=== PATIENT | female | born 1970 | race Two or more races ===

== ENCOUNTER 2020-04-30 13:13 | Outpatient (REF) | payer OTHER, SELFPAY | END 2020-04-30 13:14 | disposition home or self-care (01) | LOC: HO.LAB 13:13 | PROVIDERS: Visit Provider Internal Medicine | DX: Z20.828 Contact with and (suspected) exposure to other viral communicable diseases (principal) | CPT/HCPCS: C9803; U0003 ==

== ENCOUNTER 2020-10-15 23:38 | Emergency (ER) | payer MEDICAID, SELFPAY ==
--- NOTE | ~2020-10-15 | XR_ITS ---
EXAMINATION: XR FOOT, LEFT CLINICAL INFORMATION: Ecchymotic left great toe COMPARISON: None TECHNIQUE: AP, lateral, and oblique views of the left foot. FINDINGS: Osseous alignment is anatomic. No acute fracture is seen. No significant focal soft tissue abnormality identified. XR/XR foot LT min 3V IMPRESSION: No acute findings identified.
[2020-10-16 01:01] VITALS: BP 131/75; PULSE 120; RESP 18; TEMP 36.3; O2SAT 99; BMI 64.2
--- NOTE | 2020-10-16 03:17 | PC.NURSE ---
pt reports she spent 1 month in the ICU on a ventilator DX with covid, while in [place]. Providers aware of discoloration on left great toe.
--- NOTE | 2020-10-16 03:28 | PC.NURSE ---
PT ALSO ON 2 LPM 02 AT HOME, FOLLOWING DISCHARGE FROM HOSPITAL LAST WEEK.
--- NOTE | 2020-10-16 03:43 | ED.GENADULT ---
HPI - General Adult General Chief complaint: General Medical Stated complaint: toe injury - covid + in august Time Seen by Provider: 10/16/20 03:43 Source: patient and family Mode of arrival: ambulatory History of Present Illness HPI narrative: This is a 49-year-old female with significant past medical history of diabetes as well as having undergone an extensive and prolonged recovery from COVID-19 positivity in the month of August down in [place]. During the month of her recovery and [place] she was in the ICU and had requirements for a ventilator. Her family member, who is at bedside, states that they just returned to the [place] yesterday and she was concerned regarding the appearance of her the left great toe which is bluish in color and is very painful to touch. The family member does state that this discoloration was present at the time of discharge from the hospital. In addition, she points out that there is evidence of an ulcer to the lateral aspect of the left heel. Otherwise, there are no acute complaints other than noted that her mother appeared to be ?sweating?. Patient denies any fevers, chills, nausea, vomiting, changes in shortness of breath, calf pain/swelling. Related Data Allergies Allergy/AdvReac Type Severity Reaction Status Date / Time No Known Allergies Allergy Unverified 02/13/20 16:29 Review of Systems Review of Systems: Pertinent positives and negatives as stated in HPI 10 point review of systems is otherwise negative. PMFSH Past Medical History Source: nursing notes reviewed Social History Social History Advance Directives: No Advance Directives Information Provided: No Patient : No Physical Exam Vital Signs: Vital Signs: Last Vital Signs Temp 97.3 F 10/16/20 01:01 Pulse 111 H 10/16/20 04:04 Resp 16 10/16/20 04:04 BP 129/68 10/16/20 04:04 Pulse Ox 99 10/16/20 01:01 Oxygen Flow Rate 2 10/16/20 01:01 Body Mass Index 64.2 VITAL SIGNS: Reviewed. GENERAL: Well developed, well nourished, in no acute distress. HEAD: Normocephalic/atraumatic, EYES: PERRLA, EOMI EARS: Ext canals without abnormality NOSE: Nares patent bilateral OROPHARYNX: no oral lesions noted, posterior pharynx clear NECK: Supple, no adenopathy LUNGS: Normal breath sounds. No adventitious sounds or accessory muscle use. SpO2<99> patient is on supplemental oxygen from home at 2L CARDIOVASCULAR: Regular rate and rhythm without noted murmurs, no JVD or lower extremity edema. ABDOMEN: Soft, non-tender, non-distended with bowel sounds. LEFT FOOT: The left great toe is noted to be bluish in color, severe pain on touching, as well as a well-healing area on the lateral left heel which was likely a pressure ulcer, capillary refill is less than 3 seconds, palpable DP/PT. NEUROLOGIC: Alert and oriented x 4. Course Course Course Narrative: This is a 49-year-old female with history and clinical presentation consistent with continued recovery from severe COVID-19 infection. As patient is not on anticoagulation concerns for HIT not considered, but possibility of a spectrum of ?COVID-19 toes? a consideration. The toe does not appear to be infected. Review of all investigations significant for a decrease in hemoglobin from 14.2 down to 8.6, however this is felt to be secondary to patient's recovery course from COVID-19 as there has been no evidence of bleeding. On further discussion with the family member she corroborates that the patient has been having this in [place] during her admission as well. Otherwise, patient has remained hemodynamically stable and review of x-rays negative for fracture, dislocation, evidence of subcutaneous air. Discussed all results and findings with patient and family member and stressed the importance of outpatient follow-up with the primary care provider to monitor the left great toe as well as the heel of the left foot. Medical Decision Making Lab Data Result diagrams: 10/16/20 04:16 10/16/20 04:16 Labs: Lab Results 10/16/20 10/16/20 10/16/20 Range/Units 04:09 04:16 04:16 WBC 5.0 (4.8-10.8) X10*3/uL RBC 2.94 L (4.20-5.50) X10*6/uL Hgb 8.6 L (12.0-16.0) g/dl Hct 26.9 L (37-47) % MCV 91.5 (80-98) fL MCH 29.3 (27.0-33.0) pg MCHC 32.0 (31.0-35.0) g/dl RDW 15.3 (11.0-16.0) % Plt Count 246 (160-400) X10*3/uL MPV 10.6 (9.4-12.3) fL Immature Gran % (Auto) 2.0 H (0.0-0.4) % Neut % (Auto) 56.9 (45-73) % Lymph % (Auto) 28.5 (20-40) % Bledsoe % (Auto) 9.6 (2-11) % Eos % (Auto) 3.0 (0-4) % Baso % (Auto) 0.0 (0-2) % Lymph # (Auto) 1.4 (1.2-4.9) X10*3/uL Bledsoe # (Auto) 0.5 (0.1-1.2) X10*3/uL Eos # (Auto) 0.2 (0.0-0.4) X10*3/uL Baso # (Auto) 0.0 (0.0-0.2) X10*3/uL Abs Immat Gran (auto) 0.10 H (0.00-0.03) X10*3/uL Absolute Neuts (auto) 2.8 (2.0-8.3) X10*3/uL Absolute Nucleated RBC 0.000 (0.0-0.012) X10*3/uL Nucleated RBC % (auto) 0.0 (0.0-0.2) /100WBC Sodium 140 (135-145) mmol/L Potassium 3.8 (3.3-5.1) mmol/L Chloride 100 (96-108) mmol/L Carbon Dioxide 31 H (22-29) mmol/L Anion Gap 13 (12-20) BUN 18 H (9-16) mg/dL Creatinine 0.58 (0.5-1.4) mg/dL Estim Creat Clear Calc 197.2 Estimated GFR > 60 POC Glucose 183 H (60-115) mg/dL Random Glucose 207 H (60-115) mg/dL Calcium 9.4 (8.4-10.2) mg/dL Total Bilirubin 0.2 (0.0-1.0) mg/dL AST 14 (5-31) U/L ALT 25 (0-31) U/L Alkaline Phosphatase 119 H (39-117) U/L Total Protein 5.9 L (6.5-8.0) g/dL Albumin 3.7 (3.5-5.0) g/dL Discharge Plan Discharge Clinical Impression: COVID toes Patient Disposition: Home, Self-Care Instructions: COVID-19 (Coronavirus Disease 2019) (ED) Additional Instructions: 1. Reanude todos los medicamentos caseros seg?n lo prescrito. 2. Aumente la hidrataci?n de l?quidos con agua y Gatorade sin az?car. 3. Kota un seguimiento con cash proveedor de atenci?n primaria hoy mismo. Regrese a la lamonte de emergencias si desarrolla alg?n s?ntoma que empeora. Referrals: Isabel Ramsay MD [Primary Care Provider] - 2 days (Re-evaluation after patient seen in the ER for discoloration of the left great toe. No evidence of fracture or dislocation, but as patient is diabetic this toe will need to be monitored.) Print Language: Japanese
[2020-10-16 04:04] VITALS: BP 129/68; PULSE 111; RESP 16
[2020-10-16 04:20] LABS: Glucose, Whole Blood 183 mg/dL (60-115)
[2020-10-16 04:21] LABS: Eosinophils Absolute Auto 0.2 X10*3/uL (0.0-0.4); Hematocrit 26.9 % (37-47); Hemoglobin 8.6 g/dl (12.0-16.0); Lymphocytes Absolute Auto 1.4 X10*3/uL (1.2-4.9); Lymphocytes Percent Auto 28.5 % (20-40); Mean Corpuscular Hemoglobin 29.3 pg (27.0-33.0); Mean Corpuscular Volume 91.5 fL (80-98); Mean Platelet Volume 10.6 fL (9.4-12.3); Monocytes Absolute Auto 0.5 X10*3/uL (0.1-1.2); Monocytes Percent Auto 9.6 % (2-11); Neutrophils Absolute Auto 2.8 X10*3/uL (2.0-8.3); Neutrophils Percent Auto 56.9 % (45-73); Platelet Count 246 X10*3/uL (160-400); Red Blood Count 2.94 X10*6/uL (4.20-5.50); Red Cell Distribution Width 15.3 % (11.0-16.0)
[2020-10-16 04:22] LABS: MANUAL DIFF FLAG NO
[2020-10-16] MEDS: Ibuprofen 400 MG TABLET PO (04:26)
[2020-10-16] MEDS: Acetaminophen 325 MG TABLET 975 MG PO (04:27)
[2020-10-16 04:49] LABS: Alanine Aminotransferase 25 U/L (0-31); Albumin Level 3.7 g/dL (3.5-5.0); Alkaline Phosphatase 119 U/L (39-117); Anion Gap 13 (12-20); Aspartate Amino Transferase 14 U/L (5-31); Bilirubin Total 0.2 mg/dL (0.0-1.0); Blood Urea Nitrogen 18 mg/dL (9-16); Calcium 9.4 mg/dL (8.4-10.2); Carbon Dioxide 31 mmol/L (22-29); Chloride 100 mmol/L (96-108); Creatinine Clr Calc Pharmacy 197.2; Estimated Glomerular Filt Rate > 60; Glucose Random 207 mg/dL (60-115); Potassium 3.8 mmol/L (3.3-5.1); Sodium 140 mmol/L (135-145); Total Protein 5.9 g/dL (6.5-8.0)
== END 2020-10-16 06:30 | disposition home or self-care (01) ==
PROVIDERS: Emergency Provider Student in an Organized Health Care Education/Training Program; PCP Internal Medicine
DX: B94.8 Sequelae of other specified infectious and parasitic diseases (principal); M79.674 Pain in right toe(s)
CPT/HCPCS: 36415; 73630; 80053; 82947; 85025; 99283; 99284

== ENCOUNTER 2020-10-27 11:33 | Outpatient (REF) | payer MEDICAID, SELFPAY ==
--- NOTE | ~2020-10-27 | XR_ITS ---
EXAMINATION: XR CHEST CLINICAL INFORMATION: Toxemia COMPARISON: Chest 12/30/2017 TECHNIQUE: 2 views of the chest were obtained. FINDINGS: There is persistently limited left hemidiaphragm with moderate opacity in the left upper lobe suggestive of atelectasis and/or infiltrate. There is patchy atelectasis infiltrate right upper lobe and right lower lobe. The heart size is enlarged. Pulmonary vascularity is normal. XR/XR chest 2V IMPRESSION: Multilobar patchy infiltrates involving left upper lobe, right upper lobe and right lower lobe. Underlying atelectasis is suspected as well. Moderately elevated left hemidiaphragm is unchanged since 12/30/2017.
== END 2020-10-27 11:34 | disposition home or self-care (01) ==
LOC: HO.XRAY 11:33
PROVIDERS: PCP Internal Medicine; Visit Provider Internal Medicine
DX: R06.00 Dyspnea, unspecified (principal); R09.02 Hypoxemia; B94.8 Sequelae of other specified infectious and parasitic diseases; G62.9 Polyneuropathy, unspecified; D64.9 Anemia, unspecified; E11.9 Type 2 diabetes mellitus without complications; I99.8 Other disorder of circulatory system; Z79.82 Long term (current) use of aspirin; Z79.84 Long term (current) use of oral hypoglycemic drugs; Z79.899 Other long term (current) drug therapy; Z99.81 Dependence on supplemental oxygen
CPT/HCPCS: 71046; 99202

== ENCOUNTER 2020-10-29 16:25 | Outpatient (REF) | payer MEDICAID, SELFPAY ==
--- NOTE | ~2020-10-29 | XR_ITS ---
EXAMINATION: XR FOOT, LEFT CLINICAL INFORMATION: Left toe pain. COMPARISON: Left foot radiographs dated 10/16/2020. TECHNIQUE: AP, lateral, and oblique views of the left foot. FINDINGS: No acute fracture or dislocation. No joint space narrowing or marginal osteophytes. No osseous erosion. No abnormal soft tissue calcification. XR/XR foot LT min 3V IMPRESSION: Unremarkable examination.
== END 2020-10-29 16:26 | disposition home or self-care (01) ==
LOC: HO.XRAY 16:25
PROVIDERS: PCP Internal Medicine; Visit Provider Internal Medicine
DX: M79.675 Pain in left toe(s) (principal)
CPT/HCPCS: 73630

== ENCOUNTER 2020-11-06 08:09 | Outpatient (RCR) | payer MEDICAID, SELFPAY | END 2020-11-09 16:25 | disposition home or self-care (01) | LOC: HO.WCC 08:09 | PROVIDERS: Visit Provider Physician Assistant | DX: E11.628 Type 2 diabetes mellitus with other skin complications (principal); L84 Corns and callosities; Z86.16 Personal history of COVID-19; Z99.81 Dependence on supplemental oxygen | CPT/HCPCS: 99212 ==

== ENCOUNTER 2020-11-11 12:53 | Outpatient (REF) | payer MEDICAID, SELFPAY ==
--- NOTE | 2020-11-11 14:06 | PFT_ITS ---
INDICATION: Post-COVID syndrome. SPIROMETRY: FEV1 to FVC of 91% with an FEV1 of 1.03 L, which is 34% predicted, an FVC of 1.13 L, which is 30% predicted. No significant response to bronchodilators noted. Maximum voluntary ventilation 50% predicted. LUNG VOLUMES: Total lung capacity 42% predicted with an expiratory reserve volume of 12% predicted likely secondary to an elevated BMI. DIFFUSION CAPACITY: DLCO 33% predicted. COMPARISONS: None available. INTERPRETATION: There is a severe restrictive ventilatory defect suggesting the possibility of underlying parenchymal lung disease after COVID. In addition to that, there is a severe decrease in the expiratory reserve volume likely secondary to an elevated BMI. No evidence of obstruction. No significant response to bronchodilators noted. There is a decrease in maximum voluntary ventilation secondary to likely deconditioning, although neuromuscular conditions cannot be ruled out. In addition to that, the patient does have a severe diffusion impairment. Of note, it does correct to normal when correcting for the alveolar volume, which is reassuring. Clinical correlation warranted. MD EUN Rojas/MODCelia / [id number]
== END 2020-11-11 12:54 | disposition home or self-care (01) ==
LOC: HO.RESP 12:53
PROVIDERS: PCP Internal Medicine; Visit Provider Internal Medicine
DX: R06.00 Dyspnea, unspecified (principal); R09.02 Hypoxemia; B94.8 Sequelae of other specified infectious and parasitic diseases
CPT/HCPCS: 94060; 94727; 94729; 99212

== ENCOUNTER → 2021-01-06 13:46 | Outpatient (BNVA) | payer MEDICAID, SELFPAY | PROVIDERS: PCP Internal Medicine; Visit Provider Internal Medicine | DX: J98.4 Other disorders of lung (principal); R09.02 Hypoxemia; R06.00 Dyspnea, unspecified; B94.8 Sequelae of other specified infectious and parasitic diseases | CPT/HCPCS: 99212 ==

== ENCOUNTER → 2021-05-03 10:00 | Outpatient (BNVA) | payer MEDICAID, SELFPAY | PROVIDERS: PCP Internal Medicine; Visit Provider Internal Medicine | DX: J98.4 Other disorders of lung (principal); R06.00 Dyspnea, unspecified; R09.02 Hypoxemia; R00.0 Tachycardia, unspecified | CPT/HCPCS: 99212 ==

== ENCOUNTER 2021-06-11 10:55 | Outpatient (REF) | payer MEDICAID, SELFPAY ==
--- NOTE | ~2021-06-11 | XR_ITS ---
EXAMINATION: XR SHOULDER, LEFT CLINICAL INFORMATION: Left shoulder pain COMPARISON: Previous chest x-ray October 2020 TECHNIQUE: Three views of the left shoulder. FINDINGS: The bones and soft tissues are normal. No fracture. Glenohumeral and acromioclavicular alignment is anatomic with normal joint space. No abnormal soft tissue calcifications. The left hemidiaphragm is elevated. There is atelectasis or scarring in the left lung. This may be slightly improved compared to October 2020 exam. XR/XR shoulder LT min 2V IMPRESSION: Normal left shoulder.
== END 2021-06-11 10:56 | disposition home or self-care (01) ==
LOC: HO.XRAY 10:55
PROVIDERS: Visit Provider Registered Nurse Community Health
DX: M25.512 Pain in left shoulder (principal)
CPT/HCPCS: 73030

== ENCOUNTER 2021-07-30 15:29 | Outpatient (REF) | payer MEDICAID, SELFPAY ==
--- NOTE | ~2021-07-30 | MM_ITS ---
EXAMINATION: MM SCREENING DIGITAL BREAST TOMOSYNTHESIS, BILATERAL CLINICAL INFORMATION: Screening. Asymptomatic. The lifetime risk of breast cancer based on the Tyrer-Cuzick Model is 6%. COMPARISON: Mammography: 12/10/2018, 06/11/2018, 1 11/02/2018, 07/19/2016, 06/16/2015; left breast ultrasound 12/10/2018, 06/11/2018 TECHNIQUE: Digital breast tomosynthesis is performed in both the craniocaudal and mediolateral oblique views along with computer-aided detection (CAD). Synthesized 2D images are generated from the tomosynthesis. FINDINGS: There are scattered areas of fibroglandular density (ACR BI-RADS breast composition Category b). Parenchymal pattern is similar to prior studies. The left breast has stable 5 mm nodule central breast mid depth. The right breast has small nodular asymmetry central anterior breast, decreased since 2019. There is no interval significant mass or architectural abnormality or developing density. No abnormal calcifications. The axilla and skin contours are unremarkable. MM/MM tomosynthesis screening BI IMPRESSION: No significant changes from prior exams. ASSESSMENT: BI-RADS 2: Benign RECOMMENDATION: Routine annual mammography screening. This patient's information was entered into a reminder system with a target due date for their next mammogram.
== END 2021-07-30 15:30 | disposition home or self-care (01) ==
LOC: HO.MAMMO 15:29
PROVIDERS: Visit Provider Internal Medicine
DX: Z12.31 Encounter for screening mammogram for malignant neoplasm of breast (principal)
CPT/HCPCS: 77063; 77067

== ENCOUNTER → 2021-08-18 10:40 | Outpatient (BNVA) | payer MEDICAID, SELFPAY | PROVIDERS: PCP Internal Medicine; Visit Provider Anesthesiology | DX: R22.30 Localized swelling, mass and lump, unspecified upper limb (principal) | CPT/HCPCS: 99202 ==

== ENCOUNTER 2021-08-31 07:54 | Outpatient (REF) | payer MEDICAID, SELFPAY ==
--- NOTE | ~2021-08-31 | US_ITS ---
EXAMINATION: ULTRASOUND EXTREMITY NONVASCULAR CLINICAL INFORMATION: Localized swelling, mass and lump COMPARISON: None TECHNIQUE: Grayscale and color imaging of the soft tissues of the left upper arm using a linear transducer. Comparison imaging of the right upper arm was performed. FINDINGS: No mass or fluid collection is seen. US/US extremity nonvascular IMPRESSION: No abnormality seen by ultrasound.
--- NOTE | ~2021-08-31 | US_ITS ---
EXAMINATION: US ABDOMEN COMPLETE CLINICAL INFORMATION: Fatty liver. COMPARISON: CT abdomen and pelvis 08/07/2019. Ultrasound abdomen complete 05/06/2011. TECHNIQUE: Real-time imaging of the abdominal viscera. FINDINGS: PANCREAS: The pancreas is obscured by overlying gas. ABDOMINAL AORTA: The proximal, mid, and distal segments are normal in caliber. INFERIOR VENA CAVA: Visualized portions are normal. LIVER: The liver is normal in size. The liver contour is normal. There is diffuse increased liver echogenicity. No focal hepatic lesion. There is no intrahepatic biliary duct dilatation seen. GALLBLADDER: Surgically absent. COMMON BILE DUCT: Normal in caliber measuring 0.4 cm in diameter. RIGHT KIDNEY: Normal. No hydronephrosis. No renal calculi or focal parenchymal lesions. The kidney measures 11.9 cm in maximum dimension. LEFT KIDNEY: There is anechoic cyst midpole measuring 1.9 x 1.7 x 2.1 cm. There is an echogenic stone in the midpole measuring 0.54 x 0.42 x 0.51 cm. No hydronephrosis. The kidney measures 11.0 cm in maximum dimension. SPLEEN: Normal. The spleen measures 12.5 cm in maximum dimension. FREE FLUID: None. US/US abdomen complete IMPRESSION: Diffuse hepatic steatosis without focal lesion seen. Left renal nonobstructive echogenic stone measuring 5 mm and a 2.1 cm cyst midpole. A 2 mm radiopaque calculi was seen in the midpole left kidney on previous CT abdomen and pelvis exam 08/07/2019. Rest of the abdominal ultrasound is unremarkable.
== END 2021-08-31 07:55 | disposition home or self-care (01) ==
LOC: HO.US 07:54
PROVIDERS: Visit Provider Internal Medicine
DX: R22.30 Localized swelling, mass and lump, unspecified upper limb (principal); K76.0 Fatty (change of) liver, not elsewhere classified
CPT/HCPCS: 76700; 76882

== ENCOUNTER → 2021-10-27 10:32 | Outpatient (BNVA) | payer MEDICAID, SELFPAY | PROVIDERS: PCP Internal Medicine; Visit Provider Internal Medicine | DX: J98.4 Other disorders of lung (principal); J45.909 Unspecified asthma, uncomplicated; R06.00 Dyspnea, unspecified | CPT/HCPCS: 99212 ==

== ENCOUNTER 2022-03-10 08:49 | Outpatient (REF) | payer MEDICAID, SELFPAY ==
--- NOTE | ~2022-03-10 | MM_ITS ---
EXAMINATION: BONE DENSITOMETRY CLINICAL INDICATION: Menopause. COMPARISON: None (current study represents initial baseline exam). TECHNIQUE: Using a HomeTouch DXA System (software version: 13.1) manufactured by [employer], dual-energy x-ray absorptiometry was performed of the lumbar spine and left hip. The images are of good technical quality. Summary results are attached. FINDINGS: AP SPINE L1-L4: BMD 1.078 g/cm2, Z-score -1.1, T-score -0.8, normal. LEFT FEMUR, NECK: BMD 0.676 g/cm2, Z-score -2.3, T-score -2.6, osteoporosis. LEFT FEMUR, TOTAL: BMD 0.694 g/cm2, Z-score -2.5, T-score -2.5, osteoporosis. IDENTIFIED RISK FACTORS: Early menopause, secondary osteoporosis, history of fracture (adult), hysterectomy, bilateral oophorectomy, recurrent falls. HISTORY OF FRACTURE: Wrist. MEDICATIONS: Calcium supplements or multivitamin, vitamin D. MM/XR DEXA axial skeleton IMPRESSION: 1. DIAGNOSIS: Osteoporosis based on the lowest T-score value of -2.6 in the femoral neck applying World Health Organization criteria. 2. 10-YEAR FRACTURE RISK PREDICTION, FRAX: According to the guidelines, FRAX calculation should only be performed on patients in the osteopenia bone density category. Therefore, FRAX was not performed on this patient. 3. Treatment Recommendations: NOF guidelines recommend consideration for treatment in postmenopausal women and men age 50 and older presenting with the following: -A hip or vertebral (clinical or morphometric) fracture. -T-score less than or equal to -2.5 at the femoral neck or spine after appropriate evaluation to exclude secondary causes. -Low bone mass at the hip or spine and a 10-year fracture probability by FRAX of greater than or equal to 3% for hip fracture or greater than or equal to 20% for major osteoporotic fracture based on the [place] adapted WHO algorithm. 4. Other Recommendations: All treatment decisions require clinical judgment and consideration of individual patient factors, including patient preferences, comorbidities, previous drug use, risk factors not captured in the FRAX model (e.g. frailty, falls, vitamin D deficiency, increased bone turnover, interval significant decline in bone density) and possible under or overestimation of fracture risk by FRAX. Additional medical evaluation for secondary cause of low bone mineral density may be appropriate. FUTURE SCAN RECOMMENDATION: People with diagnosed cases of osteoporosis or at high risk for fracture should have regular bone mineral density tests. For patients eligible for Medicare, routine testing is allowed once every 2 years. The testing frequency can be increased to one year for patients who have rapidly progressing disease, those who are receiving or discontinuing medical therapy to restore bone mass, or have additional risk factors.
== END 2022-03-10 08:50 | disposition home or self-care (01) ==
LOC: HO.MAMMO 08:49
PROVIDERS: PCP Internal Medicine; Visit Provider Advanced Practice Midwife
DX: Z13.820 Encounter for screening for osteoporosis (principal); N95.9 Unspecified menopausal and perimenopausal disorder; Z78.0 Asymptomatic menopausal state
CPT/HCPCS: 77080

== ENCOUNTER 2022-04-12 10:39 | Outpatient (REF) | payer MEDICAID, SELFPAY ==
[2022-04-12 13:59] LABS: MANUAL DIFF FLAG NO
[2022-04-12 14:15] LABS: Alanine Aminotransferase 21 U/L (0-31); Albumin Level 4.5 g/dL (3.5-5.0); Alkaline Phosphatase 125 U/L (39-117); Anion Gap 18 (12-20); Aspartate Amino Transferase 23 U/L (5-31); Bilirubin Total 0.3 mg/dL (0.0-1.0); Blood Urea Nitrogen 21 mg/dL (9-16); Calcium 9.9 mg/dL (8.4-10.2); Carbon Dioxide 31 mmol/L (22-29); Chloride 96 mmol/L (96-108); Estimated Glomerular Filt Rate > 60; Glucose Random 190 mg/dL (60-115); Sodium 141 mmol/L (135-145); Total Protein 7.7 g/dL (6.5-8.0)
[2022-04-12 14:16] LABS: Basophils Percent Auto 0.3 % (0-2); Eosinophils Absolute Auto 0.1 X10*3/uL (0.0-0.4); Eosinophils Percent Auto 1.1 % (0-4); Hematocrit 41.4 % (37.0-47.0); Hemoglobin 13.3 g/dl (12.0-16.0); Imm Gran Abs Auto 0.07 X10*3/uL (0.00-0.03); Imm Gran Pct Auto 0.6 % (0.0-0.4); Lymphocytes Absolute Auto 2.6 X10*3/uL (1.2-4.9); Lymphocytes Percent Auto 20.5 % (20-40); Mean Corpuscular HGB Conc 32.1 g/dl (31.0-35.0); Mean Corpuscular Hemoglobin 28.8 pg (27.0-33.0); Mean Corpuscular Volume 89.6 fL (80.0-98.0); Mean Platelet Volume 11.3 fL (9.4-12.3); Monocytes Absolute Auto 0.4 X10*3/uL (0.1-1.2); Monocytes Percent Auto 3.5 % (2-11); Neutrophils Absolute Auto 9.3 x10*3/uL (2.0-8.3); Platelet Count 308 X10*3/uL (160-400); Red Blood Count 4.62 X10*6/uL (4.20-5.50); Red Cell Distribution Width 12.7 % (11.0-16.0); White Blood Count 12.5 X10*3/uL (4.8-10.8)
[2022-04-12 14:24] LABS: Estimated Average Glucose 232 mg/dL; Hemoglobin A1c % 9.7 %
== END 2022-04-12 10:40 | disposition home or self-care (01) ==
LOC: HO.WFDLDS 10:39
PROVIDERS: Visit Provider Physician Assistant
DX: K58.9 Irritable bowel syndrome, unspecified (principal); K76.0 Fatty (change of) liver, not elsewhere classified; K21.9 Gastro-esophageal reflux disease without esophagitis; R10.32 Left lower quadrant pain; J98.4 Other disorders of lung; R09.02 Hypoxemia; R68.81 Early satiety; E11.9 Type 2 diabetes mellitus without complications; Z83.71 Family history of colonic polyps; Z79.899 Other long term (current) drug therapy
CPT/HCPCS: 36415; 80053; 83036; 85025; 99202

== ENCOUNTER → 2022-04-28 13:23 | Outpatient (BNVA) | payer MEDICAID, SELFPAY | PROVIDERS: PCP Internal Medicine; Visit Provider Internal Medicine Endocrinology, Diabetes & Metabolism | DX: M81.0 Age-related osteoporosis without current pathological fracture (principal) | CPT/HCPCS: 99202 ==

== ENCOUNTER → 2022-05-04 11:11 | Outpatient (BNVA) | payer MEDICAID, SELFPAY | PROVIDERS: PCP Internal Medicine; Visit Provider Internal Medicine | DX: J45.20 Mild intermittent asthma, uncomplicated (principal); J98.4 Other disorders of lung; R09.02 Hypoxemia | CPT/HCPCS: 99212 ==

== ENCOUNTER → 2022-07-07 07:18 | Outpatient (REF) | payer MEDICAID, SELFPAY ==
--- NOTE | ~2022-07-07 | NM_ITS ---
EXAMINATION: IN RADIONUCLIDE SOLID FOOD GASTRIC EMPTYING 4-HOUR STUDY CLINICAL INFORMATION: Early satiety. Diabetes. Bloating. COMPARISON: Previous gastric emptying study done on 03/19/2012. TECHNIQUE: A standard meal consisting of 4 oz of Egg Beaters brand tagged with 1000 microcuries Tc-99m Sulfur Colloid, 8 oz water and 2 slices of toast with jelly was administered orally to the patient. Images were obtained using a dual head gamma camera in the anterior and posterior projections over of the stomach immediately post ingestion and at hourly intervals up to 4 hours post ingestion. The anterior and posterior counts at each time interval were averaged using the geometric mean and expressed as percentage of the immediate post ingestion counts. FINDINGS: There is good visualization of activity in the stomach immediately post ingestion. As the study progresses, there is good clearance of activity from the stomach and visualization of progressively increasing small bowel activity. By the end of the study, there is almost no retention noted in the stomach. Retention in the stomach at each time interval was: 1 hour 52% (normal 37%-90%) 2 hours 12% (normal 30%-60%) 3 hours 8% 4 hours 4% (normal 0%-10%) IN/IN gastric emptying study IMPRESSION: Normal 4-hour solid food gastric emptying study. By report no significant change since prior study dated 03/19/2012.
[2022-07-07 09:34] LABS: Phosphorus 4.6 mg/dL (2.7-4.5)
== END ==
LOC: HO.NUCMED 07:18
PROVIDERS: Absent Provider Internal Medicine Endocrinology, Diabetes & Metabolism; PCP Internal Medicine; Visit Provider Physician Assistant
DX: M81.0 Age-related osteoporosis without current pathological fracture (principal)
CPT/HCPCS: 36415; 78264; 82306; 84100; A9541

== ENCOUNTER → 2022-09-14 13:54 | Outpatient (BNVA) | payer MEDICAID, SELFPAY | PROVIDERS: PCP Internal Medicine; Visit Provider Internal Medicine Endocrinology, Diabetes & Metabolism | DX: M81.0 Age-related osteoporosis without current pathological fracture (principal) | CPT/HCPCS: 99212 ==

== ENCOUNTER → 2022-11-02 10:57 | Outpatient (BNVA) | payer MEDICAID, SELFPAY | PROVIDERS: PCP Internal Medicine; Visit Provider Internal Medicine | DX: J45.20 Mild intermittent asthma, uncomplicated (principal) | CPT/HCPCS: 99212 ==

== ENCOUNTER 2022-11-23 | Outpatient (REF) | payer MEDICAID, SELFPAY | END 2022-11-23 00:01 | disposition home or self-care (01) | LOC: HO.LNP | PROVIDERS: Visit Provider Internal Medicine Endocrinology, Diabetes & Metabolism | DX: Z13.89 Encounter for screening for other disorder (principal) ==

== ENCOUNTER 2022-12-26 14:22 | Outpatient (REF) | payer MEDICAID, SELFPAY ==
--- NOTE | ~2022-12-26 | MM_ITS ---
EXAMINATION: MM SCREENING DIGITAL BREAST TOMOSYNTHESIS, BILATERAL CLINICAL INFORMATION: Screening. Asymptomatic. The lifetime risk of breast cancer based on the Tyrer-Cuzick Model is 6.0%. COMPARISON: Mammography: This study is compared with prior exams dating back to 2019. TECHNIQUE: Digital breast tomosynthesis is performed in both the craniocaudal and mediolateral oblique views along with computer-aided detection (CAD). Synthesized 2D images are generated from the tomosynthesis. FINDINGS: There are scattered areas of fibroglandular density (ACR BI-RADS breast composition Category b). There are no significant masses, abnormal calcifications, or other abnormalities. MM/MM tomosynthesis screening BI IMPRESSION: No mammographic evidence of malignancy. ASSESSMENT: BI-RADS BI-RADS 1 - Negative RECOMMENDATION: Routine annual mammography screening. 1 year F/U This examination should not preclude the clinical evaluation of a suspicious palpable abnormality. This patient's information was entered into a reminder system with a target due date for their next mammogram.
== END 2022-12-26 14:23 | disposition home or self-care (01) ==
LOC: HO.MAMMO 14:22
PROVIDERS: PCP Internal Medicine; Visit Provider Internal Medicine
DX: Z12.31 Encounter for screening mammogram for malignant neoplasm of breast (principal)
CPT/HCPCS: 77063; 77067

== ENCOUNTER → 2022-12-26 14:45 | Outpatient (BNV) | payer MEDICAID, SELFPAY | PROVIDERS: PCP Internal Medicine; Visit Provider Radiology Diagnostic Radiology | DX: Z12.31 Encounter for screening mammogram for malignant neoplasm of breast (principal) | CPT/HCPCS: 77063; 77067 ==

== ENCOUNTER 2023-01-12 13:12 | Outpatient (AMB) | payer MEDICAID, SELFPAY ==
[2023-01-12 13:28] VITALS: BP 142/88; PULSE 110; BMI 29.4
--- NOTE | 2023-01-12 13:28 | MHC.OFFVIS ---
Intake Vital Signs 01/12/23 13:28 Height 5 ft 6 in Weight 182 lb 1.629 oz BMI 29.4 BP 142/88 H Blood Pressure Location Lt brachial Position Sitting Pulse 110 H Pulse Source Pulse Oximeter Intake Visit Reasons: f/u osteoporosis Intake Note: Patient present for Osteoporosis follow up visit. Consulting Services Manager Required: Yes Consulting Services Manager Language: Yi Accompanied by: Daughter Allergies No Known Allergies Allergy (Verified 01/12/23 13:33) Medication List - Last Reconciled 01/12/23 by [place] Alejandro MD albuterol sulfate 90 mcg/actuation (ProAir HFA) 2 puffs inhalation Q6H PRN amlodipine 2.5 mg PO QAM ascorbic acid (vitamin C) 1,000 mg PO DAILY aspirin 81 mg PO DAILY baclofen 20 mg PO TID biotin 10,000 mcg PO DAILY cholecalciferol (vitamin D3) 50 mcg PO DAILY diclofenac sodium 75 mg PO BID dulaglutide (Trulicity) 0.75 mg subcut QWEEK duloxetine 30 mg PO DAILY empagliflozin (Jardiance) 25 mg PO QAM fluticasone propion-salmeterol 115-21 mcg/actuation (Advair HFA) 2 puffs inhalation BID gabapentin 100 mg PO TID glipizide 5 mg PO DAILY losartan-hydrochlorothiazide 100-12.5 mg 1 tab PO DAILY magnesium 400 mg PO DAILY mecobalamin (vitamin B12) 5,000 mcg PO metformin 1,000 mg PO BID metoprolol succinate ER 25 mg PO DAILY ondansetron HCl 8 mg PO BID pantoprazole 20 mg PO BID sertraline 25 mg PO QAM zinc acetate 50 mg PO DAILY HPI HPI Comments History of Present Illness Details 51 YO F with is seen in consultation at the request of PCP for Osteoporosis. First diagnosed in not before . Not Received treatment in the past . No history of pathologic fracture or ONJ.Had wrist fx in 2 yrs ago . fell down stairs Has several servings of dietary calcium per day Not Takes Calcium supplement Takes 2000 IU of Vitamin D daily. Denies ever using PPI, anticoagulant, antiepileptic or glucocorticoid medication only for asthma exacerbation. 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 UTD on dental cleanings and sees dentist every 6 months. No planned upcoming dental work or extractions. Gets hot flashes . Not hx of DVT. Family hx of maternal aunt has breast cancer DXA dated 03/10/22:FINDINGS: AP SPINE L1-L4: BMD 1.078 g/cm2, Z-score -1.1, T-score -0.8, normal. LEFT FEMUR, NECK: BMD 0.676 g/cm2, Z-score -2.3, T-score -2.6, osteoporosis. LEFT FEMUR, TOTAL: BMD 0.694 g/cm2, Z-score -2.5, T-score -2.5, osteoporosis. IDENTIFIED RISK FACTORS: Early menopause, secondary osteoporosis, history of fracture (adult), hysterectomy, bilateral oophorectomy, recurrent falls. HISTORY OF FRACTURE: Wrist. MEDICATIONS: Calcium supplements or multivitamin, vitamin D. MM/XR DEXA axial skeleton IMPRESSION: 1. DIAGNOSIS: Osteoporosis based on the lowest T-score value of -2.6 in the femoral neck applying World Health Organization criteria.? ? Labs: Secondary workup was negative [facility] Medical History (Updated 11/02/22 @ 11:48 by Liseth Thomas MD) Allergic rhinitis Arm mass Asthma Dyspnea Hypoxemia Osteoporosis Post-COVID syndrome Restrictive lung disease Tachycardia determined by examination of pulse Surgical History Hx of heart artery stent Family History Maternal Uncle Colon cancer Paternal Grandfather Colon cancer Mother Colon polyps Social History Household Members: Family Alcohol intake: never Patient Tobacco Use Status: Never used Tobacco Current occupational status: disabled Physical Exam Vital Signs: Last Vital Signs Pulse 110 H 01/12/23 13:28 BP 142/88 H 01/12/23 13:28 BMI result Body Mass Index 29.4 Assessment & Plan Assessment & Plan (1) Osteoporosis: Code(s): M81.0 - Age-related osteoporosis without current pathological fracture Plan: This is a 52-year-old female with a history of osteoporosis. Secondary workup was negative. There is a history of fragility wrist fracture. Evista is contraindicated because of previous DVT. Estrogen therapy is contraindicated because of family history of breast cancer After careful discussion with the patient, it was decided to start alendronate 70 mg q.week. Patient was instructed how to take the alendronate including with glass of water not to lie down for 30-60 minutes or eat after taking alendronate.. Side effects of alendronate were discussed including but not limited to atypical femur fracture and osteonecrosis of the jaw Medications: New alendronate 70 mg PO QWEEK 5 tabs 3RF Coding Level of Care Code Est Pt Level 3 (27653) Diagnoses Osteoporosis M81.0
== END 2023-01-12 14:23 | disposition home or self-care (01) ==
PROVIDERS: PCP Internal Medicine; Visit Provider Internal Medicine Endocrinology, Diabetes & Metabolism
DX: M81.0 Age-related osteoporosis without current pathological fracture (principal)
CPT/HCPCS: 99213

== ENCOUNTER → 2023-01-12 13:12 | Outpatient (BNVA) | payer MEDICAID, SELFPAY | PROVIDERS: Visit Provider Internal Medicine Endocrinology, Diabetes & Metabolism | DX: M81.0 Age-related osteoporosis without current pathological fracture (principal) | CPT/HCPCS: 99212 ==

== ENCOUNTER 2023-03-16 08:20 | Outpatient (REF) | payer MEDICAID, SELFPAY ==
[2023-03-16 11:17] LABS: MANUAL DIFF FLAG NO
[2023-03-16 11:32] LABS: Basophils Absolute Auto 0.1 X10*3/uL (0.0-0.2); Basophils Percent Auto 0.4 % (0-2); Eosinophils Absolute Auto 0.1 X10*3/uL (0.0-0.4); Eosinophils Percent Auto 1.2 % (0-4); Hematocrit 43.6 % (37.0-47.0); Hemoglobin 13.7 g/dl (12.0-16.0); Imm Gran Abs Auto 0.04 X10*3/uL (0.00-0.03); Imm Gran Pct Auto 0.4 % (0.0-0.4); Lymphocytes Absolute Auto 2.6 X10*3/uL (1.2-4.9); Mean Corpuscular HGB Conc 31.4 g/dl (31.0-35.0); Mean Corpuscular Hemoglobin 28.8 pg (27.0-33.0); Mean Corpuscular Volume 91.8 fL (80.0-98.0); Mean Platelet Volume 11.7 fL (9.4-12.3); Monocytes Absolute Auto 0.5 X10*3/uL (0.1-1.2); Monocytes Percent Auto 4.7 % (2-11); Neutrophils Percent Auto 70.3 % (45-73); Platelet Count 333 X10*3/uL (160-400); Red Blood Count 4.75 X10*6/uL (4.20-5.50); Red Cell Distribution Width 12.8 % (11.0-16.0); White Blood Count 11.3 X10*3/uL (4.8-10.8)
[2023-03-16 12:09] LABS: Alanine Aminotransferase 28 U/L (0-31); Albumin Level 4.5 g/dL (3.5-5.0); Alkaline Phosphatase 132 U/L (39-117); Anion Gap 18 (12-20); Aspartate Amino Transferase 28 U/L (5-31); Bilirubin Direct 0.2 mg/dL (0.0-0.5); Bilirubin Total 0.5 mg/dL (0.0-1.0); Blood Urea Nitrogen 23 mg/dL (9-16); Calcium 10.2 mg/dL (8.4-10.2); Carbon Dioxide 30 mmol/L (22-29); Chloride 95 mmol/L (96-108); Cholesterol 158 mg/dL (<200); Estimated Glomerular Filt Rate > 60; Glucose Random 142 mg/dL (60-115); HDL Cholesterol 41 mg/dL (>40); LDL Cholesterol Calculated 72 mg/dL (<100); Potassium 3.6 mmol/L (3.3-5.1); Sodium 139 mmol/L (135-145); TSH reflex Free T4 2.19 uIU/mL (0.32-4.0); Total Protein 8.1 g/dL (6.5-8.0); Triglycerides 229 mg/dL (<150)
[2023-03-16 13:34] LABS: Creatinine Urine 123.94 mg/dL; Microalbum/Creatinine Ratio Ur 9.6 ug/mg cr (<30)
== END 2023-03-16 08:21 | disposition home or self-care (01) ==
LOC: HO.HHCL 08:20
PROVIDERS: Visit Provider Internal Medicine
DX: Z00.00 Encounter for general adult medical examination without abnormal findings (principal)
CPT/HCPCS: 36415; 80048; 80061; 80076; 82043; 82570; 84443; 85025

== ENCOUNTER → 2023-03-21 10:01 | Outpatient (BNVA) | payer MEDICAID, SELFPAY | PROVIDERS: PCP Internal Medicine; Visit Provider Internal Medicine | DX: R09.02 Hypoxemia (principal); R06.00 Dyspnea, unspecified; J98.4 Other disorders of lung; J30.9 Allergic rhinitis, unspecified; U09.9 Post COVID-19 condition, unspecified; B94.8 Sequelae of other specified infectious and parasitic diseases | CPT/HCPCS: 94618; 99212 ==

== ENCOUNTER 2023-03-21 10:53 | Outpatient (AMB) | payer MEDICAID, SELFPAY ==
[2023-03-21 10:58] VITALS: BP 130/90; PULSE 111; O2SAT 95; BMI 28.8
--- NOTE | 2023-03-21 10:58 | MHC.OFFVIS ---
Intake Vital Signs 03/21/23 10:58 Height 5 ft 6 in Weight 178 lb 9.191 oz BMI 28.8 BP 130/90 H Blood Pressure Location Lt brachial Position Sitting Pulse 111 H Pulse Oximetry (%) 95 Oxygen Delivery Method Room Air Intake Visit Reasons: Shortness of breath Intake Note: pt is here to qualify for oxygen, she does not have oxygen from here, she brought it from [place]. She performed 6 minute walk with E MARKETING SPECIALIST and qualified on 1 liter flow rate. See below Fishing Manager Required: No Allergies No Known Allergies Allergy (Verified 03/21/23 11:18) Medication List - Last Reconciled 03/21/23 by Liseth Thomas MD albuterol sulfate 90 mcg/actuation (ProAir HFA) 2 puffs inhalation Q6H PRN 30 days alendronate 70 mg PO QWEEK amlodipine 2.5 mg PO QAM ascorbic acid (vitamin C) 1,000 mg PO DAILY aspirin 81 mg PO DAILY baclofen 20 mg PO TID biotin 10,000 mcg PO DAILY cholecalciferol (vitamin D3) 50 mcg PO DAILY diclofenac sodium 75 mg PO BID dulaglutide (Trulicity) 0.75 mg subcut QWEEK duloxetine 30 mg PO DAILY empagliflozin (Jardiance) 25 mg PO QAM fluticasone propion-salmeterol 115-21 mcg/actuation (Advair HFA) 2 puffs inhalation BID gabapentin 100 mg PO TID glipizide 5 mg PO DAILY losartan-hydrochlorothiazide 100-12.5 mg 1 tab PO DAILY magnesium 400 mg PO DAILY mecobalamin (vitamin B12) 5,000 mcg PO metformin 1,000 mg PO BID metoprolol succinate ER 25 mg PO DAILY ondansetron HCl 8 mg PO BID pantoprazole 20 mg PO BID sertraline 25 mg PO QAM zinc acetate 50 mg PO DAILY Do you need a note to return to daycare/school/sports/work: No HPI Shortness of breath HPI Details This 52 years old female comes in today mainly to have 6 minutes walk to qualify for portable oxygen. She was checked for office visit at the same time She had COVID infection while in [place] about 2 and half years ago. And since then has been using O2 1-2 L/minute, with a POC device which she had but in [place]. She uses as needed especially when she goes outdoors, and off and on in the house when she feels more short of breath. Does not use O2 at night. Even before, she had COVID infection in [place] she had history of chronic cough and shortness of breath on exertion/bronchial asthma. And has been treated with Advair HFA 115-212 puffs b.i.d.. She has chronically elevated left hemidiaphragm, an on account of this she does have rather severe restrictive pulmonary disorder. At present she is doing well except for mild, intermittent cough and getting short of breath on exertion like going outdoors or climbing stairs. [facility] Medical History Allergic rhinitis Osteoporosis Asthma Arm mass Tachycardia determined by examination of pulse Restrictive lung disease Hypoxemia Dyspnea Post-COVID syndrome Surgical History Hx of heart artery stent Family History Maternal Uncle Colon cancer Paternal Grandfather Colon cancer Mother Colon polyps Social History Household Members: Family Alcohol intake: never Patient Tobacco Use Status: Never used Tobacco Current occupational status: disabled Review of Systems Const All systems reviewed & are unremarkable except as noted in HPI and below Eyes Reports no additional complaints ENT Reports no additional complaints Card Details: Left to all arm pain. Probably not cardiac. And she also tends to have fast heart rate, for which she is being checked by Cardiology. Resp Reports as per HPI GI Reports no additional complaints Reports no additional complaints Musc Reports other (Left all arm pain, after the COVID vaccine) Skin/Breast Reports system reviewed and no additional complaints, except as documented Neuro Reports no additional complaints Psych Reports no additional complaints Physical Exam Vital Signs: Last Vital Signs Pulse 111 H 03/21/23 10:58 BP 130/90 H 03/21/23 10:58 Pulse Ox 95 03/21/23 10:58 Oxygen Delivery Method Room Air 03/21/23 10:58 BMI result Body Mass Index 28.8 Const Other: Somewhat pale looking General: comfortable, no acute distress, alert and awake Orientation/consciousness: patient oriented x3 HEENT Head: Yes normal to inspection General nose exam: No nasal polyps present and No nasal discharge present Face and sinus: Yes sinuses nontender Mouth: oropharynx normal Throat: Yes posterior oropharynx normal Eyes General: appearance normal, both eyes and all related structures Neck Neck: Yes normal visual inspection, Yes no lymphadenopathy, Yes trachea midline and Yes no JVD Thyroid: Thyroid normal Chest Chest palpation & inspection: normal inspection of the chest, normal palpation of entire chest wall and no tenderness Resp Other: Percussion note resonant except for mild dullness over the left base. Breath sounds are decreased over the left lower lobe area. No wheezes or rhonchi are heard. Cardio Palpation: normal PMI Rate: regular rate and tachycardic Rhythm: regular rhythm Heart sounds: no gallops and no murmurs Peripheral pulses: Peripheral pulses 2+ throughout GI Palpation (GI): Soft to palpation, Tenderness to palpation present (GI), No hepatosplenomegaly present and Palpable mass present Auscultation: normal bowel sounds Back/Spine/Pelvis Thoracic/Lumbar Spine: thoracic and lumbar spine normal to inspection Skin General skin exam: no rashes or lesions noted Neuro General: patient oriented x3 and no focal motor deficits Cranial nerves: Yes CN's II-XII intact bilaterally Extrem General: Yes normal to inspection, Yes no clubbing, cyanosis or edema and Yes no calf tenderness Psych Appearance: grossly normal and well kempt Speech and movement: Normal speech and movement present Office Procedures 6 Minute Walk Time:: 10:30 SPO2 % at rest: 95 Pulse at rest: 111 SPO2 % during excercise: 88 Pulse during excercise: 130 SPO2 % after excercise: 98 Pulse after excercise: 118 Distance in yards walked: 120 Sonu Score: 6 Performance Observations:: Denice walked on level ground without assistance, she walked for 2 minutes before her SPO2 decreased to 88% on room air. O2 started at 1 lpm and with a brief rest her SPO2 recovered to 95%. She maintained her SPO2 95-98% on 1 lpm O2. [id number] - 6 Minute Walk Results Reviewed Results Reviewed: 6 MINUTES WALK TEST SHOWS THAT SHE DESATURATES ON WALKING, WHICH IS CORRECTED BY USING O2 1 L/MINUTE. SO SHE DOES QUALIFY FOR A PORTABLE UNIT. Assessment & Plan Assessment & Plan (1) Asthma: Comment: HAS MILD, INTERMITTENT BOUTS OF WHEEZING, TX : ADVAIR HFA 115-21 2 PUFFS BID HER ASTHMA IS MILD AND INTERMITTENT, SHE COULD DO OKAY WITHOUT USING ADVAIR. BUT SHE CONTINUE TO USE IT TWICE A DAY SHE FEELS MORE SECURE. PROAIR HFA 2 PUFFS Q 6 HOURS P.R.N. FOR COUGH OR WHEEZING. ALSO SHE TENDS TO GET COUGH AND WHEEZING IF SHE IS EXPOSED TO ANYBODY WITH PERFUME , ARE HOUSEHOLD SPRAYS ETC. Code(s): J45.909 - Unspecified asthma, uncomplicated (2) Allergic rhinitis: Comment: S MOSTLY HYPERSENSITIVITY TO CHEMICAL SPRAYS AND PERFUMES ETC.. SHE TRIES TO AVOID EXPOSURE AND STAYS AWAY FROM SUCH AGENTS. DOES NOT NEED TO USE ANTIHISTAMINIC CERNER NASAL SPRAY. Code(s): J30.9 - Allergic rhinitis, unspecified (3) Hypoxemia: Comment: SHE HAS SIGNIFICANT RESIDUAL V Q ABNORMALITIES, CAUSING EXERCISE INDUCED HYPOXEMIA. SHE IS ADVISED TO USE OXYGEN ONLY P.R.N. IF SHE FEELS VERY SHORT OF BREATH OR IF O2 SAT STAYS BELOW 90 % Code(s): R09.02 - Hypoxemia (4) Dyspnea: Comment: GETS SHORT OF BREATH ON MODERATE EXERTION, WHICH IS EXPECTED. ADVISED TO DO DEEP BREATHING EXERCISES WITH INCENTIVE SPIROMETRY 3 TIMES A DAY. TO USE O2 ,, ONLY PRN . Code(s): R06.00 - Dyspnea, unspecified (5) Post-COVID syndrome: Comment: TREATED FOR ACUTE COVID PNEUMONIA, WITH RESPIRATORY FAILURE, IN AUGUST 2020, NOW SEEMS TO HAVE RECOVERED . HAS SOME RESIDUAL FIBROTIC CHANGES IN THE LOWER LOBE AREAS PFT SHOWS A PATTERN OF SEVERE RESTRICTIVE PULMONARY DISORDER. FINDINGS ARE EXPLAINED TO THE PATIENT. AGAIN , DEEP BREATHING EXERCISES SHOULD HELP Code(s): B94.8 - Sequelae of other specified infectious and parasitic diseases (6) Restrictive lung disease: Comment: HAS SEVERE RESTRICTIVE PULMONARY DISORDER, PARTLY DUE TO HER CHRONIC ELEVATED LEFT HEMIDIAPHRAGM, AND AGGRAVATED BY COVID PNEUMONIA IN AUGUST 2020, WHICH HAS LEFT SOME RESIDUAL FIBROTIC CHANGES. SHE IS ADVISED TO DO DEEP BREATHING EXERCISES WITH INCENTIVE SPIROMETRY DEVICE DAILY. DO DEEP BREATHING 10 TIMES,, T.I.D., Code(s): J98.4 - Other disorders of lung Plan: PATIENT NEEDS A REPEAT CHEST X-RAY AND PULMONARY FUNCTION TEST ON HER NEXT VISIT Orders: Orders AMB 6 minute walk Today R09.02 - Hypoxemia Medications: Changed From albuterol sulfate 90 mcg/actuation (ProAir HFA) 2 puffs inhalation Q6H PRN shortness of breath or wheezing To albuterol sulfate 90 mcg/actuation (ProAir HFA) 2 puffs inhalation Q6H 30 days PRN 8.5 grams 3RF shortness of breath or wheezing Coding Level of Care Code Est Pt Level 3 (47824) Diagnoses Asthma J45.909 Allergic rhinitis J30.9 Hypoxemia R09.02 Dyspnea R06.00 Post-COVID syndrome B94.8 Restrictive lung disease J98.4 CPT Codes Coding ([id number])
[2023-03-21 11:04] VITALS: PULSE 111; O2SAT 95
== END 2023-03-21 11:15 | disposition home or self-care (01) ==
PROVIDERS: PCP Internal Medicine; Visit Provider Internal Medicine
DX: J45.909 Unspecified asthma, uncomplicated (principal); J30.9 Allergic rhinitis, unspecified; R09.02 Hypoxemia; R06.00 Dyspnea, unspecified; B94.8 Sequelae of other specified infectious and parasitic diseases; J98.4 Other disorders of lung
CPT/HCPCS: 94618; 99213

== ENCOUNTER 2023-05-23 11:04 | Outpatient (REF) | payer MEDICAID, SELFPAY ==
--- NOTE | 2023-05-23 11:38 | PFT_ITS ---
Indication: Asthma Spirometry [FEV1 to FVC 83%; FEV1 1.14 L which is 104% predicted; FVC 1.37 L which is 96% predicted. No significant response to bronchodilators noted. Maximum volume ventilation 39% predicted] Lung Volumes [Total lung capacity 39% predicted; residual volume 45% predicted; expiratory reserve volume 17% predicted] Diffusion Capacity [DLCO 53% predicted] Comparisons [None] Interpretation [A no obstructive ventilatory defects. No significant response to bronchodilators noted. This is severe decrease in the maximum voluntary ventilation secondary to likely deconditioning and also neuromuscular disease. 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 In addition to that there is a restrictive ventilatory defect consistent with severe restrictive lung disease. Likely secondary to the underlying neuromuscular disease although cannot rule out any underlying interstitial lung disease. The patient does have a moderate diffusion impairment that does correct to normal when corrected for the alveolar volume suggesting that is related to the hypo expansion due to the neuromuscular disease. Clinical correlation warranted.] MTDD
== END 2023-05-23 11:05 | disposition home or self-care (01) ==
LOC: HO.RESP 11:04
PROVIDERS: PCP Internal Medicine; Visit Provider Internal Medicine
DX: J45.909 Unspecified asthma, uncomplicated (principal); J98.4 Other disorders of lung; R06.00 Dyspnea, unspecified
CPT/HCPCS: 94010; 94727; 94729

== ENCOUNTER → 2023-05-23 11:38 | Outpatient (BNV) | payer MEDICAID, SELFPAY | PROVIDERS: PCP Internal Medicine; Visit Provider Hospitalist | DX: J45.909 Unspecified asthma, uncomplicated (principal) | CPT/HCPCS: 94060; 94727; 94729 ==

== ENCOUNTER 2023-05-24 20:30 | Emergency (ER) | payer MEDICAID, SELFPAY ==
--- NOTE | ~2023-05-24 | XR_ITS ---
EXAMINATION: XR CHEST CLINICAL INFORMATION: SOB. COMPARISON: Chest x-ray 10/27/2020 TECHNIQUE: 2 views of the chest were obtained. FINDINGS: There is significant elevation of left hemidiaphragm with left lower lobe atelectasis. Also visualized is bandlike atelectasis in left upper lobe similar to previous study. The right lung is expanded and clear. There is mild [id number]-va-[id number] midline shift. The heart size is normal. Pulmonary vascularity is normal. No gross bony abnormality seen. XR/XR chest 2V IMPRESSION: 1. Significant elevation of left hemidiaphragm with left lower lobe atelectasis. 2. Bandlike atelectasis left upper lobe is stable. 3. The right lung is expanded and clear. 4. Similar findings were seen on the previous exam 10/27/2020
[2023-05-24 20:37] VITALS: BP 126/81; PULSE 106; RESP 18; TEMP 37.2; O2SAT 100; BMI 31.3
--- NOTE | 2023-05-24 20:37 | ED_ITS ---
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 Related Data Home Medications Medication Instructions Recorded Confirmed aspirin 81 mg tablet,delayed 81 mg PO DAILY 10/27/20 04/28/22 release fluticasone propionate 115 2 puff inhalation BID 10/27/20 04/28/22 mcg-salmeterol 21 mcg/actuation HFA inhaler (Advair HFA) glipizide 5 mg tablet 5 mg PO DAILY 10/27/20 04/28/22 metformin 1,000 mg tablet 1,000 mg PO BID 10/27/20 04/28/22 cholecalciferol (vitamin D3) 50 50 mcg PO DAILY 08/18/21 04/28/22 mcg (2,000 unit) tablet diclofenac sodium 75 mg 75 mg PO BID 08/18/21 04/28/22 tablet,delayed release duloxetine 30 mg capsule,delayed 30 mg PO DAILY 08/18/21 04/28/22 release metoprolol succinate 25 mg 25 mg PO DAILY 08/18/21 04/28/22 tablet,extended release 24 hr ondansetron HCl 4 mg tablet 8 mg PO BID 08/18/21 04/28/22 ascorbic acid (vitamin C) 500 mg 1,000 mg PO DAILY 10/27/21 04/28/22 capsule baclofen 20 mg tablet 20 mg PO TID 10/27/21 04/28/22 biotin 10,000 mcg capsule 10,000 mcg PO DAILY 10/27/21 04/28/22 gabapentin 100 mg capsule 100 mg PO TID 10/27/21 04/28/22 losartan 100 1 tab PO DAILY 10/27/21 04/28/22 mg-hydrochlorothiazide 12.5 mg tablet magnesium 200 mg tablet 400 mg PO DAILY 10/27/21 04/28/22 mecobalamin (vitamin B12) 5,000 5,000 mcg PO 10/27/21 04/28/22 mcg disintegrating tablet zinc acetate 50 mg (zinc) capsule 50 mg PO DAILY 10/27/21 04/28/22 pantoprazole 20 mg tablet,delayed 20 mg PO BID 04/12/22 04/28/22 release amlodipine 2.5 mg tablet 2.5 mg PO QAM 04/28/22 04/28/22 dulaglutide 0.75 mg/0.5 mL 0.75 mg subcut QWEEK 04/28/22 04/28/22 subcutaneous pen injector (Trulicity) empagliflozin 25 mg tablet 25 mg PO QAM 09/14/22 (Jardiance) sertraline 25 mg tablet 25 mg PO QAM 01/12/23 Previous Rx's Medication Instructions Recorded alendronate 70 mg tablet 70 mg PO QWEEK #20 tabs 03/20/23 albuterol sulfate 90 mcg/actuation 2 puff inhalation Q6H PRN 03/21/23 aerosol inhaler (ProAir HFA) shortness of breath or wheezing 30 days #8.5 grams prednisone 50 mg tablet 50 mg PO DAILY 4 days #4 tabs 05/25/23 Allergies Allergy/AdvReac Type Severity Reaction Status Date / Time No Known Allergies Allergy Verified 05/24/23 23:54 Review of Systems 2 Review of Systems: Pertinent positives and negatives as stated in HPI [facility] Past Medical History Source: nursing notes reviewed Medical History Allergic rhinitis Osteoporosis Asthma Arm mass Tachycardia determined by examination of pulse Restrictive lung disease Hypoxemia Dyspnea Post-COVID syndrome Surgical History Hx of heart artery stent Family History Family History Maternal Uncle Colon cancer Paternal Grandfather Colon cancer Mother Colon polyps Social History Social History Household Members: Family Alcohol intake: never Patient Tobacco Use Status: Never used Tobacco Smoked in Last 30 Days: No Use of substances other than those prescribed or required for medical reasons: No Advance Directives: No Advance Directives Information Provided: No Patient : No Current occupational status: disabled Physical Exam 2 Vital Signs: Vital Signs: Last Vital Signs Temp 98.5 F 05/25/23 00:00 Pulse 110 H 05/25/23 00:44 Resp 18 05/25/23 00:44 BP 130/74 05/25/23 00:00 Pulse Ox 98 05/25/23 00:00 O2 Del Method Nasal Cannula 05/25/23 00:00 O2 Flow Rate 2 05/25/23 00:00 Oxygen Flow Rate 2 05/24/23 20:37 BMI result Body Mass Index 31.3 VITAL SIGNS: Reviewed. GENERAL: Well developed, well nourished, in no acute distress. HEAD: Normocephalic/atraumatic EYES: PERRLA, EOMI EARS: Ext canals without abnormality, TMs non-bulging and non-erythematous NOSE: Nares patent bilateral OROPHARYNX: no oral lesions noted, posterior pharynx clear and non-erythematous without noted tonsillar enlargement/erythema/exudates NECK: Supple, no adenopathy LUNGS: Good inspiratory effort with decreased breath sounds on the left, trace expiratory wheeze noted in left upper lung huang, mild tachypnea. SpO2<98> CARDIOVASCULAR: Regular rate and rhythm without noted murmurs ABDOMEN: Soft, non-tender, non-distended with bowel sounds. MUSCULOSKELETAL: No tenderness, deformities, or effusions noted on gross inspection. EXTREMITIES: No cyanosis, clubbing or edema. SKIN: Inspection of the skin reveals no rashes NEUROLOGIC: Alert and oriented x 4. Strength and sensation to light touch were grossly intact x 4. Course Course Course Narrative: RME: 52 yo F w/PMHx asthma, Restrictive lung Dz, on home O2 (baseline 2L NC) presenting to the ED c/o SOB, cough, & lung pain worse w/deep breathing x yesterday. 100% on baseline NC EKG, Labs, CXR, Viral testing ordered Full HPI, ROS and PE to be performed by primary ED provider. Medications Administered Discontinued Medications Generic Name Dose Route Start Last Admin Trade Name Freq PRN Reason Stop Dose Admin Acetaminophen 975 mg 05/25/23 00:32 05/25/23 00:37 Acetaminophen 325 Mg Tablet PO 05/25/23 00:33 975 mg ONCE ONE Administration Levalbuterol HCl 2.5 mg/ 0 mg 05/25/23 00:15 05/25/23 00:43 Ipratropium [place] 0.5 mg INHALE 12/28/23 00:16 5 dose ONCE ONE Administration Prednisone 50 mg 05/25/23 00:27 05/25/23 00:33 Prednisone 10 Mg Tablet PO 05/25/23 00:28 50 mg ONCE ONE Administration Medical Decision Making Medical Decision Making [facility] Narrative: 52-year-old female with history and clinical presentation, DDX: Viral illness, bronchitis, exacerbation of ILD no clinical suspicion for pneumonia or ACS. INTERVENTION: XOPENEX/IPRATROPIUM I reviewed all investigations and hematologic indices demonstrate a chronically stable leukocytosis/left shift without anemia or thrombocytopenia. Coagulation studies are within normal limits. Chemistry indices are grossly stable without NANI and electrolyte or liver enzyme derangements. There are no acute findings on EKG. Chest x-ray negative for infiltrate or venous congestion otherwise my interpretation is in agreement with radiology's impression. Troponin and BNP are undetectable. My interpretation is that patient has had viral bronchitis secondary to RSV and will be discharged on a short course of oral steroids. Differential Diagnosis Differential Diagnoses: The differential diagnosis associated with the presentation includes Please see the discussion above Admission/Observation Consideration of admission/observation: Escalation of care including admission/observation considered Please see the discussion above Lab Data [facility] Lab Attestation statement: I reviewed the patient's lab results. Please see the discussion above 05/24/23 23:35 05/24/23 23:35 Labs: Lab Results 05/24/23 Range/Units 23:35 WBC 11.7 H (4.8-10.8) X10*3/uL RBC 4.29 (4.20-5.50) X10*6/uL Hgb 12.4 (12.0-16.0) g/dl Hct 38.5 (37.0-47.0) % MCV 89.7 (80.0-98.0) fL MCH 28.9 (27.0-33.0) pg MCHC 32.2 (31.0-35.0) g/dl RDW 13.0 (11.0-16.0) % Plt Count 283 (160-400) X10*3/uL MPV 10.5 (9.4-12.3) fL Immature Gran % (Auto) 0.5 H (0.0-0.4) % Neut % (Auto) 79.1 H (45-73) % Lymph % (Auto) 13.6 L (20-40) % [place] % (Auto) 5.1 (2-11) % Eos % (Auto) 1.4 (0-4) % Baso % (Auto) 0.3 (0-2) % Lymph # (Auto) 1.6 (1.2-4.9) X10*3/uL [place] # (Auto) 0.6 (0.1-1.2) X10*3/uL Eos # (Auto) 0.2 (0.0-0.4) X10*3/uL Baso # (Auto) 0.0 (0.0-0.2) X10*3/uL Abs Immat Gran (auto) 0.06 H (0.00-0.03) X10*3/uL Absolute Neuts (auto) 9.2 H (2.0-8.3) x10*3/uL Absolute Nucleated RBC 0.000 (0.0-0.012) X10*3/uL Nucleated RBC % (auto) 0.0 (0.0-0.2) /100WBC PT 13.4 H (11.1-13.3) SEC INR 1.1 (0.9-1.1) Sodium 142 (135-145) mmol/L Potassium 3.9 (3.3-5.1) mmol/L Chloride 97 (96-108) mmol/L Carbon Dioxide 32 H (22-29) mmol/L Anion Gap 17 (12-20) BUN 21 H (9-16) mg/dL Creatinine 0.87 (0.5-1.4) mg/dL Estim Creat Clear Calc 83.5 Estimated GFR > 60 Random Glucose 189 H (60-115) mg/dL Calcium 9.3 D (8.4-10.2) mg/dL Magnesium 1.7 (1.6-2.6) mg/dL Total Bilirubin 0.2 (0.0-1.0) mg/dL Direct Bilirubin < 0.2 (0.0-0.5) mg/dL AST 22 (5-31) U/L ALT 22 (0-31) U/L Alkaline Phosphatase 115 (39-117) U/L Troponin I High Sens < 2.7 (<3.5-17.0) ng/L B-Natriuretic Peptide < 10 (<100) pg/mL Total Protein 7.7 (6.5-8.0) g/dL Albumin 4.3 (3.5-5.0) g/dL Influenza Type A (PCR) NEGATIVE (Negative) Influenza Type B (PCR) NEGATIVE (Negative) RSV RNA Qual (PCR) POSITIVE A (Negative) SARS-CoV-2 RNA (RT-PCR) NEGATIVE (Negative) Independent Interpretation I performed an independent interpretation of an: EKG Interpretation: Sinus tachycardia, HR-104, no STEMI, MI/QRS/QTC is within normal limits. Radiology Impression Discussion of test interpretation with radiology: I have reviewed the radiologist's reading. Radiologist Impression: Please see the discussion above External Record Review External record reviewed: Outpatient record, Prior outpatient labs and Prior outpatient radiology Chronic Conditions Patient?s care impacted by: Diabetes ILD Critical Care Time Critical Care Time Critical Care Time: Yes Total Critical Care Time: 30 Attestation: I personally attest to this time spent taking care of the patient. Discharge Plan Discharge Clinical Impression: Viral syndrome, RSV bronchitis Patient Disposition: Home, Self-Care Instructions: Respiratory Syncytial Virus (ED), Acute Bronchitis (ED), Viral Syndrome (ED) Additional Instructions: 1. Reanudar todos los medicamentos caseros seg?n lo recetado. 2. Complete el ciclo corto de esteroides que le recetaron. 3. Kota un seguimiento con cash m?dico de atenci?n primaria si usa medicamentos para la tos de venta alethea. Regrese a la lamonte de emergencias si los s?ntomas empeoran. 1. Resume all home medications as prescribed. 2. Complete the short course of steroids that you have been prescribed. 3. Follow-up with your primary care doctor in use [id number] cough medication. Return to the ER for any worsening symptoms. Prescriptions: New prednisone 50 mg tablet 50 mg PO DAILY 4 Days Qty: 4 0RF No Action alendronate 70 mg tablet 70 mg PO QWEEK Qty: 20 3RF glipizide 5 mg tablet 5 mg PO DAILY metformin 1,000 mg tablet 1,000 mg PO BID aspirin 81 mg tablet,delayed release (DR/EC) 81 mg PO DAILY Advair HFA 115-21 mcg/actuation HFA aerosol inhaler 2 puff inhalation BID losartan-hydrochlorothiazide 100-12.5 mg tablet 1 tab PO DAILY baclofen 20 mg tablet 20 mg PO TID magnesium 200 mg tablet 400 mg PO DAILY ascorbic acid (vitamin C) 500 mg capsule 1,000 mg PO DAILY mecobalamin (vitamin B12) 5,000 mcg tablet,disintegrating 5,000 mcg PO biotin 10,000 mcg capsule 10,000 mcg PO DAILY zinc acetate 50 mg (zinc) capsule 50 mg PO DAILY gabapentin 100 mg capsule 100 mg PO TID Trulicity 0.75 mg/0.5 mL pen injector 0.75 mg subcut QWEEK amlodipine 2.5 mg tablet 2.5 mg PO QAM cholecalciferol (vitamin D3) 50 mcg (2,000 unit) tablet 50 mcg PO DAILY duloxetine 30 mg capsule,delayed release(DR/EC) 30 mg PO DAILY metoprolol succinate 25 mg tablet extended release 24 hr 25 mg PO DAILY diclofenac sodium 75 mg tablet,delayed release (DR/EC) 75 mg PO BID ondansetron HCl 4 mg tablet 8 mg PO BID pantoprazole 20 mg tablet,delayed release (DR/EC) 20 mg PO BID Jardiance 25 mg tablet 25 mg PO QAM sertraline 25 mg tablet 25 mg PO QAM albuterol sulfate [ProAir HFA] 90 mcg/actuation HFA aerosol inhaler 2 puff inhalation Q6H PRN (Reason: shortness of breath or wheezing) 30 Days Qty: 8.5 3RF Referrals: Isabel Ramsay MD [Primary Care Provider] - Print Language: Uzbek
--- NOTE | 2023-05-24 20:40 | ECG_ITS ---
Test Reason : DYSPNEA Blood Pressure : / mmHG Vent. Rate : 104 BPM Atrial Rate : 104 BPM P-R Int : 114 ms QRS Dur : 086 ms QT Int : 374 ms P-R-T Axes : 025 030 070 degrees QTc Int : 491 ms Sinus tachycardia Otherwise normal ECG When compared with ECG of 30-DEC-2017 19:28, Nonspecific T wave abnormality no longer evident in Anterior leads Referred By: Cinthia Cline Electronically Signed By:BETH WIGGINS
[2023-05-24 23:39] LABS: Basophils Percent Auto 0.3 % (0-2); Eosinophils Absolute Auto 0.2 X10*3/uL (0.0-0.4); Eosinophils Percent Auto 1.4 % (0-4); Hematocrit 38.5 % (37.0-47.0); Hemoglobin 12.4 g/dl (12.0-16.0); Imm Gran Abs Auto 0.06 X10*3/uL (0.00-0.03); Imm Gran Pct Auto 0.5 % (0.0-0.4); Lymphocytes Absolute Auto 1.6 X10*3/uL (1.2-4.9); Lymphocytes Percent Auto 13.6 % (20-40); MANUAL DIFF FLAG NO; Mean Corpuscular HGB Conc 32.2 g/dl (31.0-35.0); Mean Corpuscular Hemoglobin 28.9 pg (27.0-33.0); Mean Corpuscular Volume 89.7 fL (80.0-98.0); Mean Platelet Volume 10.5 fL (9.4-12.3); Monocytes Absolute Auto 0.6 X10*3/uL (0.1-1.2); Monocytes Percent Auto 5.1 % (2-11); Neutrophils Absolute Auto 9.2 x10*3/uL (2.0-8.3); Neutrophils Percent Auto 79.1 % (45-73); Platelet Count 283 X10*3/uL (160-400); Red Blood Count 4.29 X10*6/uL (4.20-5.50); White Blood Count 11.7 X10*3/uL (4.8-10.8)
[2023-05-24 23:48] LABS: INTERNATIONAL NORM RATIO 1.1 (0.9-1.1); Prothrombin Time 13.4 SEC (11.1-13.3)
[2023-05-24 23:52] VITALS: BP 127/75; PULSE 111; RESP 22; O2SAT 99
[2023-05-24 23:54] LABS: Alanine Aminotransferase 22 U/L (0-31); Albumin Level 4.3 g/dL (3.5-5.0); Alkaline Phosphatase 115 U/L (39-117); Anion Gap 17 (12-20); Aspartate Amino Transferase 22 U/L (5-31); Bilirubin Direct < 0.2 mg/dL (0.0-0.5); Bilirubin Total 0.2 mg/dL (0.0-1.0); Blood Urea Nitrogen 21 mg/dL (9-16); Calcium 9.3 mg/dL (8.4-10.2); Carbon Dioxide 32 mmol/L (22-29); Chloride 97 mmol/L (96-108); Creatinine Clr Calc Pharmacy 83.5; Estimated Glomerular Filt Rate > 60; Glucose Random 189 mg/dL (60-115); Magnesium 1.7 mg/dL (1.6-2.6); Potassium 3.9 mmol/L (3.3-5.1); Sodium 142 mmol/L (135-145); Total Protein 7.7 g/dL (6.5-8.0)
[2023-05-25] VITALS: BP 130/74; PULSE 106; RESP 22; TEMP 36.9; O2SAT 98
[2023-05-25 00:20] LABS: Influenza A PCR NEGATIVE (Negative); Influenza B PCR NEGATIVE (Negative); Resp Syncy Virus RNA Qual PCR POSITIVE (Negative); SARS COV2 PCR INHOUSE NEGATIVE (Negative)
[2023-05-25] MEDS: predniSONE 10 MG TABLET 50 MG PO (00:33)
[2023-05-25] MEDS: Acetaminophen 325 MG TABLET 975 MG PO (00:37)
[2023-05-25] MEDS: levalbuterol HCL 2.5 MG, Ipratropium Bromide 0.5 MG INHALE (00:43)
[2023-05-25 00:44] VITALS: PULSE 110; RESP 18; O2SAT 98
[2023-05-25 00:52] LABS: Troponin-I High Sensitivity < 2.7 ng/L (<3.5-17.0)
--- NOTE | 2023-05-25 01:00 | PC.NURSE ---
pt medicated per mar with prednisone and tylenol. pt sitting up comfortably on stretcher. respiratory at bedside gave breathing treatment. pt is RSV positive also Hx asthma. using home inhalers with no relief. pt on cardiac nurse in no apparent respiratory distress, daughter at bedside, plan of care ongoing
[2023-05-25 01:16] LABS: B Type Natriuretic Peptide < 10 pg/mL (<100)
[2023-05-25 01:25] VITALS: BP 118/69; PULSE 106; RESP 20; O2SAT 97
--- NOTE | 2023-05-25 01:34 | PC.NURSE ---
pt reports relief of work of breathing/symptoms at time of discharge . pt verbalizes understanding of discharge instructions . ambulatory out of tx room with daughter at time of d/c.
== END 2023-05-25 01:38 | disposition home or self-care (01) ==
PROVIDERS: Physician Assistant; Emergency Provider Student in an Organized Health Care Education/Training Program; PCP Internal Medicine
DX: J20.5 Acute bronchitis due to respiratory syncytial virus (principal); J45.909 Unspecified asthma, uncomplicated; Z20.822 Contact with and (suspected) exposure to COVID-19; Z20.828 Contact with and (suspected) exposure to other viral communicable diseases
CPT/HCPCS: 0241U; 71046; 80048; 80076; 83735; 83880; 84484; 85025; 85610; 93005; 94640; 99284; 99285

== ENCOUNTER → 2023-05-24 20:40 | Outpatient (BNV) | payer MEDICAID, SELFPAY | PROVIDERS: Emergency Provider Student in an Organized Health Care Education/Training Program; PCP Internal Medicine; Visit Provider Internal Medicine | DX: R00.0 Tachycardia, unspecified (principal) | CPT/HCPCS: 93010 ==

== ENCOUNTER 2023-08-15 09:53 | Outpatient (AMB) | payer MEDICAID, SELFPAY ==
--- NOTE | 2023-08-15 09:58 | MHC.OFFVIS ---
Intake Vital Signs 08/15/23 10:18 Height 5 ft 5 in Weight 183 lb 6 oz BMI 30.5 BP 113/62 Blood Pressure Location Lt brachial Position Sitting Pulse 106 H Intake Visit Reasons: Umbilical hernia Intake Note: Patient is seen in office for evaluation and treatment of an umbilical hernia. Pt c/o: believes to have 2 hernias, one in the umbilical area for years, no increase, yes to burning pain, has another above the umbilical for aprox 8 months, has increase in size and causes no pain or discomfort, pt usually on oxygen 1L. 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 Agricultural Produce Sorter Language: Palestinian Accompanied by: Daughter Allergies No Known Allergies Allergy (Verified 08/15/23 10:06) Medication List - Last Reconciled 08/15/23 by Woo Hamm MD albuterol sulfate 90 mcg/actuation (ProAir HFA) 2 puffs inhalation Q6H PRN 30 days alendronate 70 mg PO QWEEK amlodipine 2.5 mg PO QAM ascorbic acid (vitamin C) 1,000 mg PO DAILY aspirin 81 mg PO DAILY baclofen 20 mg PO TID biotin 10,000 mcg PO DAILY cholecalciferol (vitamin D3) 50 mcg PO DAILY diclofenac sodium 75 mg PO BID dulaglutide (Trulicity) 0.75 mg subcut QWEEK duloxetine 30 mg PO DAILY empagliflozin (Jardiance) 25 mg PO QAM fluticasone propion-salmeterol 115-21 mcg/actuation (Advair HFA) 2 puffs inhalation BID gabapentin 100 mg PO TID glipizide 5 mg PO DAILY insulin glargine (Lantus Solostar U-100 Insulin) 12 units subcut QAM losartan-hydrochlorothiazide 100-12.5 mg 1 tab PO DAILY magnesium 400 mg PO DAILY mecobalamin (vitamin B12) 5,000 mcg PO metformin 1,000 mg PO BID metoprolol succinate ER 25 mg PO DAILY ondansetron HCl 8 mg PO BID pantoprazole 20 mg PO BID prednisone 50 mg PO DAILY 4 days sertraline 25 mg PO QAM zinc acetate 50 mg PO DAILY HPI HPI Comments History of Present Illness Details 52-year-old female patient presenting for evaluation of an umbilical hernia. She has a past medical history of COPD, hypertension, diabetes type 2, anxiety, depression, osteoporosis, fibromyalgia, vitamin-D deficiency, and sinus tachycardia. She reports having 2 hernias 1 located near the umbilicus in the 2nd located up above in the midline. She notes the hernia most when getting out of bed or performing a sit-up. She denies any surgery in this location and denies a previous history repairs. She denies significant pain or discomfort. The lump is not easily identified when she is in the standing position. She denies nausea, vomiting, diarrhea, constipation or other GI complaints. [facility] Medical History Allergic rhinitis Osteoporosis Asthma Arm mass Tachycardia determined by examination of pulse Restrictive lung disease Hypoxemia Dyspnea Post-COVID syndrome Surgical History Hx of heart artery stent Family History Maternal Uncle Colon cancer Paternal Grandfather Colon cancer Mother Colon polyps Lung cancer Maternal Uncle Colon cancer Social History Household Members: Family Alcohol intake: never Patient Tobacco Use Status: Never used Tobacco Current occupational status: disabled Review of Systems Const All systems reviewed & are unremarkable except as noted in HPI and below Denies chills, Denies fever(s), Denies headache(s), Denies poor appetite and Denies weakness ENT Denies headache(s) Card Denies chest pain, Denies irregular heart rhythm and Reports dyspnea Resp Details: Uses 1 L oxygen Denies cough, Denies excessive phlegm production and Reports dyspnea GI Reports as per HPI, Denies abdominal pain, Denies bloating, Denies change in bowel habits, Denies constipation, Denies heartburn, Denies diarrhea, Denies nausea and Denies vomiting Denies urinary frequency Musc Denies back pain, Denies muscle weakness and Denies numbness Skin/Breast Denies changing lesions and Denies unusual bruising Neuro Denies headache(s), Denies numbness, Denies paresthesias and Denies weakness Psych Denies anxiety and Denies depression Balatzar/Lymph Denies lymphadenopathy Physical Exam Const General: cooperative and no acute distress Nutritional Appearance: well nourished Orientation/consciousness: patient oriented x3 Limitations: no limitations HEENT Head: Yes normocephalic and Yes atraumatic Ears: hearing grossly normal bilaterally Resp Effort & Inspection: normal respiratory effort, no audible wheezes, no cough and no respiratory distress Cardio Jugular venous distension: no JVD GI Other: Patient is noted to have a diastasis recti when sitting up. In the standing position a small umbilical hernias identified but no midline ventral hernia. Patient was examined with Valsalva maneuvers and no ventral hernias are identified. Inspection: Yes normal to inspection Abdomen image: 1. Midline diastasis recti 2. Small umbilical hernia Skin Other: Warm, dry, no rash Neuro General: patient oriented x3 Extrem General: Yes no clubbing, cyanosis or edema Assessment & Plan Assessment & Plan (1) Umbilical hernia: Code(s): K42.9 - Umbilical hernia without obstruction or gangrene Qualifiers: Obstruction and gangrene presence: without obstruction or gangrene Qualified Code(s): K42.9 - Umbilical hernia without obstruction or gangrene Plan Patient presents with a small umbilical hernia which is currently asymptomatic. She also has a large bulge when sitting out of bed which is consistent with a diastasis recti. She was assured this does not require any surgical repair and can be safely monitored. The umbilical hernia is also quite small and does not require repair at this time. She is welcome to return should the umbilical hernia become more symptomatic. Coding Level of Care Code New Pt Level 4 (10464) Diagnoses Umbilical hernia without obstruction and without gangrene K42.9 Obstruction and gangrene presence: without obstruction or gangrene
[2023-08-15 10:18] VITALS: BP 113/62; PULSE 106; BMI 30.5
== END 2023-08-15 10:20 | disposition home or self-care (01) ==
PROVIDERS: PCP Internal Medicine; Referring Provider Internal Medicine; Visit Provider Surgery
DX: K42.9 Umbilical hernia without obstruction or gangrene (principal); M62.08 Separation of muscle (nontraumatic), other site
CPT/HCPCS: 99203

== ENCOUNTER → 2023-08-15 09:53 | Outpatient (BNVA) | payer MEDICAID, SELFPAY | PROVIDERS: PCP Internal Medicine; Referring Provider Internal Medicine; Visit Provider Surgery | DX: K42.9 Umbilical hernia without obstruction or gangrene (principal) | CPT/HCPCS: 99202 ==

== ENCOUNTER 2023-09-13 10:33 | Outpatient (AMB) | payer MEDICAID, SELFPAY ==
[2023-09-13 10:38] VITALS: BP 118/68; PULSE 122; O2SAT 95
--- NOTE | 2023-09-13 10:38 | MHC.OFFVIS ---
Intake Vital Signs 09/13/23 10:38 Weight 185 lb 3.013 oz BP 118/68 Blood Pressure Location Rt brachial Position Sitting Pulse 122 H Pulse Source Pulse Oximeter Pulse Oximetry (%) 95 Oxygen Delivery Method Room Air Intake Visit Reasons: Shortness of breath Allergies No Known Allergies Allergy (Verified 09/13/23 11:59) Medication List - Last Reconciled 09/13/23 by Liseth Thomas MD albuterol sulfate 90 mcg/actuation (Ventolin HFA) 2 puffs PO Q6H PRN alendronate 70 mg PO QWEEK amlodipine 2.5 mg PO QAM ascorbic acid (vitamin C) 1,000 mg PO DAILY aspirin 81 mg PO DAILY baclofen 20 mg PO TID biotin 10,000 mcg PO DAILY cholecalciferol (vitamin D3) 50 mcg PO DAILY diclofenac sodium 75 mg PO BID dulaglutide (Trulicity) 0.75 mg subcut QWEEK duloxetine 30 mg PO DAILY empagliflozin (Jardiance) 25 mg PO QAM fluticasone propion-salmeterol 115-21 mcg/actuation (Advair HFA) 2 puffs inhalation BID gabapentin 100 mg PO TID glipizide 5 mg PO DAILY insulin glargine (Lantus Solostar U-100 Insulin) 12 units subcut QAM losartan-hydrochlorothiazide 100-12.5 mg 1 tab PO DAILY magnesium 400 mg PO DAILY mecobalamin (vitamin B12) 5,000 mcg PO metformin 1,000 mg PO BID metoprolol succinate ER 25 mg PO DAILY ondansetron HCl 8 mg PO BID pantoprazole 20 mg PO BID prednisone 50 mg PO DAILY 4 days sertraline 25 mg PO QAM zinc acetate 50 mg PO DAILY Do you need a note to return to daycare/school/sports/work: No HPI Shortness of breath HPI Details THIS 52 YEARS OLD FEMALE IS HERE FOR FOLLOW-UP. SHE WAS RECENTLY TREATED AT [facility] FOR AN ACUTE VIRAL ILLNESS AND HAS RECOVERED FROM THAT. SHE HAS VERY LITTLE COUGH OR WHEEZING AT THIS TIME. SHE STILL HAS SHORTNESS OF BREATH IF SHE WALKS AROUND OR CLIMBS UP STAIRS, BUT IT IS NOT ANY WORSE THAN BEFORE. SHE HAD PULMONARY FUNCTION TEST BACK IN APRIL 2023, WHICH AGAIN SHOWED MARKED RESTRICTIVE LUNG DISEASE WELL SOME OBSTRUCTIVE COMPONENT, BUT ACTUALLY SOMEWHAT BETTER THAN THE RESULTS IN 2020 . [facility] Medical History Allergic rhinitis Osteoporosis Asthma Arm mass Tachycardia determined by examination of pulse Restrictive lung disease Hypoxemia Dyspnea Post-COVID syndrome Surgical History Hx of heart artery stent Family History Maternal Uncle Colon cancer Paternal Grandfather Colon cancer Mother Colon polyps Lung cancer Maternal Uncle Colon cancer Social History Household Members: Family Alcohol intake: never Patient Tobacco Use Status: Never used Tobacco Current occupational status: disabled Review of Systems Const All systems reviewed & are unremarkable except as noted in HPI and below Eyes Reports no additional complaints ENT Reports no additional complaints Card Details: Left to all arm pain. Probably not cardiac. And she also tends to have fast heart rate, for which she is being checked by Cardiology. Resp Reports as per HPI GI Reports no additional complaints Reports no additional complaints Musc Reports other (Left all arm pain, after the COVID vaccine) Skin/Breast Reports system reviewed and no additional complaints, except as documented Neuro Reports no additional complaints Psych Reports no additional complaints Physical Exam Vital Signs: Last Vital Signs Pulse 122 H 09/13/23 10:38 BP 118/68 09/13/23 10:38 Pulse Ox 95 09/13/23 10:38 Oxygen Delivery Method Room Air 09/13/23 10:38 Const Other: Somewhat pale looking General: comfortable, no acute distress, alert and awake Orientation/consciousness: patient oriented x3 HEENT Head: Yes normal to inspection General nose exam: No nasal polyps present and No nasal discharge present Face and sinus: Yes sinuses nontender Mouth: oropharynx normal Throat: Yes posterior oropharynx normal Eyes General: appearance normal, both eyes and all related structures Neck Neck: Yes normal visual inspection, Yes no lymphadenopathy, Yes trachea midline and Yes no JVD Thyroid: Thyroid normal Chest Chest palpation & inspection: normal inspection of the chest, normal palpation of entire chest wall and no tenderness Resp Other: Percussion note resonant except for mild dullness over the left base. Breath sounds are decreased over the left lower lobe area. No wheezes or rhonchi are heard. Cardio Palpation: normal PMI Rate: regular rate and tachycardic Rhythm: regular rhythm Heart sounds: no gallops and no murmurs Peripheral pulses: Peripheral pulses 2+ throughout GI Palpation (GI): Soft to palpation, Tenderness to palpation present (GI), No hepatosplenomegaly present and Palpable mass present Auscultation: normal bowel sounds Back/Spine/Pelvis Thoracic/Lumbar Spine: thoracic and lumbar spine normal to inspection Skin General skin exam: no rashes or lesions noted Neuro General: patient oriented x3 and no focal motor deficits Cranial nerves: Yes CN's II-XII intact bilaterally Extrem General: Yes normal to inspection, Yes no clubbing, cyanosis or edema and Yes no calf tenderness Psych Appearance: grossly normal and well kempt Speech and movement: Normal speech and movement present Results Reviewed Results Reviewed: PULMONARY FUNCTION TEST ON 05/23/2023. FVC 40% FEV1 39% FEV1/FVC 77 FEF 25-75 =32% TLC 39%. DLCO 53% DL/VA 159% Assessment & Plan Assessment & Plan (1) Allergic rhinitis: Comment: S MOSTLY HYPERSENSITIVITY TO CHEMICAL SPRAYS AND PERFUMES ETC.. SHE TRIES TO AVOID EXPOSURE AND STAYS AWAY FROM SUCH AGENTS. DOES NOT NEED TO USE ANTIHISTAMINICS OR NASAL SPRAY. Code(s): J30.9 - Allergic rhinitis, unspecified Plan: TRY TO STAY AWAY FROM ANY ALLERGY TRIGGERS. (2) Asthma: Comment: HAS MILD, INTERMITTENT BOUTS OF WHEEZING, TX : ALSO SHE TENDS TO GET COUGH AND WHEEZING IF SHE IS EXPOSED TO ANYBODY WITH PERFUME , ARE HOUSEHOLD SPRAYS ETC. Code(s): J45.909 - Unspecified asthma, uncomplicated Plan: TX : ADVAIR HFA 115-21 2 PUFFS BID HER ASTHMA IS MILD AND INTERMITTENT, SHE COULD DO OKAY WITHOUT USING ADVAIR. BUT SHE CONTINUE TO USE IT TWICE A DAY SHE FEELS MORE SECURE. PROAIR HFA 2 PUFFS Q 6 HOURS P.R.N. FOR COUGH OR WHEEZING. (3) Restrictive lung disease: Comment: HAS SEVERE RESTRICTIVE PULMONARY DISORDER, MAINLY DUE TO HER CHRONIC ELEVATED LEFT HEMIDIAPHRAGM. Code(s): J98.4 - Other disorders of lung Plan: SHE IS ADVISED TO DO DEEP BREATHING EXERCISES WITH INCENTIVE SPIROMETRY DEVICE DAILY. DO DEEP BREATHING 10 TIMES,, T.I.D., (4) Hypoxemia: Comment: HYPOXEMIA HAD WORSENED AFTER SHE HAD COVID INFECTION LAST YEAR, NOW IT HAS GRADUALLY IMPROVED. SHE DOES HAVE O2 CONCENTRATOR AND PORTABLE UNIT AT HOME BUT HARDLY NEEDS TO USE IT. Code(s): R09.02 - Hypoxemia Plan: KEEP THE O2 SUPPLY AT HOME. USE PORTABLE O2 P.R.N. IF DOING ANY PHYSICAL WORK OR IF THERE IS INCREASED SHORTNESS OF BREATH. Orders: Orders XR chest 2V Today J45.909 - Unspecified asthma, uncomplicated, J98.4 - Other disorders of lung Coding Level of Care Code Est Pt Level 3 (51994) Diagnoses Allergic rhinitis J30.9 Asthma J45.909 Restrictive lung disease J98.4 Hypoxemia R09.02
== END 2023-09-13 11:11 | disposition home or self-care (01) ==
PROVIDERS: PCP Internal Medicine; Referring Provider Internal Medicine; Visit Provider Internal Medicine
DX: J30.9 Allergic rhinitis, unspecified (principal); J45.909 Unspecified asthma, uncomplicated; J98.4 Other disorders of lung; R09.02 Hypoxemia
CPT/HCPCS: 99213

== ENCOUNTER 2023-09-13 10:33 | Outpatient (REF) | payer MEDICAID, SELFPAY ==
--- NOTE | ~2023-09-13 | XR_ITS ---
EXAMINATION: XR CHEST 2 VIEWS CLINICAL INFORMATION: History of left lung collapse. COMPARISON: Prior chest radiographs, most recently 05/24/2023. TECHNIQUE: Frontal and lateral views of the chest were obtained. FINDINGS: The heart, great vessels, pulmonary vasculature and mediastinum are normal. Again, there is marked elevation of the left hemidiaphragm, with moderately severe plate-like atelectasis in the lower left lung field. The right lung is well-inflated and clear. No infiltrate, effusion or pneumothorax is seen. There is no acute osseous abnormality. XR/XR chest 2V IMPRESSION: There is stable marked elevation of the left hemidiaphragm, and there is chronic left mid and lower lung field plate-like atelectasis. No new superimposed infiltrate or congestive heart failure is seen.
== END 2023-09-13 10:34 | disposition home or self-care (01) ==
LOC: HO.XRAY 10:33
PROVIDERS: PCP Internal Medicine; Visit Provider Internal Medicine
DX: R09.02 Hypoxemia (principal); J45.909 Unspecified asthma, uncomplicated; J98.4 Other disorders of lung
CPT/HCPCS: 71046; 99212

== ENCOUNTER 2023-10-09 07:41 | Outpatient (AMB) | payer MEDICAID, SELFPAY ==
--- NOTE | 2023-10-09 07:57 | MHC.OFFVIS ---
Vital Signs 10/09/23 07:59 Height 5 ft 5 in Weight 188 lb 7.924 oz BMI 31.4 BP 132/94 H Blood Pressure Location Lt brachial Position Sitting Pulse 86 Pulse Source Pulse Oximeter Intake Visit Reasons: f/u osteoporosis-confirmed Intake Note: Patient present today for Osteoporosis follow up visit. 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: Yes Nuclear Process Engineer Language: Yemeni Information Interpreted: non-clinical & clinical Accompanied by: Daughter Allergies No Known Allergies Allergy (Verified 10/09/23 08:01) Medication List - Last Reconciled 10/09/23 by [place] Alejandro MD albuterol sulfate 90 mcg/actuation (Ventolin HFA) 2 puffs PO Q6H PRN amlodipine 2.5 mg PO QAM ascorbic acid (vitamin C) 1,000 mg PO DAILY aspirin 81 mg PO DAILY baclofen 20 mg PO TID biotin 10,000 mcg PO DAILY cholecalciferol (vitamin D3) 50 mcg PO DAILY diclofenac sodium 75 mg PO BID dulaglutide (Trulicity) 0.75 mg subcut QWEEK duloxetine 30 mg PO DAILY empagliflozin (Jardiance) 25 mg PO QAM fluticasone propion-salmeterol 115-21 mcg/actuation (Advair HFA) 2 puffs inhalation BID gabapentin 100 mg PO TID glipizide 5 mg PO DAILY insulin glargine (Lantus Solostar U-100 Insulin) 12 units subcut QAM losartan-hydrochlorothiazide 100-12.5 mg 1 tab PO DAILY magnesium 400 mg PO DAILY mecobalamin (vitamin B12) 5,000 mcg PO metformin 1,000 mg PO BID metoprolol succinate ER 25 mg PO DAILY ondansetron HCl 8 mg PO BID pantoprazole 20 mg PO BID prednisone 50 mg PO DAILY 4 days sertraline 25 mg PO QAM zinc acetate 50 mg PO DAILY HPI Comments Details: 51 YO F with is seen in consultation at the request of PCP for Osteoporosis. First diagnosed in not before . Not Received treatment in the past . No history of pathologic fracture or ONJ.Had wrist fx in 2 yrs ago . fell down stairs Has several servings of dietary calcium per day Not Takes Calcium supplement Takes 2000 IU of Vitamin D daily. Denies ever using PPI, anticoagulant, antiepileptic or glucocorticoid medication only for asthma exacerbation. 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 UTD on dental cleanings and sees dentist every 6 months. No planned upcoming dental work or extractions. Gets hot flashes . Not hx of DVT. Family hx of maternal aunt has breast cancer DXA dated 03/10/22:FINDINGS: AP SPINE L1-L4: BMD 1.078 g/cm2, Z-score -1.1, T-score -0.8, normal. LEFT FEMUR, NECK: BMD 0.676 g/cm2, Z-score -2.3, T-score -2.6, osteoporosis. LEFT FEMUR, TOTAL: BMD 0.694 g/cm2, Z-score -2.5, T-score -2.5, osteoporosis. IDENTIFIED RISK FACTORS: Early menopause, secondary osteoporosis, history of fracture (adult), hysterectomy, bilateral oophorectomy, recurrent falls. HISTORY OF FRACTURE: Wrist. MEDICATIONS: Calcium supplements or multivitamin, vitamin D. MM/XR DEXA axial skeleton IMPRESSION: 1. DIAGNOSIS: Osteoporosis based on the lowest T-score value of -2.6 in the femoral neck applying World Health Organization criteria.? ? Labs: Secondary workup was negative Was placed on alendronate 70 mg Q weekly. Stop because of GI issues. This was done by patient after 1st dose. Going for tooth extraction [facility] Medical History Allergic rhinitis Osteoporosis Asthma Arm mass Tachycardia determined by examination of pulse Restrictive lung disease Hypoxemia Dyspnea Post-COVID syndrome Surgical History Hx of heart artery stent Family History Maternal Uncle Colon cancer Paternal Grandfather Colon cancer Mother Colon polyps Lung cancer Maternal Uncle Colon cancer Social History Household Members: Family Alcohol intake: never Patient Tobacco Use Status: Never used Tobacco Current occupational status: disabled Assessment & Plan Assessment & Plan (1) Osteoporosis: Code(s): M81.0 - Age-related osteoporosis without current pathological fracture Category: Medical Plan: This is a 52-year-old female with a history of osteoporosis. Secondary workup was negative. There is a history of fragility wrist fracture. Evista is contraindicated because of previous DVT. Estrogen therapy is contraindicated because of family history of breast cancer Plan is to hold the alendronate for now. Patient is cleared for dental extraction and is off the alendronate from endocrine perspective. Should continue calcium and vitamin-D supplementation as well as weight-bearing exercise. Can repeat DEXA bone density 02/2024 and have patient follow up afterwards for discussion of possible treatment options if necessary including IV bisphosphonate versus Prolia Orders: Orders XR DEXA axial skeleton 5 Months M81.0 - Age-related osteoporosis without current pathological fracture Medications: Discontinued alendronate Discontinued Reason: Doctor's Order 70 mg PO QWEEK 20 tabs 3RF Coding Level of Care Code Est Pt Level 3 (80844) Diagnoses Osteoporosis M81.0
[2023-10-09 07:59] VITALS: BP 132/94; PULSE 86; BMI 31.4
== END 2023-10-09 08:13 | disposition home or self-care (01) ==
PROVIDERS: PCP Internal Medicine; Visit Provider Internal Medicine Endocrinology, Diabetes & Metabolism
DX: M81.0 Age-related osteoporosis without current pathological fracture (principal)
CPT/HCPCS: 99213

== ENCOUNTER → 2023-10-09 07:41 | Outpatient (BNVA) | payer MEDICAID, SELFPAY | PROVIDERS: PCP Internal Medicine; Visit Provider Internal Medicine Endocrinology, Diabetes & Metabolism | DX: M81.0 Age-related osteoporosis without current pathological fracture (principal) | CPT/HCPCS: 99212 ==

== ENCOUNTER 2024-01-01 14:27 | Outpatient (REF) | payer MEDICAID, SELFPAY ==
--- NOTE | ~2024-01-01 | MM_ITS ---
EXAMINATION: MM SCREENING DIGITAL BREAST TOMOSYNTHESIS, BILATERAL CLINICAL INFORMATION: Screening. Asymptomatic. COMPARISON: Mammography: This study is compared with prior exams dating back to 2019. TECHNIQUE: Digital breast tomosynthesis is performed in both the craniocaudal and mediolateral oblique views along with computer-aided detection (CAD). Synthesized 2D images are generated from the tomosynthesis. FINDINGS: There are scattered areas of fibroglandular density (ACR BI-RADS breast composition Category b). There are no significant masses, abnormal calcifications, or other abnormalities. MM/MM tomosynthesis screening BI IMPRESSION: No mammographic evidence of malignancy. ASSESSMENT: BI-RADS BI-RADS 1 - Negative RECOMMENDATION: Routine annual mammography screening. 1 year F/U This examination should not preclude the clinical evaluation of a suspicious palpable abnormality. This patient's information was entered into a reminder system with a target due date for their next mammogram. Electronically signed by: Chloe Benitez MD 01/30/2024 07:48 AM EDT
== END 2024-01-01 14:28 | disposition home or self-care (01) ==
LOC: HO.MAMMO 14:27
PROVIDERS: PCP Internal Medicine; Visit Provider Internal Medicine
DX: Z12.31 Encounter for screening mammogram for malignant neoplasm of breast (principal)
CPT/HCPCS: 77063; 77067

== ENCOUNTER → 2024-01-01 14:30 | Outpatient (BNV) | payer MEDICAID, SELFPAY | PROVIDERS: PCP Internal Medicine; Visit Provider Radiology Diagnostic Radiology | DX: Z12.31 Encounter for screening mammogram for malignant neoplasm of breast (principal) | CPT/HCPCS: 77063; 77067 ==

== ENCOUNTER 2024-01-02 13:32 | Outpatient (AMB) | payer MEDICAID, SELFPAY ==
[2024-01-02 13:48] VITALS: BP 102/62; PULSE 96; O2SAT 96; BMI 31.0
--- NOTE | 2024-01-02 13:48 | MHC.OFFVIS ---
Vital Signs 01/02/24 13:48 Height 5 ft 5 in Weight 186 lb 4.65 oz BMI 31.0 BP 102/62 Blood Pressure Location Lt brachial Position Sitting Pulse 96 Pulse Source Pulse Oximeter Pulse Oximetry (%) 96 Oxygen Delivery Method Room Air Intake Visit Reasons: Shortness of breath Intake Note: pt is here for follow up and states she is feeling for 2 weeks a lot of asthma and a lot of shortness of breath, wheezing with cough. Allergies No Known Allergies Allergy (Verified 01/02/24 13:57) Medication List - Last Reconciled 01/02/24 by Liseth Thomas MD albuterol sulfate 90 mcg/actuation (Ventolin HFA) 2 puffs PO Q6H PRN amlodipine 2.5 mg PO QAM ascorbic acid (vitamin C) 1,000 mg PO DAILY aspirin 81 mg PO DAILY baclofen 20 mg PO TID biotin 10,000 mcg PO DAILY cholecalciferol (vitamin D3) 50 mcg PO DAILY diclofenac sodium 75 mg PO BID dulaglutide (Trulicity) 0.75 mg subcut QWEEK duloxetine 30 mg PO DAILY empagliflozin (Jardiance) 25 mg PO QAM fluticasone propion-salmeterol 115-21 mcg/actuation (Advair HFA) 2 puffs inhalation BID gabapentin 100 mg PO TID glipizide 5 mg PO DAILY insulin glargine (Lantus Solostar U-100 Insulin) 12 units subcut QAM losartan-hydrochlorothiazide 100-12.5 mg 1 tab PO DAILY magnesium 400 mg PO DAILY mecobalamin (vitamin B12) 5,000 mcg PO metformin 1,000 mg PO BID metoprolol succinate ER 25 mg PO DAILY ondansetron HCl 8 mg PO BID pantoprazole 20 mg PO BID sertraline 25 mg PO QAM zinc acetate 50 mg PO DAILY Do you need a note to return to daycare/school/sports/work: No HPI HPI Shortness of breath: Details: THIS 53 YEARS OLD FEMALE IS HERE FOR HER ROUTINE FOLLOW-UP. SHE HAS BEEN DOING VERY WELL EXCEPT FOR GETTING SHORT OF BREATH ON MINIMAL EXERTION. SHE ALSO HAS FREQUENT BOUTS OF COUGH. IN THE PAST FEW WEEKS HER SYMPTOMS HAVE BEEN SOMEWHAT WORSE AND THIS IS PROBABLY RELATED TO HOT AND HUMID WEATHER. TODAY HER DAUGHTER EXPLAINED TO ME THAT MELISSA HAS DIFFICULTY IN SLEEPING AT NIGHT, SHE WAKES UP FREQUENTLY. SHE FEELS SLEEPY AND TIRED DURING THE DAY , AND DOES SNORE AT NIGHT. THE PATIENT STATES THAT MANY YEARS AGO SHE HAD A POLYSOMNOGRAM STUDY IN THE SLEEP LAB. I WAS ABLE TO TRACK THAT POLYSOMNOGRAM STUDY DONE IN 2014. SHE INDEED DID HAVE EVIDENCE OF OBSTRUCTIVE SLEEP APNEA , BUT WAS NOT STARTED ON CPAP. SUBSEQUENTLY SHE HAS GRADUALLY GAINED SOME WEIGHT. [facility] Medical History (Updated 01/02/24 @ 16:07 by Liseth Thomas MD) HARSH (obstructive sleep apnea) Allergic rhinitis Osteoporosis Asthma Arm mass Tachycardia determined by examination of pulse Restrictive lung disease Hypoxemia Dyspnea Post-COVID syndrome Surgical History Hx of heart artery stent Family History Maternal Uncle Colon cancer Paternal Grandfather Colon cancer Mother Colon polyps Lung cancer Maternal Uncle Colon cancer Social History Household Members: Family Alcohol intake: never Patient Tobacco Use Status: Never used Tobacco Current occupational status: disabled Review of Systems Const All systems reviewed & are unremarkable except as noted in HPI and below Eyes Reports no additional complaints ENT Reports no additional complaints Card Details: Left to all arm pain. Probably not cardiac. And she also tends to have fast heart rate, for which she is being checked by Cardiology. Resp Reports as per HPI GI Reports no additional complaints Reports no additional complaints Musc Reports other (Left all arm pain, after the COVID vaccine) Skin/Breast Reports system reviewed and no additional complaints, except as documented Neuro Reports no additional complaints Psych Reports no additional complaints Physical Exam Vital Signs: Last Vital Signs Pulse 96 01/02/24 13:48 BP 102/62 01/02/24 13:48 Pulse Ox 96 01/02/24 13:48 Oxygen Delivery Method Room Air 01/02/24 13:48 BMI result Body Mass Index 31.0 Const Other: Somewhat pale looking General: comfortable, no acute distress, alert and awake Orientation/consciousness: patient oriented x3 HEENT Head: Yes normal to inspection General nose exam: No nasal polyps present and No nasal discharge present Face and sinus: Yes sinuses nontender Mouth: oropharynx normal Throat: Yes posterior oropharynx normal Eyes General: appearance normal, both eyes and all related structures Neck Neck: Yes normal visual inspection, Yes no lymphadenopathy, Yes trachea midline and Yes no JVD Thyroid: Thyroid normal Chest Chest palpation & inspection: normal inspection of the chest, normal palpation of entire chest wall and no tenderness Resp Other: Percussion note resonant except for mild dullness over the left base. Breath sounds are decreased over the left lower lobe area. No wheezes or rhonchi are heard. Cardio Palpation: normal PMI Rate: regular rate and tachycardic Rhythm: regular rhythm Heart sounds: no gallops and no murmurs Peripheral pulses: Peripheral pulses 2+ throughout GI Palpation (GI): Soft to palpation, Tenderness to palpation present (GI), No hepatosplenomegaly present and Palpable mass present Auscultation: normal bowel sounds Back/Spine/Pelvis Thoracic/Lumbar Spine: thoracic and lumbar spine normal to inspection Skin General skin exam: no rashes or lesions noted Neuro General: patient oriented x3 and no focal motor deficits Cranial nerves: Yes CN's II-XII intact bilaterally Extrem General: Yes normal to inspection, Yes no clubbing, cyanosis or edema and Yes no calf tenderness Psych Appearance: grossly normal and well kempt Speech and movement: Normal speech and movement present Assessment & Plan Assessment & Plan (1) Allergic rhinitis: Comment: MOSTLY HYPERSENSITIVITY TO CHEMICAL SPRAYS AND PERFUMES ETC.. SHE TRIES TO AVOID EXPOSURE AND STAYS AWAY FROM SUCH AGENTS. Code(s): J30.9 - Allergic rhinitis, unspecified Category: Medical Plan: AVOID EXPOSURE TO CHEMICAL SPRAYS AND FUMES. PATIENT DOES NOT WANT TO USE ANY NASAL INHALERS OR ANTIHISTAMINIC AGENT. (2) Asthma: Comment: HAS MILD, INTERMITTENT BOUTS OF WHEEZING, ALSO SHE TENDS TO GET COUGH AND WHEEZING IF SHE IS EXPOSED TO ANYBODY WITH PERFUME , OR HOUSEHOLD SPRAYS ETC. Code(s): J45.909 - Unspecified asthma, uncomplicated Category: Medical Plan: ADVISED TO AVOID EXPOSURE TO CHEMICAL SPRAYS, HOUSEHOLD SPRAYS, AND BODY PERFUME. ADVAIR HFA 115-212 PUFFS B.I.D.. ALBUTEROL HFA 1 OR 2 PUFFS Q 6 HOURS ONLY P.R.N.. (3) Restrictive lung disease: Comment: HAS SEVERE RESTRICTIVE PULMONARY DISORDER, MAINLY DUE TO HER CHRONICALLY ELEVATED LEFT HEMIDIAPHRAGM. Code(s): J98.4 - Other disorders of lung Category: Medical Plan: ADVISED TO CONTINUE DOING DEEP BREATHING EXERCISES 2 OR 3 TIMES A DAY (4) HARSH (obstructive sleep apnea): Comment: PATIENT DOES HAVE HISTORY OF OBSTRUCTIVE SLEEP APNEA DIAGNOSED IN 2015 BUT THERE HAS BEEN NO TREATMENT OR FOLLOW-UP. CURRENT NONSPECIFIC SYMPTOMS OF SNORING AND FREQUENT AWAKENINGS, MAY BE DUE TO SLEEP APNEA Code(s): G47.33 - Obstructive sleep apnea (adult) (pediatric) Category: Medical Plan: DISCUSSED WITH THE PATIENT AND HER DAUGHTER AND SUGGESTED THAT WE SHOULD DO A SLEEP STUDY . SHE IS AGREEABLE. I WOULD ORDER A HOME-BASED SLEEP STUDY . Orders: Orders RT home sleep study Today G47.33 - Obstructive sleep apnea (adult) (pediatric), J45.909 - Unspecified asthma, uncomplicated, J98.4 - Other disorders of lung Coding Level of Care Code Est Pt Level 3 (75407) Diagnoses Allergic rhinitis J30.9 Asthma J45.909 Restrictive lung disease J98.4 HARSH (obstructive sleep apnea) G47.33
== END 2024-01-02 14:08 | disposition home or self-care (01) ==
PROVIDERS: PCP Internal Medicine; Referring Provider Internal Medicine; Visit Provider Internal Medicine
DX: J30.9 Allergic rhinitis, unspecified (principal); J45.909 Unspecified asthma, uncomplicated; J98.4 Other disorders of lung; G47.33 Obstructive sleep apnea (adult) (pediatric)
CPT/HCPCS: 99213

== ENCOUNTER → 2024-01-02 13:32 | Outpatient (BNVA) | payer MEDICAID, SELFPAY | PROVIDERS: PCP Internal Medicine; Visit Provider Internal Medicine | DX: J45.909 Unspecified asthma, uncomplicated (principal); J98.4 Other disorders of lung; G47.33 Obstructive sleep apnea (adult) (pediatric) | CPT/HCPCS: 99212 ==

== ENCOUNTER 2024-01-04 10:30 | Inpatient (IN) | payer MEDICAID, SELFPAY ==
--- NOTE | ~2024-01-04 | CT_ITS ---
EXAMINATION: CT ABDOMEN AND PELVIS WITH CONTRAST CLINICAL INFORMATION: Abdominal pain. Diarrhea. COMPARISON: CT scan abdomen pelvis August 07, 2019 TECHNIQUE: Multidetector volumetric images were obtained from the superior aspect of the liver through the pubic symphysis following administration 85 mL of Omnipaque 350 intravenous contrast. Sagittal and coronal reformatted images were obtained on the technologist's workstation. Oral contrast: No This CT examination was performed using dose optimization techniques as appropriate, variously including the following: *Automated exposure control *Adjustment of mA and/or kV according to patient size (this includes techniques or standardized protocols for targeted exams where dose is matched to indication/reason for exam; i.e. extremities or head) *Use of iterative reconstruction technique DLP: 686 mGy-cm FINDINGS: LUNG BASES: Asymmetric elevation of left diaphragm above the right. Normal aeration of lung bases. No pleural effusion. LIVER, GALLBLADDER, AND BILIARY TREE: Liver mildly enlarged measuring 20 cm superior inferior. No focal liver lesion or intrahepatic bile duct dilatation. Status post cholecystectomy PANCREAS: Unremarkable. SPLEEN: Unremarkable. ADRENAL GLANDS: Unremarkable. KIDNEYS AND URETERS: The kidneys are normal in size, shape, and attenuation. No hydronephrosis, hydroureter, or calculi seen. No perinephric stranding. Multiple left renal cortical cysts. No follow-up imaging is recommended for simple renal cyst. BLADDER: Unremarkable. GASTROINTESTINAL TRACT: There is diffuse wall thickening and surrounding pericolonic edema involving the sigmoid colon. This is a nonspecific colitis. No diverticula evident. No perforation or abscess. No bowel obstruction. Small moderate volume of stool in the colon. The appendix is normal. Small bowel loops and stomach are unremarkable. ABDOMINAL WALL: Small fat-containing umbilical hernia. LYMPH NODES: Normal. VASCULAR: No aneurysm of aorta. Incidental note of left sided retroaortic renal vein. PELVIC VISCERA: Status post hysterectomy OSSEOUS STRUCTURES: Unremarkable. CT/CT abdomen pelvis w IV con IMPRESSION: 1. Diffuse wall thickening and surrounding pericolonic edema involving the sigmoid colon consistent with a nonspecific colitis. 2. Mild hepatomegaly. 3. Status post cholecystectomy. Fleischner guidelines were followed.
[2024-01-04 10:35] VITALS: BP 167/85; PULSE 120; RESP 20; TEMP 37.1; O2SAT 96; BMI 30.4
[2024-01-04 10:50] LABS: MANUAL DIFF FLAG NO
[2024-01-04 10:53] LABS: Basophils Percent Auto 0.4 % (0-2); Eosinophils Absolute Auto 0.1 X10*3/uL (0.0-0.4); Eosinophils Percent Auto 0.8 % (0-4); Hematocrit 38.9 % (37.0-47.0); Hemoglobin 12.5 g/dl (12.0-16.0); Imm Gran Abs Auto 0.05 X10*3/uL (0.00-0.03); Imm Gran Pct Auto 0.7 % (0.0-0.4); Lymphocytes Absolute Auto 1.2 X10*3/uL (1.2-4.9); Mean Corpuscular HGB Conc 32.1 g/dl (31.0-35.0); Mean Corpuscular Hemoglobin 28.7 pg (27.0-33.0); Mean Corpuscular Volume 89.4 fL (80.0-98.0); Mean Platelet Volume 10.8 fL (9.4-12.3); Monocytes Absolute Auto 0.4 X10*3/uL (0.1-1.2); Monocytes Percent Auto 5.7 % (2-11); Neutrophils Absolute Auto 5.9 x10*3/uL (2.0-8.3); Neutrophils Percent Auto 76.4 % (45-73); Platelet Count 234 X10*3/uL (160-400); Red Blood Count 4.35 X10*6/uL (4.20-5.50); Red Cell Distribution Width 12.5 % (11.0-16.0); White Blood Count 7.7 X10*3/uL (4.8-10.8)
[2024-01-04 11:10] LABS: Alanine Aminotransferase 33 U/L (0-31); Alkaline Phosphatase 119 U/L (39-117); Anion Gap 13 (12-20); Aspartate Amino Transferase 27 U/L (5-31); Bilirubin Total 0.3 mg/dL (0.0-1.0); Blood Urea Nitrogen 13 mg/dL (9-16); Calcium 9.6 mg/dL (8.4-10.2); Carbon Dioxide 29 mmol/L (22-29); Chloride 99 mmol/L (96-108); Creatinine Clr Calc Pharmacy 83.2; Estimated Glomerular Filt Rate > 60; Lipase 19 U/L (8-78); Potassium 4.1 mmol/L (3.3-5.1); Sodium 137 mmol/L (135-145); Total Protein 7.2 g/dL (6.5-8.0)
[2024-01-04 11:11] LABS: Glucose Random 438 mg/dL (60-115)
[2024-01-04 11:37] LABS: Influenza A PCR NEGATIVE (Negative); Influenza B PCR NEGATIVE (Negative); Resp Syncy Virus RNA Qual PCR NEGATIVE (Negative); SARS COV2 PCR INHOUSE NEGATIVE (Negative)
[2024-01-04 12:00] LABS: Beta-Hydroxybutyrate 0.18 mmol/L (0.02-0.27)
--- NOTE | 2024-01-04 12:07 | ED_ITS ---
HPI - General Adult General Chief complaint: Nausea/Vomiting/Diarrhea Stated complaint: fever diarrhea Time Seen by Provider: 01/04/24 12:06 History of Present Illness ED Provider: Dr. Collins HPI narrative: 53 y/o F patient; PMH HARSH, T2DM, NAFLD, GERD; presents from home reporting four days of dark diarrhea associated with generalized abdominal pain. The patient denies associated nausea or vomiting. She states her stool was initially dark for the first two days but that for the last two days her stool has been brighter red. She has + sick contact in her mother who was recently admitted to [facility] for Salmonella. The patient is concerned she has the same thing due to her similar symptoms. She otherwise denies any recent change to her diet or appetite. She notes sensation of fevers but has not taken her temperature at home. She states recently she has had more episodes of hyperglycemia due to an insurance issue with receiving her Trulicity. Related Data Home Medications ?Medication ?Instructions ?Recorded ?Confirmed aspirin 81 mg tablet,delayed 81 mg PO DAILY 10/27/20 01/02/24 release fluticasone propionate 115 2 puff inhalation BID 10/27/20 01/02/24 mcg-salmeterol 21 mcg/actuation HFA inhaler (Advair HFA) glipizide 5 mg tablet 5 mg PO DAILY 10/27/20 01/02/24 metformin 1,000 mg tablet 1,000 mg PO BID 10/27/20 01/02/24 cholecalciferol (vitamin D3) 50 50 mcg PO DAILY 08/18/21 01/02/24 mcg (2,000 unit) tablet diclofenac sodium 75 mg 75 mg PO BID 08/18/21 01/02/24 tablet,delayed release duloxetine 30 mg capsule,delayed 30 mg PO DAILY 08/18/21 01/02/24 release metoprolol succinate 25 mg 25 mg PO DAILY 08/18/21 01/02/24 tablet,extended release 24 hr ondansetron HCl 4 mg tablet 8 mg PO BID 08/18/21 01/02/24 ascorbic acid (vitamin C) 500 mg 1,000 mg PO DAILY 10/27/21 01/02/24 capsule baclofen 20 mg tablet 20 mg PO TID 10/27/21 01/02/24 biotin 10,000 mcg capsule 10,000 mcg PO DAILY 10/27/21 01/02/24 gabapentin 100 mg capsule 100 mg PO TID 10/27/21 01/02/24 losartan 100 1 tab PO DAILY 10/27/21 01/02/24 mg-hydrochlorothiazide 12.5 mg tablet magnesium 200 mg tablet 400 mg PO DAILY 10/27/21 01/02/24 mecobalamin (vitamin B12) 5,000 5,000 mcg PO 10/27/21 01/02/24 mcg disintegrating tablet zinc acetate 50 mg (zinc) capsule 50 mg PO DAILY 10/27/21 01/02/24 pantoprazole 20 mg tablet,delayed 20 mg PO BID 04/12/22 01/02/24 release amlodipine 2.5 mg tablet 2.5 mg PO QAM 04/28/22 01/02/24 dulaglutide 0.75 mg/0.5 mL 0.75 mg subcut QWEEK 04/28/22 01/02/24 subcutaneous pen injector (Trulicity) empagliflozin 25 mg tablet 25 mg PO QAM 09/14/22 01/02/24 (Jardiance) sertraline 25 mg tablet 25 mg PO QAM 01/12/23 01/02/24 insulin glargine 100 unit/mL (3 12 unit subcut QAM 08/15/23 01/02/24 mL) subcutaneous pen (Lantus Solostar U-100 Insulin) Previous Rx's ?Medication ?Instructions ?Recorded albuterol sulfate 90 mcg/actuation 2 puff PO Q6H PRN for wheezing #18 09/04/23 aerosol inhaler (Ventolin HFA) grams Allergies Allergy/AdvReac Type Severity Reaction Status Date / Time No Known Allergies Allergy Verified 01/04/24 10:40 Review of Systems 2 Review of Systems: Yes all other systems are reviewed and are negative Neurologic: Denies Sensory deficit (Neuro) [facility] Past Medical History Attestation statement: The following information was validated with the patient. Source: old records reviewed Medical History HARSH (obstructive sleep apnea) Allergic rhinitis Osteoporosis Asthma Arm mass Tachycardia determined by examination of pulse Restrictive lung disease Hypoxemia Dyspnea Post-COVID syndrome Surgical History Hx of heart artery stent Family History Family History Maternal Uncle Colon cancer Paternal Grandfather Colon cancer Mother Colon polyps Lung cancer Maternal Uncle Colon cancer Social History Social History Household Members: Family Alcohol intake: never Patient Tobacco Use Status: Never used Tobacco Advance Directives: No Current occupational status: disabled Physical Exam ED Vital Signs: Vital Signs - 24 hr 01/04/24 10:35 Temperature 98.7 F Pulse Rate 120 H Respiratory Rate 20 Blood Pressure 167/85 H Pulse Oximetry 96 Oxygen Delivery Method Room Air BMI result Body Mass Index 30.4 The patient is afebrile, tachycardic, and mildly hypertensive Const General: cooperative and healthy appearing Orientation/consciousness: patient oriented x3 HENMT Head: Yes normal to inspection and Yes atraumatic Eyes General: appearance normal, both eyes and all related structures Pupils: Equal, round and reactive pupils present EOM: EOMs intact bilaterally Neck Neck: Yes normal visual inspection, Yes full ROM, Yes supple and No tender Chest Chest palpation & inspection: normal inspection of the chest and normal palpation of entire chest wall Resp Effort & Inspection: normal respiratory effort, able to speak in complete sentences, no cough and no respiratory distress Auscultation: clear to auscultation bilaterally Cardio Rate: tachycardic Rhythm: regular rhythm Peripheral pulses: Peripheral pulses 2+ throughout GI Inspection: Yes normal to inspection and No distended Palpation (GI): Soft to palpation, not firm, nontender, no guarding and not rigid Auscultation: normal bowel sounds Back/Spine/Pelvis Back: back tenderness Neuro General: patient oriented x3 Cranial nerves: Yes Equal, round and reactive pupils present Motor exam (neuro): 5/5 motor strength present throughout Sensory Exam: No Sensory deficit (Neuro) Course Course Course Narrative: Patient is afebrile, tachycardic, and mildly hypertensive. Reviewed laboratory studies. Hyperglycemia without evidence of DKA or HHS. No significant leukocytosis. COVID/Flu/RSV negative. Providing 1L IVF and placed on insulin sliding scale. Ordered blood cultures and LA given report of fever @ home and tachycardia - with suspicion for possible salmonella infection. Discussed with infectious disease who agree with plan for Ceftriaxone and admission. Plan: Admit to hospitalist Condition: Stable Medical Decision Making Lab Data 01/04/24 10:45 01/04/24 10:45 Labs: Lab Results 01/04/24 01/04/24 01/04/24 Range/Units 10:45 12:11 12:13 WBC 7.7 (4.8-10.8) X10*3/uL RBC 4.35 (4.20-5.50) X10*6/uL Hgb 12.5 (12.0-16.0) g/dl Hct 38.9 (37.0-47.0) % MCV 89.4 (80.0-98.0) fL MCH 28.7 (27.0-33.0) pg MCHC 32.1 (31.0-35.0) g/dl RDW 12.5 (11.0-16.0) % Plt Count 234 (160-400) X10*3/uL MPV 10.8 (9.4-12.3) fL Immature Gran % (Auto) 0.7 H (0.0-0.4) % Neut % (Auto) 76.4 H (45-73) % Lymph % (Auto) 16.0 L (20-40) % [place] % (Auto) 5.7 (2-11) % Eos % (Auto) 0.8 (0-4) % Baso % (Auto) 0.4 (0-2) % Lymph # (Auto) 1.2 (1.2-4.9) X10*3/uL [place] # (Auto) 0.4 (0.1-1.2) X10*3/uL Eos # (Auto) 0.1 (0.0-0.4) X10*3/uL Baso # (Auto) 0.0 (0.0-0.2) X10*3/uL Abs Immat Gran (auto) 0.05 H (0.00-0.03) X10*3/uL Absolute Neuts (auto) 5.9 (2.0-8.3) x10*3/uL Absolute Nucleated RBC 0.000 (0.0-0.012) X10*3/uL Nucleated RBC % (auto) 0.0 (0.0-0.2) /100WBC VBG pH 7.38 (7.32-7.43) VBG pCO2 52 mmHg VBG pO2 54 mmHg VBG HCO3 31 H (22-26) mmol/L VBG O2 Saturation 84.0 % VBG Base Excess 5.3 mmol/L Sodium 137 (135-145) mmol/L Potassium 4.1 (3.3-5.1) mmol/L Chloride 99 (96-108) mmol/L Carbon Dioxide 29 (22-29) mmol/L Anion Gap 13 (12-20) BUN 13 (9-16) mg/dL Creatinine 0.85 (0.5-1.4) mg/dL Estim Creat Clear Calc 83.2 Estimated GFR > 60 Random Glucose 438 H* (60-115) mg/dL Osmolality 302 (281-305) mosm/kg Calcium 9.6 (8.4-10.2) mg/dL Total Bilirubin 0.3 (0.0-1.0) mg/dL AST 27 (5-31) U/L ALT 33 H (0-31) U/L Alkaline Phosphatase 119 H (39-117) U/L Total Protein 7.2 (6.5-8.0) g/dL Albumin 4.0 (3.5-5.0) g/dL Lipase 19 (8-78) U/L Beta-Hydroxybutyrate 0.18 (0.02-0.27) mmol/L Influenza Type A (PCR) NEGATIVE (Negative) Influenza Type B (PCR) NEGATIVE (Negative) RSV RNA Qual (PCR) NEGATIVE (Negative) SARS-CoV-2 RNA (RT-PCR) NEGATIVE (Negative) Discharge Plan Discharge Clinical Impression: Hemorrhagic diarrhea, Hyperglycemia Patient Disposition: Admitted As Inpatient Prescriptions: No Action albuterol sulfate [Ventolin HFA] 90 mcg/actuation HFA aerosol inhaler 2 puff PO Q6H PRN (Reason: for wheezing) Qty: 18 3RF glipizide 5 mg tablet 5 mg PO DAILY metformin 1,000 mg tablet 1,000 mg PO BID aspirin 81 mg tablet,delayed release (DR/EC) 81 mg PO DAILY Advair HFA 115-21 mcg/actuation HFA aerosol inhaler 2 puff inhalation BID losartan-hydrochlorothiazide 100-12.5 mg tablet 1 tab PO DAILY baclofen 20 mg tablet 20 mg PO TID magnesium 200 mg tablet 400 mg PO DAILY ascorbic acid (vitamin C) 500 mg capsule 1,000 mg PO DAILY mecobalamin (vitamin B12) 5,000 mcg tablet,disintegrating 5,000 mcg PO biotin 10,000 mcg capsule 10,000 mcg PO DAILY zinc acetate 50 mg (zinc) capsule 50 mg PO DAILY gabapentin 100 mg capsule 100 mg PO TID Trulicity 0.75 mg/0.5 mL pen injector 0.75 mg subcut QWEEK amlodipine 2.5 mg tablet 2.5 mg PO QAM cholecalciferol (vitamin D3) 50 mcg (2,000 unit) tablet 50 mcg PO DAILY duloxetine 30 mg capsule,delayed release(DR/EC) 30 mg PO DAILY metoprolol succinate 25 mg tablet extended release 24 hr 25 mg PO DAILY diclofenac sodium 75 mg tablet,delayed release (DR/EC) 75 mg PO BID ondansetron HCl 4 mg tablet 8 mg PO BID pantoprazole 20 mg tablet,delayed release (DR/EC) 20 mg PO BID Jardiance 25 mg tablet 25 mg PO QAM sertraline 25 mg tablet 25 mg PO QAM insulin glargine [Lantus Solostar U-100 Insulin] 100 unit/mL (3 mL) insulin pen 12 unit subcut QAM Print Language: Mongolian
[2024-01-04 12:20] LABS: VBG Base Excess 5.3 mmol/L; VBG HCO3 31 mmol/L (22-26); VBG pCO2 52 mmHg; VBG pH 7.38 (7.32-7.43); VBG pO2 54 mmHg
[2024-01-04 12:21] LABS: Venous Blood Gas Refer to POC result
[2024-01-04 12:40] LABS: Osmolality, Serum 302 mosm/kg (281-305)
[2024-01-04] MEDS: 0.9 % Sodium Chloride 1,000 ML 999 ML IV (12:40)
[2024-01-04] MEDS: Insulin Lispro 100 UNIT/ML 3 ML VIAL 10 UNIT SUBCUT (12:53)
[2024-01-04 13:12] LABS: Lactic Acid 1.3 mmol/L (0.5-2.0)
[2024-01-04] MEDS: cefTRIAXone sodium 2 GM in 0.9 % Sodium Chloride 50 ML IV (13:18)
--- NOTE | 2024-01-04 13:37 | PM.IMHP ---
History of Present Illness Date of Service: 01/04/24 Chief Complaint: Diarrhea This is a 53-year-old female with pertinent history of hypertension, insulin-dependent diabetes mellitus, NAFLD, mixed hyperlipidemia, mood disorder who presents to the emergency department for evaluation of loose stools. Patient states she went to a [facility] 6 days prior to presentation where everybody brought cooked food from home, potluck style. Patient states her mom is sick with diarrhea and admitted at [facility] and diagnosed with salmonella infection. Patient's sister has also been having multiple loose stools and is in the waiting room of the ER. Patient states her symptoms started 4 days prior to presentation. She has been having generalized abdominal discomfort with multiple episodes (9-10) of loose stools throughout the day. Patient states the last 2 days she has noticed blood in stools. Endorses nausea but no vomiting. Has subjective fevers and chills. No chest discomfort, palpitations, shortness of breath, changes in urinary habits. Patient is Yoruba speaking and history obtained with the help of official court interpreter In the emergency department, Infectious Disease was consulted who requested admission and initiating IV ceftriaxone. Review of Systems Constitutional: Constitutional: Reports fatigue, Reports malaise, Reports poor appetite and Reports weakness ENT: Reports system reviewed and no additional complaints, except as documented Cardiovascular: Cardiovascular: Reports no additional cardiovascular complaints Respiratory: Respiratory: Reports no additional respiratory complaints Gastrointestinal: Gastrointestinal: Reports abdominal pain, Reports loose stools and Reports nausea Genitourinary: Genitourinary: Reports no additional female genitourinary complaints Neurologic: Reports weakness Endocrine: Endocrine: Reports fatigue [facility] Medical History HARSH (obstructive sleep apnea) Allergic rhinitis Osteoporosis Asthma Arm mass Tachycardia determined by examination of pulse Restrictive lung disease Hypoxemia Dyspnea Post-COVID syndrome Family History Maternal Uncle Colon cancer Paternal Grandfather Colon cancer Mother Colon polyps Lung cancer Maternal Uncle Colon cancer Surgical History Hx of heart artery stent Social History Household Members: Family Alcohol intake: never Patient Tobacco Use Status: Never used Tobacco Advance Directives: No Current occupational status: disabled Meds Allergies Allergy/AdvReac Type Severity Reaction Status Date / Time No Known Allergies Allergy Verified 01/04/24 10:40 Home Medications ?Medication ?Instructions ?Recorded ?Confirmed ?Last Taken ?Type aspirin 81 mg tablet,delayed 81 mg PO DAILY 10/27/20 01/02/24 Unknown History release fluticasone propionate 115 2 puff inhalation BID 10/27/20 01/02/24 Unknown History mcg-salmeterol 21 mcg/actuation HFA inhaler (Advair HFA) glipizide 5 mg tablet 5 mg PO DAILY 10/27/20 01/02/24 Unknown History metformin 1,000 mg tablet 1,000 mg PO BID 10/27/20 01/02/24 Unknown History cholecalciferol (vitamin D3) 50 50 mcg PO DAILY 08/18/21 01/02/24 Unknown History mcg (2,000 unit) tablet diclofenac sodium 75 mg 75 mg PO BID 08/18/21 01/02/24 Unknown History tablet,delayed release duloxetine 30 mg capsule,delayed 30 mg PO DAILY 08/18/21 01/02/24 Unknown History release metoprolol succinate 25 mg 25 mg PO DAILY 08/18/21 01/02/24 Unknown History tablet,extended release 24 hr ondansetron HCl 4 mg tablet 8 mg PO BID 08/18/21 01/02/24 Unknown History ascorbic acid (vitamin C) 500 mg 1,000 mg PO DAILY 10/27/21 01/02/24 Unknown History capsule baclofen 20 mg tablet 20 mg PO TID 10/27/21 01/02/24 Unknown History biotin 10,000 mcg capsule 10,000 mcg PO DAILY 10/27/21 01/02/24 Unknown History gabapentin 100 mg capsule 100 mg PO TID 10/27/21 01/02/24 Unknown History losartan 100 1 tab PO DAILY 10/27/21 01/02/24 Unknown History mg-hydrochlorothiazide 12.5 mg tablet magnesium 200 mg tablet 400 mg PO DAILY 10/27/21 01/02/24 Unknown History mecobalamin (vitamin B12) 5,000 5,000 mcg PO 10/27/21 01/02/24 Unknown History mcg disintegrating tablet zinc acetate 50 mg (zinc) capsule 50 mg PO DAILY 10/27/21 01/02/24 Unknown History pantoprazole 20 mg tablet,delayed 20 mg PO BID 04/12/22 01/02/24 Unknown History release amlodipine 2.5 mg tablet 2.5 mg PO QAM 04/28/22 01/02/24 Unknown History dulaglutide 0.75 mg/0.5 mL 0.75 mg subcut QWEEK 04/28/22 01/02/24 Unknown History subcutaneous pen injector (Trulicity) empagliflozin 25 mg tablet 25 mg PO QAM 09/14/22 01/02/24 Unknown History (Jardiance) sertraline 25 mg tablet 25 mg PO QAM 01/12/23 01/02/24 Unknown History insulin glargine 100 unit/mL (3 12 unit subcut QAM 08/15/23 01/02/24 Unknown History mL) subcutaneous pen (Lantus Solostar U-100 Insulin) Physical Exam Vital Signs and Narrative: Vital Signs: Last Vital Signs Temp 98.7 F 01/04/24 10:35 Pulse 120 H 01/04/24 10:35 Resp 20 01/04/24 10:35 BP 167/85 H 01/04/24 10:35 Pulse Ox 96 01/04/24 10:35 O2 Del Method Room Air 01/04/24 10:35 BMI result Body Mass Index 30.4 Middle-aged female lying in bed in no distress Neck supple, no JVD Regular rate and rhythm, S1-S2 heard Regular breath sounds bilaterally, no wheezing or crackles appreciated Abdomen soft nontender, no guarding, no rigidity Patient is awake, alert and oriented to self, place, time and person ; no focal motor deficit Psych: Normal mood No pedal edema Results Labs 01/04/24 10:45 01/04/24 10:45 Labs: Laboratory Results - last 24 hr 01/04/24 01/04/24 01/04/24 10:45 12:11 12:13 MCV 89.4 MCH 28.7 MCHC 32.1 RDW 12.5 Plt Count 234 MPV 10.8 Immature Gran % (Auto) 0.7 H Neut % (Auto) 76.4 H Lymph % (Auto) 16.0 L [place] % (Auto) 5.7 Eos % (Auto) 0.8 Baso % (Auto) 0.4 Lymph # (Auto) 1.2 [place] # (Auto) 0.4 Eos # (Auto) 0.1 Baso # (Auto) 0.0 Abs Immat Gran (auto) 0.05 H Absolute Neuts (auto) 5.9 Absolute Nucleated RBC 0.000 Nucleated RBC % (auto) 0.0 VBG pH 7.38 VBG pCO2 52 VBG pO2 54 VBG HCO3 31 H VBG O2 Saturation 84.0 VBG Base Excess 5.3 Anion Gap 13 Estim Creat Clear Calc 83.2 Estimated GFR > 60 Random Glucose 438 H* Osmolality 302 Lactic Acid Calcium 9.6 Total Bilirubin 0.3 AST 27 ALT 33 H Alkaline Phosphatase 119 H Total Protein 7.2 Albumin 4.0 Lipase 19 Beta-Hydroxybutyrate 0.18 Influenza Type A (PCR) NEGATIVE Influenza Type B (PCR) NEGATIVE RSV RNA Qual (PCR) NEGATIVE SARS-CoV-2 RNA (RT-PCR) NEGATIVE 01/04/24 12:42 MCV MCH MCHC RDW Plt Count MPV Immature Gran % (Auto) Neut % (Auto) Lymph % (Auto) [place] % (Auto) Eos % (Auto) Baso % (Auto) Lymph # (Auto) [place] # (Auto) Eos # (Auto) Baso # (Auto) Abs Immat Gran (auto) Absolute Neuts (auto) Absolute Nucleated RBC Nucleated RBC % (auto) VBG pH VBG pCO2 VBG pO2 VBG HCO3 VBG O2 Saturation VBG Base Excess Anion Gap Estim Creat Clear Calc Estimated GFR Random Glucose Osmolality Lactic Acid 1.3 Calcium Total Bilirubin AST ALT Alkaline Phosphatase Total Protein Albumin Lipase Beta-Hydroxybutyrate Influenza Type A (PCR) Influenza Type B (PCR) RSV RNA Qual (PCR) SARS-CoV-2 RNA (RT-PCR) Assessment and Plan (1) Hemorrhagic diarrhea: Status: Acute Plan This is a 53-year-old female with pertinent history of hypertension, insulin-dependent diabetes mellitus, NAFLD, mixed hyperlipidemia, mood disorder who presents to the emergency department for evaluation of loose stools. #. Acute bloody diarrhea: +sick contact for Salmonella. Will admit patient with IV antibiotic due to high risk of invasive disease. Discussed with Infectious Disease, initiating IV ceftriaxone. GI panel pending. CT abdomen pending. #. Insulin-dependent diabetes mellitus with hyperglycemia: Initiating basal plus insulin regimen #. Mixed hyperlipidemia: On statin #. Mood disorder: Continue home mood stabilizers #. Hypertension: Continue home antihypertensives #. Gastroesophageal reflux disease: On PPI Med rec pending DVT prophylaxis: Mechanical Full code Admit as inpatient and will require two night minimum hospital stay for IV antibiotics (as above), which is not possible in a lesser acute setting. Quality Stroke Does the patient have a stroke diagnosis?: No VTE Prior VTE?: No VTE Risk Level:: Medical - moderate - high VTE Device Contraindication: N/A - Device Ordered VTE Drug Contraindication: Treatment Not Indicated
[2024-01-04 14:16] LABS: Glucose, Whole Blood 225 mg/dL (60-115)
[2024-01-04 14:24] VITALS: BP 149/81; PULSE 111; RESP 12; TEMP 37.5; O2SAT 95
[2024-01-04] MEDS: Lactated Ringers 1,000 ML 999 ML IV (14:24)
--- NOTE | 2024-01-04 15:19 | PHA.MEDREC ---
Addendum entered by Yamini Carlisle RPh 01/04/24 18:00: reviewed by [facility]. Original Note: Pharmacy Consult ? Medication Reconciliation Pharmacy has completed the medication reconciliation. Confirmed medications with list provided by patient and family at bedside was able to interpret. Family at bed was able to help confirm the Insulin glargine and she does 12 units daily. And the patient confirmed they are suppose to be taking Trulicity once a week as well but its been backordered in her pharmacy and she has not taken that medication in over 3 months.
[2024-01-04 16:20] LABS: Glucose, Whole Blood 253 mg/dL (60-115)
[2024-01-04] MEDS: iohexoL 350 MG/ML 100 ML INFUS..BTL IV (16:34)
[2024-01-04 17:00] VITALS: BP 144/83; PULSE 112; RESP 18; TEMP 36.2; O2SAT 94
[2024-01-04 17:12] LABS: Glucose, Whole Blood 211 mg/dL (60-115)
[2024-01-04] MEDS: Insulin Lispro 100 UNIT/ML 3 ML VIAL SUBCUT ×2 (17:32→20:19)
[2024-01-04 18:58] VITALS: BP 140/67; PULSE 112; RESP 18; TEMP 37; O2SAT 94
[2024-01-04 20:13] LABS: Glucose, Whole Blood 297 mg/dL (60-115)
[2024-01-04] MEDS: Insulin Glargine,Hum.rec.anlog 100 UNIT/ML 10 ML VIAL 9 UNIT SUBCUT (20:19)
[2024-01-04] MEDS: 0.9 % Sodium Chloride Flush 3 ML SYRINGE IVFLUSH (23:47)
[2024-01-05 04:00] VITALS: BP 132/67; PULSE 99; RESP 18; TEMP 36.3; O2SAT 94
[2024-01-05 05:47] LABS: MANUAL DIFF FLAG NO
[2024-01-05 05:48] LABS: Basophils Percent Auto 0.4 % (0-2); Eosinophils Absolute Auto 0.1 X10*3/uL (0.0-0.4); Eosinophils Percent Auto 1.6 % (0-4); Hematocrit 33.4 % (37.0-47.0); Imm Gran Abs Auto 0.06 X10*3/uL (0.00-0.03); Imm Gran Pct Auto 0.9 % (0.0-0.4); Lymphocytes Absolute Auto 1.9 X10*3/uL (1.2-4.9); Lymphocytes Percent Auto 28.2 % (20-40); Mean Corpuscular HGB Conc 32.9 g/dl (31.0-35.0); Mean Corpuscular Hemoglobin 29.1 pg (27.0-33.0); Mean Corpuscular Volume 88.4 fL (80.0-98.0); Mean Platelet Volume 10.7 fL (9.4-12.3); Monocytes Absolute Auto 0.6 X10*3/uL (0.1-1.2); Monocytes Percent Auto 8.2 % (2-11); Neutrophils Absolute Auto 4.1 x10*3/uL (2.0-8.3); Neutrophils Percent Auto 60.7 % (45-73); Platelet Count 229 X10*3/uL (160-400); Red Blood Count 3.78 X10*6/uL (4.20-5.50); Red Cell Distribution Width 12.7 % (11.0-16.0); White Blood Count 6.8 X10*3/uL (4.8-10.8)
[2024-01-05 06:08] LABS: Anion Gap 11 (12-20); Blood Urea Nitrogen 10 mg/dL (9-16); Calcium 8.7 mg/dL (8.4-10.2); Carbon Dioxide 28 mmol/L (22-29); Chloride 103 mmol/L (96-108); Creatinine Clr Calc Pharmacy 105.6; Estimated Glomerular Filt Rate > 60; Glucose Random 229 mg/dL (60-115); Potassium 3.4 mmol/L (3.3-5.1); Sodium 139 mmol/L (135-145)
[2024-01-05] MEDS: Omeprazole 20 MG CAPSULE.DR PO (06:57)
[2024-01-05 07:43] VITALS: BP 142/71; PULSE 99; RESP 17; TEMP 36.2; O2SAT 92
[2024-01-05 07:54] LABS: Glucose, Whole Blood 234 mg/dL (60-115)
[2024-01-05] MEDS: Losartan Potassium 50 MG TABLET 100 MG PO (09:07)
[2024-01-05] MEDS: Aspirin Enteric Coated 81 MG TABLET.DR PO (09:07)
[2024-01-05] MEDS: hydroCHLOROthiazide 25 MG TABLET PO (09:07)
[2024-01-05] MEDS: Magnesium Oxide 400 MG TABLET PO (09:07)
[2024-01-05] MEDS: Ascorbic Acid 500 MG TABLET 1000 MG PO (09:07)
[2024-01-05] MEDS: Metoprolol Succinate ER 25 MG TAB.ER.24H PO (09:07)
[2024-01-05] MEDS: amLODIPine Besylate 2.5 MG TABLET PO (09:08)
[2024-01-05] MEDS: Sertraline HCL 25 MG TABLET PO (09:08)
[2024-01-05] MEDS: Atorvastatin Calcium 40 MG TABLET PO (09:08)
[2024-01-05] MEDS: Cholecalciferol (Vitamin D3) 25 MCG TABLET 50 MCG PO (09:08)
[2024-01-05] MEDS: 0.9 % Sodium Chloride Flush 3 ML SYRINGE IVFLUSH ×3 (09:10→23:23)
[2024-01-05] MEDS: Insulin Lispro 100 UNIT/ML 3 ML VIAL SUBCUT ×4 (09:10→20:07)
--- NOTE | 2024-01-05 09:35 | MHC.CM.PN ---
Addendum entered by Kimberly Pickering RN 01/05/24 09:38: Patient is comoran speaking. CM assessment completed w/ supervisor hairspring fabrication assistance. Original Note: Patient lives in an apt w/ dtr. Independent w/ ADL's. Uses cane PRN. Bought O2 online and reports she is using 2L PRN when SpO2 is <92%. PCP Isabel Hubbard MD Completed HCP naming agents: 1) sister Margi and 2) son Perico. DP: Home self care. Family to transport. CM will continue to follow.
[2024-01-05 10:22] LABS: Adenovirus F 40/41 Not Detected (Not Detect.); Astrovirus Not Detected (Not Detect.); Campylobacter Not Detected (Not Detect.); Cryptosporidium Not Detected (Not Detect.); Cyclospora cayetanensis Not Detected (Not Detect.); E. coli EAEC Not Detected (Not Detect.); E. coli EPEC Detected (Not Detect.); E. coli ETEC Detected (Not Detect.); E. coli STEC Not Detected (Not Detect.); Entamoeba histolytica Not Detected (Not Detect.); Giardia lamblia Not Detected (Not Detect.); Norovirus GI/GII Not Detected (Not Detect.); Plesiomonas shigelloides Not Detected (Not Detect.); Rotavirus A Not Detected (Not Detect.); Sapovirus Not Detected (Not Detect.); Shigella sp./EIEC Not Detected (Not Detect.); Vibrio Not Detected (Not Detect.); Vibrio Cholerae Not Detected (Not Detect.); Yersinia enterocolitica Not Detected (Not Detect.)
[2024-01-05 11:06] LABS: Salmonella Detected (Not Detect.)
[2024-01-05 11:32] VITALS: PULSE 96; RESP 15; O2SAT 96
[2024-01-05] MEDS: Fluticasone/Vilanterol 100/25 BLST.W.DEV 1 PUFF INHALE (11:32)
[2024-01-05 11:52] LABS: Glucose, Whole Blood 284 mg/dL (60-115)
[2024-01-05] MEDS: cefTRIAXone sodium 2 GM in 0.9 % Sodium Chloride 50 ML IV (13:14)
[2024-01-05] MEDS: Lidocaine 4 % Patch ADH..PATCH 1 PATCH TRANSDERMA (14:10)
--- NOTE | 2024-01-05 14:25 | HO.PM.IMPN ---
Subjective Subjective Date of Service: 01/05/24 Interval History: colitis /salmonella Review of Systems abd pain ,alsohas significant diarrhae no fevers Physical Exam Vital Signs: Vital Signs: Last Vital Signs Temp 97.1 F 01/05/24 07:43 Pulse 96 01/05/24 11:32 Resp 15 01/05/24 11:32 BP 142/71 H 01/05/24 07:43 Pulse Ox 92 01/05/24 07:43 O2 Del Method Room Air 01/05/24 07:43 BMI result Body Mass Index 30.4 Appearance: Alert.? Oriented X3.? cvs: rrr, [id number]. res: clear to auscultation ,no rhonchii or wheezing abd: no rebound or guarding ,nt, bs present. ext pulses present , no cyanosis . neuro: axo3 , nonfocal. Objective Data Active Medications Acetaminophen (Acetaminophen 325 Mg Tablet) 650 mg PO Q6H PRN PRN Reason: Pain, Mild (Pain Scale 1-3), fever or headache Amlodipine Besylate (Amlodipine Besylate 2.5 Mg Tablet) 2.5 mg PO DAILY [facility]; Protocol Last Admin: 01/05/24 09:08 Dose: 2.5 mg Documented By: FELECIA Ascorbic Acid (Ascorbic Acid 500 Mg Tablet) 1,000 mg PO DAILY [facility] Last Admin: 01/05/24 09:07 Dose: 1,000 mg Documented By: FELECIA Aspirin (Aspirin Enteric Coated 81 Mg Tablet.) 81 mg PO DAILY [facility] Last Admin: 01/05/24 09:07 Dose: 81 mg Documented By: FELECIA Atorvastatin Calcium (Atorvastatin Calcium 40 Mg Tablet) 40 mg PO DAILY [facility] Last Admin: 01/05/24 09:08 Dose: 40 mg Documented By: FELECIA Calcium Carbonate (Calcium Carbonate 750 Mg Tab.Chew) 750 mg PO Q4H PRN PRN Reason: Heartburn Fluticasone/Vilanterol (Fluticasone/Vilanterol 100/25 Blst.W.Dev) 1 puff INHALE RDAILY [facility] Last Admin: 01/05/24 11:32 Dose: 1 puff Documented By: JOSEPH Glucose (Glucose Gel 15 Gm Gel..Gram.) 15 gm PO Q15M PRN; Protocol PRN Reason: per Hypoglycemia Standing Ord. Hydrochlorothiazide (Hydrochlorothiazide 25 Mg Tablet) 25 mg PO DAILY [facility] Last Admin: 01/05/24 09:07 Dose: 25 mg Documented By: FELECIA Dextrose (D10) 250 mls @ 750 mls/hr IV Q15M PRN; Protocol PRN Reason: per Hypoglycemia Standing Ord. Ceftriaxone Sodium 2 gm/ (Sodium Chloride) 50 mls @ 100 mls/hr IV Q24H [facility] Last Infusion: 01/05/24 14:12 Dose: Infused Documented By: FELECIA Insulin Glargine (Insulin Glargine,Hum.Rec.Anlog 100 Unit/Ml 10 Ml Vial) 9 unit SUBCUT BEDTIME [facility] Last Admin: 01/04/24 20:19 Dose: 9 unit Documented By: LEYLA Insulin Human Lispro (Insulin Lispro 100 Unit/Ml 3 Ml Vial) 0 unit SUBCUT QIDACHS [facility]; Protocol Last Admin: 01/05/24 13:13 Dose: 6 unit Documented By: FELECIA Lidocaine (Lidocaine 4 % Patch Adh..Patch) 1 patch TRANSDERMA DAILY [facility]; Protocol Last Admin: 01/05/24 14:10 Dose: 1 patch Documented By: FELECIA Losartan Potassium (Losartan Potassium 50 Mg Tablet) 100 mg PO DAILY [facility] Last Admin: 01/05/24 09:07 Dose: 100 mg Documented By: FELECIA Magnesium Hydroxide (Milk Of Magnesia 30 Ml Oral.Susp) 30 ml PO DAILY PRN PRN Reason: Constipation Magnesium Oxide (Magnesium Oxide 400 Mg Tablet) 400 mg PO DAILY [facility] Last Admin: 01/05/24 09:07 Dose: 400 mg Documented By: FELECIA Melatonin (Melatonin 3 Mg Tablet) 6 mg PO BEDTIME PRN PRN Reason: Insomnia Metoprolol Succinate (Metoprolol Succinate Er 25 Mg Tab.Er.24h) 25 mg PO DAILY [facility]; Protocol Last Admin: 01/05/24 09:07 Dose: 25 mg Documented By: FELECIA Omeprazole (Omeprazole 20 Mg Capsule.Dr) 20 mg PO DAILY@0630 [facility] Last Admin: 01/05/24 06:57 Dose: 20 mg Documented By: GERARD Ondansetron HCl (Ondansetron Hcl 4 Mg/2 Ml Vial) 4 mg IVPUSH Q8H PRN PRN Reason: Nausea and Vomiting Sertraline HCl (Sertraline Hcl 25 Mg Tablet) 25 mg PO DAILY [facility] Last Admin: 01/05/24 09:08 Dose: 25 mg Documented By: FELECIA Sodium Chloride (0.9 % Sodium Chloride Flush 3 Ml Syringe) 3 ml IVFLUSH QSHIFT [facility] Last Admin: 01/05/24 09:10 Dose: 3 ml Documented By: FELECIA Vitamin D (Cholecalciferol (Vitamin D3) 25 Mcg Tablet) 50 mcg PO DAILY [facility] Last Admin: 01/05/24 09:08 Dose: 50 mcg Documented By: FELECIA Labs 01/05/24 05:20 01/05/24 05:20 Labs: Laboratory Results - last 24 hr 01/04/24 01/04/24 01/04/24 16:16 17:07 19:32 MCV MCH MCHC RDW Plt Count MPV Immature Gran % (Auto) Neut % (Auto) Lymph % (Auto) [place] % (Auto) Eos % (Auto) Baso % (Auto) Lymph # (Auto) [place] # (Auto) Eos # (Auto) Baso # (Auto) Abs Immat Gran (auto) Absolute Neuts (auto) Absolute Nucleated RBC Nucleated RBC % (auto) Anion Gap Estim Creat Clear Calc Estimated GFR POC Glucose 253 H 211 H Random Glucose Calcium Stl C. cayetanensis PCR Not Detected Stool Rotavirus A PCR Not Detected Stl Adenov F 40/41 PCR Not Detected Stool Astrovirus (PCR) Not Detected Stool Campylobacter PCR Not Detected Stool Cryptosporidium PCR Not Detected Stl Sh Tox Pr E STEC PCR Not Detected Stool E coli O157 PCR Not applicable Stl Enterotoxigenic E PCR Detected A Stool EPEC (PCR) Detected A Stool EAEC (PCR) Not Detected Stl E. histolytica PCR Not Detected Stool Giardia Lamblia PCR Not Detected Stl P. shigelloides PCR Not Detected Stool Salmonella PCR Detected A Stool Sapovirus (PCR) Not Detected Stl Shigella/EIEC PCR Not Detected St Y.enterocolitica PCR Not Detected Stool Vibrio (PCR) Not Detected Stl Vibrio cholerae PCR Not Detected Stl Norovirus GI/GII PCR Not Detected 01/04/24 01/05/24 01/05/24 20:09 05:20 07:48 MCV 88.4 MCH 29.1 MCHC 32.9 RDW 12.7 Plt Count 229 MPV 10.7 Immature Gran % (Auto) 0.9 H Neut % (Auto) 60.7 Lymph % (Auto) 28.2 [place] % (Auto) 8.2 Eos % (Auto) 1.6 Baso % (Auto) 0.4 Lymph # (Auto) 1.9 [place] # (Auto) 0.6 Eos # (Auto) 0.1 Baso # (Auto) 0.0 Abs Immat Gran (auto) 0.06 H Absolute Neuts (auto) 4.1 Absolute Nucleated RBC 0.000 Nucleated RBC % (auto) 0.0 Anion Gap 11 L Estim Creat Clear Calc 105.6 Estimated GFR > 60 POC Glucose 297 H 234 H Random Glucose 229 H Calcium 8.7 D Stl C. cayetanensis PCR Stool Rotavirus A PCR Stl Adenov F PCR Stool Astrovirus (PCR) Stool Campylobacter PCR Stool Cryptosporidium PCR Stl Sh Tox Pr E STEC PCR Stool E coli O157 PCR Stl Enterotoxigenic E PCR Stool EPEC (PCR) Stool EAEC (PCR) Stl E. histolytica PCR Stool Giardia Lamblia PCR Stl P. shigelloides PCR Stool Salmonella PCR Stool Sapovirus (PCR) Stl Shigella/EIEC PCR St Y.enterocolitica PCR Stool Vibrio (PCR) Stl Vibrio cholerae PCR Stl Norovirus GI/GII PCR 01/05/24 11:47 MCV MCH MCHC RDW Plt Count MPV Immature Gran % (Auto) Neut % (Auto) Lymph % (Auto) [place] % (Auto) Eos % (Auto) Baso % (Auto) Lymph # (Auto) [place] # (Auto) Eos # (Auto) Baso # (Auto) Abs Immat Gran (auto) Absolute Neuts (auto) Absolute Nucleated RBC Nucleated RBC % (auto) Anion Gap Estim Creat Clear Calc Estimated GFR POC Glucose 284 H Random Glucose Calcium Stl C. cayetanensis PCR Stool Rotavirus A PCR Stl Adenov F PCR Stool Astrovirus (PCR) Stool Campylobacter PCR Stool Cryptosporidium PCR Stl Sh Tox Pr E STEC PCR Stool E coli O157 PCR Stl Enterotoxigenic E PCR Stool EPEC (PCR) Stool EAEC (PCR) Stl E. histolytica PCR Stool Giardia Lamblia PCR Stl P. shigelloides PCR Stool Salmonella PCR Stool Sapovirus (PCR) Stl Shigella/EIEC PCR St Y.enterocolitica PCR Stool Vibrio (PCR) Stl Vibrio cholerae PCR Stl Norovirus GI/GII PCR Assessment and Plan (1) Colitis: Status: Acute Assessment and Plan: 53-year-old female with pertinent history of hypertension, insulin-dependent diabetes mellitus, NAFLD, mixed hyperlipidemia, mood disorder who presents to the emergency department for evaluation of loose stools. Acute bloody diarrhea: +sick contact for Salmonella(suspected). ct abd:Diffuse wall thickening and surrounding pericolonic edema involving the sigmoid colon consistent with a nonspecific colitis. GI panel -positive for enter toxic E coli, entero pathogen E coli, Salmonella PCR. blood culture pending continue IV antibiotic due to high risk of invasive disease. Discussed with Infectious Disease, initiating IV ceftriaxone. Insulin-dependent diabetes mellitus with hyperglycemia: Initiating basal plus insulin regimen Mixed hyperlipidemia: On statin Mood disorder: Continue home mood stabilizers Hypertension: Continue home antihypertensives Gastroesophageal reflux disease: On PPI DVT prophylaxis: Mechanical . Full code ongoing inpatient need stay colitis /salmonella infection-for IV antibiotics (as above), which is not possible in a lesser acute setting. Quality Stroke Does the patient have a stroke diagnosis?: No VTE Prior VTE?: No VTE Risk Level:: Medical - moderate - high VTE Device Contraindication: N/A - Device Ordered VTE Drug Contraindication: Treatment Not Indicated
[2024-01-05 15:30] VITALS: BP 135/69; PULSE 103; RESP 18; TEMP 36.4; O2SAT 94
[2024-01-05 16:04] LABS: Glucose, Whole Blood 305 mg/dL (60-115)
[2024-01-05 19:11] VITALS: BP 130/68; PULSE 99; RESP 18; TEMP 36.2; O2SAT 95
[2024-01-05 19:54] LABS: Glucose, Whole Blood 371 mg/dL (60-115)
[2024-01-05] MEDS: Insulin Glargine,Hum.rec.anlog 100 UNIT/ML 10 ML VIAL 9 UNIT SUBCUT (20:05)
[2024-01-06] VITALS (7 sets, daily range): BP systolic 129–131; BP diastolic 66–79; PULSE 89–99; RESP 16–18; TEMP 36.1–36.6; O2SAT 92–95
[2024-01-06] MEDS: Omeprazole 20 MG CAPSULE.DR PO (05:32)
[2024-01-06 08:05] LABS: Glucose, Whole Blood 260 mg/dL (60-115)
[2024-01-06] MEDS: Insulin Lispro 100 UNIT/ML 3 ML VIAL SUBCUT ×4 (08:08→22:07)
[2024-01-06] MEDS: Magnesium Oxide 400 MG TABLET PO (08:10)
[2024-01-06] MEDS: Lidocaine 4 % Patch ADH..PATCH 1 PATCH TRANSDERMA (08:10)
[2024-01-06] MEDS: 0.9 % Sodium Chloride Flush 3 ML SYRINGE IVFLUSH ×3 (08:10→22:09)
[2024-01-06] MEDS: Atorvastatin Calcium 40 MG TABLET PO (08:11)
[2024-01-06] MEDS: Metoprolol Succinate ER 25 MG TAB.ER.24H PO (08:11)
[2024-01-06] MEDS: Sertraline HCL 25 MG TABLET PO (08:11)
[2024-01-06] MEDS: Losartan Potassium 50 MG TABLET 100 MG PO (08:11)
[2024-01-06] MEDS: hydroCHLOROthiazide 25 MG TABLET PO (08:11)
[2024-01-06] MEDS: Cholecalciferol (Vitamin D3) 25 MCG TABLET 50 MCG PO (08:12)
[2024-01-06] MEDS: Ascorbic Acid 500 MG TABLET 1000 MG PO (08:12)
[2024-01-06] MEDS: amLODIPine Besylate 2.5 MG TABLET PO (08:12)
[2024-01-06] MEDS: Aspirin Enteric Coated 81 MG TABLET.DR PO (08:12)
[2024-01-06] MEDS: Fluticasone/Vilanterol 100/25 BLST.W.DEV 1 PUFF INHALE (08:26)
[2024-01-06 11:44] LABS: Glucose, Whole Blood 277 mg/dL (60-115)
[2024-01-06] MEDS: cefTRIAXone sodium 2 GM in 0.9 % Sodium Chloride 50 ML IV (13:04)
--- NOTE | 2024-01-06 13:30 | HO.PM.IMPN ---
Subjective Subjective Date of Service: 01/06/24 Interval History: salmonella colitis Review of Systems abd pain/diarrhae somewhat improving Physical Exam Vital Signs: Vital Signs: Last Vital Signs Temp 97.4 F 01/06/24 08:00 Pulse 89 01/06/24 08:27 Resp 16 01/06/24 08:27 BP 129/79 01/06/24 08:12 Pulse Ox 95 01/06/24 08:00 O2 Del Method Room Air 01/06/24 08:00 BMI result Body Mass Index 30.4 Appearance: Alert.? Oriented X3.? cvs: rrr, [id number] . res: clear to auscultation ,no rhonchii or wheezing abd: no rebound or guarding ,nt, bs present. ext pulses present , no cyanosis . neuro: axo3 , nonfocal. Objective Data Active Medications Acetaminophen (Acetaminophen 325 Mg Tablet) 650 mg PO Q6H PRN PRN Reason: Pain, Mild (Pain Scale 1-3), fever or headache Albuterol Sulfate (Albuterol Sulfate 90 Mcg 8 Gm Inhaler) 2 puff INHALE Q6H PRN PRN Reason: for wheezing Amlodipine Besylate (Amlodipine Besylate 2.5 Mg Tablet) 2.5 mg PO DAILY [facility]; Protocol Last Admin: 01/06/24 08:12 Dose: 2.5 mg Documented By: TIFFANIE Ascorbic Acid (Ascorbic Acid 500 Mg Tablet) 1,000 mg PO DAILY [facility] Last Admin: 01/06/24 08:12 Dose: 1,000 mg Documented By: TIFFANIE Aspirin (Aspirin Enteric Coated 81 Mg Tablet.) 81 mg PO DAILY [facility] Last Admin: 01/06/24 08:12 Dose: 81 mg Documented By: TIFFANIE Atorvastatin Calcium (Atorvastatin Calcium 40 Mg Tablet) 40 mg PO DAILY [facility] Last Admin: 01/06/24 08:11 Dose: 40 mg Documented By: TIFFANIE Calcium Carbonate (Calcium Carbonate 750 Mg Tab.Chew) 750 mg PO Q4H PRN PRN Reason: Heartburn Fluticasone/Vilanterol (Fluticasone/Vilanterol 100/25 Blst.W.Dev) 1 puff INHALE RDAILY [facility] Last Admin: 01/06/24 08:26 Dose: 1 puff Documented By: JOSEPH Glucose (Glucose Gel 15 Gm Gel..Gram.) 15 gm PO Q15M PRN; Protocol PRN Reason: per Hypoglycemia Standing Ord. Hydrochlorothiazide (Hydrochlorothiazide 25 Mg Tablet) 25 mg PO DAILY [facility] Last Admin: 01/06/24 08:11 Dose: 25 mg Documented By: TIFFANIE Dextrose (D10) 250 mls @ 750 mls/hr IV Q15M PRN; Protocol PRN Reason: per Hypoglycemia Standing Ord. Ceftriaxone Sodium 2 gm/ (Sodium Chloride) 50 mls @ 100 mls/hr IV Q24H [facility] Last Admin: 01/06/24 13:04 Dose: 100 mls/hr Documented By: TIFFANIE Insulin Glargine (Insulin Glargine,Hum.Rec.Anlog 100 Unit/Ml 10 Ml Vial) 9 unit SUBCUT BEDTIME [facility] Last Admin: 01/05/24 20:05 Dose: 9 unit Documented By: PANDA Insulin Human Lispro (Insulin Lispro 100 Unit/Ml 3 Ml Vial) 0 unit SUBCUT QIDACHS [facility]; Protocol Last Admin: 01/06/24 11:56 Dose: 6 unit Documented By: TIFFANIE Lidocaine (Lidocaine 4 % Patch Adh..Patch) 1 patch TRANSDERMA DAILY [facility]; Protocol Last Admin: 01/06/24 08:10 Dose: 1 patch Documented By: TIFFANIE Losartan Potassium (Losartan Potassium 50 Mg Tablet) 100 mg PO DAILY [facility] Last Admin: 01/06/24 08:11 Dose: 100 mg Documented By: TIFFANIE Magnesium Hydroxide (Milk Of Magnesia 30 Ml Oral.Susp) 30 ml PO DAILY PRN PRN Reason: Constipation Magnesium Oxide (Magnesium Oxide 400 Mg Tablet) 400 mg PO DAILY [facility] Last Admin: 01/06/24 08:10 Dose: 400 mg Documented By: TIFFANIE Melatonin (Melatonin 3 Mg Tablet) 6 mg PO BEDTIME PRN PRN Reason: Insomnia Metoprolol Succinate (Metoprolol Succinate Er 25 Mg Tab.Er.24h) 25 mg PO DAILY [facility]; Protocol Last Admin: 01/06/24 08:11 Dose: 25 mg Documented By: TIFFANIE Omeprazole (Omeprazole 20 Mg Capsule.) 20 mg PO DAILY@0630 [facility] Last Admin: 01/06/24 05:32 Dose: 20 mg Documented By: PANDA Ondansetron HCl (Ondansetron Hcl 4 Mg/2 Ml Vial) 4 mg IVPUSH Q8H PRN PRN Reason: Nausea and Vomiting Sertraline HCl (Sertraline Hcl 25 Mg Tablet) 25 mg PO DAILY [facility] Last Admin: 01/06/24 08:11 Dose: 25 mg Documented By: TIFFANIE Sodium Chloride (0.9 % Sodium Chloride Flush 3 Ml Syringe) 3 ml IVFLUSH QSHIFT [facility] Last Admin: 01/06/24 08:10 Dose: 3 ml Documented By: TIFFANIE Vitamin D (Cholecalciferol (Vitamin D3) 25 Mcg Tablet) 50 mcg PO DAILY [facility] Last Admin: 01/06/24 08:12 Dose: 50 mcg Documented By: TIFFANIE Labs 01/05/24 05:20 01/05/24 05:20 Labs: Laboratory Results - last 24 hr 01/05/24 01/05/24 01/06/24 15:59 19:45 07:58 POC Glucose 305 H 371 H* 260 H 01/06/24 11:40 POC Glucose 277 H Microbiology Microbiology Results: Microbiology 01/04/24 12:55 Blood Culture - Preliminary Blood - Venous No growth after 24 hours. 01/04/24 12:42 Blood Culture - Preliminary Blood - Venous No growth after 24 hours. Assessment and Plan (1) Colitis: Status: Acute Assessment and Plan: 53-year-old female with pertinent history of hypertension, insulin-dependent diabetes mellitus, NAFLD, mixed hyperlipidemia, mood disorder who presents to the emergency department for evaluation of loose stools. Acute bloody diarrhea: +sick contact for Salmonella(suspected). ct abd:Diffuse wall thickening and surrounding pericolonic edema involving the sigmoid colon consistent with a nonspecific colitis. GI panel -positive for enter toxic E coli, entero pathogen E coli, Salmonella PCR. blood culture pending continue IV antibiotic due to high risk of invasive disease. Discussed with Infectious Disease, initiating IV ceftriaxone. Insulin-dependent diabetes mellitus with hyperglycemia: Initiating basal plus insulin regimen Mixed hyperlipidemia: On statin Mood disorder: Continue home mood stabilizers Hypertension: Continue home antihypertensives Gastroesophageal reflux disease: On PPI DVT prophylaxis: Mechanical . Full code ongoing inpatient need stay colitis /salmonella infection-for IV antibiotics (as above), which is not possible in a lesser acute setting. Quality Stroke Does the patient have a stroke diagnosis?: No VTE Prior VTE?: No VTE Risk Level:: Medical - moderate - high VTE Device Contraindication: N/A - Device Ordered VTE Drug Contraindication: Treatment Not Indicated
[2024-01-06 16:05] LABS: Glucose, Whole Blood 313 mg/dL (60-115)
[2024-01-06 21:59] LABS: Glucose, Whole Blood 356 mg/dL (60-115)
[2024-01-06] MEDS: Insulin Glargine,Hum.rec.anlog 100 UNIT/ML 10 ML VIAL 9 UNIT SUBCUT (22:06)
--- NOTE | 2024-01-06 22:18 | PC.NURSE ---
POC value of 356 sent to hospitalist on duty, barbara with ISS of 10 units Lispro and scheduled Lantus 9 units to be given this HS.
[2024-01-07 03:30] VITALS: BP 147/81; PULSE 109; RESP 18; TEMP 36.1; O2SAT 93
[2024-01-07] MEDS: Omeprazole 20 MG CAPSULE.DR PO (05:52)
[2024-01-07 07:29] VITALS: BP 138/78; PULSE 102; RESP 16; TEMP 36.2; O2SAT 92
[2024-01-07 07:57] LABS: Glucose, Whole Blood 282 mg/dL (60-115)
[2024-01-07] MEDS: Insulin Lispro 100 UNIT/ML 3 ML VIAL SUBCUT ×2 (08:10→11:48)
[2024-01-07] MEDS: Metoprolol Succinate ER 25 MG TAB.ER.24H PO (08:11)
[2024-01-07] MEDS: amLODIPine Besylate 2.5 MG TABLET PO (08:11)
[2024-01-07] MEDS: 0.9 % Sodium Chloride Flush 3 ML SYRINGE IVFLUSH (08:11)
[2024-01-07] MEDS: hydroCHLOROthiazide 25 MG TABLET PO (08:12)
[2024-01-07] MEDS: Ascorbic Acid 500 MG TABLET 1000 MG PO (08:12)
[2024-01-07] MEDS: Sertraline HCL 25 MG TABLET PO (08:12)
[2024-01-07] MEDS: Losartan Potassium 50 MG TABLET 100 MG PO (08:12)
[2024-01-07] MEDS: Cholecalciferol (Vitamin D3) 25 MCG TABLET 50 MCG PO (08:12)
[2024-01-07] MEDS: Aspirin Enteric Coated 81 MG TABLET.DR PO (08:12)
[2024-01-07] MEDS: Atorvastatin Calcium 40 MG TABLET PO (08:12)
[2024-01-07] MEDS: Lidocaine 4 % Patch ADH..PATCH 1 PATCH TRANSDERMA (08:13)
[2024-01-07] MEDS: Fluticasone/Vilanterol 100/25 BLST.W.DEV 1 PUFF INHALE (08:13)
[2024-01-07] MEDS: Magnesium Oxide 400 MG TABLET PO (08:13)
[2024-01-07 08:14] VITALS: PULSE 102; RESP 16; O2SAT 92
[2024-01-07 11:41] LABS: Glucose, Whole Blood 297 mg/dL (60-115)
--- NOTE | 2024-01-07 14:11 | P.DS_ITS ---
DS: Providers Provider Date of Service: 01/07/24 Date of admission: 01/04/24 13:36 Date of discharge: 01/07/24 Primary care physician: Isabel Hubbard MD Attending physician on discharge: Mio Bonilla Discharging clinician: Mio Bonilla DS: Diagnosis Discharge Diagnosis (1) Colitis: Status: Acute DS: Summary Hospital Course Hospital Course: 53-year-old female with pertinent history of hypertension, insulin-dependent diabetes mellitus, NAFLD, mixed hyperlipidemia, mood disorder who presents to the emergency department for evaluation of loose stools. Patient states she went to a libertarian 6 days prior to presentation where everybody brought cooked food from home, potluck style. Patient states her mom is sick with diarrhea and admitted at [facility] and diagnosed with salmonella infection. Patient's sister has also been having multiple loose stools and is in the waiting room of the ER. Patient states her symptoms started 4 days prior to presentation. She has been having generalized abdominal discomfort with multiple episodes (9-10) of loose stools throughout the day. Patient states the last 2 days she has noticed blood in stools. Endorses nausea but no vomiting. Has subjective fevers and chills. No chest discomfort, palpitations, shortness of breath, changes in urinary habits. Patient is [place] Island[place] speaking and history obtained with the help of cnc mill programmer In the emergency department, Infectious Disease was consulted who requested admission and initiating IV ceftriaxone. Hospital course: Patient came to the hospital because of abdominal pain, diarrhea-further workup including stool study for C diff, GI P panel done-came positive salmonella, the test was sent for type and sensitivity to [facility](salmonella type and sensitivity): Patient is already on ceftriaxone for 3-4 days. Discussed with the ID: Patient will need total 14 days of antibiotics, will add Ceftin 500 mg p.o. b.i.d. for 13more days since patient already got ceftriaxone for few days the hospital. Patient is to follow-up salmonella sensitivity results out patiently with PCP. EPEC /ETEC needs no treatment. DPH may interview patient and family. plan: as above. Ceftin 500 mg p.o. b.i.d. for 13more days since patient already got ceftriaxone for 2-3days the hospital. follow-up salmonella sensitivity results out patiently with PCP. EPEC /ETEC needs no treatment. DPH may interview patient and family. Also patient and her family are in agreement to follow-up salmonella sensitivity/type outpatient with PCP, above was discussed with ID in detail. Above management discussed with the patient and her family detail length-they understand and in agreement with the above plan, time spent 40 minute. Time Attestation Total time managing care of this patient today: 40 mintues. Discharge Coordination Time (in mins): 40 min Quality: Safe Use of Opioids Does Pt have an Active Cancer Diagnosis on the Problem List?: No Quality: Stroke Does the patient have a stroke diagnosis?: No Physical Exam Vital Signs: Vital Signs: Last Vital Signs Temp 97.2 F 01/07/24 07:29 Pulse 102 H 01/07/24 08:14 Resp 16 01/07/24 08:14 BP 138/78 01/07/24 07:29 Pulse Ox 92 01/07/24 07:29 O2 Del Method Room Air 01/07/24 07:29 BMI result Body Mass Index 30.4 Appearance: Alert.? Oriented X3.? not in distress.? Eyes: Pupils equal, round and reactive to light.? Sclera nonicteric.? ENT: Pharynx normal.? Moist mucous membranes. cvs: rrr, [id number] , no murmur res: clear to auscultation ,no rhonchii or wheezing abd: no rebound or guarding ,nt, bs present. ext pulses present , no cyanosis . neuro: axo3 , nonfocal. DS: Data Data Completed and Pending Labs on day of discharge: Laboratory Results - last 24 hr 01/06/24 01/06/24 01/07/24 15:58 19:59 07:39 POC Glucose 313 H 356 H* 282 H 01/07/24 11:35 POC Glucose 297 H Preliminary micro results at discharge 01/04/24 12:55 Blood Culture - Preliminary Blood - Venous No growth after 48 hours. 01/04/24 12:42 Blood Culture - Preliminary Blood - Venous No growth after 48 hours. Imaging Chest x-ray: Radiologist's impression: ITS Impressions Abdomen/Pelvis CT 01/04/24 17:28 IMPRESSION: 1. Diffuse wall thickening and surrounding pericolonic edema involving the sigmoid colon consistent with a nonspecific colitis. 2. Mild hepatomegaly. 3. Status post cholecystectomy. Fleischner guidelines were followed. Discharge Plan Discharge Anticipated Discharge Date/Time: 01/07/24 14:09 Patient Disposition: Home, Self-Care Discharge Diagnosis: Salmonella colitis Referrals: Isabel Ramsay MD [Primary Care Provider] - 1 Week Discharge Medications: New cefuroxime axetil 500 mg tablet 500 mg PO BID Qty: 26 0RF Continued albuterol sulfate [Ventolin HFA] 90 mcg/actuation HFA aerosol inhaler 2 puff PO Q6H PRN (Reason: for wheezing) Qty: 18 3RF glipizide 10 mg tablet 10 mg PO BIDAC losartan-hydrochlorothiazide 100-25 mg tablet 1 tab PO DAILY atorvastatin 40 mg Tablet 40 mg PO DAILY metformin 1,000 mg tablet 1,000 mg PO BID aspirin 81 mg tablet,delayed release (DR/EC) 81 mg PO DAILY Advair HFA 115-21 mcg/actuation HFA aerosol inhaler 2 puff inhalation BID magnesium 200 mg tablet 400 mg PO DAILY ascorbic acid (vitamin C) 500 mg capsule 1,000 mg PO DAILY mecobalamin (vitamin B12) 5,000 mcg tablet,disintegrating 5,000 mcg PO DAILY zinc acetate 50 mg (zinc) capsule 50 mg PO DAILY amlodipine 2.5 mg tablet 2.5 mg PO DAILY cholecalciferol (vitamin D3) 50 mcg (2,000 unit) tablet 50 mcg PO DAILY metoprolol succinate 25 mg tablet extended release 24 hr 25 mg PO DAILY pantoprazole 20 mg tablet,delayed release (DR/EC) 20 mg PO BID Jardiance 25 mg tablet 25 mg PO DAILY sertraline 25 mg tablet 25 mg PO DAILY insulin glargine [Lantus Solostar U-100 Insulin] 100 unit/mL (3 mL) insulin pen 12 unit subcut BEDTIME Discharge Orders: Discharge Order (Routine); Ordered 01/07/24 Ordered By: Mio Bonilla Diet: Advance to usual diet Activity on Discharge: As tolerated Stand Alone Forms: Patient Portal Discharge page Print Language: [place] Care Plan Goals: Patient came to the hospital because of abdominal pain, diarrhea-further workup including stool study for C diff, GI P panel done-came positive salmonella, the test was sent for type and sensitivity to [facility](salmonella type and sensitivity): Patient is already on ceftriaxone for 3-4 days. Discussed with the ID: Patient will need total 14 days of antibiotics, will add Ceftin 500 mg p.o. b.i.d. for 13more days since patient already got ceftriaxone for few days the hospital. Patient is to follow-up salmonella sensitivity results out patiently with PCP. EPEC needs no treatment. DPH may interview patient and family. Health Concerns: As above. Plan of Treatment: As above. Assessment: As above.
[2024-01-07] MEDS: cefuroxime axetiL 500 MG TABLET PO (15:01)
--- NOTE | 2024-01-07 15:51 | MHC.CM.PN ---
PT WILL DC HOME TODAY WITH NO SERVICES VIA PRIVATE TRANSPORT
== END 2024-01-07 15:28 | disposition home or self-care (01) | DRG 248 ==
LOC: HO.ED 13:14 → HO.EDOVER 13:39 → HO.S3 14:09
PROVIDERS: Physician Assistant Medical; Admitting Provider Student in an Organized Health Care Education/Training Program; Emergency Provider Emergency Medicine; PCP Internal Medicine; Visit Provider Internal Medicine
DX: A02.0 Salmonella enteritis (principal); K76.0 Fatty (change of) liver, not elsewhere classified; E11.65 Type 2 diabetes mellitus with hyperglycemia; I10 Essential (primary) hypertension; K21.9 Gastro-esophageal reflux disease without esophagitis; K92.1 Melena; F39 Unspecified mood [affective] disorder; G47.33 Obstructive sleep apnea (adult) (pediatric); E78.2 Mixed hyperlipidemia; Z20.822 Contact with and (suspected) exposure to COVID-19; Z79.4 Long term (current) use of insulin; Z79.51 Long term (current) use of inhaled steroids; Z79.82 Long term (current) use of aspirin; Z79.84 Long term (current) use of oral hypoglycemic drugs; Z79.899 Other long term (current) drug therapy
CPT/HCPCS: 0241U; 36415; 74177; 80048; 80053; 82010; 82803; 82947; 83605; 83690; 83930; 85025; 87040; 87507; 99285; J0696; J7120; Q9967

== ENCOUNTER → 2024-01-04 13:36 | Outpatient (BNV) | payer MEDICAID, SELFPAY | PROVIDERS: Admitting Provider Student in an Organized Health Care Education/Training Program; Emergency Provider Emergency Medicine; PCP Internal Medicine; Visit Provider Student in an Organized Health Care Education/Training Program | DX: K52.9 Noninfective gastroenteritis and colitis, unspecified (principal) | CPT/HCPCS: 99222; 99231; 99232; 99239 ==

== ENCOUNTER → 2024-02-27 08:00 | Outpatient (REF) | payer MEDICAID, SELFPAY | LOC: HO.SL 08:00 | PROVIDERS: PCP Internal Medicine; Visit Provider Internal Medicine | DX: G47.33 Obstructive sleep apnea (adult) (pediatric) (principal); J45.909 Unspecified asthma, uncomplicated; J98.4 Other disorders of lung | CPT/HCPCS: 95806 ==

== ENCOUNTER → 2024-02-27 08:13 | Outpatient (BNV) | payer MEDICAID, SELFPAY | PROVIDERS: PCP Internal Medicine; Visit Provider Internal Medicine | DX: G47.33 Obstructive sleep apnea (adult) (pediatric) (principal) | CPT/HCPCS: 95806 ==

== ENCOUNTER → 2024-02-28 15:56 | Outpatient (AMB) | payer MEDICAID, SELFPAY ==
[2024-02-28 16:05] VITALS: BP 148/80; PULSE 110; O2SAT 93; BMI 30.1
--- NOTE | 2024-02-28 16:05 | A.OFFVIS_ITS ---
Vital Signs 02/28/24 16:05 Height 5 ft 5 in Weight 180 lb 12.465 oz BMI 30.1 BP 148/80 H Blood Pressure Location Rt brachial Position Sitting Pulse 110 H Pulse Source Pulse Oximeter Pulse Oximetry (%) 93 Oxygen Delivery Method Room Air Intake Visit Reasons: colonoscopy screening Intake Note: Denice presents in office today for a scheduled colo consult. CC; Pt was previously seen by Jyoti Boyd. Pt was only seen for one visit and never returned after that. Pt reports no previous hx of colo. Pt reports that they have received cardiac clearance and surgery that they needed after their last visit. Pt does report hx and sx of recent salmonella infection and complications related to that condition. Pt daughter reports that the pt had experienced frequent diarrhea with hematochezia / melena. Pt reports that their sx have since subsided and have not been a problem since then. Automatic Washer Mechanic Required: Yes Automatic Washer Mechanic Services: Automatic Washer Mechanic Present Automatic Washer Mechanic Name: [id number] Information Interpreted: non-clinical & clinical Accompanied by: Daughter Allergies No Known Allergies Allergy (Verified 02/28/24 16:07) HPI HPI colonoscopy screening: Details: 53 year old? female here today for pre colonoscopy screening.? Patient was sent to us by her PCP.? This is her first colonoscopy screening.? Patient denies any gastrointestinal symptoms at present.? Patient reports that in December she was admitted to the hospital with colitis. Patient was found to have colitis in sigmoid colon. Had salmonella poisoning. Patient had rectal bleed at that time. Maternal uncle was diagnosed with CRC. Denies history of difficulty with sedation or anesthesia in the past.? Negative for history of sleep apnea, however patient just had apnea study done yesterday and awaiting results..? Denies any history of renal, pulmonary, or hepatic disease.? Patient reports tachycardia had cardiac catheterization diagnostic done in 04/17/2022 that was normal per patient.? No history of infectious? diseases like hepatitis A, B, C, HIV or tuberculosis.? Patient is on low-dose aspirin [facility] Medical History HARSH (obstructive sleep apnea) Allergic rhinitis Osteoporosis Asthma Arm mass Tachycardia determined by examination of pulse Restrictive lung disease Hypoxemia Dyspnea Post-COVID syndrome Surgical History H/O: hysterectomy (~2006) History of cholecystectomy (~2003) Hx of heart artery stent Family History Maternal Uncle Colon cancer Paternal Grandfather Colon cancer Mother Colon polyps Lung cancer Maternal Uncle Colon cancer Social History Household Members: Children Housing: Other Housing Other:: three family house Do you presently have visiting nurse or other home services: No Alcohol intake: never Patient Tobacco Use Status: Never used Tobacco service: No Current occupational status: disabled Review of Systems Const Denies weight gain and Denies weight loss ENT Reports no additional complaints, Denies dysphagia and Denies odynophagia Card Reports no additional complaints Resp Reports no additional complaints GI Denies abdominal pain, Denies belching, Denies melena, Denies bloating, Denies change in bowel habits, Denies dysphagia, Denies excessive flatus, Denies dyspepsia, Denies heartburn, Denies diarrhea, Denies loose stools, Denies nausea, Denies odynophagia and Denies vomiting Musc Reports no additional complaints Neuro Reports no additional complaints Psych Reports no additional complaints Endo Reports no additional complaints Physical Exam Vital Signs: Last Vital Signs Pulse 110 H 02/28/24 16:05 BP 148/80 H 02/28/24 16:05 Pulse Ox 93 02/28/24 16:05 Oxygen Delivery Method Room Air 02/28/24 16:05 BMI result Body Mass Index 30.1 Const General: healthy appearing and no acute distress Nutritional Appearance: obese Orientation/consciousness: patient oriented x3 Resp Effort & Inspection: normal respiratory effort, able to speak in complete sentences, no tracheal deviation and symmetric chest movement Auscultation: clear to auscultation bilaterally Cardio Rate: regular rate GI Inspection: Yes normal to inspection, No distended and Yes obesity Palpation (GI): Soft to palpation, not firm, nontender and No hepatosplenomegaly present Auscultation: normal bowel sounds General: Yes no CVA tenderness Back/Spine/Pelvis Back: no CVA tenderness Skin General skin exam: elasticity normal, turgor normal and dry skin Neuro General: patient oriented x3 Psych Appearance: grossly normal Mental Status: mental status grossly normal Results Reviewed Results Reviewed: [place] [facility] of abdomen and pelvis visits from ER and admission FINDINGS: LUNG BASES: Asymmetric elevation of left diaphragm above the right. Normal aeration of lung bases. No pleural effusion. LIVER, GALLBLADDER, AND BILIARY TREE: Liver mildly enlarged measuring 20 cm superior inferior. No focal liver lesion or intrahepatic bile duct dilatation. Status post cholecystectomy PANCREAS: Unremarkable. SPLEEN: Unremarkable. ADRENAL GLANDS: Unremarkable. KIDNEYS AND URETERS: The kidneys are normal in size, shape, and attenuation. No hydronephrosis, hydroureter, or calculi seen. No perinephric stranding. Multiple left renal cortical cysts. No follow-up imaging is recommended for simple renal cyst. BLADDER: Unremarkable. GASTROINTESTINAL TRACT: There is diffuse wall thickening and surrounding pericolonic edema involving the sigmoid colon. This is a nonspecific colitis. No diverticula evident. No perforation or abscess. No bowel obstruction. Small moderate volume of stool in the colon. The appendix is normal. Small bowel loops and stomach are unremarkable. ABDOMINAL WALL: Small fat-containing umbilical hernia. LYMPH NODES: Normal. VASCULAR: No aneurysm of aorta. Incidental note of left sided retroaortic renal vein. PELVIC VISCERA: Status post hysterectomy OSSEOUS STRUCTURES: Unremarkable. CT/CT abdomen pelvis w IV con IMPRESSION: 1. Diffuse wall thickening and surrounding pericolonic edema involving the sigmoid colon consistent with a nonspecific colitis. 2. Mild hepatomegaly. 3. Status post cholecystectomy. Assessment & Plan Assessment & Plan (1) Acid reflux: Code(s): K21.9 - Gastro-esophageal reflux disease without esophagitis Category: Medical Qualifiers: Esophagitis presence: esophagitis presence not specified Qualified Code(s): K21.9 - Gastro-esophageal reflux disease without esophagitis (2) NAFLD (nonalcoholic fatty liver disease): Code(s): K76.0 - Fatty (change of) liver, not elsewhere classified Category: Medical (3) Screen for colon cancer: Code(s): Z12.11 - Encounter for screening for malignant neoplasm of colon (4) History of colitis: Code(s): Z87.19 - Personal history of other diseases of the digestive system Plan Patient denies any GI, cardiac or respiratory symptoms.? Denies any issues with anesthesia in the past.? Denies any history of sleep apnea.? No history infectious diseases in the past or present.? Patient is on low-dose aspirin. Reports family history of CRC. History of colitis due to somnolence infection back in December of 2021.? Discussed at length the pre-procedure,? prep, diet & medications as well as what to expect prior, during and after the procedure.?? Stressed the importance of good bowel prep.? Recommended the use of Vaseline or Calmoseptine OTC & baby wipes with bowel movements to promote comfort.? ?Patient verbalizes understanding and agrees to plan of care.? She was given the opportunity to ask questions and all questions answered.? We will see her after the procedure.? Medications: New polyethylene glycol 3350 (Miralax) As directed by gastroenterology department at [facility] 238 grams PO ONCE 238 grams 0RF Z12.11 - Encounter for screening for malignant neoplasm of colon bisacodyl (Dulcolax (bisacodyl)) take 4 tabs at noon the day before your colonoscopy 20 mg (4 x 5 mg) PO ONCE 4 tabs 0RF 1 day Z12.11 - Encounter for screening for malignant neoplasm of colon Coding Level of Care Code New Pt Level 4 (49182) Diagnoses Gastroesophageal reflux disease, unspecified whether esophagitis present K21.9 Esophagitis presence: esophagitis presence not specified NAFLD (nonalcoholic fatty liver disease) K76.0 Screen for colon cancer Z12.11 History of colitis Z87.19 Time Spent (min) 45 Comment 30 minutes spent with patient and additional 15 minutes spent reviewing her records
== END ==
PROVIDERS: PCP Internal Medicine; Visit Provider Nurse Practitioner Family
DX: K21.9 Gastro-esophageal reflux disease without esophagitis (principal); K76.0 Fatty (change of) liver, not elsewhere classified; Z12.11 Encounter for screening for malignant neoplasm of colon; Z87.19 Personal history of other diseases of the digestive system
CPT/HCPCS: 99204

== ENCOUNTER → 2024-02-28 15:56 | Outpatient (BNVA) | payer MEDICAID, SELFPAY | PROVIDERS: PCP Internal Medicine; Visit Provider Nurse Practitioner Family | DX: Z01.818 Encounter for other preprocedural examination (principal); K21.9 Gastro-esophageal reflux disease without esophagitis; K76.0 Fatty (change of) liver, not elsewhere classified; Z87.19 Personal history of other diseases of the digestive system | CPT/HCPCS: 99212 ==

== ENCOUNTER 2024-03-13 09:08 | Outpatient (REF) | payer MEDICAID, SELFPAY ==
--- NOTE | ~2024-03-13 | MM_ITS ---
EXAMINATION: BONE DENSITOMETRY CLINICAL INDICATION: Age-related osteoporosis without current pathological fracture. COMPARISON: Baseline BD dated 03/10/2022. TECHNIQUE: Using a Symphony DXA System (software version: 13.1) manufactured by [employer], dual-energy x-ray absorptiometry was performed of the lumbar spine and left hip. The images are of good technical quality. Summary results are attached. FINDINGS: LEFT FEMUR, NECK: Current: BMD 0.752 g/cm2, Z-score -1.6, T-score -2.1, osteopenia. Baseline: BMD 0.676 g/cm2. LEFT FEMUR, TOTAL: Current: BMD 0.745 g/cm2, Z-score -2.0, T-score -2.1, osteopenia, 7.3% increase from baseline (<5% change is not significant). Baseline: BMD 0.694 g/cm2. AP SPINE L1-L4: Current: BMD 0.998 g/cm2, Z-score -1.6, T-score -1.5, osteopenia, 7.4% decrease from baseline (<5% change is not significant). Baseline: BMD 1.078 g/cm2. IDENTIFIED RISK FACTORS: Early menopause, history of fracture (adult), hysterectomy, bilateral oophorectomy. HISTORY OF FRACTURE: Wrist. MEDICATIONS: Calcium or multivitamin. Vitamin D. MM/XR DEXA axial skeleton IMPRESSION: 1. DIAGNOSIS: Osteopenia based on the lowest T-score value of -2.1 in the femur neck and total femur applying World Health Organization criteria. 2. 10-YEAR FRACTURE RISK PREDICTION, FRAX: Major osteoporotic fracture (clinical spine, forearm, hip or shoulder) 6.0%. Hip fracture 0.9%. 3. Treatment Recommendations: NOF guidelines recommend consideration for treatment in postmenopausal women and men age 50 and older presenting with the following: -A hip or vertebral (clinical or morphometric) fracture. -T-score less than or equal to -2.5 at the femoral neck or spine after appropriate evaluation to exclude secondary causes. -Low bone mass at the hip or spine and a 10-year fracture probability by FRAX of greater than or equal to 3% for hip fracture or greater than or equal to 20% for major osteoporotic fracture based on the [place] adapted WHO algorithm. 4. Other Recommendations: All treatment decisions require clinical judgment and consideration of individual patient factors, including patient preferences, comorbidities, previous drug use, risk factors not captured in the FRAX model (e.g. frailty, falls, vitamin D deficiency, increased bone turnover, interval significant decline in bone density) and possible under or overestimation of fracture risk by FRAX. Additional medical evaluation for secondary cause of low bone mineral density may be appropriate. FUTURE SCAN RECOMMENDATION: People with diagnosed cases of osteoporosis or at high risk for fracture should have regular bone mineral density tests. For patients eligible for Medicare, routine testing is allowed once every 2 years. The testing frequency can be increased to one year for patients who have rapidly progressing disease, those who are receiving or discontinuing medical therapy to restore bone mass, or have additional risk factors. Electronically signed by: Keri Olmedo MD 03/13/2024 11:23 AM EDT RP
== END 2024-03-13 09:09 | disposition home or self-care (01) ==
LOC: HO.MAMMO 09:08
PROVIDERS: PCP Internal Medicine; Visit Provider Internal Medicine Endocrinology, Diabetes & Metabolism
DX: M81.0 Age-related osteoporosis without current pathological fracture (principal)
CPT/HCPCS: 77080

== ENCOUNTER 2024-04-10 07:57 | Outpatient (AMB) | payer MEDICAID, SELFPAY ==
--- NOTE | 2024-04-10 08:01 | MHC.OFFVIS ---
Vital Signs 04/10/24 08:03 Height 5 ft 5.02 in Weight 186 lb 8.177 oz BMI 31.0 BP 136/68 Blood Pressure Location Rt brachial Position Sitting Pulse 101 H Pulse Source Pulse Oximeter Intake Visit Reasons: f/u osteoporosis-confirmed Intake Note: Patient present today for Osteoporosis follow up visit. [employer] Senior Specialist Required: Yes [employer] Senior Specialist Language: Physician Office Specialist Services: [employer] Senior Specialist Offered & Declined [employer] Senior Specialist Name: Sister will interpret Accompanied by: Sister Allergies No Known Allergies Allergy (Verified 04/10/24 08:04) HPI Comments Details: 51 YO F with is seen in consultation at the request of PCP for Osteoporosis. First diagnosed in not before . Not Received treatment in the past . No history of pathologic fracture or ONJ.Had wrist fx in 2 yrs ago . fell down stairs Has several servings of dietary calcium per day Not Takes Calcium supplement Takes 2000 IU of Vitamin D daily. Denies ever using PPI, anticoagulant, antiepileptic or glucocorticoid medication only for asthma exacerbation. 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 UTD on dental cleanings and sees dentist every 6 months. No planned upcoming dental work or extractions. Gets hot flashes . Not hx of DVT. Family hx of maternal aunt has breast cancer DXA dated 03/10/22:FINDINGS: AP SPINE L1-L4: BMD 1.078 g/cm2, Z-score -1.1, T-score -0.8, normal. LEFT FEMUR, NECK: BMD 0.676 g/cm2, Z-score -2.3, T-score -2.6, osteoporosis. LEFT FEMUR, TOTAL: BMD 0.694 g/cm2, Z-score -2.5, T-score -2.5, osteoporosis. IDENTIFIED RISK FACTORS: Early menopause, secondary osteoporosis, history of fracture (adult), hysterectomy, bilateral oophorectomy, recurrent falls. HISTORY OF FRACTURE: Wrist. MEDICATIONS: Calcium supplements or multivitamin, vitamin D. MM/XR DEXA axial skeleton IMPRESSION: 1. DIAGNOSIS: Osteoporosis based on the lowest T-score value of -2.6 in the femoral neck applying World Health Organization criteria.? ? Labs: Secondary workup was negative Was placed on alendronate 70 mg Q weekly. Stop because of GI issues. This was done by patient after 1st dose. Went for tooth extraction Currently off pharmacologic treatment . Repeat DEXA showed improvement into osteopenic range PFSH Medical History HARSH (obstructive sleep apnea) Allergic rhinitis Osteoporosis Asthma Arm mass Tachycardia determined by examination of pulse Restrictive lung disease Hypoxemia Dyspnea Post-COVID syndrome Surgical History H/O: hysterectomy (~2006) History of cholecystectomy (~2003) Hx of heart artery stent Family History Maternal Uncle Colon cancer Paternal Grandfather Colon cancer Mother Colon polyps Lung cancer Maternal Uncle Colon cancer Social History Household Members: Children Housing: Other Housing Other:: three family house Do you presently have visiting nurse or other home services: No Alcohol intake: never Patient Tobacco Use Status: Never used Tobacco service: No Current occupational status: disabled Physical Exam Vital Signs: BMI result Body Mass Index 30.1 Assessment & Plan Assessment & Plan (1) Osteoporosis: Code(s): M81.0 - Age-related osteoporosis without current pathological fracture Category: Medical Plan: This is a 52-year-old female with a history of osteoporosis. Secondary workup was negative. There is a history of fragility wrist fracture. Evista is contraindicated because of previous DVT. Estrogen therapy is contraindicated because of family history of breast cancer. Pt was not able to tolerate bisphosphonate. Recent DEXA showed osteopenia Plan is to hold the alendronate for now. Should continue calcium and vitamin-D supplementation as well as weight-bearing exercise. Would hold off on phrmacologic therapy. Pt can return to care of PCP who can repeat DEXA who can repeat DEXA in 2 yrs . If progression into osteoporotic range, pt can reurn to endocrinology for discussion of pharmacologic options Coding Level of Care Code Est Pt Level 3 (57882) Diagnoses Osteoporosis M81.0
[2024-04-10 08:03] VITALS: BP 136/68; PULSE 101; BMI 31.0
== END 2024-04-10 08:19 | disposition home or self-care (01) ==
PROVIDERS: PCP Internal Medicine; Visit Provider Internal Medicine Endocrinology, Diabetes & Metabolism
DX: M81.0 Age-related osteoporosis without current pathological fracture (principal)
CPT/HCPCS: 99213

== ENCOUNTER → 2024-04-10 07:57 | Outpatient (BNVA) | payer MEDICAID, SELFPAY | PROVIDERS: PCP Internal Medicine; Visit Provider Internal Medicine Endocrinology, Diabetes & Metabolism | DX: M81.0 Age-related osteoporosis without current pathological fracture (principal) | CPT/HCPCS: 99212 ==

== ENCOUNTER 2024-05-06 09:38 | Outpatient (AMB) | payer MEDICAID, SELFPAY ==
[2024-05-06 09:42] VITALS: BP 140/80; PULSE 104; O2SAT 94; BMI 30.6
--- NOTE | 2024-05-06 09:42 | MHC.OFFVIS ---
Vital Signs 05/06/24 09:42 Height 5 ft 5 in Weight 184 lb 1.376 oz BMI 30.6 BP 140/80 H Blood Pressure Location Lt brachial Position Sitting Pulse 104 H Pulse Source Pulse Oximeter Pulse Oximetry (%) 94 Oxygen Delivery Method Room Air Intake Visit Reasons: Shortness of breath Intake Note: pt is here for follow up of shortness of breath, and for follow up of sleep study in February, and she is short of breath, coughing, and wheezing. she did have incident of shortness of breath and when bending down to feed her dog. Application Support Developer Required: No Allergies No Known Allergies Allergy (Verified 05/06/24 10:05) Medication List - Last Reconciled 05/06/24 by Liseth Thomas MD albuterol sulfate 90 mcg/actuation (Ventolin HFA) 2 puffs PO Q6H PRN alcohol swabs (Alcohol Prep Pads) pad topical DIRECTED amlodipine 2.5 mg PO DAILY ascorbic acid (vitamin C) 1,000 mg PO DAILY aspirin 1 tab PO QAM atorvastatin 40 mg PO DAILY bisacodyl (Dulcolax (bisacodyl)) 20 mg (4 x 5 mg) PO ONCE 1 day blood sugar diagnostic (FreeStyle Lite Strips) As directed cefuroxime axetil 500 mg PO BID cholecalciferol (vitamin D3) 50 mcg PO DAILY dulaglutide (Trulicity) mg subcut QWEEK empagliflozin (Jardiance) 25 mg PO DAILY fluticasone propion-salmeterol 115-21 mcg/actuation (Advair HFA) 2 puffs inhalation BID glipizide 10 mg PO BIDAC insulin glargine (Lantus Solostar U-100 Insulin) 12 units subcut BEDTIME lidocaine 5% patches topical losartan-hydrochlorothiazide 100-25 mg 1 tab PO DAILY magnesium 400 mg PO DAILY mecobalamin (vitamin B12) 5,000 mcg PO DAILY metformin 1,000 mg PO BID metoprolol succinate ER 25 mg PO DAILY pantoprazole 20 mg PO BID pen needle, diabetic (Sure Comfort Pen Needle) As directed polyethylene glycol 3350 (Miralax) 238 grams PO ONCE sertraline 25 mg PO DAILY zinc acetate 50 mg PO DAILY Do you need a note to return to daycare/school/sports/work: No HPI HPI Shortness of breath: Details: This [age] years old Macanese-speaking female comes for follow-up after having the home-based sleep study. She has history of chronic bronchial asthma, chronic dyspnea on exertion due to significant restrictive lung disorder. The restrictive disorder is mainly due to chronic elevation of the left hemidiaphragm. She also has history of hypoxemia and does have O2 concentrator at home but uses oxygen only once in a while during the daytime. Denice lives on the 2nd floor by herself. Her sister who lives on the 1st floor can hear her snoring throughout the night. She was diagnosed to have obstructive sleep apnea back in 2014 but there was no follow-up after that. [facility] Medical History HARSH (obstructive sleep apnea) Allergic rhinitis Osteoporosis Asthma Arm mass Tachycardia determined by examination of pulse Restrictive lung disease Hypoxemia Dyspnea Post-COVID syndrome Surgical History H/O: hysterectomy (~2006) History of cholecystectomy (~2003) Hx of heart artery stent Family History Maternal Uncle Colon cancer Paternal Grandfather Colon cancer Mother Colon polyps Lung cancer Maternal Uncle Colon cancer Social History Household Members: Children Housing: Other Housing Other:: three family house Do you presently have visiting nurse or other home services: No Alcohol intake: never Patient Tobacco Use Status: Never used Tobacco service: No Current occupational status: disabled Review of Systems Const All systems reviewed & are unremarkable except as noted in HPI and below Eyes Reports no additional complaints ENT Reports no additional complaints Card Details: Left to all arm pain. Probably not cardiac. And she also tends to have fast heart rate, for which she is being checked by Cardiology. Resp Reports as per HPI GI Reports no additional complaints Reports no additional complaints Musc Reports other (Left all arm pain, after the COVID vaccine) Skin/Breast Reports system reviewed and no additional complaints, except as documented Neuro Reports no additional complaints Psych Reports no additional complaints Physical Exam Vital Signs: Last Vital Signs Pulse 104 H 05/06/24 09:42 BP 140/80 H 05/06/24 09:42 Pulse Ox 94 05/06/24 09:42 Oxygen Delivery Method Room Air 05/06/24 09:42 BMI result Body Mass Index 30.6 Const Other: Somewhat pale looking General: comfortable, no acute distress, alert and awake Orientation/consciousness: patient oriented x3 HEENT Head: Yes normal to inspection General nose exam: No nasal polyps present and No nasal discharge present Face and sinus: Yes sinuses nontender Mouth: oropharynx normal Throat: Yes posterior oropharynx normal Eyes General: appearance normal, both eyes and all related structures Neck Neck: Yes normal visual inspection, Yes no lymphadenopathy, Yes trachea midline and Yes no JVD Thyroid: Thyroid normal Chest Chest palpation & inspection: normal inspection of the chest, normal palpation of entire chest wall and no tenderness Resp Other: Percussion note resonant except for mild dullness over the left base. Breath sounds are decreased over the left lower lobe area. No wheezes or rhonchi are heard. Cardio Palpation: normal PMI Rate: regular rate and tachycardic Rhythm: regular rhythm Heart sounds: no gallops and no murmurs Peripheral pulses: Peripheral pulses 2+ throughout GI Palpation (GI): Soft to palpation, Tenderness to palpation present (GI), No hepatosplenomegaly present and Palpable mass present Auscultation: normal bowel sounds Back/Spine/Pelvis Thoracic/Lumbar Spine: thoracic and lumbar spine normal to inspection Skin General skin exam: no rashes or lesions noted Neuro General: patient oriented x3 and no focal motor deficits Cranial nerves: Yes CN's II-XII intact bilaterally Extrem General: Yes normal to inspection, Yes no clubbing, cyanosis or edema and Yes no calf tenderness Psych Appearance: grossly normal and well kempt Speech and movement: Normal speech and movement present Results Reviewed Results Reviewed: Results of home-based sleep study on 02/27/2024 reviewed. Total sleep time AHI 14.3, in supine position 15.8. Snoring for 70% of the sleep time. Average O2 sat 87% and O2 sat below 88% for 182 minutes Assessment & Plan Assessment & Plan (1) Asthma: Comment: HAS MILD, INTERMITTENT BOUTS OF WHEEZING, ALSO SHE TENDS TO GET COUGH AND WHEEZING IF SHE IS EXPOSED TO ANYBODY WITH PERFUME , OR HOUSEHOLD SPRAYS ETC. Code(s): J45.909 - Unspecified asthma, uncomplicated Category: Medical Plan: Symptoms are fairly well controlled with use of Advair 115-21 2 puffs b.i.d., and she is advised to continue using this inhaler. Ventolin 2 puffs Q 6 hours only p.r.n.. (2) Restrictive lung disease: Comment: HAS SEVERE RESTRICTIVE PULMONARY DISORDER, MAINLY DUE TO HER CHRONICALLY ELEVATED LEFT HEMIDIAPHRAGM. Code(s): J98.4 - Other disorders of lung Category: Medical Plan: Patient is well aware of this diagnosis. Advised to keep on doing deep breathing exercises 2 or 3 times a day (3) Hypoxemia: Comment: H/O HYPOXEMIA WHICH HAD WORSENED AFTER SHE HAD COVID INFECTION LAST YEAR. IT DID IMPROVE GRADUALLY . SHE DOES HAVE O2 CONCENTRATOR AND PORTABLE UNIT AT HOME BUT HARDLY NEEDS TO USE IT. Code(s): R09.02 - Hypoxemia Category: Medical Plan: ADVISED TO USE O2 2 L/MINUTE AT NIGHT,, AND P.R.N. DURING THE DAYTIME. I THINK ONCE SHE STARTS USING THE CPAP AT NIGHT HER NOCTURNAL HYPOXEMIA MAY GET CORRECTED. (4) Allergic rhinitis: Comment: MOSTLY HYPERSENSITIVITY TO CHEMICAL SPRAYS AND PERFUMES ETC.. SHE TRIES TO AVOID EXPOSURE AND STAYS AWAY FROM SUCH AGENTS. Code(s): J30.9 - Allergic rhinitis, unspecified Category: Medical Plan: ALLERGIC RHINITIS IS MAINLY DUE CHEMICAL SPRAYS IN PERFUMES. TREATMENT IS MAINLY AVOIDANCE, BUT ONCE IN A WHILE SHE MAY TAKE OTC ANTIHISTAMINIC AGENTS NEEDED. (5) HARSH (obstructive sleep apnea): Comment: PATIENT DOES HAVE HISTORY OF OBSTRUCTIVE SLEEP APNEA DIAGNOSED IN 2015 BUT THERE HAS BEEN NO TREATMENT OR FOLLOW-UP. HOME-BASED SLEEP STUDY IS PERFORMED TO RECONFIRM THE DIAGNOSIS. AND IT INDICATES, MODERATELY SEVERE OBSTRUCTIVE SLEEP APNEA WITH TOTAL SLEEP TIME AHI 14.3, SNORING FOR 70% OF THE SLEEP TIME AND PERSISTENT NOCTURNAL HYPOXEMIA. O2 SAT BELOW 88% FOR 182 MINUTES. Code(s): G47.33 - Obstructive sleep apnea (adult) (pediatric) Category: Medical Plan: BECAUSE OF PERSISTENT HYPOXEMIA THROUGHOUT THE NIGHT, SHE WOULD NEED CPAP TITRATION IN THE SLEEP LAB, TO DETERMINE THE OPTIMAL PRESSURE AND ALSO TO MAKE SURE THAT HYPOXEMIA IS CORRECTED. ORDER FOR CPAP TITRATION POLYSOMNOGRAM IN THE SLEEP LAB IS ENTERED. AND PATIENT WOULD BE SEEN AFTER THE STUDY, FOR FURTHER TREATMENT. IN THE MEANTIME SHE IS INSTRUCTED TO USE O2 2 L/MINUTE AT NIGHT. Orders: Orders RT PSG in-lab sleep titration Today G47.33 - Obstructive sleep apnea (adult) (pediatric), R09.02 - Hypoxemia Coding Level of Care Code Est Pt Level 4 (37778) Diagnoses Asthma J45.909 Restrictive lung disease J98.4 Hypoxemia R09.02 Allergic rhinitis J30.9 HARSH (obstructive sleep apnea) G47.33
== END 2024-05-06 10:04 | disposition home or self-care (01) ==
PROVIDERS: PCP Internal Medicine; Visit Provider Internal Medicine
DX: J45.909 Unspecified asthma, uncomplicated (principal); J98.4 Other disorders of lung; R09.02 Hypoxemia; J30.9 Allergic rhinitis, unspecified; G47.33 Obstructive sleep apnea (adult) (pediatric)
CPT/HCPCS: 99214

== ENCOUNTER → 2024-05-06 09:38 | Outpatient (BNVA) | payer MEDICAID, SELFPAY | PROVIDERS: PCP Internal Medicine; Visit Provider Internal Medicine | DX: J45.909 Unspecified asthma, uncomplicated (principal); J98.4 Other disorders of lung; G47.33 Obstructive sleep apnea (adult) (pediatric); R09.02 Hypoxemia | CPT/HCPCS: 99212 ==

== ENCOUNTER → 2024-06-23 19:30 | Outpatient (REF) | payer MEDICAID, SELFPAY | LOC: HO.SL 19:30 | PROVIDERS: PCP Internal Medicine; Visit Provider Internal Medicine | DX: G47.33 Obstructive sleep apnea (adult) (pediatric) (principal); R09.02 Hypoxemia | CPT/HCPCS: 95811 ==

== ENCOUNTER → 2024-06-23 21:13 | Outpatient (BNV) | payer MEDICAID, SELFPAY | PROVIDERS: PCP Internal Medicine; Visit Provider Internal Medicine | DX: G47.33 Obstructive sleep apnea (adult) (pediatric) (principal) | CPT/HCPCS: 95811 ==

== ENCOUNTER 2024-06-27 08:34 | Day surgery (SDC) | payer MEDICAID, SELFPAY ==
--- NOTE | 2024-06-26 09:22 | P.CONAN_ITS ---
Documented by User: Jessica Guerra NP 06/26/24 09:28 HPI - Anesthesia Eval Consult details Narrative: 53yo F for Upper Endoscopy and Colonoscopy Follows [facility] Pulmo: HARSH, hypoxemia. O2 @ 2L QHS and prn daytime use Follows [facility] Cardiology for htn, tachy. Stable at 12/2023 with 1 year f/u. (No signif CAD by cath 2021) Anesthesia Pre-Procedure Meds Is the patient on any of the following meds?: GLP1/DPP4 and SGLT2 Inhib PMFSH Active Problems Active Problems: All Active Problems Colitis (Acute) Hyperglycemia (Acute) Hemorrhagic diarrhea (Acute) HARSH (obstructive sleep apnea) (Acute) Umbilical hernia (Acute) Allergic rhinitis (Acute) Osteoporosis (Acute) Diabetes (Acute) NAFLD (nonalcoholic fatty liver disease) (Acute) Family history of colonic polyps (Acute) Early satiety (Acute) Acid reflux (Acute) Abdominal pain (Acute) Asthma (Acute) Arm mass (Acute) Tachycardia determined by examination of pulse (Acute) Restrictive lung disease (Acute) Hypoxemia (Acute) Dyspnea (Acute) Post-COVID syndrome (Acute) Past Medical History Medical History HARSH (obstructive sleep apnea) Allergic rhinitis Osteoporosis Asthma Arm mass Tachycardia determined by examination of pulse Restrictive lung disease Hypoxemia Dyspnea Post-COVID syndrome Family History Family History Maternal Uncle Colon cancer Paternal Grandfather Colon cancer Mother Colon polyps Lung cancer Maternal Uncle Colon cancer Surgical History Surgical History H/O: hysterectomy (~2006) History of cholecystectomy (~2003) Hx of heart artery stent Social History Social History Household Members: Children Housing: Other Housing Other:: three family house Are you a primary hemodialysis patient care specialist to a significant other at home: No Do you presently have visiting nurse or other home services: No Alcohol intake: never Patient Tobacco Use Status: Never used Tobacco service: No Current occupational status: disabled Meds Allergies Allergy/AdvReac Type Severity Reaction Status Date / Time No Known Allergies Allergy Verified 06/27/24 09:13 Home Medications ?Medication ?Instructions ?Recorded ?Confirmed ?Last Taken ?Type fluticasone propionate 115 2 puff inhalation BID 10/27/20 05/06/24 Unknown History mcg-salmeterol 21 mcg/actuation HFA inhaler (Advair HFA) metformin 1,000 mg tablet 1,000 mg PO BID 10/27/20 05/06/24 01/03/24 History cholecalciferol (vitamin D3) 50 50 mcg PO DAILY 08/18/21 05/06/24 01/03/24 History mcg (2,000 unit) tablet metoprolol succinate 25 mg 25 mg PO DAILY 08/18/21 05/06/24 01/03/24 History tablet,extended release 24 hr ascorbic acid (vitamin C) 500 mg 1,000 mg PO DAILY 10/27/21 05/06/24 01/03/24 History capsule magnesium 200 mg tablet 400 mg PO DAILY 10/27/21 05/06/24 01/03/24 History mecobalamin (vitamin B12) 5,000 5,000 mcg PO DAILY 10/27/21 05/06/24 01/03/24 History mcg disintegrating tablet zinc acetate 50 mg (zinc) capsule 50 mg PO DAILY 10/27/21 05/06/24 01/03/24 History pantoprazole 20 mg tablet,delayed 20 mg PO BID 04/12/22 05/06/24 01/03/24 History release amlodipine 2.5 mg tablet 2.5 mg PO DAILY 04/28/22 05/06/24 01/03/24 History empagliflozin 25 mg tablet 25 mg PO DAILY 09/14/22 06/27/24 06/17/24 History (Jardiance) sertraline 25 mg tablet 25 mg PO DAILY 01/12/23 05/06/24 01/03/24 History insulin glargine 100 unit/mL (3 12 unit subcut BEDTIME 08/15/23 05/06/24 01/03/24 History mL) subcutaneous pen (Lantus Solostar U-100 Insulin) atorvastatin 40 mg tablet 40 mg PO DAILY 01/04/24 05/06/24 Unknown History glipizide 10 mg tablet 10 mg PO BIDAC 01/04/24 05/06/24 01/03/24 History losartan 100 1 tab PO DAILY 01/04/24 05/06/24 01/03/24 History mg-hydrochlorothiazide 25 mg tablet alcohol swabs (Alcohol Prep Pads) pad topical DIRECTED 02/28/24 05/06/24 Unknown History aspirin 81 mg chewable tablet 1 tab PO QAM 02/28/24 05/06/24 Unknown History blood sugar diagnostic (FreeStyle #10 ea 02/28/24 05/06/24 Unknown History Lite Strips) dulaglutide 3 mg/0.5 mL mg subcut QWEEK 02/28/24 05/06/24 Unknown History subcutaneous pen injector (Trulicity) lidocaine 5 % topical patch patch topical 02/28/24 05/06/24 Unknown History pen needle, diabetic 31 gauge x #1,200 ea 02/28/24 05/06/24 Unknown History 16 (Sure Comfort Pen Needle) Exam Height,Weight and Vital Signs: Height 5 ft 5 in Weight 81.647 kg Assessment and Plan Assessment Anesthesia Assessment: Chart Reviewed Documented by User: Danica Grigsby MD 06/27/24 10:10 [facility] Past Medical History Medical History HARSH (obstructive sleep apnea) Allergic rhinitis Osteoporosis Asthma Arm mass Tachycardia determined by examination of pulse Restrictive lung disease Hypoxemia Dyspnea Post-COVID syndrome Family History Family History Maternal Uncle Colon cancer Paternal Grandfather Colon cancer Mother Colon polyps Lung cancer Maternal Uncle Colon cancer Surgical History Surgical History H/O: hysterectomy (~2006) History of cholecystectomy (~2003) Hx of heart artery stent History of Problems with Anesthesia: No Social History Social History Household Members: Children Housing: Other Housing Other:: three family house Are you a primary hemodialysis patient care specialist to a significant other at home: No Do you presently have visiting nurse or other home services: No Alcohol intake: never Patient Tobacco Use Status: Never used Tobacco service: No Current occupational status: disabled Meds Allergies Allergy/AdvReac Type Severity Reaction Status Date / Time No Known Allergies Allergy Verified 06/27/24 09:13 Home Medications ?Medication ?Instructions ?Recorded ?Confirmed ?Last Taken ?Type fluticasone propionate 115 2 puff inhalation BID 10/27/20 05/06/24 Unknown History mcg-salmeterol 21 mcg/actuation HFA inhaler (Advair HFA) metformin 1,000 mg tablet 1,000 mg PO BID 10/27/20 05/06/24 01/03/24 History cholecalciferol (vitamin D3) 50 50 mcg PO DAILY 08/18/21 05/06/24 01/03/24 History mcg (2,000 unit) tablet metoprolol succinate 25 mg 25 mg PO DAILY 08/18/21 05/06/24 01/03/24 History tablet,extended release 24 hr ascorbic acid (vitamin C) 500 mg 1,000 mg PO DAILY 10/27/21 05/06/24 01/03/24 History capsule magnesium 200 mg tablet 400 mg PO DAILY 10/27/21 05/06/24 01/03/24 History mecobalamin (vitamin B12) 5,000 5,000 mcg PO DAILY 10/27/21 05/06/24 01/03/24 History mcg disintegrating tablet zinc acetate 50 mg (zinc) capsule 50 mg PO DAILY 10/27/21 05/06/24 01/03/24 History pantoprazole 20 mg tablet,delayed 20 mg PO BID 04/12/22 05/06/24 01/03/24 History release amlodipine 2.5 mg tablet 2.5 mg PO DAILY 04/28/22 05/06/24 01/03/24 History empagliflozin 25 mg tablet 25 mg PO DAILY 09/14/22 06/27/24 06/17/24 History (Jardiance) sertraline 25 mg tablet 25 mg PO DAILY 01/12/23 05/06/24 01/03/24 History insulin glargine 100 unit/mL (3 12 unit subcut BEDTIME 08/15/23 05/06/24 01/03/24 History mL) subcutaneous pen (Lantus Solostar U-100 Insulin) atorvastatin 40 mg tablet 40 mg PO DAILY 01/04/24 05/06/24 Unknown History glipizide 10 mg tablet 10 mg PO BIDAC 01/04/24 05/06/24 01/03/24 History losartan 100 1 tab PO DAILY 01/04/24 05/06/24 01/03/24 History mg-hydrochlorothiazide 25 mg tablet alcohol swabs (Alcohol Prep Pads) pad topical DIRECTED 02/28/24 05/06/24 Unknown History aspirin 81 mg chewable tablet 1 tab PO QAM 02/28/24 05/06/24 Unknown History blood sugar diagnostic (FreeStyle #10 ea 02/28/24 05/06/24 Unknown History Lite Strips) dulaglutide 3 mg/0.5 mL mg subcut QWEEK 02/28/24 05/06/24 Unknown History subcutaneous pen injector ([facility]) lidocaine 5 % topical patch patch topical 02/28/24 05/06/24 Unknown History pen needle, diabetic 31 gauge x #1,200 ea 02/28/24 05/06/24 Unknown History 3/16 (Sure Comfort Pen Needle) Exam Airway Mallampati Class: III TM Dist: >3cm Neck ROM: Full Loose/Missing/Broken Teeth: No Heart: RRR Lungs: CTA Assessment and Plan Assessment Anesthesia Assessment: Anesthesia Plan Discussed Final Anesthetic Review History of Problems with Anesthesia: No NPO: Yes ASA Class: III Final Preanesthetic Review: Meds/Allgs Chart Reviewed, Consent Obtained/Reviewed and Anes Risks/Benef Reviewed Patient Risk: Intermediate Procedure Risk: Low Anesthetic Plan Anesthetic Plan: MAC: Disposition: Standard PACU
[2024-06-27 09:15] VITALS: BMI 29.3
--- NOTE | 2024-06-27 09:30 | MHC.SHP ---
Pre-Procedural Eval Section A - 24 Hr Update-Section A only Date of Service: 06/27/24 Section B - Complete if H&P > 30 days Chief Complaint: gerd, screening Details of Present Illness: (obstructive sleep apnea) Allergic rhinitis Osteoporosis Asthma Arm mass Tachycardia determined by examination of pulse Restrictive lung disease Hypoxemia Dyspnea Post-COVID syndrome Surgical History H/O: hysterectomy (~2006) History of cholecystectomy (~2003) Hx of heart artery stent Present Medications: see Short Stay Collaborative assessment Allergies: Allergies Allergy/AdvReac Type Severity Reaction Status Date / Time No Known Allergies Allergy Verified 06/27/24 09:13 Review of Systems Review of Systems Comment: Ten point ROS negative Exam Exam Comment: Gen appear: No acute distress HEENT: no icterus Chest: No overt resp distress Abd: soft, nontender, nondistended Psych: Stable affect, answering questions appropriately Neuro: A/Ox3 noted to move all extremities spontaneously Ext: no peripheral edema Plan Diagnosis/Plan: Unchanged I have reviewed the history and physical and performed a pertinent physical examination on my patient. No changes have occurred unless specified. Time Spent With Patient Time: Total time managing care of this patient today ____ minutes.
[2024-06-27] MEDS: Lactated Ringers 1,000 ML 100 ML IVCONT (09:45)
[2024-06-27] MEDS: Albuterol Sulfate (0.083%) 2.5 MG/3 ML VIAL.NEB INHALE (09:47)
[2024-06-27 09:55] VITALS: BP 156/90; PULSE 108; RESP 18; TEMP 36.7; O2SAT 97
[2024-06-27 09:55] LABS: Glucose, Whole Blood 305 mg/dL (60-115)
--- NOTE | 2024-06-27 09:55 | PC.NURSE ---
dr. ang aware of pulse. aware of poc and stated no interventions. aware of patient restictive airway disease and patient becoming sob even with talking decision made to not do EGD today. patient educated with waste picker.
--- NOTE | 2024-06-27 10:18 | HO.OPN-COLON ---
Colonoscopy Operative Note Operative Note Date of Service: 06/27/24 Narrative: Procedure: Colonoscopy Indication: Screening Endoscopist: Quyen Hardwick MD Anesthesia Provider: Dr Arlet Grigsby Anesthesia type: MAC Instrument: Olympus [id number]-H190L Consent: Indication, risks vs benefits, and alternatives were discussed with the patient who gave written informed consent to proceed. An insurance application investigator was utilized to assist with the consent. EKG, pulse, pulse oximetry and blood pressure were monitored throughout the procedure. Please see anesthesia flowsheet. Procedure: The patient was brought to the procedure room, an abdominal binder was affixed and the patient was then placed in the left lateral decubitus position. IV medications were administered by the anesthesia provider in attendance. A digital rectal exam was performed which was abnormal due to finding of hemorrhoids. A distal attachment cap was affixed to the tip of the colonoscope which was then inserted through the anus and advanced through the colon to the cecum at 75 cm,and terminal ileum. Appendiceal orifice and ileocecal valve were identified. Mucosa was carefully examined under high definition white light as the instrument was slowly withdrawn in a retrograde panoramic fashion. Retroflexion was performed in rectum. The procedure was not difficult. There were no immediate obvious complications. The quality of the prep was BBPS: 2+2+3 = adequate Withdrawal time 18 minutes. Limitations: No limitations. Findings: Mucosa: Normal to cecum and terminal ileum. Protruding lesions: 2 sessile polyp of size 4 mm in transverse colon. Cold snare polypectomy was performed. The polyps were completely removed and retrieved. 1 pedunculated polyp of size 12 mm in descending colon. Hot snare polypectomy was performed. The polyp was completely removed and retrieved. Medium internal hemorrhoids without stigmata of recent bleeding. Impression: 1. Normal colon mucosa 2. Total of 3 polyps removed 3. External and internal hemorrhoids Recommendations: - Follow path results. - Repeat colonoscopy in 3 years if polyps are adenomas or sessile serrated.
[2024-06-27 10:53] VITALS: BP 124/76; PULSE 107; RESP 18; TEMP 36.6; O2SAT 98
[2024-06-27 11:08] VITALS: BP 132/72; PULSE 104; RESP 18; TEMP 36.6; O2SAT 98
--- OUTSIDE RECORDS SUMMARY | 2024-06-27 11:22 | XMS_ITS | Encounter Summary ---
Author Organization [employer] Address [address] [place] [address] Care Team Providers Care Mixing Place Supervisor Name Role Phone Isabel Ramsay MD Primary Care Provide r Reason for Visit * Reason Comments Dental Exam Encounter Details Date Type Department Care Team (Late st Contact Info) Description 06/14/2024 2:30 PM EST Office Visit [facility] ADULT DENTAL [address] [place] [address] Charleen Amador, DDS [address] [place] [address] Dental bridge present (Primary Dx) Social History Tobacco Use Types Packs/Day Years Used Date Smoking Tobacco: Never Passive Smoke Exposure: Never Smokeless Tobacco: Never Alcohol Use Standard Drinks/Week Comments Not Currently 0 (1 standard drink = 0.6 oz pur e alcohol) Depression Answer Date Recorded Patient Health Questionnaire-9 Score 15 01/25/2024 Patient Health Questionnaire-9 Score 15 01/25/2024 Last PHQ-9: Questionnaire Data Not on file 0 01/25/2024 Housing Stability Answer Date Recorded What is your housing situation today? I have honoriojavier marcial 03/15/[address] you li ve. Do you have problems with any of the following? None of the above 03/15/2023 Food Insecurity Answer Date Recorded Within the past 12 months, y ou worried that your food would run out before you got money to buy more: Never True 01/18/2024 Within the past 12 months,th e food you bought just didn't last and you didn't have enough money to get more: Never True Transportation Answer Date Recorded In the past 12 months, has l ack of transportation kept you from medical appts, meetings, work or from getting things needed for daily living? No 03/15/2023 Utilities Answer Date Recorded In the past 12 months, has t he electric, gas, oil or water company threatened to shut off services in your home? No 03/15/2023 Depression Answer Date Recorded Patient Health Questionnaire-2 Score 5 01/25/2024 Internet Access Answer Date Recorded Internet Access Q1 No 01/29/2024 Internet Access Q2 I do not want or need it 06/2023 Comments Unknown Sex and Gender Information Value Date Recorded Sex Assigned at Female 03/28/2022 10:21 AM EDT Legal Sex Female 10:21 AM EDT Gender Identity Female 03/28/2022 10:21 AM EDT Sexual Orientation Straight 03/28/2022 10 :21 AM EDT documented as of this encounter Progress Notes * Charleen Amador DDS - 06/14/2024 2:30 PM EST Dental procedures in this visit D2920 - RE-CEMENT OR RE-HICKS CROWN 6 (Completed) Service provider: Charleen Amador DDS Billing provider: Charleen Amador DDS D2920 - RE-CEMENT OR RE-HICKS CROWN 8 (Completed) Service provider: Charleen Amador DDS Billing provider: Charleen Amador DDS D0220 - INTRAORAL - PERIAPICAL FIRST RADIOGRAPHIC IMAGE (Completed) Service provider: Charleen Amador DDS Billing provider: Charleen Amador DDS [id number] - ADJUNCTIVE GENERAL SERVICES - PROFESSIONAL VISITS - CASE PRESENTATION, SUBSEQUENT TO DETAILED AND EXTENSIVE TREATMENT PLANNING (Completed) Service provider: Charleen Amador DDS Billing provider: Charleen Amador DDS Patient ID: Denice Lobato is a 53 y.o. female. Time Out: Timeout Date: 06/14/24, Timeout Time: 1432 (bridge came off) Location: [facility] Tooth: #6, #7, and #8 Procedure: re-cementation [place] Verified the above with patient, ob gyn physician assistant, and provider. Confirmed via patient's chart, intraorally and by radiographs. Emergency Preparedness Coordinator: not applicable Chief Complaint Patient presents with Dental Exam Medical Hx: Vitals: There were no vitals taken for this visit. Past Medical History: Diagnosis Date Anemia Asthma Depression with anxiety Diabetes mellitus (CMS/HCC) Fibromyalgia GERD (gastroesophageal reflux disease) Heart problem Heart trouble HLD (hyperlipidemia) Hypertension Low oxygen saturation Osteoporosis Medications: Outpatient Encounter Medications as of 06/14/2024 Medication Sig Dispense Refill Acetaminophen Extra Strength 500 MG tablet TAKE 1 TABLET BY MOUTH EVERY 4 TO 6 HOURS NEEDED Advair HFA 115-21 MCG/ACT inhaler INHALE 2 PUFFS TWICE DAILY IN THE MORNING AND IN THE EVENING. RINSE MOUTH AFTER USING. 12 g 2 albuterol (2.5 MG/3ML) 0.083% nebulizer solution INHALE 1 AMPULE USING A NEBULIZER FOUR TIMES DAILYAS DIRECTED 90 mL 1 Alcohol Swabs (Alcohol Prep) 70 % pads USE DIRECTED 100 each 11 amLODIPine (Norvasc) 2.5 MG tablet TAKE 1 TABLET BY MOUTH EVERY MORNING 90 tablet 0 Ascorbic Acid (vitamin C) 1000 MG tablet Take 1,000 mg by mouth Once per day. Aspirin Low Dose 81 MG chewable tablet TAKE 1 TABLET BY MOUTH EVERY MORNING (CHEW) 90 tablet 1 atorvastatin (Lipitor) 40 MG tablet TAKE 1 TABLET BY MOUTH EVERY MORNING 90 tablet 1 cholecalciferol VITAMIN D (Vitamin D-3) 50 MCG (2000 UT) tablet TAKE 1 TABLET BY MOUTH EVERY MORNING 90 tablet 1 cyanocobalamin (Vitamin B-12) 100 MCG tablet Take 100 mcg by mouth Once per day. diclofenac (Voltaren) 75 MG EC tablet TAKE 1 TABLET BY MOUTH TWICE DAILY 60 tablet 0 empagliflozin (Jardiance) 25 MG TAKE 1 TABLET BY MOUTH EVERY MORNING 90 tablet 1 FREESTYLE LITE test strip TEST BLOOD SUGAR ONCE DAILY 50 strip 11 gabapentin (Neurontin) 100 MG capsule TAKE 3 CAPSULES BY MOUTH EVERY 8 HOURS 270 capsule 11 glipiZIDE (Glucotrol) 10 MG tablet TAKE 1 TABLET BY MOUTH TWICE DAILY IN THE MORNING AND IN THE EVENING BEFORE MEALS 180 tablet 1 insulin pen needle (Sure Comfort Pen [place]) 31G x 5 mm [facility] DIRECTED ONCE DAILY WITH lantus 100 each 11 Lantus SoloStar 100 UNIT/ML pen INJECT 12 UNITS SUBCUTANEOUSLY DAILY AT BEDTIME 15 mL 11 lidocaine (Lidoderm) 5 % patch APPLY 1 PATCH TOPICALLY TO SKIN, LEAVE ON FOR 12 HOURS AND OFF FOR 12 HOURS DIRECTED 30 patch 3 losartan-hydroCHLOROthiazide (Hyzaar) 100-25 MG tablet TAKE 1 TABLET BY MOUTH EVERY MORNING 90 tablet 1 magnesium hydroxide (Milk of Magnesia) 400 MG/5ML suspension Take by mouth at bedtime. metFORMIN (Glucophage) 1000 MG tablet TAKE 1 TABLET BY MOUTH TWICE DAILY IN THE MORNING AND IN THE EVENING WITH FOOD 180 tablet 1 metoprolol succinate XL (Toprol-XL) 25 MG 24 hr tablet Take 25 mg by mouth in the morning. pantoprazole (ProtoNix) 20 MG EC tablet TAKE 1 TABLET BY MOUTH TWICE DAILY IN THE MORNING AND IN THE EVENING 180 tablet 1 sertraline (Zoloft) 25 MG tablet TAKE 1 TABLET BY MOUTH EVERY MORNING 30 tablet 11 Trulicity 3 MG/0.5ML solution pen-injector INJECT ONE PEN (= 3MG) SUBCUTANEOUSLY ONCE A WEEK DIRECTED 2 mL 11 Ventolin HFA 108 (90 Base) MCG/ACT inhaler INHALE 2 PUFFS BY MOUTH EVERY 4 TO 6 HOURS NEEDED FORDIFFICULTY BREATHING. DO NOT EXCEED FOUR TIMES DAILY 18 g 1 chlorhexidine (Peridex) 0.12 % solution SWISH 15 ML IN THE MOUTH OR THROAT FOR 30 SECONDS THEN SPITOUT TWICE DAILY IN THE MORNING AND IN THE EVENING AFTER BRUSHING TEETH DO NOT SWALLOW (Patient not taking: Reported on 06/14/2024) oxyCODONE-acetaminophen (Percocet) 5-325 MG tablet Take 1 tablet by mouth every 6 (six) hours if needed. (Patient not taking: Reported on 06/14/2024) No facility-administered encounter medications on file as of 06/14/2024. Subjective: Pt in office for re bonding bridge #6-#8 Isolation: high speed suction and cotton rolls Tried on after residue of cement removed. Verified interproximal contacts and margins Tooth Treatment: 37% Phosphoric Acid Etch and Armature And Rotor Winder applied Cemented with: Relyx Unicem Cleaned excess cement, flossed Patient satisfied with comfort and esthetics. POI given. Patient discharged alert, oriented, and in stable condition Pt tolerated procedure well, all questions answered. Dismissed in good condition. Supervisor Type Photography: Basilia Vásquez Dentist: Charleen Amador DDS documented in this encounter Plan of Treatment Upcoming Encounters Date Type Department Care Team (Late st Contact Info) Description 07/10/2024 10:00 AM EST Office Visit [facility] OPTOMETRY [address] [place], [place] [phone] Mary Alice Key, OD [address] [place] [address] 08/19/2024 8:00 AM EDT Office Visit [facility] ADULT DENTAL [address] [place] [address] Dariela Keen 08/29/2024 10:45 AM EDT Office Visit [facility] MEDICINE [address] [place] [address] Isabel Ramsay MD [address] [place] [address] documented as of this encounter Procedures Procedure Name Priority Date/Time Associated Diagnosis Comments 8 RE-CEMENT OR RE-HICKS CROWN Routine 06/14/2024 2:30 PM EST Dental bridge present 6 RE-CEMENT OR RE-HICKS CROWN Routine 06/14/2024 2:30 PM EST Dental bridge present INTRAORAL - PERIAPICAL FIRST RADIOGRAPHIC IMAGE Routine 06/14/2024 2:30 PM EST Dental bridge present ADJUNCTIVE GENERAL SERVICES - PROFESSIONAL VISITS - CASE PRESENTATION, SUBSEQUENT TO DETAILED AND EXTENSIVE TREATMENT PLANNING Routine 06/14/2024 2:30 PM EST Dental bridge present documented in this encounter Visit Diagnoses Diagnosis Dental bridge present- Primary documented in this encounter Additional Health Concerns Assessment Noted Time PHQ-9 Depression Total Score: 15 024 1:22 PM EDT documented as of this encounter Care Teams Mixing Place Supervisor Relationship Specialty Start Date End Date Isabel Ramsay MD [address] [place] [address] PCP - General Family Medicine 01/09/19 documented as of this encounter
--- OUTSIDE RECORDS SUMMARY | 2024-06-27 11:22 | XMS_ITS | Encounter Summary ---
Author Organization [facility] Address [address] [facility] [address] [place] [address] Care Team Providers Care Men'S Leather Dress Belt Maker Name Role Phone Isabel Ramsay MD Primary Care Provide r Reason for Visit * Reason Comments Med Refill Encounter Details Date Type Department Care Team (Late st Contact Info) Description 11/25/2022 Refill [facility] MED[facility] [address] [place], [place] [phone] Kiara Hernandez MD [address] [place], [place] [phone] Mild chronic obstructive pulmonary disease (CMS/HCC) Social History Tobacco Use Types Packs/Day Years Used Date Smoking Tobacco: Never Passive Smoke Exposure: Never Smokeless Tobacco: Never Depression Answer Date Recorded Patient Health Questionnaire-9 Score 17 11/04/2022 Depression Answer Date Recorded Patient Health Questionnaire-2 Score 4 11/04/2022 Comments Unknown Sex and Gender Information Value Date Recorded Sex Assigned at Female 03/28/2022 10:21 AM EDT Legal Sex Female 10:21 AM EDT Gender Identity Female 03/28/2022 10:21 AM EDT Sexual Orientation Straight 03/28/2022 10 :21 AM EDT COVID-19 Exposure Response Date Recorded In the last 10 days, have yo u been in contact with someone who was confirmed or suspected to have Coronavirus/COVID-19? No / Unsure 11/02/2022 9:50 AM EDT documented as of this encounter Plan of Treatment Upcoming Encounters Date Type Department Care Team (Late Contact Info) Description 07/10/2024 10:00 AM EST Office Visit [facility] OPTOMETRY [address] [place] [address] Mary Alice Key, OD [address] [place] [address] 08/19/2024 8:00 AM EDT Office Visit [facility] ADULT DENTAL [address] [place], [place] [phone] Dariela Keen 08/29/2024 10:45 AM EDT Office Visit [facility] MEDICINE [address] [place] [address] Isabel Ramsay MD [address] [place], [place] [phone] documented as of this encounter Visit Diagnoses Diagnosis Mild chronic obstructive pulmonary disease (CMS/HCC) Chronic airway obstruction, not elsewhere classified documented in this encounter Additional Health Concerns Assessment Noted Time PHQ-9 Depression Total Score: 17 023 8:32 AM EDT documented as of this encounter Care Teams Men'S Leather Dress Belt Maker Relationship Specialty Start Date End Date Isabel Ramsay MD [address] [place], [place] [phone] PCP - General Family Medicine 01/09/19 documented as of this encounter
--- OUTSIDE RECORDS SUMMARY | 2024-06-27 11:22 | XMS_ITS | Encounter Summary ---
Author Organization [employer] Address [address] [facility] 7t [place] [address] Care Team Providers Care Health Analytics Consultant Name Role Phone Isabel Ramsay MD Primary Care Provide r Encounter Details Date Type Department Care Team (Late st Contact Info) Description 09/13/2022 Orders Only [facility] CHC MED & PEDS [address] [place] [address] Connie Pisano LPN Social History Tobacco Use Types Packs/Day Years Used Date Smoking Tobacco: Never Assessed Comments Unknown Sex and Gender Information Value Date Recorded Sex Assigned at Female 03/28/2022 10:21 AM EDT Legal Sex Female 10:21 AM EDT Gender Identity Female 03/28/2022 10:21 AM EDT Sexual Orientation Straight 03/28/2022 10 :21 AM EDT documented as of this encounter Plan of Treatment Upcoming Encounters Date Type Department Care Team (Late Contact Info) Description 07/10/2024 10:00 AM EST Office Visit [facility] OPTOMETRY [address] [place] [address] Shahid, Mary Alice, OD [address] [place] [address] 08/19/2024 8:00 AM EDT Office Visit [facility] ADULT DENTAL [address] [place] [address] Dariela Keen 08/29/2024 10:45 AM EDT Office Visit [facility] MEDICINE [address] [place] [address] Isabel Ramsay MD [address] [place] [address] documented as of this encounter Visit Diagnoses Not on filedocumented in this encounter Care Teams Health Analytics Consultant Relationship Specialty Start Date End Date Isabel Ramsay MD [address] [place] [address] PCP - General Family Medicine 01/09/19 documented as of this encounter
--- OUTSIDE RECORDS SUMMARY | 2024-06-27 11:22 | XMS_ITS | Encounter Summary ---
Author Organization [employer] [facility] Address [address] [place] [address] 7t [place] [address] Care Team Providers Care Assistant Strength Coach Name Role Phone Isabel Ramsay MD Primary Care Provide r Reason for Visit * Reason Comments Med Refill Encounter Details Date Type Department Care Team (Late st Contact Info) Description 12/30/2022 Refill [facility] CHC MED & PEDS [address] [place], [place] [phone] Isabel Ramsay MD [address] [place] [address] Chronic obstructive pulmonary disease, unspecified COPD type (CMS/HCC) Social History Tobacco Use Types Packs/Day [...] Description 07/10/2024 10:00 AM EST Office Visit [facility] OPTOMETRY [address] [place] [address] Mary Alice Key OD [address] [place] [address] 08/19/2024 8:00 AM EDT Office Visit [facility] ADULT DENTAL [address] [place] [address] Dariela Keen 08/29/2024 10:45 AM EDT Office Visit [facility] MEDICINE [address] [place] [address] Isabel Ramsay MD [address] [place] [address] documented as of this encounter Visit Diagnoses Diagnosis Chronic obstructive pulmonary disease, unspecified COPD type (CMS/HCC) documented in this encounter Additional Health Concerns Assessment Noted Time PHQ-9 Depression Total Score: 17 11/04/ 023 8:32 AM EDT documented as of this encounter Care Teams Assistant Strength Coach Relationship Specialty Start Date End Date Isabel Ramsay MD [address] [place] [id number] PCP - General Family Medicine 01/09/19 documented as of this encounter
--- OUTSIDE RECORDS SUMMARY | 2024-06-27 11:22 | XMS_ITS | Encounter Summary ---
Author Organization [employer] Address [address] [facility] 7t [place] [address] Care Team Providers Care Paint Roller Assembler Name Role Phone Isabel Ramsay MD Primary Care Provide r Encounter Details Date Type Department Care Team (Late st Contact Info) Description 02/15/2023 Orders Only [facility] CHC MED & PEDS [address] [place] [address] Lizzie Sandoval LPN Social History Tobacco Use Types Packs/Day [...] Description 07/10/2024 10:00 AM EST Office Visit [facility] OPTOMETRY [address] [place], [place] [phone] Mary Alice Key, OD [address] [place] [address] 08/19/2024 8:00 AM EDT Office Visit [facility] ADULT DENTAL [address] [place] [address] Dariela Keen 08/29/2024 10:45 AM EDT Office Visit [facility] MEDICINE [address] [place], [place] [phone] Isabel Ramsay MD [address] [place], [place] [phone] documented as of this encounter Visit Diagnoses Not on filedocumented in this encounter Additional Health Concerns Assessment Noted Time PHQ-9 Depression Total Score: 17 023 8:32 AM EDT documented as of this encounter Care Teams Paint Roller Assembler Relationship Specialty Start Date End Date Isabel Ramsay MD [address] [place], [place] [phone] PCP - General Family Medicine 01/09/19 documented as of this encounter
--- OUTSIDE RECORDS SUMMARY | 2024-06-27 11:22 | XMS_ITS | Encounter Summary ---
Author Organization [employer] Address [address] [facility] [address]t [place] [address] Care Team Providers Care Brake Operator Helper Name Role Phone Isabel Ramsay MD Primary Care Provide r Encounter Details Date Type Department Care Team (Latest Contact Info) Description 02/11/2022 Abstract [facility] CONVERSIONS Dental, Provider, DDS Social History Tobacco Use Types Packs/Day Years [...] Description 07/10/2024 10:00 AM EST Office Visit [facility] OPTOMETRY [address] [place] [address] Mary Alice Key, OD [address] [place] [address] 08/19/2024 8:00 AM EDT Office Visit [facility] ADULT DENTAL [address] [place], [place] [phone] Dariela Keen 08/29/2024 10:45 AM EDT Office Visit [facility] MEDICINE [address] [place] [address] Isabel Ramsay MD [address] [place] [address] documented as of this encounter Visit Diagnoses Not on filedocumented in this encounter Care Teams Brake Operator Helper Relationship Specialty Start Date End Date Isabel Ramsay MD [address] [place] [address] PCP - General Family Medicine 01/09/19 documented as of this encounter
--- OUTSIDE RECORDS SUMMARY | 2024-06-27 11:22 | XMS_ITS | Encounter Summary ---
Author Organization [employer] Address [address] [facility] [address] [place] [address] Care Team Providers Care Furnace Converter Name Role Phone Isabel Ramsay MD Primary Care Provide r Reason for Visit * Reason Onset Date Comments call back requested 01/19/2023 Encounter Details Date Type Department Care Team ([facility] st Contact Info) Description 01/19/2023 Telephone [facility] MEDICINE [address] [place], [place] [phone] Isabel Ramsay MD [address] [place] [address] call back requested Social History Tobacco Use Types Packs/Day Years [...] AM EDT documented as of this encounter Miscellaneous Notes * Telephone Encounter - Hoda Milan RN - 01/19/2023 2:12 PM EDT TC placed to medbox dept., they report a PA would have been required in order for pt. To receive both sertraline and duloxetine, however when they spoke to pt., pt. Reported she does not want to be on duloxetine as it makes her too drowsy. Originally prescribed for fibromyalgia. Pharmacist wanted to give PCP DESIREI that it will no longer be in her medbox. * Telephone Encounter - Ame Bulolck - 01/19/2023 12:57 PM EDT TC from [facility] requesting a call back in regards of medications : Setraline 25mg and Duloxetine 30mg. Please contact Med box at ext [phone]. PCP DR. Raygoza documented in this encounter Plan of Treatment Upcoming Encounters Date Type Department Care Team (Late st Contact Info) Description 07/10/2024 10:00 AM EST Office Visit [facility] OPTOMETRY [address] [place], [place] [phone] Shahid, Mary Alice, OD [address] [place] [address] 08/19/2024 8:00 AM EDT Office Visit [facility] ADULT DENTAL [address] [place] [address] Dariela Keen 08/29/2024 10:45 AM EDT Office Visit [facility] MEDICINE [address] [place] [address] Isabel Ramsay MD [address] [place] [address] documented as of this encounter Visit Diagnoses Not on filedocumented in this encounter Additional Health Concerns Assessment Noted Time PHQ-9 Depression Total Score: 17 11/04/ 023 8:32 AM EDT documented as of this encounter Care Teams Furnace Converter Relationship Specialty Start Date End Date Isabel Ramsay MD [address] [place] [address] PCP - General Family Medicine 01/09/19 documented as of this encounter
--- OUTSIDE RECORDS SUMMARY | 2024-06-27 11:22 | XMS_ITS | Encounter Summary ---
Author Organization [employer] Address [address] [facility] [address] [place] [address] Care Team Providers Care Pinsetter Mechanic Helper Name Role Phone Isabel Rmasay MD Primary Care Provide r Reason for Visit * Reason Comments Med Refill Encounter Details Date Type Department Care Team ([facility] Contact Info) Description 11/14/2022 Refill [facility] CHC MED & PEDS [address] [place] [address] Sawyer Richards MD [address] [place] [address] Type 2 diabetes mellitus without complication, unspecified whether penitentiary insulin use ([facility]) Social History Tobacco Use Types Packs/Day Years [...] Description 07/10/2024 10:00 AM EST Office Visit [facility] OPTOMETRY [address] [place], [place] [phone] Mary Alice Key, OD [address] [place] [address] 08/19/2024 8:00 AM EDT Office Visit [facility] ADULT DENTAL [address] [place] [address] Dariela Keen 08/29/2024 10:45 AM EDT Office Visit [facility] MEDICINE [address] [place] [address] Isabel Ramsay MD [address] [place] [address] documented as of this encounter Visit Diagnoses Diagnosis Type 2 diabetes mellitus without complication, unspecified whether penitentiary insulin use ([facility]) documented in this encounter Additional Health Concerns Assessment Noted Time PHQ-9 Depression Total Score: 17 023 8:32 AM EDT documented as of this encounter Care Teams Pinsetter Mechanic Helper Relationship Specialty Start Date End Date Isabel Ramsay MD [address] [place] [id number] PCP - General Family Medicine 01/09/19 documented as of this encounter
--- OUTSIDE RECORDS SUMMARY | 2024-06-27 11:22 | XMS_ITS | Encounter Summary ---
Author Organization [employer] Address [address] [facility] [address] [place] [address] Care Team Providers Care University Lecturer Name Role Phone Isabel Ramsay MD Primary Care Provide r Reason for Visit * Reason Comments Med Refill Encounter Details Date Type Department Care Team ([facility] Contact Info) Description 12/01/2022 Refill [facility] CHC MED & PEDS [address] [place] [address] Sawyer Richards MD [address] [place] [address] Type 2 diabetes mellitus without complication, unspecified whether fdc insulin use ([facility]) Social History Tobacco Use Types [...] Description 07/10/2024 10:00 AM EST Office Visit [facility] OPTOMETRY [address] [place], [place] [phone] Mary Alice Key, OD [address] [place] [address] 08/19/2024 8:00 AM EDT Office Visit [facility] ADULT DENTAL [address] [place] [address] Dariela Keen 08/29/2024 10:45 AM EDT Office Visit [facility] MEDICINE [address] [place] [address] Isabel Ramsay MD [address] [place] [address] documented as of this encounter Visit Diagnoses Diagnosis Type 2 diabetes mellitus without complication, unspecified whether fdc insulin use ([facility]) documented in this encounter Additional Health Concerns Assessment Noted Time PHQ-9 Depression Total Score: 17 023 8:32 AM EDT documented as of this encounter Care Teams University Lecturer Relationship Specialty Start Date End Date Isabel Ramsay MD [address] [place] [id number] PCP - General Family Medicine 01/09/19 documented as of this encounter
--- OUTSIDE RECORDS SUMMARY | 2024-06-27 11:22 | XMS_ITS | Clinical Summary ---
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 Ventolin HFA 108 (90 Base) MCG/ACT inhalerIndication s:Mild chronic obstructive pulmonary disease (CMS/HCC) INHALE 2 PUFFS BY MOUTH EVERY 4 TO 6 HOURS NEEDED FOR DIFFICULTY BREATHING. DO NOT EXCEED FOUR TIMES DAILY 18 g 1 023 Active metoprolol succinate XL (Toprol-XL) 25 MG 24 hr tablet Take 25 mg by mouth in the morning. 023 Active FREESTYLE LITE test stripIndications: Diabetic peripheral neuropathy (CMS/HCC) TEST BLOOD SUGAR ONCE DAILY 50 strip 11 024 Active cyanocobalamin (Vitamin B-12) 100 MCG tablet Take 100 mcg by mouth Once per day. Active magnesium hydroxide (Milk of Magnesia) 400 MG/5ML suspension Take by mouth at bedtime. Active Ascorbic Acid (vitamin C) 1000 MG tablet Take 1,000 mg by mouth Once per day. Active gabapentin (Neurontin) 100 MG capsuleIndication s:Fibromyalgia,Di abetic peripheral neuropathy (CMS/HCC) TAKE 3 CAPSULES BY MOUTH EVERY 8 HOURS 270 capsule 11 024 Active diclofenac (Voltaren) 75 MG EC tablet TAKE 1 TABLET BY MOUTH TWICE DAILY 60 tablet 024 Active Acetaminophen Extra Strength 500 MG tablet TAKE 1 TABLET BY MOUTH EVERY 4 TO 6 HOURS NEEDED Active chlorhexidine (Peridex) 0.12 % solution SWISH 15 ML IN THE MOUTH OR THROAT FOR 30 SECONDS THEN SPIT OUT TWICE DAILY IN THE MORNING AND IN THE EVENING AFTER BRUSHING TEETH DO NOT SWALLOW Active oxyCODONE-acetami nophen (Percocet) 5-325 MG tablet Take 1 tablet by mouth every 6 (six) hours if needed. Active atorvastatin (Lipitor) 40 MG tabletIndications :Other hyperlipidemia TAKE 1 TABLET BY MOUTH EVERY MORNING 90 tablet Active metFORMIN (Glucophage) 1000 MG tabletIndications :Type 2 diabetes mellitus with other specified complication, unspecified whether shelter insulin use (CMS/[facility]) TAKE 1 TABLET BY MOUTH TWICE DAILY IN THE MORNING AND IN THE EVENING WITH FOOD 180 tablet Active Aspirin Low Dose 81 MG chewable tabletIndications :Type 2 diabetes mellitus with other specified complication, unspecified whether filler leaf cutter long insulin use (CMS/[facility]) TAKE 1 TABLET BY MOUTH EVERY MORNING (CHEW) 90 tablet Active pantoprazole (ProtoNix) 20 MG EC tabletIndications :Chronic GERD TAKE 1 TABLET BY MOUTH TWICE DAILY IN THE MORNING AND IN THE EVENING 180 tablet Active Alcohol Swabs (Alcohol Prep) 70 % pads USE DIRECTED 100 each Active Trulicity 3 MG/0.5ML solution pen-injectorIndic ations:Type 2 diabetes mellitus with hyperglycemia, without long-term current use of insulin ([facility]) INJECT ONE PEN (= 3MG) SUBCUTANEOUSLY ONCE A WEEK DIRECTED 2 mL Active insulin pen needle (Sure Comfort Pen Thurmond) 31G x 5 mm miscIndications:T ype 2 diabetes mellitus with hyperglycemia, without long-term current use of insulin ([facility]) USE DIRECTED ONCE DAILY WITH lantus 100 each Active Lantus SoloStar 100 UNIT/ML penIndications:Ty pe 2 diabetes mellitus with hyperglycemia, without long-term current use of insulin ([facility]) INJECT 12 UNITS SUBCUTANEOUSLY DAILY AT BEDTIME 15 mL Active sertraline (Zoloft) 25 MG tabletIndications :Anxiety with depression TAKE 1 TABLET BY MOUTH EVERY MORNING 30 tablet 11 024 Active lidocaine (Lidoderm) 5 % patchIndications: Localized osteoporosis without current pathological fracture APPLY 1 PATCH TOPICALLY TO SKIN, LEAVE ON FOR 12 HOURS AND OFF FOR 12 HOURS DIRECTED 30 patch 3 Active Advair HFA 115-21 MCG/ACT inhalerIndication s:Chronic obstructive pulmonary disease, unspecified COPD type ([facility]) INHALE 2 PUFFS TWICE DAILY IN THE MORNING AND IN THE EVENING. RINSE MOUTH AFTER USING. 12 g 2 Active amLODIPine (Norvasc) 2.5 MG tablet TAKE 1 TABLET BY MOUTH EVERY MORNING 90 tablet Active albuterol (2.5 MG/3ML) 0.083% nebulizer solution INHALE 1 AMPULE USING A NEBULIZER FOUR TIMES DAILY DIRECTED 90 mL 1 024 Active empagliflozin (Jardiance) 25 MGIndications:Typ e 2 diabetes mellitus without complication, unspecified whether filler leaf cutter long insulin use ([facility]) TAKE 1 TABLET BY MOUTH EVERY MORNING 90 tablet 1 024 Active cholecalciferol VITAMIN D (Vitamin D-3) 50 MCG (1999 UT) tabletIndications :Vitamin D deficiency TAKE 1 TABLET BY MOUTH EVERY MORNING 90 tablet 1 025 Active glipiZIDE (Glucotrol) 10 MG tabletIndications :Type 2 diabetes mellitus without complication, unspecified whether shelter insulin use ([facility]) TAKE 1 TABLET BY MOUTH TWICE DAILY IN THE MORNING AND IN THE EVENING BEFORE MEALS 180 tablet 1 025 Active losartan-hydroCHL OROthiazide (Hyzaar) 100-25 MG tabletIndications :Essential hypertension TAKE 1 TABLET BY MOUTH EVERY MORNING 90 tablet 1 025 Active cholecalciferol (Vitamin D-3) 50 MCG (1999 UT) tabletIndications :Vitamin D deficiency TAKE 1 TABLET BY MOUTH EVERY MORNING 90 tablet 3 024 2024 Discontinued glipiZIDE (Glucotrol) 10 MG tabletIndications :Type 2 diabetes mellitus without complication, unspecified whether shelter insulin use ([facility]) TAKE 1 TABLET BY MOUTH TWICE DAILY IN THE MORNING AND IN THE EVENING BEFORE MEALS 180 tablet 1 024 2024 Discontinued losartan-hydroCHL OROthiazide (Hyzaar) 100-25 MG tabletIndications :Essential hypertension TAKE 1 TABLET BY MOUTH EVERY MORNING 90 tablet 1 024 2024 Discontinued Active Problems Problem Noted Date Diagnosed Date Encounter for preventive care 01/25/2024 Assessment & Plan (01/25/2024 1:46 PM EDT): See HPI Muscle spasm 01/25/2024 Salmonella food poisoning 01/18/2024 Assessment & Plan (01/18/2024 12:29 PM EDT): Improved I printed patient educational information I advise to wash hands frequently and avoid cooking for now Colon cancer screening 01/18/2024 Umbilical hernia 07/06/2023 Ventral hernia without obstruction or gangrene 0 07/06/2023 O2 dependent 07/06/2023 Assessment & Plan (07/06/2023 4:37 PM EST): As above Osteomyelitis of left foot 01/23/2023 Sinus tachycardia 01/23/2023 Assessment & Plan (04/06/2023 10:45 AM EST): Continue to follow with cardiology C/w metoprolol Assessment & Plan (01/24/2023 3:57 PM EDT): Patient followed by cardiology on metoprolol Mixed anxiety and depressive disorder 01/23/2023 Chronic left shoulder pain 01/23/2023 Pain of left upper arm 01/23/2023 Encounter for preventative adult health care exa mination 01/23/2023 Assessment & Plan (01/24/2023 3:58 PM EDT): See HPI Type 2 diabetes mellitus wit h hyperglycemia, without long-term current use of insulin 09/28/2022 Assessment & Plan (01/25/2024 1:46 PM EDT): Diabetes is: not controlled - Lab Results Component Value Date HGBA1C 9.9 (A) 01/18/2024 HGBA1C 8.4 (A) 07/06/2023 HGBA1C 9.4 (A) 04/06/2023 - Lab Results Component Value Date MICROALBUR 12.0 03/16/2023 CREATININE 0.85 01/04/2024 -Changes: recently started again trulicity - Diabetic eye exam:up to date - Diabetic foot exam:up to date - Continue lifestyle modifications - Continue current medications - Follow up: 3 months Assessment & Plan (01/18/2024 12:28 PM EDT): Diabetes is: not controlled - Lab Results Component Value Date HGBA1C 9.9 (A) 01/18/2024 HGBA1C 8.4 (A) 07/06/2023 HGBA1C 9.4 (A) 04/06/2023 - Lab Results Component Value Date MICROALBUR 12.0 03/16/2023 CREATININE 0.85 01/04/2024 -Changes: patient just started trulicity again I will continue to monitor - Diabetic eye exam:up to date - Diabetic foot exam:up to date - Continue lifestyle modifications - Continue current medications - Follow up: 3 months Assessment & Plan (07/06/2023 10:42 AM EST): - Lab Results Component Value Date HGBA1C 8.4 (A) 07/06/2023 HGBA1C 9.4 (A) 04/06/2023 HGBA1C 9.0 (A) 01/23/2023 - Lab Results Component Value Date MICROALBUR 12.0 03/16/2023 CREATININE 0.87 05/24/2023 - Diabetic eye exam:up to date - Diabetic foot exam:up to date - Continue lifestyle modifications - Continue current medications Assessment & Plan (04/06/2023 10:47 AM EST): A1c continues to be elevated - Lab Results Component Value Date HGBA1C 9.0 (A) 01/23/2023 HGBA1C 8.3 (A) 09/28/2022 HGBA1C 12.1 (H) 07/12/2021 - Lab Results Component Value Date MICROALBUR 12.0 03/16/2023 CREATININE 0.80 03/16/2023 - Diabetic eye exam: up to date - Diabetic foot exam: pending - Continue lifestyle modifications - Continue current medications, I added today lantus insulin 12 U at bed time Assessment & Plan (01/24/2023 3:58 PM EDT): - Lab Results Component Value Date HGBA1C 9.0 (A) 01/23/2023 HGBA1C 8.3 (A) 09/28/2022 HGBA1C 12.1 (H) 07/12/2021 - Lab Results Component Value Date MICROALBUR 0.8 07/12/2021 CREATININE 0.82 04/12/2022 - Diabetic eye exam: up to date - Diabetic foot exam: up to date - Continue lifestyle modifications -I went up on trulicity to 3mg weekly, continue metformin, glipizide and jardiance Assessment & Plan (11/10/2022 11:47 AM EDT): Improved continue with same interventions Assessment & Plan (09/28/2022 4:43 PM EDT): - Lab Results Component Value Date HGBA1C 8.3 (A) 09/28/2022 HGBA1C 12.1 (H) 07/12/2021 - Lab Results Component Value Date MICROALBUR 0.8 07/12/2021 CREATININE 0.82 04/12/2022 - Diabetic eye exam: up t date - Diabetic foot exam:up to date - Continue lifestyle modifications - I increase trulicity to 1.5mg weekly - Acute flank pain 09/28/2022 Assessment & Plan (09/28/2022 3:43 PM EDT): UA and culture ordered today Anxiety with depression 09/28/2022 Assessment & Plan (11/10/2022 11:48 AM EDT): Improved continue with sertraline 25mg daily Assessment & Plan (11/04/2022 2:36 PM EDT): Assessment: Patient with anhedonia, depressed mood, sleep disturbance, low energy, poor appetite, moving slower than normal and crying spells. She also presents with panic attacks, anxiousness, trouble relaxing, irritability, constant worrying and worrying about many things, feeling something awful may happen, and restlessness in the context of multiple medical conditions, unemployment, and financial difficulties. Clinician provided patient with deep breathing and grounding technique. Patient reported she is unable to practice deep breathing techniques because it results in her becoming anxious and leading to a panic attack. Patient reports she would try to practice grounding technique. Patient will benefit from OP therapy service. At this time, she would like to continue receiving medication thru her PCP. At this time Denice Lobato meets criteria for Visit Diagnoses: Problem List Items Addressed This Visit Other Anxiety with depression Patient ready to address current needs Yes Strengths include her sander PLAN: 1. Follow up with [facility]: Not recommended for follow-up 2. Patient goal is engage in OP therapy. 3. Behavioral Recommendations a. Patient will comply with medication prescribed b. Patient will engage in OP therapy, once established c.. Patient will request to speak with a [facility] during next PCP visit, if needed D. Patient will practice grounding technique Kidney stones 09/28/2022 Pain of toe of left foot 09/28/2022 Osteoporosis 05/04/2022 Fibromyalgia 05/04/2022 Assessment & Plan (07/06/2023 4:37 PM EST): Patient was educated about multidisciplinary approach for her condition, it was advise cardiovascular exercise, maintain hydration, treat anxiety/depression and take medications as directed Assessment & Plan (04/06/2023 10:46 AM EST): Patient was educated about multidisciplinary approach for her condition, it was advise cardiovascular exercise, maintain hydration, treat anxiety/depression and take medications as directed C/ duloxetin 30mg daily Assessment & Plan (11/10/2022 11:47 AM EDT): Improved continue with same interventions Diabetic peripheral neuropathy 05/04/2022 Mild chronic obstructive pulmonary disease 04/02 Assessment & Plan (07/06/2023 4:36 PM EST): Continue to follow with crutcher helper RSV vaccine and COVID vaccine today, she will think about getting flu vaccine Type 2 diabetes mellitus without complication Closed fracture of forearm 01/30/2018 Restrictive lung disease 06/03/2016 Assessment & Plan (07/06/2023 4:37 PM EST): As above Disorder of lung 06/04/2014 Anxiety 12/06/2013 Major depressive disorder 12/06/2013 Vitamin D deficiency 02/17/2012 Type 2 diabetes mellitus 02/17/2012 Essential hypertension 12/08/2011 Assessment & Plan (01/25/2024 1:44 PM EDT): Maintenance: BMP: up to date Lipid Panel: up to date ASCVD Risk: high risk atorvastatin 40mg daily - Aerobic exercise to reduce BP. Initial goal of 30 min walk 3-5x/week. Increase as tolerated. - low-sodium diet (goal: <2g/day) and heart healthy diet such as DASH to reduce BP and prevent ASCVD. - Home BP monitoring 1-2 x day with goal of <140/90. - Seek immediate medical attention for chest pain, palpitations, SOB, syncope, or sudden changes in mental status. - Do not change or discontinue current prescriptions without first consulting health care provider Assessment & Plan (01/18/2024 12:27 PM EDT): I advise: - Aerobic exercise to reduce BP. Initial goal of 30 min walk 3-5x/week. Increase as tolerated. - low-sodium diet (goal: <2g/day) and heart healthy diet such as DASH to reduce BP and prevent ASCVD. - Home BP monitoring 1-2 x day with goal of <140/90. - Seek immediate medical attention for chest pain, palpitations, SOB, syncope, or sudden changes in mental status. - Do not change or discontinue current prescriptions without first consulting health care provider Assessment & Plan (07/06/2023 10:43 AM EST): Maintenance: BMP: up to date Lipid Panel: up to date ASCVD Risk: high risk on atorvastatin 40mg daily - Aerobic exercise to reduce BP. Initial goal of 30 min walk 3-5x/week. Increase as tolerated. - low-sodium diet (goal: <2g/day) and heart healthy diet such as DASH to reduce BP and prevent ASCVD. - Home BP monitoring 1-2 x day with goal of <140/90. - Seek immediate medical attention for chest pain, palpitations, SOB, syncope, or sudden changes in mental status. - Do not change or discontinue current prescriptions without first consulting health care provider Assessment & Plan (04/06/2023 10:45 AM EST): - Aerobic exercise to reduce BP. Initial goal of 30 min walk 3-5x/week. Increase as tolerated. - low-sodium diet (goal: <2g/day) and heart healthy diet such as DASH to reduce BP and prevent ASCVD. - Home BP monitoring 1-2 x day with goal of <140/90. - Seek immediate medical attention for chest pain, palpitations, SOB, syncope, or sudden changes in mental status. - Do not change or discontinue current prescriptions without first consulting health care provider Assessment & Plan (01/24/2023 3:54 PM EDT): - Aerobic exercise to reduce BP. Initial goal of 30 min walk 3-5x/week. Increase as tolerated. - low-sodium diet (goal: <2g/day) and heart healthy diet such as DASH to reduce BP and prevent ASCVD. - Home BP monitoring 1-2 x day with goal of <140/90. - Seek immediate medical attention for chest pain, palpitations, SOB, syncope, or sudden changes in mental status. - Do not change or discontinue current prescriptions without first consulting health care provider Assessment & Plan (09/28/2022 4:42 PM EDT): - Aerobic exercise to reduce BP. Initial goal of 30 min walk 3-5x/week. Increase as tolerated. - low-sodium diet (goal: <2g/day) and heart healthy diet such as DASH to reduce BP and prevent ASCVD. - Home BP monitoring 1-2 x day with goal of <140/90. - Seek immediate medical attention for chest pain, palpitations, SOB, syncope, or sudden changes in mental status. - Do not change or discontinue current prescriptions without first consulting health care provider -Today BP high patient reports she is very upset due to a personal situation I instructed to monitor BP at home if still high call back Encounters Date Type Department Care Team Description 06/27/2024 Orders Only GENERIC EXTERNAL DATA DEPARTMENT Provider, Generic External Data 06/14/2024 2:30 PM EST Office Visit [facility] [address] [place] [address] Charleen Amador DDS Dental bridge present (Primary Dx) 05/30/2024 Refill [facility] [address] [place] [address] Isabel Ramsay MD Vitamin D deficiency; Type 2 diabetes mellitus without complication, unspecified whether filler leaf cutter long insulin use ([facility]); Essential hypertension 05/26/2024 Refill [facility] [address] [place] [address] Isabel Ramsay MD Type 2 diabetes mellitus without complication, unspecified whether shelter insulin use (CMS/HCC) 05/10/2024 Refill [facility] [address] [place] [address] Isabel Ramsay MD 05/03/2024 Refill [facility] [address] [place] [address] Polly Castillo MD 04/20/2024 Refill [facility] [address] [place] [address] Isabel Ramsay MD Localized osteoporosis without current pathological fracture; Chronic obstructive pulmonary disease, unspecified COPD type ([facility]/HCC) 04/15/2024 Patient Outreach [facility] [address] [place] [address] Isabel Ramsay MD Pre-visit Planning (SDME screening completed on 07/03/2023) 04/08/2024 Refill [facility] [address] [place] [address] Isabel Ramsay MD Type 2 diabetes mellitus with hyperglycemia, without long-term current use of insulin ([facility]); Anxiety with depression from Last 3 Months Immunizations Name Administration Dates Next Due Hep B, adult 06/02/2011,01/28/2011,11/30/2010 Influenza injectable quadriv alent IIV4 with preservative 05/30/2017 Influenza, IIV3, injectable 01/28/2011 Influenza, Split (incl. mike fied surface antigen) 03/12/2013,02/17/2012 Pfizer Covid-19 Vaccine 12+ 07/06/2023,,12/29/2020 Pneumococcal Conjugate PCV 20 03/10/2022 Pneumococcal Polysaccharide PPSV23 11/30/2010 Tdap 03/10/2022,11/30/2010 Zoster, Recombinant 01/25/2024 Family History Medical History Relation Name Comments HIV Father Coronary artery disease Mother Diabetes Mother Relation Name Status Comments Father Mother Social History Tobacco Use Types Packs/Day Years Used Date Smoking Tobacco: Never Passive Smoke Exposure: Never Smokeless Tobacco: Never Tobacco Cessation:Counseling Given: Not Answered Alcohol Use Standard Drinks/Week Comments Not Currently 0 (1 standard drink = 0.6 oz pur e alcohol) Depression Answer Date Recorded Patient Health Questionnaire-9 Score 15 01/25/2024 Patient Health Questionnaire-9 Score 15 01/25/2024 Last PHQ-9: Questionnaire Data Not on file 0 01/25/2024 Housing Stability Answer Date Recorded What is your housing situation today? I have honorio marcial 03/15/[address] you [...] Orientation Straight 03/28/2022 10 :21 AM EDT Last Filed Vital Signs Vital Sign Reading Time Taken Comments Blood Pressure 143/80 01/25/2024 1:16 PM EDT Pulse 105 01/25/2024 1:16 PM EDT Temperature 36.6 ??C (97.8 ??F) 01/25/2024 1:16 PM ED T Respiratory Rate 22 01/25/2024 1:16 PM EDT Oxygen Saturation 96% 01/25/2024 1:16 PM EDT Inhaled Oxygen Concentration - - Weight 83.9 kg (185 lb) 01/25/2024 1:16 PM EDT Height 165.1 cm (5' 5 ) 01/25/2024 1:16 PM EDT Body Mass Index 30.79 01/25/2024 1:16 PM EDT Plan of Treatment Upcoming Encounters Date Type Department Care Team (Late st Contact Info) Description 07/10/2024 10:00 AM EST Office Visit [facility] [address] [place] [address] Shahid, Mary Alice, OD [address] [place] [address] 08/19/2024 8:00 AM EDT Office Visit [facility] [address] [place] [address] Dariela Keen 08/29/2024 10:45 AM EDT Office Visit [facility] [address] [place] [address] Isabel Ramsay MD [address] [place] [address] Health Maintenance Due Date Last Done Comments CT Colonography 1972 Colonoscopy 1972 Colorectal Cancer Screening 1972 FIT DNA/Cologuard 1972 FIT 1972 FOBT 1972 HIV Screening 1972 Sigmoidoscopy 1972 Diabetes: Foot Exam 1982 Family Planning (PISQ) 12/29/1987 Hepatitis C Screening 1990 Hepatitis A Vaccines (1 of 2 - Risk 2-dose series) 12/29/1991 Pap Smear 1993 HPV/Cotest 2002 COVID-19 Vaccine ( season) 2024 07/06/2023, 01/19/2021, 12/29/2020 Influenza Vaccine (#1) 2024 8, 03/12/2013, 02/17/2012, Additional history exists Diabetes: Urine Protein Screening 03/16/2024 03/16/2023, 07/12/2021 Lipid Panel 03/16/2024 03/16/2023, 03/30, 07/12/2021 Diabetes: Hemoglobin A1C 04/19/2024 024, 07/06/2023, 04/06/2023, Additional history exists Dental Oral Exam 05/16/2024 11/14/2023, , 11/18/2016 Dental Prophylaxis 05/16/2024 11/14/2023, 0 02/21/2022, 02/07/2018, Additional history exists SDOH Screening 07/03/2024 07/03/2023 Depression Monitoring (PHQ-9) 07/26/2024 01/25/2024, 01/25/2024 Dental X-Ray: Bitewings 11/14/2024 11/14/19 24, 02/11/2022, 02/07/2018, Additional history exists Mammogram 12/31/2024 01/01/2024, 11/28, 07/30/2021, Additional history exists Alcohol/Substance Use Screening 01/17/2025 01/18/2024 Depression Screening 01/24/2025 01/25/2024, 01/25/20 24 Dental X-Ray: Full Mouth 02/12/2025 02/11/2022, 10/28 Eye Exam 03/20/2025 03/20/2023, 02/27, 03/20/2023, Additional history exists Tobacco Screening 06/14/2025 06/14/2024 DTaP/Tdap/Td Vaccines (3 - Td or Tdap) 03/10/2032 03/10/2022, 11/30/2010 RSV Patients and Patients Aged 60 years or older (1 - 1-dose 75+ series) 12/29/2047 Hepatitis B Vaccines Completed 06/02/2011, 01/28/2011, 11/30/2010 Pneumococcal Vaccine: Pediatrics (0 to 5 Years) and At-Risk Patients (6 to 49) Years) Completed 03/10/2022, 11/30/2010 Zoster Vaccines Completed 03/28/2024, 01/25/2024 Cervical Cancer Screening Discontinued HIB Vaccines Aged Out No longer eligi ble based on patient's age to complete this topic HPV Vaccines Aged Out No longer eligi ble based on patient's age to complete this topic IPV Vaccines Aged Out No longer eligi ble based on patient's age to complete this topic Meningococcal Vaccine Aged Out No emery zeinab eligible based on patient's age to complete this topic RSV under 20 months Aged Out No longe r eligible based on patient's age to complete this topic Rotavirus Vaccines Aged Out No longer eligible based on patient's age to complete this topic Procedures Procedure Name Priority Date/Time Associated Diagnosis Comments GLUCOSE, WHOLE BLOOD Routine 06/27/2024 9:43 AM EST ADJUNCTIVE GENERAL SERVICES - PROFESSIONAL VISITS - CASE PRESENTATION, SUBSEQUENT TO DETAILED AND EXTENSIVE TREATMENT PLANNING Routine 06/14/2024 2:30 PM EST Dental bridge present INTRAORAL - PERIAPICAL FIRST RADIOGRAPHIC IMAGE Routine 06/14/2024 2:30 PM EST Dental bridge present 8 RE-CEMENT OR RE-HICKS CROWN Routine 06/14/2024 2:30 PM EST Dental bridge present 6 RE-CEMENT OR RE-HICKS CROWN Routine 06/14/2024 2:30 PM EST Dental bridge present POCT GLYCATED HEMOGLOBIN, TOTAL Routine 01/18/2024 10:08 AM EDT Type 2 diabetes mellitus with hyperglycemia, without long-term current use of insulin ([facility]) BI MAMMOGRAM SCREENING TOMOSYNTHESIS BILATERAL Routine 01/01/2024 2:30 PM EDT Full PROPHYLAXIS - ADULT Routine 11/14/2023 8:00 AM EDT Dental plaque Dental calculus BITEWINGS - 4 RADIOGRAPHIC IMAGES Routine 11/14/2023 8:00 AM EDT PERIODIC ORAL EVALUATION - ESTABLISHED PATIENT Routine 11/14/2023 8:00 AM EDT Dental plaque Dental calculus Encounter for dental examination Bruxism ALBUMIN, RANDOM URINE W/CREATININE Routine 03/16/2023 8:25 AM EDT LIPID PANEL, STANDARD Routine 03/16/2023 8:25 AM EDT Encounter for preventative adult health care examination DIAGNOSTIC - DIAGNOSTIC IMAGING - INTRAORAL - COMPREHENSIVE SERIES OF RADIOGRAPHIC IMAGES Routine 02/11/2022 12:00 AM EDT from Last 3 Months or Most Recently Relevant to Health Maintenance Results * (ABNORMAL) Glucose, Whole Blood (06/27/2024 9:43 AM EST) Glucose, Whole Blood 305(H) 60 - 115 mg/dL [facility] Comment:METER #: [id number] 06/27/2024 9:43 AM EST 06/27/2024 9:55 AM EST us Generic External Data Provider LAB BLOOD ORDERAB LES Final Result [facility] [address] [place] [phone] * (ABNORMAL) POCT HGB A1C (01/18/2024 10:08 AM EDT) Hemoglobin A1C 9.9(A) 4.0 - 6.0 % QC Media Lot # [id number] Lot# Expiration Date [id number] Blood 01/18/2024 10:0 8 AM EDT us Isabel Hubbard MD POINT OF CARE TEST EN TER/EDIT ORDERABLES Final Result * BI Mammogram Screening Tomosynthesis Bilateral (01/01/2024 2:30 PM EDT) Anatomical Region Laterality Modality Breast Bilateral Mammography 01/01/2024 2:30 PM EDT Narrative 01/30/2024 7:51 AM EDT ? [facility] ? [address] ?[place] [address] ? Mammography Report ? Signed ? Patient: Denice Sanchez ?MR#: [id number] ?? [id number] ? : 1970 ?Acct:[id number] ? Age/Sex: 53 / F ?ADM Date: 01/01/24 ? Loc: HO.MAMMO ? Attending Dr: Isabel Hubbard MD ? Ordering Physician: Isabel Ramsay MD ?Results: ?? 1Negative ? Date of Service: 01/01/24 ?Follow Up: 1 Year From Orig ?? inal Mammogram ? Procedure(s): MM tomosynthesis screening BI ?? Accession Number(s): [id number] ? cc: Isbael Ramsay MD ? EXAMINATION: ?? MM SCREENING DIGITAL BREAST TOMOSYNTHESIS, BILATERAL ? CLINICAL INFORMATION: ? Screening. Asymptomatic. ? COMPARISON: ?? Mammography: This study is compared with prior exams dating back to ? 2018. ? TECHNIQUE: ?? Digital breast tomosynthesis is performed in both the craniocaudal and ?? mediolateral oblique views along with computer-aided detection (CAD). ? Synthesized 2D images are generated from the tomosynthesis. ? FINDINGS: ?? There are scattered areas of fibroglandular density (ACR BI-RADS breast ?? composition Category b). ? There are no significant masses, abnormal calcifications, or other ?? abnormalities. ? MM/MM tomosynthesis screening BI ?? IMPRESSION: ?? No mammographic evidence of malignancy. ? ASSESSMENT: ? BI-RADS BI-RADS 1 - Negative ? RECOMMENDATION: ?? Routine annual mammography screening. ? 1 year F/U ? This examination should not preclude the clinical evaluation of a ?? suspicious palpable abnormality. ? This patient's information was entered into a reminder system with a ?? target due date for their next mammogram. ? Electronically signed by: ??Chloe Benitez MD ??01/30/2024 07:48 AM EDT RP ? Dictated By: ?Chloe Benitez MD ? Signed By: ?<Electronically signed by Chloe Benitez MD in OV> ? 01/30/24 0748 ? DD/ 1430 ? TD/TT: 01/01/24 1500 ? Machine Operator Hop Worker: ? Procedure Note Donquirino, Image - 01/30/2024 [facility] [address] [place] [address] Mammography Report Signed Patient: Denice Sanchez#: [id number] : 1970Acct:[id number] Age/Sex: 53 / FADM Date: 01/01/24 Loc: HO.MAMMO Attending Dr: Isabel Hubbard MD Ordering Physician: Isabel Ramsay MDResults: 1Negative Date of Service: 01/01/24Follow Up: 1 Year From Orig inal Mammogram Procedure(s): MM tomosynthesis screening BI Accession Number(s): [id number] cc: Isabel Ramsay MD EXAMINATION: MM SCREENING DIGITAL BREAST TOMOSYNTHESIS, BILATERAL CLINICAL INFORMATION: Screening. Asymptomatic. COMPARISON: Mammography: This study is compared with prior exams dating back to 2019. TECHNIQUE: Digital breast tomosynthesis is performed in both the craniocaudal and mediolateral oblique views along with computer-aided detection (CAD). Synthesized 2D images are generated from the tomosynthesis. FINDINGS: There are scattered areas of fibroglandular density (ACR BI-RADS breast composition Category b). There are no significant masses, abnormal calcifications, or other abnormalities. MM/MM tomosynthesis screening BI IMPRESSION: No mammographic evidence of malignancy. ASSESSMENT: BI-RADS BI-RADS 1 - Negative RECOMMENDATION: Routine annual mammography screening. 1 year F/U This examination should not preclude the clinical evaluation of a suspicious palpable abnormality. This patient's information was entered into a reminder system with a target due date for their next mammogram. Electronically signed by: Chloe Benitez MD 01/30/2024 07:48 AM EDT RP Dictated By: Chloe Benitez MD Signed By: <Electronically signed by Chloe Benitez MD in OV> 01/30/24 0748 DD/ 1430 TD/TT: 01/01/24 1500 Machine Operator Hop Worker: us Isabel Hubbard MD IMG BI PROCEDURES Fin al Result * Albumin, Random Urine W/Creatinine (03/16/2023 8:25 AM EDT) Creatinine, Urine 123.94 mg/dL [facility] Microalbumin Urine 12.0 mg/L [facility] Microalbum Creatinine Ratio Ur 9.6 <30 ug/mg cr [facility] Comment:Albumin/Creatinine R atio Reference Ranges: Normal: < 30 ug/mg creatinine Microalbuminuria: 30 - 300 ug/mg creatinineClinical Albuminuria: > 300 ug/mg creatinine 03/16/2023 8:25 AM EDT 03/16/2023 11:03 AM EDT us Isabel Hubbard MD LAB URINE ORDERABLES Final Result [facility] [address] [place] [phone] * (ABNORMAL) Lipid Panel, Standard (03/16/2023 8:25 AM EDT) Triglycerides 229(H) <150 mg/dL [facility] Comment:Desirable Triglyceri de: less than 150 mg/dLBorderline High Triglyceride 150-199 mg/dLHigh Triglyceride: 200-499 mg/dLVery High Triglyceride: greater than or equal to 5OO mg/dL Cholesterol 158 <200 mg/dL [facility] Comment:Desirable Cholestero l: less than 200 mg/dLBorderline High Cholesterol: 200-239 mg/dLHigh Cholesterol: greater than 239 mg/dL LDL Cholesterol Calculated 72 <100 mg/dL [facility] Comment:Desirable LDL: less than 100 mg/dLNear Optimal/Above Optimal LDL: 110- 129 mg/dLBorderline High LDL: 130-159 mg/dLHigh LDL: 160-189 mg/dLVery High LDL: greater than or equal to 190 mg/dL HDL Cholesterol 41 >40 mg/dL [facility] Comment:Desirable HDL: great er than 40 mg/dL Note: This HDL assay may give artificially low results in patients with liver disease. Blood Venous blood specimen / Unknown 03/16/2023 8:25 AM EDT 03/16/2023 11:14 AM EDT Isabel Hubbard MD LAB BLOOD ORDERABLES Final Result [facility] [address] [place] [phone] from Last 3 Months or Most Recently Relevant to Health Maintenance [facility] [employer] [facility] STAND ADULT Care Teams Sewing Machine Assembler Relationship Specialty Start Date End Date Isabel Ramsay MD [address] [place] [address] PCP - General Family Medicine 01/09/19
--- OUTSIDE RECORDS SUMMARY | 2024-06-27 11:22 | XMS_ITS | Encounter Summary ---
Author Organization [employer] Address [address] [facility] [address] [place] [address] Care Team Providers Care Hedge Fund Accountant Name Role Phone Isabel Ramsay MD Primary Care Provide r Reason for Visit * Reason Comments Med Refill Encounter Details Date Type Department Care Team (Late st Contact Info) Description 05/30/2024 Refill [facility] MEDICINE [address] [place], [place] [phone] Isabel Ramsay MD [address] [place], [place] [phone] Vitamin D deficiency; Type 2 diabetes mellitus without complication, unspecified whether mcfp insulin use ([facility]); Essential hypertension Social History Tobacco Use Types Packs/Day Years [...] Description 07/10/2024 10:00 AM EST Office Visit [facility] OPTOMETRY [address] [place], [place] [phone] Mary Alice Key, EDILBERTO [address] [place] [address] 08/19/2024 8:00 AM EDT Office Visit [facility] ADULT DENTAL [address] [place] [address] Dariela Keen 08/29/2024 10:45 AM EDT Office Visit [facility] MEDICINE [address] [place] [address] Isabel Ramsay MD [address] [place] [phone] documented as of this encounter Visit Diagnoses Diagnosis Vitamin D deficiency Type 2 diabetes mellitus without complication, unspecified whether mcfp insulin use ([facility]) Essential hypertension Unspecified essential hypertension documented in this encounter Additional Health Concerns Assessment Noted Time PHQ-9 Depression Total Score: 15 024 1:22 PM EDT documented as of this encounter Care Teams Hedge Fund Accountant Relationship Specialty Start Date End Date Isabel Ramsay MD [address] [place] [phone] PCP - General Family Medicine 01/09/19 documented as of this encounter
--- OUTSIDE RECORDS SUMMARY | 2024-06-27 11:22 | XMS_ITS | Encounter Summary ---
Author Organization [employer] Address [address] [facility] [address] [place] [address] Care Team Providers Care Office Technician Name Role Phone Isabel Ramsay MD Primary Care Provide r Encounter Details Date Type Department Care Team (Late st Contact Info) Description 06/03/2022 Orders Only [facility] MED & PEDS [address] [place] [address] Connie Pisano LPN Social History Tobacco Use [...] suspected to have Coronavirus/COVID-19? No / Unsure 05/06/2022 9:10 AM EST documented as of this encounter Plan of Treatment Upcoming Encounters Date Type Department Care Team (Late st Contact Info) Description 07/10/2024 10:00 AM EST Office Visit [facility] OPTOMETRY [address] [place], [place] [phone] Shahid, Mary Alice, OD [address] [place] [address] 08/19/2024 8:00 AM EDT Office Visit [facility] ADULT DENTAL [address] [place] [address] KeenAlexys santacruzsa 08/29/2024 10:45 AM EDT Office Visit [facility] MEDICINE [address] [place] [address] Isabel Ramsay MD [address] [place] [address] documented as of this encounter Procedures Procedure Name Priority Date/Time Associated Diagnosis Comments VITAMIN D,25-OH,TOTAL,IA Routine 07/07/2022 7:33 AM EST PHOSPHATE ( PHOSPHORUS) Routine 07/07/2022 7:33 AM EST documented in this encounter Results * Vitamin D, 25-Hydroxy, Total, Immunoassay (07/07/2022 7:33 AM EST) Vitamin D 25-OH Total 62.0 >30 ng/mL [facility] Comment:Health Based Referen ce Values*< 20 ng/mL Ayilhexae64-02 ng/mL Insufficient> 30 ng/mL Sufficient*Rolanda BALL. N Engl J Med. 2007;357:266-280Care must be taken in interpreting Vitamin D results fromdifferent laboratories and methodologies. Published datademonstrated that results from patients undergoinghemodialysis may show a negative bias when tested withvarious automated 25-OH vitamin D assays when compared toLC-MS/MS.When testing samples from patients whose predominant form ofVitamin D is Vitamin D2, such as patients receiving VitaminD2 supplementation, results that are subtherapeutic shouldbe confirmed with another method such as LC-MS/MS. 07/07/2022 7:33 AM EST 07/07/2022 7:33 AM EST us [facility] External Provider LAB BLO OD ORDERABLES Final Result [facility] [address] [place] [phone] * (ABNORMAL) Phosphate (As Phosphorus) (07/07/2022 7:33 AM EST) Phosphorus 4.6(H) 2.7 - 4.5 mg/dL [facility] 07/07/2022 7:33 AM EST 07/07/2022 7:33 AM EST us [facility] External Provider LAB BLO OD ORDERABLES Final Result Performing Organization Address City/State/[facility] Co de Phone Number [facility] [address] [place] [phone] documented in this encounter Visit Diagnoses Not on filedocumented in this encounter Care Teams Office Technician Relationship Specialty Start Date End Date Isabel Ramsay MD [address] [place] [phone] PCP - General Family Medicine 01/09/19 documented as of this encounter
--- OUTSIDE RECORDS SUMMARY | 2024-06-27 11:22 | XMS_ITS | Encounter Summary ---
Author Organization [facility] Address [address] [facility] [address] [place] [address] Care Team Providers Care Explosives Truck Driver Name Role Phone Isabel Ramsay MD Primary Care Provide r Encounter Details Date Type Department Care Team (Late st Contact Info) Description 08/12/2022 Orders Only [facility] MED & PEDS [address] [place] [address] Connie Pisano LPN Social History Tobacco Use [...] Description 07/10/2024 10:00 AM EST Office Visit [facility] OPTOMETRY [address] [place] [address] Shahid, Mary Alice, OD [address] [place] [address] 08/19/2024 8:00 AM EDT Office Visit [facility] ADULT DENTAL [address] [place] [address] Dariela Keen 08/29/2024 10:45 AM EDT Office Visit [facility] MEDICINE [address] [place] [address] Isabel Ramsay MD [address] [place] [address] documented as of this encounter Visit Diagnoses Not on filedocumented in this encounter Care Teams Explosives Truck Driver Relationship Specialty Start Date End Date Isabel Ramsay MD [address] [place] [address] PCP - General Family Medicine 01/09/19 documented as of this encounter
--- OUTSIDE RECORDS SUMMARY | 2024-06-27 11:22 | XMS_ITS | Encounter Summary ---
Author Organization [employer] Address [address] [facility] [address] [place] [address] Care Team Providers Care Butter Melter Name Role Phone Isabel Ramsay MD Primary Care Provide r Reason for Visit * Reason Comments Med Refill Encounter Details Date Type Department Care Team (Late st Contact Info) Description 06/04/2023 Refill [facility] MEDICINE [address] [place], [place] [phone] Isabel Ramsay MD [address] [place], [place] [phone] Type 2 diabetes mellitus without complication, unspecified whether halfway insulin use ([facility]) Social History Tobacco Use Types Packs/Day Years Used Date Smoking Tobacco: Never Passive Smoke Exposure: Never Smokeless Tobacco: Never Depression Answer Date Recorded Patient Health Questionnaire-9 Score 17 11/04/2022 Housing Stability Answer Date Recorded What is [...] got money to buy more: Never True 03/15/2023 Within the past 12 months,th e food [...] Description 07/10/2024 10:00 AM EST Office Visit [facility] OPTOMETRY [address] [place] [address] Shahid, Mary Alice, OD [address] [place] [address] 08/19/2024 8:00 AM EDT Office Visit [facility] ADULT DENTAL [address] [place] [address] Dariela Keen 08/29/2024 10:45 AM EDT Office Visit [facility] MEDICINE [address] [place] [address] Isabel Ramsay MD [address] [place] [address] documented as of this encounter Visit Diagnoses Diagnosis Type 2 diabetes mellitus without complication, unspecified whether halfway insulin use ([facility]) documented in this encounter Additional Health Concerns Assessment Noted Time PHQ-9 Depression Total Score: 17 023 8:32 AM EDT documented as of this encounter Care Teams Butter Melter Relationship Specialty Start Date End Date Isabel Ramsay MD [address] [place] [phone] PCP - General Family Medicine 01/09/19 documented as of this encounter
== END 2024-06-27 11:34 | disposition home or self-care (01) ==
PROVIDERS: PCP Internal Medicine; Visit Provider Internal Medicine
PROC: (CPT 45385; principal; 2024-06-27 11:00)
DX: Z12.11 Encounter for screening for malignant neoplasm of colon (principal); Z83.719 Family history of colon polyps, unspecified; D12.3 Benign neoplasm of transverse colon; D12.4 Benign neoplasm of descending colon; K64.8 Other hemorrhoids; K21.9 Gastro-esophageal reflux disease without esophagitis; K64.4 Residual hemorrhoidal skin tags; K76.0 Fatty (change of) liver, not elsewhere classified; E11.9 Type 2 diabetes mellitus without complications; J45.909 Unspecified asthma, uncomplicated; J98.4 Other disorders of lung; R09.02 Hypoxemia; R06.00 Dyspnea, unspecified; R00.0 Tachycardia, unspecified; Z95.5 Presence of coronary angioplasty implant and graft; G47.33 Obstructive sleep apnea (adult) (pediatric); M81.0 Age-related osteoporosis without current pathological fracture; Z87.19 Personal history of other diseases of the digestive system; Z79.82 Long term (current) use of aspirin; Z79.51 Long term (current) use of inhaled steroids; Z79.4 Long term (current) use of insulin; Z79.84 Long term (current) use of oral hypoglycemic drugs; Z79.85 Long-term (current) use of injectable non-insulin antidiabetic drugs; Z79.899 Other long term (current) drug therapy; Z90.49 Acquired absence of other specified parts of digestive tract
CPT/HCPCS: 45385; 82947; 88305; J2003; J2704

== ENCOUNTER 2024-07-08 12:45 | Outpatient (AMB) | payer MEDICAID, SELFPAY ==
--- NOTE | 2024-07-08 13:05 | MHC.OFFVIS ---
Vital Signs 07/08/24 13:18 Height 5 ft 5 in Weight 177 lb 4.026 oz BMI 29.5 BP 140/66 H Blood Pressure Location Rt brachial Position Sitting Pulse 112 H Pulse Source Pulse Oximeter Pulse Oximetry (%) 95 Oxygen Delivery Method Room Air Intake Visit Reasons: s/p egd/colon Intake Note: ESTABLISHED PATIENT for s/p FUV w/ BZ Chief Complaint; Abd distention + bloating. SoB, worsening sx over the last 1-2 mos. No other concerns per pt. Yarn Man Required: Yes Yarn Man Services: Yarn Man Offered & Declined Accompanied by: Family/Other Allergies No Known Allergies Allergy (Verified 07/08/24 13:05) HPI HPI s/p egd/colon: Details: LAST VISIT Acid reflux NAFLD (nonalcoholic fatty liver disease) Screen for colon cancer History of colitis Plan Patient denies any GI, cardiac or respiratory symptoms.? Denies any issues with anesthesia in the past.? Denies any history of sleep apnea.? No history infectious diseases in the past or present.? Patient is on low-dose aspirin. Reports family history of CRC. History of colitis due to salmonella infection back in December of 2021.? Discussed at length the pre-procedure,? prep, diet & medications as well as what to expect prior, during and after the procedure.?? Stressed the importance of good bowel prep.? Recommended the use of Vaseline or Calmoseptine OTC & baby wipes with bowel movements to promote comfort.? ?Patient verbalizes understanding and agrees to plan of care.? She was given the opportunity to ask questions and all questions answered.? We will see her after the procedure.? Medications New polyethylene glycol 3350 (Miralax) As directed by gastroenterology department at [facility] 238 grams PO ONCE 238 grams 0RF Z12.11 bisacodyl (Dulcolax (bisacodyl)) take 4 tabs at noon the day before your colonoscopy 20 mg (4 x 5 mg) PO ONCE 4 tabs 0RF 1 day Z12.11 COLONOSCOPY Findings: Mucosa: Normal to cecum and terminal ileum. Protruding lesions: 2 sessile polyp of size 4 mm in transverse colon. Cold snare polypectomy was performed. The polyps were completely removed and retrieved. 1 pedunculated polyp of size 12 mm in descending colon. Hot snare polypectomy was performed. The polyp was completely removed and retrieved. Medium internal hemorrhoids without stigmata of recent bleeding. Impression: 1. Normal colon mucosa 2. Total of 3 polyps removed 3. External and internal hemorrhoids Recommendations: - Follow path results. - Repeat colonoscopy in 3 years if polyps are adenomas or sessile serrated. PATHOLOGY RESULTS Diagnosis A. Colon, transverse, polypectomy x2: Tubular adenoma (1); sessile serrated polyp/lesion without dysplasia (1); negative for high-grade dysplasia. B. Colon, descending, polypectomy: Tubulovillous adenoma; negative for high-grade dysplasia TODAY'S VISIT: Patient is here today for follow-up and to discuss colonoscopy results. Patient denies any ill effects from the prep, anesthesia or procedure itself. Tubular adenoma 2 pieces found in transverse colon and descending colon tubulovillous adenoma negative for high-grade dysplasia or carcinoma. Patient reports severe abdominal bloating. Sometimes patient reports that even water will make her feel bloated. Patient reports that she is moving her bowels well. Feels like she empties completely. Patient also reports that her bloating is so severe that sometimes it causes her to be short of breath. Patient reports that her abdomen will get very large and hard. Patient reports epigastric pain postprandially and acid reflux. Occasional dyspepsia without dysphagia or odynophagia. Currently patient is not taking any PPI or H2 juan. Patient reports that she eats fruits and vegetables. [facility] Medical History (Updated 07/08/24 @ 13:37 by Nicole Hummel BIOMETRICS EXPERIMENTALIST-) Postprandial abdominal bloating Tubulovillous adenoma of colon Tubular adenoma of colon HARSH (obstructive sleep apnea) Allergic rhinitis Osteoporosis Asthma Arm mass Tachycardia determined by examination of pulse Restrictive lung disease Hypoxemia Dyspnea Post-COVID syndrome Surgical History H/O: hysterectomy (~2006) History of cholecystectomy (~2003) Hx of heart artery stent Family History Maternal Uncle Colon cancer Paternal Grandfather Colon cancer Mother Colon polyps Lung cancer Maternal Uncle Colon cancer Social History Household Members: Children Housing: Other Housing Other:: three family house Are you a primary child care supervisor to a significant other at home: No Do you presently have visiting nurse or other home services: No Alcohol intake: never Patient Tobacco Use Status: Never used Tobacco service: No Current occupational status: disabled Review of Systems Const Denies weight gain and Denies weight loss ENT Reports no additional complaints, Denies dysphagia and Denies odynophagia Card Reports no additional complaints Resp Reports no additional complaints GI Reports abdominal pain, Denies belching, Denies melena, Reports bloating, Denies change in bowel habits, Denies dysphagia, Denies excessive flatus, Reports dyspepsia, Reports heartburn, Denies diarrhea, Denies loose stools, Denies nausea, Denies odynophagia and Denies vomiting Musc Reports no additional complaints Neuro Reports no additional complaints Psych Reports no additional complaints Endo Reports no additional complaints Physical Exam Vital Signs: Last Vital Signs Pulse 112 H 07/08/24 13:18 BP 140/66 H 07/08/24 13:18 Pulse Ox 95 07/08/24 13:18 Oxygen Delivery Method Room Air 07/08/24 13:18 BMI result Body Mass Index 29.5 Const General: healthy appearing and no acute distress Nutritional Appearance: obese Orientation/consciousness: patient oriented x3 Resp Effort & Inspection: normal respiratory effort, able to speak in complete sentences, no tracheal deviation and symmetric chest movement Auscultation: clear to auscultation bilaterally Cardio Rate: regular rate GI Inspection: Yes normal to inspection, No distended and Yes obesity Palpation (GI): Soft to palpation, not firm, nontender and No hepatosplenomegaly present Auscultation: normal bowel sounds General: Yes no CVA tenderness Back/Spine/Pelvis Back: no CVA tenderness Skin General skin exam: elasticity normal, turgor normal and dry skin Neuro General: patient oriented x3 Psych Appearance: grossly normal Mental Status: mental status grossly normal Assessment & Plan Assessment & Plan (1) Acid reflux: Code(s): K21.9 - Gastro-esophageal reflux disease without esophagitis Category: Medical Qualifiers: Esophagitis presence: esophagitis presence not specified Qualified Code(s): K21.9 - Gastro-esophageal reflux disease without esophagitis (2) NAFLD (nonalcoholic fatty liver disease): Code(s): K76.0 - Fatty (change of) liver, not elsewhere classified Category: Medical (3) History of colitis: Code(s): Z87.19 - Personal history of other diseases of the digestive system (4) Tubular adenoma of colon: Code(s): D12.6 - Benign neoplasm of colon, unspecified Category: Medical (5) Tubulovillous adenoma of colon: Code(s): D12.6 - Benign neoplasm of colon, unspecified Category: Medical (6) Postprandial abdominal bloating: Code(s): R14.0 - Abdominal distension (gaseous) Category: Medical Plan Will check CMP. History of nonalcoholic fatty liver. Patient does have a epigastric pain we will order lipase to rule out chronic pancreatitis. Check A1c level, rule out celiac. Will check vitamin B 12, folate, D levels as well as thyroid study. Patient will be started on pantoprazole. Avoid dietary triggers and late night snacking. Staying upright for minimum 3 hours after meals discussed with patient. Patient reports abdominal bloating and reports that she is moving her bowels well. Low FODMAP diet discussed with patient. List of food recommended as well as list of food to avoid given to patient. Patient will return in 3 months. She will call us if her symptoms will get worse or develop any other GI concerning symptoms. Patient will have colonoscopy in 18 months or so due to tubulovillous adenoma. Patient is agreeable to this plan and verbalizes understanding of instructions. She was given the opportunity to ask questions and all questions answered. Thank you for allowing me to participate in her care Orders: Orders Lipase Today R10.9 - Unspecified abdominal pain Hemoglobin A1c Today Z83.3 - Family history of diabetes mellitus Comprehensive Met. Panel Today K21.9 - Gastro-esophageal reflux disease without esophagitis TSH reflex Free T4 Today K59.00 - Constipation, unspecified Transglutaminase IgA Today R10.9 - Unspecified abdominal pain Vitamin D 25-OH (D2 and D3) Today E55.9 - Vitamin D deficiency, unspecified Vitamin B12 and Folate Today R19.7 - Diarrhea, unspecified Medications: New pantoprazole take one tablet half an hour before breakfast 40 mg PO DAILY 30 tabs 2RF K21.9 - Gastro-esophageal reflux disease without esophagitis Coding Level of Care Code Est Pt Level 4 (10855) Complex EM visit Add On G2211 Diagnoses Gastroesophageal reflux disease, unspecified whether esophagitis present K21.9 Esophagitis presence: esophagitis presence not specified NAFLD (nonalcoholic fatty liver disease) K76.0 History of colitis Z87.19 Tubular adenoma of colon D12.6 Tubulovillous adenoma of colon D12.6 Postprandial abdominal bloating R14.0 Time Spent (min) 35 Comment 25 minutes spent with patient and additional 10 minutes spent reviewing her records
[2024-07-08 13:18] VITALS: BP 140/66; PULSE 112; O2SAT 95; BMI 29.5
== END 2024-07-08 13:36 | disposition home or self-care (01) ==
PROVIDERS: PCP Internal Medicine; Visit Provider Nurse Practitioner Family
DX: K21.9 Gastro-esophageal reflux disease without esophagitis (principal); K76.0 Fatty (change of) liver, not elsewhere classified; Z87.19 Personal history of other diseases of the digestive system; D12.6 Benign neoplasm of colon, unspecified; R14.0 Abdominal distension (gaseous)
CPT/HCPCS: 99214

== ENCOUNTER → 2024-07-08 12:45 | Outpatient (BNVA) | payer MEDICAID, SELFPAY | PROVIDERS: PCP Internal Medicine; Visit Provider Nurse Practitioner Family | DX: K21.9 Gastro-esophageal reflux disease without esophagitis (principal); K76.0 Fatty (change of) liver, not elsewhere classified; D12.6 Benign neoplasm of colon, unspecified; R14.0 Abdominal distension (gaseous); Z87.19 Personal history of other diseases of the digestive system | CPT/HCPCS: 99212 ==

== ENCOUNTER 2024-07-23 10:27 | Outpatient (AMB) | payer MEDICAID, SELFPAY ==
--- NOTE | 2024-07-23 10:42 | MHC.OFFVIS ---
Vital Signs 07/23/24 10:43 Height 5 ft 5 in Weight 179 lb 10.828 oz BMI 29.9 BP 104/60 Blood Pressure Location Lt brachial Position Sitting Pulse 107 H Pulse Source Pulse Oximeter Pulse Oximetry (%) 95 Oxygen Delivery Method Room Air Intake Visit Reasons: Shortness of breath/Sleep Study Follow Up Intake Note: pt is here for sleep study follow up Authorization Specialist Required: No Allergies No Known Allergies Allergy (Verified 07/23/24 11:43) Medication List - Last Reconciled 07/23/24 by Liseth Thomas MD albuterol sulfate 90 mcg/actuation (Ventolin HFA) 2 puffs PO Q6H PRN alcohol swabs (Alcohol Prep Pads) pad topical DIRECTED amlodipine 2.5 mg PO DAILY ascorbic acid (vitamin C) 1,000 mg PO DAILY aspirin 1 tab PO QAM atorvastatin 40 mg PO DAILY blood sugar diagnostic (FreeStyle Lite Strips) As directed cholecalciferol (vitamin D3) 50 mcg PO DAILY dulaglutide (Trulicity) mg subcut QWEEK empagliflozin (Jardiance) 25 mg PO DAILY fluticasone propion-salmeterol 115-21 mcg/actuation (Advair HFA) 2 puffs inhalation BID gabapentin 300 mg PO Q8H glipizide 10 mg PO BIDAC insulin glargine (Lantus Solostar U-100 Insulin) 12 units subcut BEDTIME lidocaine 5% patches topical losartan-hydrochlorothiazide 100-25 mg 1 tab PO DAILY magnesium 400 mg PO DAILY mecobalamin (vitamin B12) 5,000 mcg PO DAILY metformin 1,000 mg PO BID metoprolol succinate ER 25 mg PO DAILY pantoprazole 20 mg PO BID pantoprazole 40 mg PO DAILY pen needle, diabetic (Sure Comfort Pen Needle) As directed sertraline 25 mg PO DAILY zinc acetate 50 mg PO DAILY Do you need a note to return to daycare/school/sports/work: No HPI HPI Shortness of breath/Sleep Study Follow Up: Details: This 53 years old female is here for follow-up after her CPAP titration study in the sleep lab . She underwent CPAP titration to treat the obstructive sleep apnea and nocturnal hypoxemia. Nasal mask N 20 of medium size was used she required a pressure of 15 cm to achieve optimal results. She continued to have low O2 sat 2 and requires O2 supplementation at 1 L/minute. She is anxious to start the CPAP therapy. Respiratory status is fairly stable and she uses albuterol inhaler only p.r.n. in addition to Advair HFA 115-21 , 2 puffs b.i.d. [facility] Medical History Postprandial abdominal bloating Tubulovillous adenoma of colon Tubular adenoma of colon HARSH (obstructive sleep apnea) Allergic rhinitis Osteoporosis Asthma Arm mass Tachycardia determined by examination of pulse Restrictive lung disease Hypoxemia Dyspnea Post-COVID syndrome Surgical History H/O: hysterectomy (~2006) History of cholecystectomy (~2003) Hx of heart artery stent Family History Maternal Uncle Colon cancer Paternal Grandfather Colon cancer Mother Colon polyps Lung cancer Maternal Uncle Colon cancer Social History Household Members: Children Housing: Other Housing Other:: three family house Are you a primary manager care management to a significant other at home: No Do you presently have visiting nurse or other home services: No Alcohol intake: never Patient Tobacco Use Status: Never used Tobacco service: No Current occupational status: disabled Review of Systems Const All systems reviewed & are unremarkable except as noted in HPI and below Eyes Reports no additional complaints ENT Reports no additional complaints Card Details: Left to all arm pain. Probably not cardiac. And she also tends to have fast heart rate, for which she is being checked by Cardiology. Resp Reports as per HPI GI Reports no additional complaints Reports no additional complaints Musc Reports other (Left all arm pain, after the COVID vaccine) Skin/Breast Reports system reviewed and no additional complaints, except as documented Neuro Reports no additional complaints Psych Reports no additional complaints Physical Exam Vital Signs: Last Vital Signs Pulse 107 H 07/23/24 10:43 BP 104/60 07/23/24 10:43 Pulse Ox 95 07/23/24 10:43 Oxygen Delivery Method Room Air 07/23/24 10:43 BMI result Body Mass Index 29.9 Const Other: Somewhat pale looking General: comfortable, no acute distress, alert and awake Orientation/consciousness: patient oriented x3 HEENT Head: Yes normal to inspection General nose exam: No nasal polyps present and No nasal discharge present Face and sinus: Yes sinuses nontender Mouth: oropharynx normal Throat: Yes posterior oropharynx normal Eyes General: appearance normal, both eyes and all related structures Neck Neck: Yes normal visual inspection, Yes no lymphadenopathy, Yes trachea midline and Yes no JVD Thyroid: Thyroid normal Chest Chest palpation & inspection: normal inspection of the chest, normal palpation of entire chest wall and no tenderness Resp Other: Percussion note resonant except for mild dullness over the left base. Breath sounds are decreased over the left lower lobe area. No wheezes or rhonchi are heard. Cardio Palpation: normal PMI Rate: regular rate and tachycardic Rhythm: regular rhythm Heart sounds: no gallops and no murmurs Peripheral pulses: Peripheral pulses 2+ throughout GI Palpation (GI): Soft to palpation, Tenderness to palpation present (GI), No hepatosplenomegaly present and Palpable mass present Auscultation: normal bowel sounds Back/Spine/Pelvis Thoracic/Lumbar Spine: thoracic and lumbar spine normal to inspection Skin General skin exam: no rashes or lesions noted Neuro General: patient oriented x3 and no focal motor deficits Cranial nerves: Yes CN's II-XII intact bilaterally Extrem General: Yes normal to inspection, Yes no clubbing, cyanosis or edema and Yes no calf tenderness Psych Appearance: grossly normal and well kempt Speech and movement: Normal speech and movement present Results Reviewed Results Reviewed: CPAP titration results discussed with the patient. She did well with the nasal mask and pressure of 15 cm, but still had persistent nocturnal hypoxemia and required O2 supplementation at 1 L/minute. Assessment & Plan Assessment & Plan (1) Asthma: Comment: HAS MILD, INTERMITTENT BOUTS OF WHEEZING, ALSO SHE TENDS TO GET COUGH AND WHEEZING IF SHE IS EXPOSED TO ANYBODY WITH PERFUME , OR HOUSEHOLD SPRAYS ETC. Code(s): J45.909 - Unspecified asthma, uncomplicated Category: Medical Plan: Continue to use Advair HFA 115-21 2 puffs b.i.d. and albuterol 2 puffs Q 4-6 hours p.r.n.. (2) Restrictive lung disease: Comment: HAS SEVERE RESTRICTIVE PULMONARY DISORDER, MAINLY DUE TO HER CHRONICALLY ELEVATED LEFT HEMIDIAPHRAGM. Code(s): J98.4 - Other disorders of lung Category: Medical Plan: Again educated about this the elevated left hemidiaphragm. Advised to keep on doing deep breathing exercises 2 to 3 times a day. (3) Hypoxemia: Comment: H/O HYPOXEMIA WHICH HAD WORSENED AFTER SHE HAD COVID INFECTION LAST YEAR. IT DID IMPROVE GRADUALLY . SHE DOES HAVE O2 CONCENTRATOR AND PORTABLE UNIT AT HOME BUT HARDLY NEEDS TO USE IT. During CPAP titration study she was found to be hypoxemic even with the use of CPAP. She did need to have O2 supplementation at 1 L/minute. Code(s): R09.02 - Hypoxemia Category: Medical Plan: Use O2 1 L/minute along with the CPAP at nighttime. (4) HARSH (obstructive sleep apnea): Comment: PATIENT DOES HAVE HISTORY OF OBSTRUCTIVE SLEEP APNEA DIAGNOSED IN 2015 BUT THERE HAS BEEN NO TREATMENT OR FOLLOW-UP. HOME-BASED SLEEP STUDY IS PERFORMED TO RECONFIRM THE DIAGNOSIS. AND IT INDICATES, MODERATELY SEVERE OBSTRUCTIVE SLEEP APNEA WITH TOTAL SLEEP TIME AHI 14.3, SNORING FOR 70% OF THE SLEEP TIME AND PERSISTENT NOCTURNAL HYPOXEMIA. O2 SAT BELOW 88% FOR 182 MINUTES. THIS PATIENT HAD CPAP TITRATION STUDY ON 06/23/2024. THE OBSTRUCTIVE SLEEP APNEA AND SNORING WERE ELIMINATED WITH PRESSURE OF 15 CM, USING NASAL MASK. Code(s): G47.33 - Obstructive sleep apnea (adult) (pediatric) Category: Medical Plan: CPAP APPARATUS IS ORDERED WITH NASAL MASK AND PRESSURE SETTING OF 15 CM ALONG WITH HEATED HUMIDIFICATION. PATIENT EDUCATED ABOUT THE USE OF CPAP. AND OXYGEN AT NIGHT WILL BE FOLLOWED UP CLOSELY FOR COMPLIANCE AND BENEFITS. Coding Level of Care Code Est Pt Level 3 (16699) Diagnoses Asthma J45.909 Restrictive lung disease J98.4 Hypoxemia R09.02 HARSH (obstructive sleep apnea) G47.33
[2024-07-23 10:43] VITALS: BP 104/60; PULSE 107; O2SAT 95; BMI 29.9
--- OUTSIDE RECORDS SUMMARY | 2024-07-23 12:23 | XMS_ITS | Encounter Summary ---
Author Organization [employer] Address [address] [place] [address] Care Team Providers Care Horse Show Manager Name Role Phone Isabel Ramsay MD Primary Care Provide r Encounter Details Date Type Department Care Team (Late st Contact Info) Description 08/12/2022 Orders Only [facility] [address] [place] [address] Connie Pisano LPN Social History Tobacco Use [...] Care Team (Late st Contact Info) Description 08/19/2024 8:00 AM EDT Office Visit [facility] ADULT DENTAL [address] [place] [address] Dariela Keen 08/29/2024 10:45 AM EDT Office Visit [facility] MEDICINE [address] [place], [place] [phone] Isabel Ramsay MD [address] [place] [address] documented as of this encounter Visit Diagnoses Not on filedocumented in this encounter Care Teams Horse Show Manager Relationship Specialty Start Date End Date Isabel Ramsay MD [address] [place] [address] PCP - General Family Medicine 01/09/19 documented as of this encounter
--- OUTSIDE RECORDS SUMMARY | 2024-07-23 12:23 | XMS_ITS | Encounter Summary ---
Author Organization [employer] Address [address] [place] [address] Care Team Providers Care Farm Assistant Name Role Phone Isabel Ramsay MD Primary Care Provide r Encounter Details Date Type Department Care Team (Late st Contact Info) Description 06/27/2024 Orders Only GENERIC EXTERNAL DATA DEPARTMENT Provider, Generic External Data Social History Tobacco Use Types Packs/Day Years [...] Description 08/19/2024 8:00 AM EDT Office Visit [facility] ADULT DENTAL [address] [place] [address] Dariela Keen 08/29/2024 10:45 AM EDT Office Visit [facility] MEDICINE [address] [place] [address] Isabel Ramsay MD [address] [place] [address] documented as of this encounter Procedures Procedure Name Priority Date/Time Associated Diagnosis Comments HEMATOXYLIN AND EOSIN STAIN Routine 06/27/2024 10:28 AM EST GLUCOSE, WHOLE BLOOD Routine 06/27/2024 9:43 AM EST documented in this encounter Results * Hematoxylin and Eosin Stain (06/27/2024 10:28 AM EST) 06/27/2024 10:2 8 AM EST 06/27/2024 10:57 AM EST [facility] - 06/28/2024 4:48 PM EST ----- ------- Name: Denice Sanchez ?Age/Sex: 53/F ? : 1970 Unit#: [id number] ?? Attend Dr: Quyen Hardwick MD ?Re06/27/24 ?Status: DEP SDC ? Location: HO.SSS ?Disch: ? ----- ------- SPEC : [id number] ?RECD: 06/27/24-1056 ? STATUS: ??SOUT ? REQ NUM: [id number] ? ANDRE: 06/27/24-1027 ? SUBM DR: Quyen Hardwick MD ? ENTERED: ??06/27/24-1108 ?SP TYPE: Surgical ? OTHR DR: Isabel Ramsay MD ? ORDERED: ??HE Stain/6, Gross Micro L4/2 ? Diagnosis ?? A. ??Colon, transverse, polypectomy x2: ??Tubular adenoma (1); sessile serrated ?? polyp/lesion without dysplasia (1); negative for high-grade dysplasia. ? B. ??Colon, descending, polypectomy: ??Tubulovillous adenoma; negative for high-grade ?? dysplasia. ?Clinical History Pre-Op Dx: ??Screening Post-Op Dx: Colon polyps, hemorrhoids ?Microscopic Description Microscopic sections reviewed. ? Material Received ?? A. Transverse colon polyps ?? B. Descending colon polyp ? Gross Description Received in two parts. Part A: ??Received in formalin labeled ?transverse colon polyps? are 2 nevarez rectangular and papular tissue fragments measuring 0.3 and 0.45 cm, submitted in toto in a cassette labeled A. Part B: ??Received in formalin labeled ?descending colon polyp is a 1.0 x 0.7 x 0.6 cm velvety nevarez-pink papular tissue fragment. ??The resected base is inked and the specimen is sectioned and entirely submitted in a cassette labeled B. CEDS Copies To: ?? Isabel Ramsay MD ?? [facility] ?? [address] ?? [place] [address] ?? [phone] ? CONTINUED ON NEXT PAGE ----- ------- Name: Denice Sanchez ?Age/Sex: 53/F ? : 1970 Unit#: [id number] ?? Attend Dr: Quyen Hardwick MD ?Re06/27/24 ?Status: DEP SDC ? Location: HO.SSS ?Disch: ? ----- ------- SPEC : [id number] ?RECD: 06/27/24-7 ? STATUS: ??SOUT ? REQ NUM: [id number] ? ANDRE: 06/27/24-1028 ? SUBM DR: Quyen Hardwick MD ? ENTERED: ??06/27/24-1104 ?SP TYPE: Surgical ? OTHR DR: Isabel Ramsay MD ? ORDERED: ??HE Stain/6, Gross Micro L4/2 ? Copies To: ??(Continued) ?? Quyen Hardwick MD ?? [facility] ?? [address] ?? [place] [address] ?? [phone] ?? [email or web address] ----- ------- Signed (signature on file) Ashlee Hoff MD 06/28/24 4778 ? ----- ------- ? END OF REPORT ? us Generic External Data Provider LAB BLOOD ORDERAB LES Final Result Performing Organization Address [facility] Co de Phone Number [facility] [address] [place] [phone] * (ABNORMAL) Glucose, Whole Blood (06/27/2024 9:43 AM EST) Glucose, Whole Blood 305(H) 60 - 115 mg/dL [facility] Comment:METER #: [id number] 06/27/2024 9:43 AM EST 06/27/2024 9:55 AM EST Generic External Data Provider LAB BLOOD ORDERAB LES Final Result Performing Organization Address [facility] Co de Phone Number [facility] [address] [place] [address] [phone] documented in this encounter Visit Diagnoses Not on filedocumented in this encounter Additional Health Concerns Assessment Noted Time PHQ-9 Depression Total Score: 15 024 1:22 PM EDT documented as of this encounter Care Teams Farm Assistant Relationship Specialty Start Date End Date Isabel Ramsay MD [address] [place] [address] PCP - General Family Medicine 01/09/19 documented as of this encounter
--- OUTSIDE RECORDS SUMMARY | 2024-07-23 12:23 | XMS_ITS | Encounter Summary ---
Author Organization [employer] Address 75 [facility] 7t [place] [address] Care Team Providers Care Environmental Health Safety Engineer Name Role Phone Isabel Ramsay MD Primary Care Provide r Encounter Details Date Type Department Care Team (Late st Contact Info) Description 09/13/2022 Orders Only [facility] CHC MED & PEDS [address] [place] [address] Connie Pisano LPN Social History Tobacco Use [...] Description 08/19/2024 8:00 AM EDT Office Visit [facility] ADULT DENTAL [address] [place] [address] Dariela Keen 08/29/2024 10:45 AM EDT Office Visit [facility] MEDICINE [address] [place], [place] [phone] Isabel Ramsay MD [address] [place] [address] documented as of this encounter Visit Diagnoses Not on filedocumented in this encounter Care Teams Environmental Health Safety Engineer Relationship Specialty Start Date End Date Isabel Ramsay MD [address] [place] [address] PCP - General Family Medicine 01/09/19 documented as of this encounter
--- OUTSIDE RECORDS SUMMARY | 2024-07-23 12:23 | XMS_ITS | Encounter Summary ---
Author Organization [facility] Address [address] [place] [address] 7t [place] [address] Care Team Providers Care Water Pump Installer Name Role Phone Isabel Ramsay MD Primary Care Provide r Reason for Visit * Reason Comments Med Refill Encounter Details Date Type Department Care Team (Late st Contact Info) Description 12/30/2022 Refill [facility] CHC MED & PEDS [address] [place] [address] Isabel Ramsay MD [address] [place] [address] Chronic obstructive pulmonary disease, unspecified COPD type [...] Description 08/19/2024 8:00 AM EDT Office Visit [facility] ADULT DENTAL [address] [place], [place] [phone] Dariela Keen 08/29/2024 10:45 AM EDT Office Visit [facility] MEDICINE [address] [place] [address] Isabel Ramsay MD [address] [place] [address] documented as of this encounter Visit Diagnoses Diagnosis Chronic obstructive pulmonary disease, unspecified COPD type (CMS/HCC) documented in this encounter Additional Health Concerns Assessment Noted Time PHQ-9 Depression Total Score: 17 023 8:32 AM EDT documented as of this encounter Care Teams Water Pump Installer Relationship Specialty Start Date End Date Isabel Ramsay MD [address] [place] [address] PCP - General Family Medicine 01/09/19 documented as of this encounter
--- OUTSIDE RECORDS SUMMARY | 2024-07-23 12:23 | XMS_ITS | Encounter Summary ---
Author Organization [employer] Address 75 [facility] 7t [place] [address] Care Team Providers Care High School Agriculture Teacher Name Role Phone Isabel Ramsay MD Primary Care Provide r Reason for Visit * Reason Comments Med Refill Encounter Details Date Type Department Care Team ([facility] Contact Info) Description 12/01/2022 Refill [facility] CHC MED & PEDS [address] [place] [address] Sawyer Richards MD [address] [place] [address] Type 2 diabetes mellitus without complication, unspecified whether alf insulin use ([facility]) Social History Tobacco Use Types Packs/Day Years [...] Description 08/19/2024 8:00 AM EDT Office Visit [facility] ADULT DENTAL [address] [place] [address] Keen Dariela 08/29/2024 10:45 AM EDT Office Visit [facility] MEDICINE [address] [place] [address] Isabel Ramsay MD [address] [place] [address] documented as of this encounter Visit Diagnoses Diagnosis Type 2 diabetes mellitus without complication, unspecified whether wood tile installation helper insulin use ([facility]) documented in this encounter Additional Health Concerns Assessment Noted Time PHQ-9 Depression Total Score: 17 023 8:32 AM EDT documented as of this encounter Care Teams High School Agriculture Teacher Relationship Specialty Start Date End Date Isabel Ramsay MD [address] [place] [address] PCP - General Family Medicine 01/09/19 documented as of this encounter
--- OUTSIDE RECORDS SUMMARY | 2024-07-23 12:23 | XMS_ITS | Encounter Summary ---
Author Organization [employer] Address 75 [facility] 7t [place] [address] Care Team Providers Care Eligibility Examiner Name Role Phone Isabel Ramsay MD Primary Care Provide r Reason for Visit * Reason Onset Date Comments call back requested 01/19/2023 Encounter Details Date Type Department Care Team ([facility] st Contact Info) Description 01/19/2023 Telephone [facility] MEDICINE 230 [place], [place] [phone] Isabel Ramsay MD [address] [place] [address] call back requested Social History Tobacco Use [...] her medbox. * Telephone Encounter - Ame Bullock - 01/19/2023 12:57 PM EDT TC from [facility] requesting a call back in regards of medications : Setraline 25mg and Duloxetine 30mg. Please contact Med box at ext [phone]. PCP DR. Raygoza documented in this encounter Plan of Treatment Upcoming Encounters Date Type Department Care Team (Late st Contact Info) Description 08/19/2024 8:00 AM EDT Office Visit [facility] ADULT DENTAL [address] [place] [address] Dariela Keen 08/29/2024 10:45 AM EDT Office Visit [facility] MEDICINE [address] [place] [address] Isabel Ramsay MD [address] [place] [address] documented as of this encounter Visit Diagnoses Not on filedocumented in this encounter Additional Health Concerns Assessment Noted Time PHQ-9 Depression Total Score: 17 023 8:32 AM EDT documented as of this encounter Care Teams Eligibility Examiner Relationship Specialty Start Date End Date Isabel Ramsay MD [address] [place] [address] PCP - General Family Medicine 01/09/19 documented as of this encounter
--- OUTSIDE RECORDS SUMMARY | 2024-07-23 12:23 | XMS_ITS | Encounter Summary ---
Author Organization [employer] Address [address] [facility] [address] 7t [place] [address] Care Team Providers Care Recycling Specialist Name Role Phone Isabel Ramsay MD Primary Care Provide r Encounter Details Date Type Department Care Team ([facility] st Contact Info) Description 07/01/2024 Orders Only [facility] MEDICINE [address] [place] [address] ProviderTejas MD Social History Tobacco Use Types Packs/Day Years [...] Description 08/19/2024 8:00 AM EDT Office Visit [facility] ADULT DENTAL [address] [place] [address] Dariela Keen 08/29/2024 10:45 AM EDT Office Visit [facility] MEDICINE [address] [place] [address] Isabel Ramsay MD [address] [place] [address] documented as of this encounter Procedures Procedure Name Priority Date/Time Associated Diagnosis Comments HM COLONOSCOPY Routine 06/27/2024 3:52 PM EST documented in this encounter Results * Hm Colonoscopy (06/27/2024 3:52 PM EST) Historical Provider HEALTH MAINTENANCE Final Result documented in this encounter Visit Diagnoses Not on filedocumented in this encounter Additional Health Concerns Assessment Noted Time PHQ-9 Depression Total Score: 15 024 1:22 PM EDT documented as of this encounter Care Teams Recycling Specialist Relationship Specialty Start Date End Date Isabel Ramsay MD [address] [place] [address] PCP - General Family Medicine 01/09/19 documented as of this encounter
--- OUTSIDE RECORDS SUMMARY | 2024-07-23 12:23 | XMS_ITS | Encounter Summary ---
Author Organization [employer] Address 75 [facility] 7t [place] [address] Care Team Providers Care Mortar Maker Name Role Phone Isabel Ramsay MD Primary Care Provide r Reason for Visit * Reason Comments Med Refill Encounter Details Date Type Department Care Team ([facility] Contact Info) Description 11/14/2022 Refill [facility] CHC MED & PEDS [address] [place] [address] Sawyer Richards MD [address] [place] [address] Type 2 diabetes mellitus without complication, unspecified whether fci insulin use ([facility]) Social History Tobacco Use Types [...] Description 08/19/2024 8:00 AM EDT Office Visit [facility] ADULT DENTAL [address] [place] [address] Keen Dariela 08/29/2024 10:45 AM EDT Office Visit [facility] MEDICINE [address] [place] [address] Isabel Ramsay MD [address] [place] [address] documented as of this encounter Visit Diagnoses Diagnosis Type 2 diabetes mellitus without complication, unspecified whether restaurant host/hostess insulin use ([facility]) documented in this encounter Additional Health Concerns Assessment Noted Time PHQ-9 Depression Total Score: 17 023 8:32 AM EDT documented as of this encounter Care Teams Mortar Maker Relationship Specialty Start Date End Date Isabel Ramsay MD [address] [place] [address] PCP - General Family Medicine 01/09/19 documented as of this encounter
--- OUTSIDE RECORDS SUMMARY | 2024-07-23 12:23 | XMS_ITS | Encounter Summary ---
Author Organization [employer] [facility] Address 75 [facility] 7t [place] [address] Care Team Providers Care Manager Technical Sales Name Role Phone Isabel Ramsay MD Primary Care Provide r Reason for Visit * Reason Comments Med Refill Encounter Details Date Type Department Care Team (Late st Contact Info) Description 11/25/2022 Refill [facility] MEDICINE [address] [place], [place] [phone] Kiara Hernandez MD [address] [place], [place] [phone] Mild chronic obstructive pulmonary disease (CMS/HCC) Social [...] Department Care Team (Late Contact Info) Description 08/19/2024 8:00 AM EDT Office Visit [facility] ADULT DENTAL [address] [place] [address] Dariela Keen 08/29/2024 10:45 AM EDT Office Visit [facility] MEDICINE [address] [place] [address] Isabel Ramsay MD [address] [place] [address] documented as of this encounter Visit Diagnoses Diagnosis Mild chronic obstructive pulmonary disease (CMS/HCC) Chronic airway obstruction, not elsewhere classified documented in this encounter Additional Health Concerns Assessment Noted Time PHQ-9 Depression Total Score: 17 023 8:32 AM EDT documented as of this encounter Care Teams Manager Technical Sales Relationship Specialty Start Date End Date Isabel Ramsay MD [address] [place] [address] PCP - General Family Medicine 01/09/19 documented as of this encounter
--- OUTSIDE RECORDS SUMMARY | 2024-07-23 12:23 | XMS_ITS | Encounter Summary ---
Author Organization [employer] Address [address] [facility] [address] 7t [place] [address] Care Team Providers Care Rn Coronary Care Unit Name Role Phone Isabel Ramsay MD Primary Care Provide r Encounter Details Date Type Department Care Team ([facility] st Contact Info) Description 06/28/2024 Refill [facility] MEDICINE [address] [place], [place] [phone] Isabel Ramsay MD [address] [place], [place] [phone] Type 2 diabetes mellitus with other specified complication, unspecified whether penitentiary insulin use ([facility]); Other hyperlipidemia; Chronic GERD Social History Tobacco Use Types Packs/Day Years [...] Description 08/19/2024 8:00 AM EDT Office Visit [facility] ADULT DENTAL [address] [place] [address] Dariela Keen 08/29/2024 10:45 AM EDT Office Visit [facility] MEDICINE [address] [place] [address] Isabel Ramsay MD [address] [place] [address] documented as of this encounter Visit Diagnoses Diagnosis Type 2 diabetes mellitus with other specified complication, unspecified whether penitentiary insulin use ([facility]) Other hyperlipidemia Chronic GERD documented in this encounter Additional Health Concerns Assessment Noted Time PHQ-9 Depression Total Score: 15 024 1:22 PM EDT documented as of this encounter Care Teams Rn Coronary Care Unit Relationship Specialty Start Date End Date Isabel Ramsay MD [address] [place] [address] PCP - General Family Medicine 01/09/19 documented as of this encounter
--- OUTSIDE RECORDS SUMMARY | 2024-07-23 12:24 | XMS_ITS | Encounter Summary ---
Author Organization [employer] Address [address] [facility] [address] 7t [place] [address] Care Team Providers Care Game Design Instructor Name Role Phone Isabel Ramsay MD Primary Care Provide r Encounter Details Date Type Department Care Team ([facility] st Contact Info) Description 07/19/2024 Telephone [facility] ADULT DENTAL [address] [place], [place] [phone] Joelle, Velvet [address] [place] [address] Social History Tobacco Use Types Packs/Day Years [...] Description 08/19/2024 8:00 AM EDT Office Visit [facility] ADULT DENTAL [address] [place] [address] Dariela Keen 08/29/2024 10:45 AM EDT Office Visit [facility] MEDICINE [address] [place] [address] Isabel Ramsay MD [address] [place] [address] documented as of this encounter Visit Diagnoses Not on filedocumented in this encounter Additional Health Concerns Assessment Noted Time PHQ-9 Depression Total Score: 15 024 1:22 PM EDT documented as of this encounter Care Teams Game Design Instructor Relationship Specialty Start Date End Date Isabel Ramsay MD [address] [place] [address] PCP - General Family Medicine 01/09/19 documented as of this encounter
--- OUTSIDE RECORDS SUMMARY | 2024-07-23 12:24 | XMS_ITS | Encounter Summary ---
Author Organization [employer] Address [address] [facility] [address] 7t [place] [address] Care Team Providers Care Body Work Auto Trimmer Name Role Phone Isabel Ramsay MD Primary Care Provide r Reason for Visit * Reason Comments Diabetic Eye Exam Encounter Details Date Type Department Care Team (Latest Contact Info) Description 07/10/2024 10:00 AM EST Office Visit [facility] [address] [place], [place] [phone] Shahid, Mary Alice, OD [address] [place] [address] Type 2 diabetes mellitus without ophthalmic manifestations (CMS/HCC) (Primary Dx); Early cataracts, bilateral; Presbyopia Social History Tobacco Use Types Packs/Day Years [...] Description 08/19/2024 8:00 AM EDT Office Visit [facility] ADULT DENTAL [address] [place] [address] Dareila Keen 08/29/2024 10:45 AM EDT Office Visit [facility] MEDICINE [address] [place] [address] Isabel Ramsay MD [address] [place] [address] documented as of this encounter Visit Diagnoses Diagnosis Type 2 diabetes mellitus without ophthalmic manifestations ([facility])- Primary Early cataracts, bilateral Presbyopia documented in this encounter Additional Health Concerns Assessment Noted Time PHQ-9 Depression Total Score: 15 024 1:22 PM EDT documented as of this encounter Care Teams Body Work Auto Trimmer Relationship Specialty Start Date End Date Isabel Ramsay MD [address] [place] [address] PCP - General Family Medicine 01/09/19 documented as of this encounter
--- OUTSIDE RECORDS SUMMARY | 2024-07-23 12:24 | XMS_ITS | Encounter Summary ---
Author Organization [employer] Address 75 [facility] 7t [place] [address] Care Team Providers Care Campus President Name Role Phone Isabel Ramsay MD Primary Care Provide r Reason for Visit * Reason Comments Med Refill Encounter Details Date Type Department Care Team ([facility] st Contact Info) Description 07/19/2024 Refill [facility] MEDICINE [address] [place], [place] [phone] Isabel Ramsay MD 230 [place], [place] [phone] Chronic obstructive pulmonary disease, unspecified COPD type [...] your housing situation today? I have honorio aggie 03/15/[address] you li [...] Description 08/19/2024 8:00 AM EDT Office Visit [facility] ADULT DENTAL [address] [place] [address] Dariela Keen 08/29/2024 10:45 AM EDT Office Visit [facility] MEDICINE [address] [place] [address] Isabel Ramsay MD [address] [place] [address] documented as of this encounter Visit Diagnoses Diagnosis Chronic obstructive pulmonary disease, unspecified COPD type (CMS/HCC) documented in this encounter Additional Health Concerns Assessment Noted Time PHQ-9 Depression Total Score: 15 024 1:22 PM EDT documented as of this encounter Care Teams Campus President Relationship Specialty Start Date End Date Isabel Ramsay MD [address] [place] [address] PCP - General Family Medicine 01/09/19 documented as of this encounter
--- OUTSIDE RECORDS SUMMARY | 2024-07-23 12:24 | XMS_ITS | Encounter Summary ---
Author Organization [employer] Address 75 [facility] 7t [place] [address] Care Team Providers Care Concrete Block Molder Name Role Phone Isabel Ramsay MD Primary Care Provide r Reason for Visit * Reason Onset Date Comments Appointment 07/17/2024 Encounter Details Date Type Department Care Team (Late st Contact Info) Description 07/17/2024 Telephone [facility] ADULT DENTAL [address] [place] [address] Charleen Amador, DDS [address] [place] [address] Appointment Social History Tobacco Use Types Packs/Day Years [...] encounter Miscellaneous Notes * Telephone Encounter - Izabel Parisi - 07/17/2024 10:30 AM EST PT WILL CALL MONDAY MORNING FOR LIMITED EXAM THAT WAS APPROVED BY [facility] IN [facility] documented in this encounter Plan of Treatment Upcoming Encounters Date Type Department Care Team (Late st Contact Info) Description 08/19/2024 8:00 AM EDT Office Visit [facility] ADULT DENTAL [address] [place] [address] Dariela Keen 08/29/2024 10:45 AM EDT Office Visit [facility] MEDICINE [address] [place] [address] Isabel Ramsay MD [address] [place] [address] documented as of this encounter Visit Diagnoses Not on filedocumented in this encounter Additional Health Concerns Assessment Noted Time PHQ-9 Depression Total Score: 15 024 1:22 PM EDT documented as of this encounter Care Teams Concrete Block Molder Relationship Specialty Start Date End Date Isabel Ramsay MD [address] [place] [address] PCP - General Family Medicine 01/09/19 documented as of this encounter
--- OUTSIDE RECORDS SUMMARY | 2024-07-23 12:24 | XMS_ITS | Encounter Summary ---
Author Organization [employer] [facility] Address 75 [facility] 7t [place] [address] Care Team Providers Care Security Operations Center Analyst Name Role Phone Isabel Ramsay MD Primary Care Provide r Encounter Details Date Type Department Care Team (Latest Contact Info) Description 02/11/2022 Abstract [facility] CONVERSIONS Dental, Provider, DDS Social History Tobacco [...] Upcoming Encounters Date Type Department Care Team ( st Contact Info) Description 08/19/2024 8:00 AM EDT Office Visit [facility] ADULT DENTAL [address] [place] [address] Dariela Keen 08/29/2024 10:45 AM EDT Office Visit [facility] MEDICINE [address] [place] [address] Isabel Ramsay MD [address] [place], [place] [phone] documented as of this encounter Visit Diagnoses Not on filedocumented in this encounter Care Teams Security Operations Center Analyst Relationship Specialty Start Date End Date Isabel Ramsay MD [address] [place] [address] PCP - General Family Medicine 01/09/19 documented as of this encounter
--- OUTSIDE RECORDS SUMMARY | 2024-07-23 12:24 | XMS_ITS | Encounter Summary ---
Author Organization [facility] Address [address] [facility] 7t [place] [address] Care Team Providers Care Industrial Health And Safety Professor Name Role Phone Isabel Ramsay MD Primary Care Provide r Reason for Visit * Reason Comments bridge came out UA Encounter Details Date Type Department Care Team (Late st Contact Info) Description 07/19/2024 11:30 AM EST Office Visit [facility] ADULT DENTAL [address] [place] [address] Charleen Amador, DDS [address] [place] [address] Social History Tobacco Use Types Packs/Day Years [...] Progress Notes * Charleen Amador DDS - 07/19/2024 11:30 AM EST Dental procedures in this visit D9999 - NO CHARGE PROCEDURE (Completed) Service provider: Charleen Amador DDS Billing provider: Charleen Amador DDS Patient ID: Denice Lobato is a 53 y.o. female. Time Out: Timeout Date: 07/19/24, Timeout Time: 1121 (bridge came out) Location: [facility] Tooth: #6, #7, and #8 Procedure: f/up Verified the above with patient, recruitment assistant, and provider. Confirmed via patient's chart, intraorally and by radiographs. Commercial Center Manager: not applicable Chief Complaint Patient presents with bridge came out Medical Hx: Vitals: There were no vitals taken for this visit. Past Medical History: Diagnosis Date Anemia Asthma Depression with anxiety Diabetes mellitus (CMS/HCC) Fibromyalgia GERD (gastroesophageal reflux disease) Heart problem Heart trouble HLD (hyperlipidemia) Hypertension Low oxygen saturation Osteoporosis Medications: Outpatient Encounter Medications as of 07/19/2024 Medication Sig Dispense Refill Acetaminophen Extra Strength [...] BY MOUTH EVERY MORNING 90 tablet 1 chlorhexidine (Peridex) 0.12 % solution SWISH 15 ML IN THE MOUTH OR THROAT FOR 30 SECONDS THEN SPITOUT TWICE DAILY IN THE MORNING AND IN THE EVENING AFTER BRUSHING TEETH DO NOT SWALLOW (Patient not taking: Reported on 06/14/2024) cholecalciferol VITAMIN D (Vitamin D-3) 50 MCG [...] 1 insulin pen needle (Sure Comfort Pen [place]) 31G x 5 mm misc USE DIRECTED ONCE DAILY WITH lantus 100 [...] 25 mg by mouth in the morning. oxyCODONE-acetaminophen (Percocet) 5-325 MG tablet Take 1 tablet by mouth every 6 (six) hours if needed. (Patient not taking: Reported on 06/14/2024) pantoprazole (ProtoNix) 20 MG EC tablet TAKE [...] EXCEED FOUR TIMES DAILY 18 g 1 No facility-administered encounter medications on file as of 07/19/2024. Subjective: Pt in office because [place] bridge fell off completely. Explained to pt that she needs to consider other ways to replacing missing #7 because [place] bridges have a high risk of de bonding. Areas where cleaned and bridge re-cemented. Pt left satisfied. Cathode Ray Tube Salvage Processor: Basilia Vásquez Dentist: Charleen Amador DDS documented in this encounter Plan of Treatment Upcoming Encounters Date Type Department Care Team (Late st Contact Info) Description 08/19/2024 8:00 AM EDT Office Visit [facility] ADULT DENTAL [address] [place], [place] [phone] Dariela Keen 08/29/2024 10:45 AM EDT Office Visit [facility] MEDICINE [address] [place] [address] Isabel Ramsay MD [address] [place] [address] documented as of this encounter Procedures Procedure Name Priority Date/Time Associated Diagnosis Comments NO CHARGE PROCEDURE Routine 07/19/2024 11:30 AM EST documented in this encounter Visit Diagnoses Not on filedocumented in this encounter Additional Health Concerns Assessment Noted Time PHQ-9 Depression Total Score: 15 024 1:22 PM EDT documented as of this encounter Care Teams Industrial Health And Safety Professor Relationship Specialty Start Date End Date Isabel Ramsay MD [address] [place] [address] PCP - General Family Medicine 01/09/19 documented as of this encounter
--- OUTSIDE RECORDS SUMMARY | 2024-07-23 12:24 | XMS_ITS | Encounter Summary ---
Author Organization [employer] Address [address] [facility] 7t [place] [address] Care Team Providers Care Auto Specialty Services Manager Name Role Phone Isabel Ramsay MD Primary Care Provide r Encounter Details Date Type Department Care Team (Late st Contact Info) Description 02/15/2023 Orders Only [facility] [address] [place] [address] Lizzie Sandoval LPN Social History Tobacco Use [...] Description 08/19/2024 8:00 AM EDT Office Visit [facility] ADULT DENTAL [address] [place], [place] [phone] Dariela Keen 08/29/2024 10:45 AM EDT Office Visit [facility] MEDICINE [address] [place], [place] [phone] Isabel Ramsay MD [address] [place], [place] [phone] documented as of this encounter Visit Diagnoses Not on filedocumented in this encounter Additional Health Concerns Assessment Noted Time PHQ-9 Depression Total Score: 17 023 8:32 AM EDT documented as of this encounter Care Teams Auto Specialty Services Manager Relationship Specialty Start Date End Date Isabel Ramsay MD [address] [place] [address] PCP - General Family Medicine 01/09/19 documented as of this encounter
--- OUTSIDE RECORDS SUMMARY | 2024-07-23 12:24 | XMS_ITS | Encounter Summary ---
Author Organization [employer] Address [address] [facility] 7[address] [place] [address] Care Team Providers Care Homemaking Rehabilitation Consultant Name Role Phone Isabel Ramsay MD Primary Care Provide r Encounter Details Date Type Department Care Team (Late st Contact Info) Description 06/03/2022 Orders Only [facility] MED & PEDS [address] [place] [address] Connie Pisano LPN Social History Tobacco Use [...] Description 08/19/2024 8:00 AM EDT Office Visit [facility] ADULT DENTAL [address] [place], [place] [phone] Dariela Keen 08/29/2024 10:45 AM EDT Office Visit [facility] MEDICINE [address] [place], [place] [phone] Isabel Ramsay MD [address] [place] [address] documented as of this encounter Procedures Procedure Name Priority Date/Time Associated Diagnosis Comments VITAMIN D,25-OH,TOTAL,IA Routine 07/07/2022 7:33 AM EST PHOSPHATE ( PHOSPHORUS) Routine 07/07/2022 7:33 AM EST documented in this encounter Results * Vitamin D, 25-Hydroxy, Total, Immunoassay (07/07/2022 7:33 AM EST) Vitamin D 25-OH Total 62.0 >30 ng/mL [facility] Comment:Health Based Referen ce Values*< 20 ng/mL [id number] ng/mL Insufficient> 30 ng/mL Sufficient*Rolanda BALL. N [...] AM EST 07/07/2022 7:33 AM EST us [facility] External Provider LAB BLO OD ORDERABLES Final Result [facility] [address] [place] [phone] * (ABNORMAL) Phosphate (As Phosphorus) (07/07/2022 7:33 AM EST) Phosphorus 4.6(H) 2.7 - 4.5 mg/dL [facility] 07/07/2022 7:33 AM EST 07/07/2022 7:33 AM EST us [facility] External Provider LAB BLO OD ORDERABLES Final Result [facility] [address] [place] [phone] documented in this encounter Visit Diagnoses Not on filedocumented in this encounter Care Teams Homemaking Rehabilitation Consultant Relationship Specialty Start Date End Date Isabel Ramsay MD [address] [place] [phone] PCP - General Family Medicine 01/09/19 documented as of this encounter
--- OUTSIDE RECORDS SUMMARY | 2024-07-23 12:24 | XMS_ITS | Encounter Summary ---
Author Organization [employer] Address [address] [facility] [address] [place] [address] Care Team Providers Care Technical Sales Associate Name Role Phone Isabel Ramsay MD Primary Care Provide r Encounter Details Date Type Department Care Team (Latest Contact Info) Description 07/10/2024 Travel Social History Tobacco Use Types Packs/Day Years [...] 8:00 AM EDT Office Visit [facility] ADULT DENTAL [address] [place] [address] Dariela Keen 08/29/2024 10:45 AM EDT Office Visit [facility] MEDICINE [address] [place] [phone] Isabel Ramsay MD [address] [place] [address] documented as of this encounter Visit Diagnoses Not on filedocumented in this encounter Additional Health Concerns Assessment Noted Time PHQ-9 Depression Total Score: 15 024 1:22 PM EDT documented as of this encounter Care Teams Technical Sales Associate Relationship Specialty Start Date End Date Isabel Ramsay MD [address] [place] [address] PCP - General Family Medicine 01/09/19 documented as of this encounter
--- OUTSIDE RECORDS SUMMARY | 2024-07-23 12:24 | XMS_ITS | Encounter Summary ---
Author Organization [employer] Address [address] [facility] 7t [place] [address] Care Team Providers Care Automobile Radio Repairer Name Role Phone Isabel Ramsay MD Primary Care Provide r Reason for Visit * Reason Comments Med Refill Encounter Details Date Type Department Care Team (Late st Contact Info) Description 06/04/2023 Refill [facility] MEDICINE [address] [place], [place] [phone] Isabel Ramsay MD [address] [place], [place] [phone] Type 2 diabetes mellitus without complication, unspecified whether termite helper insulin use ([facility]) Social History [...] 8:00 AM EDT Office Visit [facility] ADULT DENTAL [address] [place] [address] Dariela Keen 08/29/2024 10:45 AM EDT Office Visit [facility] MED[facility] [address] [place] [address] Isabel Ramsay MD [address] [place] [address] documented as of this encounter Visit Diagnoses Diagnosis Type 2 diabetes mellitus without complication, unspecified whether correction insulin use ([facility]) documented in this encounter Additional Health Concerns Assessment Noted Time PHQ-9 Depression Total Score: 17 023 8:32 AM EDT documented as of this encounter Care Teams Automobile Radio Repairer Relationship Specialty Start Date End Date Isabel Ramsay MD [address] [place] [phone] PCP - General Family Medicine 01/09/19 documented as of this encounter
--- OUTSIDE RECORDS SUMMARY | 2024-07-23 12:24 | XMS_ITS | Encounter Summary ---
Author Organization [employer] Address [address] [facility] [address] [place] [address] Care Team Providers Care Instrument Maker And Repairer Name Role Phone Isabel Ramsay MD Primary Care Provide r Encounter Details Date Type Department Care Team ([facility] st Contact Info) Description 07/17/2024 Telephone [facility] ADULT DENTAL [address] [place], [place] [phone] Lina Law, DDS [address] [place] [address] Social History Tobacco Use Types Packs/Day Years [...] Description 08/19/2024 8:00 AM EDT Office Visit [facility] ADULT DENTAL [address] [place] [address] Dariela Keen 08/29/2024 10:45 AM EDT Office Visit [facility] MEDICINE [address] [place] [phone] Isabel Ramsay MD [address] [place] [address] documented as of this encounter Visit Diagnoses Not on filedocumented in this encounter Additional Health Concerns Assessment Noted Time PHQ-9 Depression Total Score: 15 024 1:22 PM EDT documented as of this encounter Care Teams Instrument Maker And Repairer Relationship Specialty Start Date End Date Isabel Ramsay MD [address] [place] [address] PCP - General Family Medicine 01/09/19 documented as of this encounter
--- OUTSIDE RECORDS SUMMARY | 2024-07-23 12:24 | XMS_ITS | Clinical Summary ---
Author Organization [employer] Address [address] [facility] [address] [place] [address] Care Team Providers Care Real Estate Director Name Role Phone Isabel Ramsay MD Primary Care Provide r Allergies No known active allergies Medications * This document contains information received from the source organization and may not represent a complete record from that organization. Ventolin HFA 108 (90 Base) MCG/ACT inhalerIndicatio ns:Mild chronic obstructive pulmonary disease (CMS/HCC) INHALE 2 PUFFS BY MOUTH EVERY 4 TO 6 HOURS NEEDED FOR DIFFICULTY BREATHING. DO NOT EXCEED FOUR TIMES DAILY 18 g 1 023 Active metoprolol succinate XL (Toprol-XL) 25 MG 24 hr tablet Take 25 mg by mouth in the morning. 023 Active FREESTYLE LITE test stripIndications :Diabetic peripheral neuropathy (CMS/HCC) TEST BLOOD SUGAR ONCE DAILY 50 strip 11 024 Active cyanocobalamin (Vitamin B-12) 100 MCG tablet Take 100 mcg by mouth Once per day. Active magnesium hydroxide (Milk of Magnesia) 400 MG/5ML suspension Take by mouth at bedtime. Active Ascorbic Acid (vitamin C) 1000 MG tablet Take 1,000 mg by mouth Once per day. Active gabapentin (Neurontin) 100 MG capsuleIndicatio ns:Fibromyalgia, Diabetic peripheral neuropathy (CMS/HCC) TAKE 3 CAPSULES BY [...] AFTER BRUSHING TEETH DO NOT SWALLOW Active oxyCODONE-acetam inophen (Percocet) 5-325 MG tablet Take 1 tablet by mouth every 6 (six) hours if needed. Active Alcohol Swabs (Alcohol Prep) 70 % pads USE DIRECTED 100 each Active Trulicity 3 MG/0.5ML solution pen-injectorIndi cations:Type 2 diabetes mellitus with hyperglycemia, without long-term current use of insulin ([facility]) INJECT ONE PEN (= 3MG) SUBCUTANEOUSLY ONCE A WEEK DIRECTED 2 mL Active insulin pen needle (Sure Comfort Pen [place]) 31G x 5 mm miscIndications: Type 2 diabetes mellitus with hyperglycemia, without long-term current use of insulin ([facility]) USE DIRECTED ONCE DAILY WITH lantus 100 each Active Lantus SoloStar 100 UNIT/ML penIndications:T ype 2 diabetes mellitus with hyperglycemia, without long-term current use of insulin ([facility]) INJECT 12 UNITS SUBCUTANEOUSLY DAILY AT BEDTIME 15 mL 11 Active sertraline (Zoloft) 25 MG tabletIndication s:Anxiety with depression TAKE 1 TABLET BY MOUTH EVERY MORNING 30 tablet 11 Active lidocaine (Lidoderm) 5 % patchIndications :Localized osteoporosis without current pathological fracture APPLY 1 PATCH TOPICALLY TO SKIN, LEAVE ON FOR 12 HOURS AND OFF FOR 12 HOURS DIRECTED 30 patch 3 Active amLODIPine (Norvasc) 2.5 MG tablet TAKE 1 TABLET BY MOUTH EVERY MORNING 90 tablet Active albuterol (2.5 MG/3ML) 0.083% nebulizer solution INHALE 1 AMPULE USING A NEBULIZER FOUR TIMES DAILY DIRECTED 90 mL 1 Active empagliflozin (Jardiance) 25 MGIndications:Ty pe 2 diabetes mellitus without complication, unspecified whether usp insulin use ([facility]) TAKE 1 TABLET BY MOUTH EVERY MORNING 90 tablet 1 12/30/2 024 Active cholecalciferol VITAMIN D (Vitamin D-3) 50 MCG (1999) tabletIndication s:Vitamin D deficiency TAKE 1 TABLET BY MOUTH EVERY MORNING 90 tablet 1 025 Active glipiZIDE (Glucotrol) 10 MG tabletIndication s:Type 2 diabetes mellitus without complication, unspecified whether usp insulin use ([facility]) TAKE 1 TABLET BY MOUTH TWICE DAILY IN THE MORNING AND IN THE EVENING BEFORE MEALS 180 tablet 025 Active losartan-hydroCH LOROthiazide (Hyzaar) 100-25 MG tabletIndication s:Essential hypertension TAKE 1 TABLET BY MOUTH EVERY MORNING 90 tablet 025 Active Aspirin Low Dose 81 MG chewable tabletIndication s:Type 2 diabetes mellitus with other specified complication, unspecified whether supervisor long goods insulin use (CMS/[facility]) TAKE 1 TABLET BY MOUTH EVERY MORNING (CHEW) 90 tablet 025 Active atorvastatin (Lipitor) 40 MG tabletIndication s:Other hyperlipidemia TAKE 1 TABLET BY MOUTH EVERY MORNING 90 tablet 025 Active pantoprazole (ProtoNix) 20 MG EC tabletIndication s:Chronic GERD TAKE 1 TABLET BY MOUTH TWICE DAILY IN THE MORNING AND IN THE EVENING 180 tablet 025 Active metFORMIN (Glucophage) 1000 MG tabletIndication s:Type 2 diabetes mellitus with other specified complication, unspecified whether usp insulin use (CMS/[facility]) TAKE 1 TABLET BY MOUTH TWICE DAILY IN THE MORNING AND IN THE EVENING WITH FOOD 180 tablet 025 Active Advair HFA 115-21 MCG/ACT inhalerIndicatio ns:Chronic obstructive pulmonary disease, unspecified COPD type ([facility]) INHALE 2 PUFFS BY MOUTH TWICE DAILY IN THE MORNING AND IN THE EVENING. RINSE MOUTH AFTER USING. 12 g 2 025 Active atorvastatin (Lipitor) 40 MG tabletIndication s:Other hyperlipidemia TAKE 1 TABLET BY MOUTH EVERY MORNING 90 tablet 024 2024 Discontinued(R eoada (will not trigger notification to Pharmacy)) metFORMIN (Glucophage) 1000 MG tabletIndication s:Type 2 diabetes mellitus with other specified complication, unspecified whether supervisor long goods insulin use ([facility]) TAKE 1 TABLET BY MOUTH TWICE DAILY IN THE MORNING AND IN THE EVENING WITH FOOD 180 tablet 024 2024 Discontinued(R eorder (will not trigger notification to Pharmacy)) Aspirin Low Dose 81 MG chewable tabletIndication s:Type 2 diabetes mellitus with other specified complication, unspecified whether usp insulin use ([facility]) TAKE 1 TABLET BY MOUTH EVERY MORNING (CHEW) 90 tablet 1 024 2024 Discontinued(R eorder (will not trigger notification to Pharmacy)) pantoprazole (ProtoNix) 20 MG EC tabletIndication s:Chronic GERD TAKE 1 TABLET BY MOUTH TWICE DAILY IN THE MORNING AND IN THE EVENING 180 tablet 1 024 2024 Discontinued(R eorder (will not trigger notification to Pharmacy)) Advair HFA 115-21 MCG/ACT inhalerIndicatio ns:Chronic obstructive pulmonary disease, unspecified COPD type ([facility]) INHALE 2 PUFFS TWICE DAILY IN THE MORNING AND IN THE EVENING. RINSE MOUTH AFTER USING. 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 Follow up with [facility]: Not recommended for follow-up 2. Patient goal is engage in OP therapy. 3. Behavioral Recommendations a. Patient will comply with medication prescribed b. Patient will engage in OP therapy, once established c.. Patient will request to speak with a C during next PCP visit, if needed D. [...] 4:36 PM EST): Continue to follow with financial engineer RSV vaccine and COVID vaccine today, she [...] Encounters Date Type Department Care Team Description 07/19/2024 11:30 AM EST Office Visit [facility] ADULT DENTAL [address] [place] [address] Charleen Amador, SANTOSHS 07/19/2024 Telephone [facility] ADULT DENTAL [address] [place] [address] Velvet Lai 07/19/2024 Refill [facility] MEDICINE [address] [place] [address] Isabel Ramsay MD Chronic obstructive pulmonary disease, unspecified COPD type (CMS/HCC) 07/17/2024 Telephone [facility] ADULT DENTAL [address] [place] [address] Charleen Amador DDS Appointment 07/17/2024 Telephone [facility] ADULT DENTAL [address] [place] [address] Lina Law DDS 07/10/2024 10:00 AM EST Office Visit [facility] OPTOMETRY [address] [facility] [address] Mary Alice Key, OD Type 2 diabetes mellitus without ophthalmic manifestations ([facility]/HCC) (Primary Dx); Early cataracts, bilateral; Presbyopia 07/10/2024 Travel 07/01/2024 Orders Only [facility] MED[facility] [address] [place] [address] Tejas Remy MD 06/28/2024 Refill [facility] MED[facility] [address] [place] [address] Isabel Ramsay MD Type 2 diabetes mellitus with other specified complication, unspecified whether supervisor long goods insulin use ([facility]); Other hyperlipidemia; Chronic GERD 06/27/2024 Orders Only GENERIC EXTERNAL DATA DEPARTMENT Provider, Generic External Data 06/14/2024 2:30 PM EST Office Visit [facility] ADULT DENTAL [address] [place] [address] Charleen Amador, JYOTHI Dental bridge present (Primary Dx) 05/30/2024 Refill [facility] MEDICINE [address] [place] [address] Isabel Ramsay MD Vitamin D deficiency; Type 2 diabetes mellitus without complication, unspecified whether supervisor long goods insulin use ([facility]); Essential hypertension 05/26/2024 Refill [facility] MED[facility]INE [address] [place] [address] Isabel Ramsay MD Type 2 diabetes mellitus without complication, unspecified whether supervisor long goods insulin use ([facility]) 05/10/2024 Refill [facility] MED[facility] [address] [place] [address] Isabel Ramsay MD 05/03/2024 Refill [facility] MED[facility] [address] [place] [address] Polly Castillo MD from Last 3 Months Immunizations Name Administration [...] [facility] [address] [place] [address] Dariela Keen 08/29/2024 10:45 AM EDT Office Visit [facility] MEDICINE [address] [place] [address] Isabel Ramsay MD [address] [place] [address] Health Maintenance Due Date Last Done Comments CT Colonography 1970 FIT DNA/Cologuard 1970 FIT 1970 FOBT [...] 01/17/2025 01/18/2024 Depression Screening 01/24/2025 01/25/2024, 01/25/20 Dental X-Ray: Full Mouth 02/12/2025 02/11/2022, 10/28 Tobacco Screening 07/19/2025 07/19/2024 Eye Exam 07/10/2026 07/10/2024, 06/29, 07/10/2024, Additional history exists Colonoscopy 06/27/2027 06/27/2024 Colorectal Cancer Screening 06/27/2027 DTaP/Tdap/Td Vaccines (3 - Td or Tdap) 03/10/2032 03/10/2022, 11/30/2010 RSV Patients and Patients Aged 60 years or older (1 - 1-dose 75+ series) 12/29/2047 Hepatitis B Vaccines Completed 06/02/2011, 01/28/2011, 11/30/2010 Pneumococcal Vaccine: 50+ Years Completed 03/10/2022, 11/30/2010 Zoster Vaccines Completed 03/28/2024, [...] Diagnosis Comments NO CHARGE PROCEDURE Routine 07/19/2024 1 1:30 AM EST HM COLONOSCOPY Routine 06/27/2024 3:52 PM EST HEMATOXYLIN AND EOSIN STAIN Routine 06/27/2024 10:28 AM EST GLUCOSE, WHOLE BLOOD Routine 06/27/2024 9:43 AM EST CASE PRESENTATION, DETAILED AND EXTENSIVE TREATMENT PLANNING Routine 06/14/2024 [...] hyperglycemia, without long-term current use of insulin ([facility]) BI MAMMOGRAM SCREENING TOMOSYNTHESIS BILATERAL Routine 01/01/2024 [...] Encounter for preventative adult health care examination INTRAORAL - COMPLETE SERIES OF RADIOGRAPHIC IMAGES Routine 02/11/2022 12:00 AM EDT from Last 3 Months or Most Recently Relevant to Health Maintenance Results * Hm Colonoscopy (06/27/2024 3:52 PM EST) us Historical Provider HEALTH MAINTENANCE Final Result * Hematoxylin and Eosin Stain (06/27/2024 10:28 AM EST) 06/27/2024 10:2 8 AM EST 06/27/2024 10:57 AM EST Narrative [facility] - 06/28/2024 4:48 PM EST ----- ------- Name: Denice Sanchez ?Age/Sex: 53/F ? : 1970 Unit#: [id number] ?? Attend Dr: Quyen Hardwick MD ?Re06/27/24 ?Status: DEP SDC ? Location: HO.SSS ?Disch: ? ----- ------- SPEC : [id number] ?RECD: 06/27/24-1056 ? STATUS: ??SOUT ? REQ NUM: [id number] ? ANDRE: 06/27/248 ? SUBM DR: Quyen Hardwick MD ? ENTERED: ??06/27/24 ?SP TYPE: Surgical ? OTHR DR: Isabel [...] Copies To: ?? Isabel Ramsay MD ?? [facility] ?? [address] ?? [place] [address] ?? [phone] ? CONTINUED ON NEXT PAGE ----- ------- Name: Denice Sanchez ?Age/Sex: 53/F ? : 1970 Unit#: [id number] ?? Attend Dr: Quyen Hardwick MD ?Re06/27/24 ?Status: DEP SDC ? Location: HO.SSS ?Disch: ? ----- ------- SPEC : [id number] ?RECD: 06/27/24-6379 ? STATUS: ??SOUT ? REQ NUM: [id number] ? ANDRE: 06/27/24-8 ? SUBM DR: Quyen Hardwick MD ? ENTERED: ??06/27/24-1109 ?SP TYPE: Surgical ? OTHR DR: Isabel Ramsay MD ? ORDERED: ??HE Stain/6, Gross Micro L4/2 ? Copies To: ??(Continued) ?? Quyen Hardwick MD ?? [facility] ?? [address] ?? [place] [address] ?? [phone] ?? [email or web address] ----- ------- Signed (signature on file) Ashlee Hoff MD 06/28/24 8012 ? ----- ------- ? END OF REPORT ? us Generic External Data Provider LAB BLOOD ORDERAB LES Final Result [facility] [address] [place] [address] [phone] * (ABNORMAL) Glucose, Whole Blood (06/27/2024 9:43 AM EST) Glucose, Whole Blood 305(H) 60 - 115 mg/dL [facility] Comment:METER #: [id number] 06/27/2024 9:43 AM EST 06/27/2024 9:55 AM EST us Generic External Data Provider LAB BLOOD ORDERAB LES Final Result [facility] [address] [place] [address] [phone] * (ABNORMAL) POCT HGB A1C (01/18/2024 10:08 AM EDT) [facility] Hemoglobin A1C 9.9(A) 4.0 - 6.0 % QC Media Lot # [id number] Lot# Expiration Date [id number] Blood 01/18/2024 10:0 8 AM EDT Isabel Hubbard MD POINT OF CARE TEST EN TER/EDIT ORDERABLES Final Result * BI Mammogram Screening Tomosynthesis Bilateral (01/01/2024 2:30 PM EDT) Anatomical Region Laterality Modality Breast Bilateral Mammography 01/01/2024 2:30 PM EDT Narrative 01/30/2024 7:51 AM EDT ? [facility] [place] ? [address] ?[place] [address] ? Mammography Report ? Signed ? Patient: Denice Sanchez ?MR#: [id number] ?? [id number] ? : 1970 ?Acct:[id number] ? Age/Sex: 53 / F ?ADM Date: 08/05/24 ? Loc: HO.MAMMO ? Attending Dr: Isabel Hubbard MD ? Ordering Physician: Isabel Ramsay MD ?Results: ?? 1Negative ? Date of Service: 01/01/24 ?Follow Up: 1 Year From Orig ?? inal Mammogram ? Procedure(s): MM tomosynthesis screening BI ?? Accession Number(s): [id number] ? cc: Isabel Ramsay MD ? EXAMINATION: ?? MM SCREENING [...] DD/ 1430 ? TD/TT: 01/01/24 1500 ? Negotiations Director: ? Procedure Note Donotuseinterpreter, Image - 01/30/2024 [facility] [address] [place] [address] Mammography Report Signed Patient: Denice SanchezMR#: [id number] : 1970Acct:[id number] Age/Sex: 53 / FADM Date: 01/01/24 Loc: HO.MAMMO Attending Dr: Isabel Hubbard MD Ordering Physician: Isabel Ramsay MDResults: 1Negative Date of Service: 01/01/24Follow Up: 1 Year From Orig inal Mammogram Procedure(s): MM tomosynthesis screening BI Accession Number(s): [id number] cc: Isabel Ramsay MD EXAMINATION: MM SCREENING [...] 01/30/24 0748 DD/ 1430 TD/TT: 01/01/24 1500 Negotiations Director: us Isabel Hubbard MD IMG BI PROCEDURES Fin al Result * Albumin, Random Urine W/Creatinine (03/16/2023 8:25 AM EDT) Creatinine, Urine 123.94 mg/dL [facility] Microalbumin Urine 12.0 mg/L [facility] Microalbum Creatinine Ratio Ur 9.6 <30 ug/mg cr [facility] Comment:Albumin/Creatinine R atio Reference Ranges: Normal: < 30 ug/mg creatinine Microalbuminuria: 30 - 300 ug/mg creatinineClinical Albuminuria: > 300 ug/mg creatinine 03/16/2023 8:25 AM EDT 03/16/2023 11:03 AM EDT us Isabel Hubbard MD LAB URINE ORDERABLES Final Result [facility] [address] [place] [address] [phone] * (ABNORMAL) Lipid Panel, Standard (03/16/2023 8:25 AM EDT) Triglycerides 229(H) <150 mg/dL [facility] Comment:Desirable Triglyceri de: less than 150 mg/dLBorderline High Triglyceride 150-199 mg/dLHigh Triglyceride: 200-499 mg/dLVery High Triglyceride: greater than or equal to 5OO mg/dL Cholesterol 158 <200 mg/dL [facility] Comment:Desirable Cholestero l: less than 200 mg/dLBorderline High Cholesterol: 200-239 mg/dLHigh Cholesterol: greater than 239 mg/dL LDL Cholesterol Calculated 72 <100 mg/dL [facility] Comment:Desirable LDL: less than 100 mg/dLNear Optimal/Above Optimal LDL: 110- 129 mg/dLBorderline High LDL: 130-159 mg/dLHigh LDL: 160-189 mg/dLVery High LDL: greater than or equal to 190 mg/dL HDL Cholesterol 41 >40 mg/dL [facility] Comment:Desirable HDL: great er than 40 mg/dL Note: This HDL assay may give artificially low results in patients with liver disease. Blood Venous blood specimen / Unknown 03/16/2023 8:25 AM EDT 03/16/2023 11:14 AM EDT Isabel Hubbard MD LAB BLOOD ORDERABLES Final Result [facility] [address] [place] [address] [phone] from Last 3 Months or Most Recently Relevant to Health Maintenance Insurance [facility] C3 DENTAL-[facility] MEDICAID STAND ADULT Care Teams Real Estate Director Relationship Specialty Start Date End Date Isabel Ramsay MD [address] [place] [phone] PCP - General Family Medicine 01/09/19
== END 2024-07-23 11:03 | disposition home or self-care (01) ==
PROVIDERS: PCP Internal Medicine; Visit Provider Internal Medicine
DX: J45.909 Unspecified asthma, uncomplicated (principal); J98.4 Other disorders of lung; R09.02 Hypoxemia; G47.33 Obstructive sleep apnea (adult) (pediatric)
CPT/HCPCS: 99213

== ENCOUNTER → 2024-07-23 10:27 | Outpatient (BNVA) | payer MEDICAID, SELFPAY | PROVIDERS: PCP Internal Medicine; Visit Provider Internal Medicine | DX: J98.4 Other disorders of lung (principal); J45.909 Unspecified asthma, uncomplicated; R09.02 Hypoxemia; G47.33 Obstructive sleep apnea (adult) (pediatric); Z99.89 Dependence on other enabling machines and devices | CPT/HCPCS: 99212 ==

== ENCOUNTER 2024-10-10 07:08 | Outpatient (REF) | payer MEDICAID, SELFPAY ==
--- OUTSIDE RECORDS SUMMARY | 2024-10-10 07:12 | XMS_ITS | Encounter Summary ---
Author Organization [employer] Address [address] [facility] 7[address] [place] [address] Care Team Providers Care Flight Director Name Role Phone Isabel Ramsay MD Primary Care Provide r Mazin Rice PharmD Unavailable [phone] Reason for Visit * Reason Onset Date Comments call back requested 01/19/2023 Encounter Details Date Type Department Care Team (Late st Contact Info) Description 01/19/2023 Telephone [facility] MED[facility]INE [address] [place], [place] [phone] Isabel Ramsay MD [address] [place], [place] [phone] call back requested Social History Tobacco Use [...] for fibromyalgia. Pharmacist wanted to give PCP NINA that it will no longer be in her medbox. * Telephone Encounter - Ame Bullock - 01/19/2023 12:57 PM EDT TC from [facility] requesting a call back in regards of medications : Setraline 25mg and Duloxetine 30mg. Please contact Med box at ext [phone]. PCP DR. Raygoza documented in this encounter Plan of Treatment Upcoming Encounters Date Type Department Care Team (Late st Contact Info) Description 10/24/2024 11:00 AM EDT Medication Management [facility] MEDICINE [address] [place] [phone] Mazin Rice, PharmD [address] [place] [phone] 12/12/2024 10:00 AM EDT Office Visit [facility] MED[facility] [address] [place] [phone] Isabel Ramsay MD [address] [place] [address] 02/20/2025 8:00 AM EDT Office Visit [facility] ADULT DENTAL [address] [place] [phone] Dariela Keen documented as of this encounter Visit Diagnoses Not on filedocumented in this encounter Additional Health Concerns Assessment Noted Time PHQ-9 Depression Total Score: 17 023 8:32 AM EDT documented as of this encounter Care Teams Flight Director Relationship Specialty Start Date End Date Isabel Ramsay MD [address] [place] [phone] PCP - General Family Medicine 01/09/19 Mazin Rice, PharmD [address] [place] [address] Pharmacist Internal Medicine 09/10/24 documented as of this encounter
--- OUTSIDE RECORDS SUMMARY | 2024-10-10 07:12 | XMS_ITS | Encounter Summary ---
Author Organization [employer] Address [address] [facility] [address] [place] [address] Care Team Providers Care Release Manager Name Role Phone Isabel Ramsay MD Primary Care Provide r Mazin Rice PharmD Unavailable [phone] Reason for Visit * Reason Comments Med Refill Encounter Details Date Type Department Care Team (Late st Contact Info) Description 12/30/2022 Refill [facility] [address] [place] [address] Isabel Ramsay MD [address] [place], [place] [phone] Chronic obstructive pulmonary disease, unspecified COPD type [...] Description 10/24/2024 11:00 AM EDT Medication Management [facility] MEDICINE [address] [place], [place] [phone] Mazin Rice, PharmD [address] [place] [phone] 12/12/2024 10:00 AM EDT Office Visit [facility] MEDICINE [address] [place] [address] Isabel Ramsay MD [address] [place] [address] 02/20/2025 8:00 AM EDT Office Visit [facility] ADULT DENTAL [address] [place] [address] Dariela Keen documented as of this encounter Visit Diagnoses Diagnosis Chronic obstructive pulmonary disease, unspecified COPD type (CMS/HCC) documented in this encounter Additional Health Concerns Assessment Noted Time PHQ-9 Depression Total Score: 17 023 8:32 AM EDT documented as of this encounter Care Teams Release Manager Relationship Specialty Start Date End Date Isabel Ramsay MD [address] [place] [phone] PCP - General Family Medicine 01/09/19 Mazin Rice, PharmD [address] [place] [phone] Pharmacist Internal Medicine 09/10/24 documented as of this encounter
--- OUTSIDE RECORDS SUMMARY | 2024-10-10 07:12 | XMS_ITS | Encounter Summary ---
Author Organization [employer] Address [address] [facility] 7t [place] [address] Care Team Providers Care Professional Fee Coder Name Role Phone Isabel Ramsay MD Primary Care Provide r Mazin Rice PharmD Unavailable [phone] Encounter Details Date Type Department Care Team (Late st Contact Info) Description 08/12/2022 Orders Only [facility] [address] [place] [address] Connie Pisano LPN Social History Tobacco Use [...] Description 10/24/2024 11:00 AM EDT Medication Management [facility] MEDICINE [address] [place] [phone] Mazin Rice, PharmD [address] [place], [place] [phone] 12/12/2024 10:00 AM EDT Office Visit [facility] MEDICINE [address] [place] [phone] Isabel Ramsay MD [address] [place], [place] [phone] 02/20/2025 8:00 AM EDT Office Visit [facility] ADULT DENTAL [address] [place], [place] [phone] Dariela Keen documented as of this encounter Visit Diagnoses Not on filedocumented in this encounter Care Teams Professional Fee Coder Relationship Specialty Start Date End Date Isabel Ramsay MD [address] [place], [place] [phone] PCP - General Family Medicine 01/09/19 Mazin Rice, Olya [address] [place], [place] [phone] Pharmacist Internal Medicine 09/10/24 documented as of this encounter
--- OUTSIDE RECORDS SUMMARY | 2024-10-10 07:12 | XMS_ITS | Encounter Summary ---
Author Organization [employer] Address [address] [facility] 7t [place] [address] Care Team Providers Care Label Stamper Name Role Phone Isabel Ramsay MD Primary Care Provide r Mazin Rice PharmD Unavailable [phone] Encounter Details Date Type Department Care Team (Late Contact Info) Description 06/03/2022 Orders Only [facility] CHC MED & PEDS [address] [place] [address] Connie Pisano LPN Social History Tobacco Use [...] Department Care Team (Late Contact Info) Description 10/24/2024 11:00 AM EDT Medication Management [facility] MEDICINE [address] [place], [place] [phone] Mazin Rice, PharmD [address] [place], [place] [phone] 12/12/2024 10:00 AM EDT Office Visit [facility] MEDICINE [address] [facility] [place] [address] Isabel Ramsay MD [address] [facility] [place] [address] 02/20/2025 8:00 AM EDT Office Visit [facility] ADULT DENTAL [address] [place] [address] Dariela Keen documented as of this encounter Procedures Procedure Name Priority Date/Time Associated Diagnosis Comments VITAMIN D,25-OH,TOTAL,IA Routine 07/07/2022 7:33 AM EST PHOSPHATE ( PHOSPHORUS) Routine 07/07/2022 7:33 AM EST documented in this encounter Results * Vitamin D, 25-Hydroxy, Total, Immunoassay (07/07/2022 7:33 AM EST) Vitamin D 25-OH Total 62.0 >30 ng/mL [facility] Comment:Health Based Referen ce Values*< 20 ng/mL Szalbmfdd30-55 ng/mL Insufficient> 30 ng/mL Sufficient*Rolanda BALL. N [...] AM EST 07/07/2022 7:33 AM EST us [facility] External Provider LAB BLO OD ORDERABLES Final Result [facility] [address] [place] [address] [phone] * (ABNORMAL) Phosphate (As Phosphorus) (07/07/2022 7:33 AM EST) Phosphorus 4.6(H) 2.7 - 4.5 mg/dL [facility] 07/07/2022 7:33 AM EST 07/07/2022 7:33 AM EST us [facility] External Provider LAB BLO OD ORDERABLES Final Result Performing Organization Address City/State/[facility] Co de Phone Number [facility] [address] [place] [address] [phone] documented in this encounter Visit Diagnoses Not on filedocumented in this encounter Care Teams Label Stamper Relationship Specialty Start Date End Date Isabel Ramsay MD [address] [place] [address] PCP - General Family Medicine 01/09/19 Mazin Rice, PharmD [address] [place] [address] Pharmacist Internal Medicine 09/10/24 documented as of this encounter
--- OUTSIDE RECORDS SUMMARY | 2024-10-10 07:12 | XMS_ITS | Encounter Summary ---
Author Organization [employer] Address [address] [facility] [address] [place] [address] Care Team Providers Care Daily Release And Dupe Printer Name Role Phone Isabel Ramsay MD Primary Care Provide r Mazin Rice PharmD Unavailable [phone] Encounter Details Date Type Department Care Team (Late st Contact Info) Description 07/01/2024 Orders Only [facility] MEDICINE [address] [place] [address] Provider, MD Tejas Social History Tobacco Use Types Packs/Day Years [...] Description 10/24/2024 11:00 AM EDT Medication Management [facility] MEDICINE [address] [place] [phone] Mazin Rice, PharmD [address] [place] [phone] 12/12/2024 10:00 AM EDT Office Visit [facility] MEDICINE [address] [place] [phone] Isabel Ramsay MD [address] [place] [phone] 02/20/2025 8:00 AM EDT Office Visit [facility] ADULT DENTAL [address] [place] [phone] Dariela Keen documented as of this encounter Procedures Procedure Name Priority Date/Time Associated Diagnosis Comments HM COLONOSCOPY Routine 06/27/2024 3:52 PM EST documented in this encounter Results * Hm Colonoscopy (06/27/2024 3:52 PM EST) us Historical Provider HEALTH MAINTENANCE Final Result documented in this encounter Visit Diagnoses Not on filedocumented in this encounter Additional Health Concerns Assessment Noted Time PHQ-9 Depression Total Score: 15 024 1:22 PM EDT documented as of this encounter Care Teams Daily Release And Dupe Printer Relationship Specialty Start Date End Date Isabel Ramsay MD [address] [place], [place] [phone] PCP - General Family Medicine 01/09/19 Mazin Rice, Olya [address] [place] [address] Pharmacist Internal Medicine 09/10/24 documented as of this encounter
--- OUTSIDE RECORDS SUMMARY | 2024-10-10 07:12 | XMS_ITS | Encounter Summary ---
Author Organization [employer] Address [address] [facility] [address] [place] [address] Care Team Providers Care Grip Assembler Name Role Phone Isabel Ramsay MD Primary Care Provide r Mazin Rice PharmD Unavailable [phone] Reason for Visit * Reason Comments Med Refill Encounter Details Date Type Department Care Team (Late st Contact Info) Description 06/04/2023 Refill [facility] MEDICINE [address] [place], [place] [phone] Isabel Ramsay MD [address] [place], [place] [phone] Type 2 diabetes mellitus without complication, unspecified whether extermination inspector insulin use ([facility]) Social History Tobacco Use Types Packs/Day Years [...] Description 10/24/2024 11:00 AM EDT Medication Management [facility] MEDICINE [address] [place] [phone] Mazin Rice PharmD [address] [place] [phone] 12/12/2024 10:00 AM EDT Office Visit [facility] MEDICINE [address] [place] [phone] Isabel Ramsay MD [address] [place] [phone] 02/20/2025 8:00 AM EDT Office Visit [facility] ADULT DENTAL [address] [place] [phone] Dariela Keen documented as of this encounter Visit Diagnoses Diagnosis Type 2 diabetes mellitus without complication, unspecified whether extermination inspector insulin use ([facility]) documented in this encounter Additional Health Concerns Assessment Noted Time PHQ-9 Depression Total Score: 17 023 8:32 AM EDT documented as of this encounter Care Teams Grip Assembler Relationship Specialty Start Date End Date Isabel Ramsay MD [address] [place] [phone] PCP - General Family Medicine 01/09/19 Mazin Rice, PharmD [address] [place] [phone] Pharmacist Internal Medicine 09/10/24 documented as of this encounter
--- OUTSIDE RECORDS SUMMARY | 2024-10-10 07:12 | XMS_ITS | Encounter Summary ---
Author Organization [employer] Address [address] [facility] [address]t [place] [address] Care Team Providers Care Criminal Justice Social Worker Name Role Phone Isabel Ramsay MD Primary Care Provide r Mazin Rice PharmD Unavailable [phone] Encounter Details Date Type Department Care Team (Late st Contact Info) Description 02/15/2023 Orders Only [facility] CHC MED & PEDS [address] [place] [address] Lizzie Sandoval LPN Social History Tobacco Use [...] 11:00 AM EDT Medication Management [facility] MEDICINE [address] [place] [phone] Mazin Rice, PharmD [address] [place] [address] 12/12/2024 10:00 AM EDT Office Visit [facility] MEDICINE [address] [place] [address] Isabel Ramsay MD [address] [place] [address] 02/20/2025 8:00 AM EDT Office Visit [facility] ADULT DENTAL [address] [place] [address] Dariela Keen documented as of this encounter Visit Diagnoses Not on filedocumented in this encounter Additional Health Concerns Assessment Noted Time PHQ-9 Depression Total Score: 17 023 8:32 AM EDT documented as of this encounter Care Teams Criminal Justice Social Worker Relationship Specialty Start Date End Date Isabel Ramsay MD [address] [place] [phone] PCP - General Family Medicine 01/09/19 Mazin Rice, PharmD [address] [place] [phone] Pharmacist Internal Medicine 09/10/24 documented as of this encounter
--- OUTSIDE RECORDS SUMMARY | 2024-10-10 07:12 | XMS_ITS | Clinical Summary ---
Author Organization [employer] Address [address] [facility] [address] [place] [address] Care Team Providers Care Flying I Instructor Name Role Phone Isabel Ramsay MD Primary Care Provide r Mazin Rice PharmD Unavailable [phone] Allergies No known active allergies Medications * [...] 100 mcg by mouth Once per day. Puchases OTC Active gabapentin (Neurontin) 100 MG capsuleIndicatio ns:Fibromyalgia, Diabetic peripheral neuropathy (CMS/HCC) TAKE 3 CAPSULES BY MOUTH EVERY 8 HOURS 270 capsule 024 Active Acetaminophen Extra Strength 500 MG tablet TAKE 1 TABLET BY MOUTH EVERY 4 TO 6 HOURS NEEDED Active Alcohol Swabs (Alcohol Prep) 70 % pads USE DIRECTED 100 each 11 024 Active insulin pen needle (Sure Comfort Pen [place] Ari) 31G x 5 mm miscIndications: Type 2 diabetes mellitus with hyperglycemia, without long-term current use of insulin ([facility]) USE DIRECTED ONCE DAILY WITH lantus 100 each 11 024 Active albuterol (2.5 MG/3ML) 0.083% nebulizer solution INHALE 1 AMPULE USING A NEBULIZER FOUR TIMES DAILY DIRECTED 90 mL 024 Active cholecalciferol VITAMIN D (Vitamin D-3) 50 MCG (1999 UT) tabletIndication s:Vitamin D deficiency TAKE 1 TABLET BY MOUTH EVERY MORNING 90 tablet 025 Active glipiZIDE (Glucotrol) 10 MG tabletIndication s:Type 2 diabetes mellitus without complication, unspecified whether longwall shearer operator insulin use ([facility]) TAKE 1 TABLET BY MOUTH TWICE DAILY IN THE MORNING AND IN THE EVENING BEFORE MEALS 180 tablet 025 Active losartan-hydroCH LOROthiazide (Hyzaar) 100-25 MG tabletIndication s:Essential hypertension TAKE 1 TABLET BY MOUTH EVERY MORNING 90 tablet 025 Active Aspirin Low Dose 81 MG chewable tabletIndication s:Type 2 diabetes mellitus with other specified complication, unspecified whether mcfp insulin use ([facility]) TAKE 1 TABLET BY MOUTH EVERY MORNING (CHEW) 90 tablet 025 Active atorvastatin (Lipitor) 40 MG tabletIndication s:Other hyperlipidemia TAKE 1 TABLET BY MOUTH EVERY MORNING 90 tablet 025 Active Advair HFA 115-21 MCG/ACT inhalerIndicatio ns:Chronic obstructive pulmonary disease, unspecified COPD type ([facility]) INHALE 2 PUFFS BY MOUTH TWICE DAILY IN THE MORNING AND IN THE EVENING. RINSE MOUTH AFTER USING. 12 g 2 025 Active amLODIPine (Norvasc) 2.5 MG tablet TAKE 1 TABLET BY MOUTH EVERY MORNING 90 tablet 1 025 Active lidocaine (Lidoderm) 5 % patchIndications :Localized osteoporosis without current pathological fracture APPLY 1 PATCH TOPICALLY TO SKIN, LEAVE ON FOR 12 HOURS AND OFF FOR 12 HOURS DIRECTED 30 patch 3 025 Active sertraline (Zoloft) 50 MG tabletIndication s:Mixed anxiety and depressive disorder Take 1 tablet (50 mg) by mouth Once per day. 90 tablet 1 025 2024 Active Continuous Glucose Convertible Power Shovel Operator (FreeStyle Maura 3 [place]) deviceIndication s:Type 2 diabetes mellitus with hyperglycemia, without long-term current use of insulin ([facility]) 1 each Once per day. Use as directed for CGM 1 each Active Continuous Glucose Sensor (FreeStyle Maura 3 Plus Sensor) miscIndications: Type 2 diabetes mellitus with hyperglycemia, without long-term current use of insulin ([facility]) 1 each every 15 days. Apply 1 every 15 days as directed for CGM 2 each Active glucose blood (FreeStyle Precision Jorge Luis Test) test stripIndications :Type 2 diabetes mellitus with hyperglycemia, without long-term current use of insulin ([facility]) Use to test blood sugar 3 times daily in case of CGM failure or extremes of BG 100 each 025 2025 Active pantoprazole (ProtoNix) 40 MG EC tablet TAKE 1 TABLET BY MOUTH 30 MINUTES BEFORE BREAKFAST Active MAGNESIUM OXIDE 400 PO Take 1 tablet by mouth Once per day. Puchases OTC Active Multiple Vitamins-Mineral s (CENTRUM ADULT PO) Take 1 tablet by mouth Once per day. Puchases OTC Active Calcium Carbonate (CALCIUM 500 PO) Take 1 tablet by mouth Once per day. Puchases OTC (unknown strength) Active semaglutide (Ozempic, 1 MG/DOSE,) 4 MG/3ML solution pen-injectorIndi cations:Type 2 diabetes mellitus with hyperglycemia, without long-term current use of insulin ([facility]) Inject 1 mg under the skin 1 (one) time per week. 025 Active insulin glargine (Lantus SoloStar) 100 UNIT/ML penIndications:T ype 2 diabetes mellitus with hyperglycemia, without long-term current use of insulin ([facility]) INJECT 16 UNITS SUBCUTANEOUSLY DAILY AT BEDTIME 15 mL 3 025 Active empagliflozin-me tFORMIN ER (Synjardy XR) 12.5-1000 MG 24 hr tabletIndication s:Type 2 diabetes mellitus with hyperglycemia, without long-term current use of insulin ([facility]) Take 1 tablet by mouth twice daily 60 tablet 5 025 Active empagliflozin (Jardiance) 25 MGIndications:Ty pe 2 diabetes mellitus without complication, unspecified whether mcfp insulin use ([facility]) TAKE 1 TABLET BY MOUTH EVERY MORNING 90 tablet 1 024 2024 Discontinued(A lternate therapy) metFORMIN (Glucophage) 1000 MG tabletIndication s:Type 2 diabetes mellitus with other specified complication, unspecified whether mcfp insulin use ([facility]) TAKE 1 TABLET BY MOUTH TWICE DAILY IN THE MORNING AND IN THE EVENING WITH FOOD 180 tablet 1 025 2024 Discontinued(A lternate therapy) semaglutide (Ozempic) 2 MG/1.5ML solution pen-injectorIndi cations:Type 2 diabetes mellitus with hyperglycemia, without long-term current use of insulin ([facility]) Inject 1 mg under the skin 1 (one) time per week. 2 each 025 2024 Discontinued insulin glargine (Lantus SoloStar) 100 UNIT/ML penIndications:T ype 2 diabetes mellitus with hyperglycemia, without long-term current use of insulin ([facility]) INJECT 14 UNITS SUBCUTANEOUSLY DAILY AT BEDTIME 025 2024 Discontinued(R eorder (will not trigger notification to Pharmacy)) Active Problems Problem Noted Date Diagnosed Date [...] use of insulin 09/28/2022 Assessment & Plan (08/29/2024 12:36 PM EDT): Diabetes is: not controlled - Lab Results Component Value Date HGBA1C 11.4 (A) 08/29/2024 HGBA1C 9.9 (A) 01/18/2024 HGBA1C 8.4 (A) 07/06/2023 - Lab Results Component Value Date MICROALBUR 12.0 03/16/2023 CREATININE 0.85 01/04/2024 -Changes: I discontinue her Trulicity and put her instead on Ozempic 2 mg weekly, I will prescribe CGM and I refer her to pharmacy CDTM - Diabetic eye exam: Up-to-date - Diabetic foot exam:referral done today - Continue lifestyle modifications - Follow up: 3 months Assessment & Plan (01/25/2024 1:46 PM EDT): [...] Anxiety with depression 09/28/2022 Assessment & Plan (08/29/2024 12:36 PM EDT): I went up on sertraline to 50 mg daily BHN was called today Assessment & Plan (11/10/2022 11:48 AM EDT): [...] her sander PLAN: 1. Follow up with C: Not recommended for follow-up 2. Patient goal [...] Osteoporosis 05/04/2022 Fibromyalgia 05/04/2022 Assessment & Plan (08/29/2024 12:35 PM EDT): Patient was educated about multidisciplinary approach for her condition, it was advise cardiovascular exercise, maintain hydration, treat anxiety/depression and take medications as directed Assessment & Plan (07/06/2023 4:37 PM EST): [...] 4:36 PM EST): Continue to follow with hand cooper helper RSV vaccine and COVID vaccine today, she will think about getting flu vaccine Type 2 diabetes mellitus without complication Closed fracture of forearm 01/30/2018 Restrictive lung disease 06/03/2016 Assessment & Plan (07/06/2023 4:37 PM EST): As above Disorder of lung 06/04/2014 Anxiety 12/06/2013 Major depressive disorder 12/06/2013 Vitamin D deficiency 02/17/2012 Type 2 diabetes mellitus 02/17/2012 Essential hypertension 12/08/2011 Assessment & Plan (08/29/2024 12:35 PM EDT): I advised: - Aerobic exercise to reduce BP. Initial [...] consulting health care provider Assessment & Plan (01/25/2024 1:44 PM EDT): [...] home if still high call back Encounters * This document contains information received from the source organization and may not represent a complete record from that organization. Date Type Department Care Team Description 09/27/2024 Telephone [facility] MEDICINE [address] [place] [phone] Isabel Ramsay MD CGM PA 09/26/2024 11:30 AM EDT Telemedicine [address] [address] Mazin Rice, PharmD Type 2 diabetes mellitus with hyperglycemia, without long-term current use of insulin ([facility]) (Primary Dx); Essential hypertension 09/26/2024 Travel 09/12/2024 Telephone [facility] MEDICINE [address] [place] [phone] Mazin Rice, PharmD 09/09/2024 Travel 08/29/2024 10:45 AM EDT Office Visit [facility] MEDICINE [address] [place] [phone] Isabel Ramsay MD Essential hypertension (Primary Dx); Type 2 diabetes mellitus with hyperglycemia, without long-term current use of insulin (CMS/HCC); Mixed anxiety and depressive disorder; Fibromyalgia; Anxiety with depression 08/29/2024 Telephone [facility] MEDICINE [address] [place] [phone] Isabel Ramsay MD Prior Authorization ( PA Request: Roger) 08/29/2024 Travel 08/23/2024 9:30 AM EDT Office Visit [facility] OPTOMETRY [address] [place] [phone] Shahid, Mary Alice, OD Presbyopia (Primary Dx) 08/20/2024 Patient Outreach [facility] MEDICINE [address] [place] [address] Isabel Ramsay MD Pre-visit Planning (SDOH screening negative and tobacco screening negative) 08/19/2024 8:00 AM EDT Office Visit [facility] ADULT DENTAL [address] [place] [address] Dariela Keen Dental calculus (Primary Dx) 08/17/2024 Refill [facility] MEDICINE [address] [place] [address] Isabel Ramsay MD Localized osteoporosis without current pathological fracture 08/09/2024 Population Health Risk Score [facility] () [address] [phone] Provider, Population Health Generic 07/25/2024 Refill [facility] MEDICINE [address] [place] [address] Isabel Ramsay MD 07/19/2024 11:30 AM EST Office Visit [facility] ADULT DENTAL [address] [place] [address] Charleen Amador DDS 07/19/2024 Telephone [facility] ADULT DENTAL [address] [facility] [place] [address] Velvet Lai 07/19/2024 Refill [facility] MEDICINE [address] [place] [address] Isabel Ramsay MD Chronic obstructive pulmonary disease, unspecified COPD type ([facility]/HCC) 07/17/2024 Telephone [facility] ADULT DENTAL [address] [place] [address] Charleen Amador DDS Appointment 07/17/2024 Telephone [facility] ADULT DENTAL [address] [place] [address] Lina Law DDS from Last 3 Months Immunizations Immunization Administration Dates Next Due Hep B, adult 06/02/2011,01/28/2011,11/30/2010 Influenza injectable quadriv alent IIV4 with preservative 05/30/2017 Influenza, IIV3, injectable 01/28/2011 Influenza, Split (incl. mike fied surface antigen) 03/12/2013,02/17/2012 Pfizer Covid-19 Vaccine 12+ 07/06/2023,,12/29/2020 Pneumococcal Conjugate PCV 20 03/10/2022 Pneumococcal Polysaccharide PPSV23 11/30/2010 Tdap 03/10/2022,11/30/2010 Zoster, Recombinant 03/28/2024,01/25/2024 Family History Medical History Relation Name Comments [...] Answer Date Recorded Patient Health Questionnaire-9 Score 0 08/29/2024 Patient Health Questionnaire-9 Score 0 08/29/2024 Last PHQ-9: Questionnaire Data Not on file 0 08/29/2024 Housing Stability Answer Date Recorded What is [...] shut off services in your home? No 08/20/2024 Depression Answer Date Recorded Patient Health Questionnaire-2 Score 0 08/29/2024 Internet Access Answer Date Recorded Internet Access Q1 Yes 08/20/2024 Internet Access Q2 I do not want or need it 07/28 Comments Unknown Sex and Gender Information Value Date Recorded Sex Assigned at Female 03/28/2022 10:21 AM EDT Legal Sex Female 10:21 AM EDT Gender Identity Female 03/28/2022 10:21 AM EDT Sexual Orientation Straight 03/28/2022 10 :21 AM EDT Last Filed Vital Signs Vital Sign Reading Time Taken Comments Blood Pressure 145/84 09/26/2024 11:46 AM EDT Omron (Televisit) Pulse 119 09/26/2024 11:46 AM EDT Temperature 37.1 ??C (98.7 ??F) 08/29/2024 1 0:31 AM EDT Respiratory Rate 22 08/29/2024 10:3 1 AM EDT Oxygen Saturation 96% 01/25/2024 1:1 6 PM EDT Inhaled Oxygen Concentration - - Weight 80.2 kg (176 lb 12.8 oz) 08/29/2024 10:31 AM EDT Height 165.1 cm (5' 5 ) 08/29/2024 10:3 1 AM EDT Body Mass Index 29.42 08/29/2024 10:31 AM EDT Plan of Treatment Upcoming Encounters Date Type Department Care Team (Late st Contact Info) Description 10/24/2024 11:00 AM EDT Medication Management [facility] MEDICINE [address] [place] [phone] Mazin Rice, PharmD [address] [place] [phone] 12/12/2024 10:00 AM EDT Office Visit [facility] MEDICINE [address] [place] [phone] Isabel aRmsay MD [address] [place] [address] 02/20/2025 8:00 AM EDT Office Visit [facility] ADULT DENTAL [address] [place] [phone] Dariela Keen Health Maintenance Due Date Last Done Comments [...] 07/12/2021 Lipid Panel 03/16/2024 03/16/2023, 03/30, 07/12/2021 Dental X-Ray: Bitewings 11/14/2024 11/14/19 24, 02/11/2022, 02/07/2018, Additional history exists Diabetes: Hemoglobin A1C 11/28/2024 025, 01/18/2024, 07/06/2023, Additional history exists Mammogram 12/31/2024 01/01/2024, 11/28, 07/30/2021, Additional history exists Alcohol/Substance Use Screening 01/17/2025 01/18/2024 Dental X-Ray: Full Mouth 02/12/2025 02/11/2022, 10/28 Dental Oral Exam 02/20/2025 08/19/2024, , 02/11/2022, Additional history exists Dental Prophylaxis 02/20/2025 08/19/2024, 0 11/14/2023, 02/21/2022, Additional history exists SDOH Screening 08/20/2025 08/20/2024 Depression Screening 08/29/2025 08/29/2024, 08/30/19 Tobacco Screening 08/29/2025 08/29/2024 Eye Exam 07/10/2026 07/10/2024, 06/29, 07/10/2024, Additional [...] patient's age to complete this topic Meningococcal B Vaccine Aged Out No l onger eligible based on patient's age to complete [...] Procedure Name Priority Date/Time Associated Diagnosis Comments POCT GLYCATED HEMOGLOBIN, TOTAL Routine 08/29/2024 10:34 AM EDT Type 2 diabetes mellitus with hyperglycemia, without long-term current use of insulin ([facility]) POCT GLUCOSE Routine 08/29/2024 10:32 AM EDT Type 2 diabetes mellitus with hyperglycemia, without long-term current use of insulin ([facility]) PERIODIC ORAL EVALUATION - ESTABLISHED PATIENT Routine 08/19/2024 8:00 AM EDT CASE PRESENTATION, DETAILED AND EXTENSIVE TREATMENT PLANNING Routine 08/19/2024 8:00 AM EDT ORAL HYGIENE INSTRUCTIONS Routine 08/19/2024 8:00 AM EDT Dental calculus PROPHYLAXIS - ADULT Routine 08/19/2024 8 :00 AM EDT Dental calculus NO CHARGE PROCEDURE Routine 07/19/2024 1 1:30 AM EST HM COLONOSCOPY Routine 06/27/2024 3:52 PM EST BI MAMMOGRAM SCREENING TOMOSYNTHESIS BILATERAL Routine 01/01/2024 2:30 PM EDT BITEWINGS - 4 RADIOGRAPHIC IMAGES Routine 11/14/2023 8:00 AM EDT ALBUMIN, RANDOM URINE W/CREATININE Routine 03/16/2023 8:25 AM EDT LIPID PANEL, STANDARD Routine 03/16/2023 8:25 AM EDT Encounter for preventative adult health care examination INTRAORAL - COMPLETE SERIES OF RADIOGRAPHIC IMAGES Routine 02/11/2022 12:00 AM EDT from Last 3 Months or Most Recently Relevant to Health Maintenance Results * (ABNORMAL) POCT HGB A1C (08/29/2024 10:34 AM EDT) Hemoglobin A1C 11.4(A) 4.0 - 6.0 % QC Media Lot # [id number] Lot# Expiration Date , Blood 08/29/2024 10:3 4 AM EDT Isabel Hubbard MD POINT OF CARE TEST EN TER/EDIT ORDERABLES Final Result * (ABNORMAL) POCT Glucose (08/29/2024 10:32 AM EDT) Glucose Blood, POC 312(A) 60 - 200 mg/dL QC Media Lot # [id number] Lot# Expiration Date 8,025 Blood Capillary blood specimen / Unknown 08/29/2024 10:32 AM EDT Isabel Hubbard MD POINT OF CARE TEST EN TER/EDIT ORDERABLES Final Result * Hm Colonoscopy (06/27/2024 3:52 PM EST) Tejas Remy MD HEALTH MAINTENANCE Final Result * BI Mammogram Screening Tomosynthesis Bilateral (01/01/2024 2:30 PM EDT) Anatomical Region Laterality Modality Breast Bilateral Mammography 01/01/2024 2:30 PM EDT Narrative 01/30/2024 7:51 AM EDT ? [facility] ? [address] ?[place], [place] [address] ? Mammography Report ? Signed ? Patient: Denice Sanchez ?MR#: [id number] ?? [id number] ? : 1970 ?Acct:[id number] ? Age/Sex: 53 / F ?ADM Date: 01/01/24 ? Loc: HO.MAMMO ? Attending Dr: Isabel Hubbard MD ? Ordering Physician: Isabel Ramsay MD ?Results: ?? 1Negative ? Date of Service: 01/01/24 ?Follow Up: 1 Year From Orig ?? inal Mammogram ? Procedure(s): MM tomosynthesis screening BI ?? Accession Number(s): [id number] ? cc: Isabel Ramsay MD ? EXAMINATION: ?? MM SCREENING DIGITAL BREAST TOMOSYNTHESIS, BILATERAL ? CLINICAL INFORMATION: ? Screening. Asymptomatic. ? COMPARISON: ?? Mammography: This study is compared with prior exams dating back to ? 2019. ? TECHNIQUE: ?? Digital breast tomosynthesis is [...] DD/ 1430 ? TD/TT: 01/01/24 1500 ? Barrel Header: ? Procedure Note Donquirino, Image - 01/30/2024 [facility] [address] [place] [address] Mammography Report Signed Patient: Denice SanchezMR#: [id number] : 1970Acct:[id number] Age/Sex: 53 / FADM Date: 01/01/24 Loc: HO.MAMMO Attending Dr: Isabel Hubbard MD Ordering Physician: Isabel Ramsay MDResults: 1Negative Date of Service: 01/01/24Follow Up: 1 Year From Orig inal Mammogram Procedure(s): MM tomosynthesis screening BI Accession Number(s): [id number] cc: Isabel Ramsay MD EXAMINATION: MM SCREENING [...] 01/30/24 0748 DD/ 1430 TD/TT: 01/01/24 1500 Barrel Header: us Isabel Hubbard MD IMG BI PROCEDURES Fin al Result * Albumin, Random Urine W/Creatinine (03/16/2023 8:25 AM EDT) Creatinine, Urine 123.94 mg/dL [facility] Microalbumin Urine 12.0 mg/L [facility] Microalbum Creatinine Ratio Ur 9.6 <30 ug/mg cr [facility] Comment:Albumin/Creatinine R atio Reference Ranges: Normal: < 30 ug/mg creatinine Microalbuminuria: 30 - 300 ug/mg creatinineClinical Albuminuria: > 300 ug/mg creatinine 03/16/2023 8:25 AM EDT 03/16/2023 11:03 AM EDT us Isabel Hbubard MD LAB URINE ORDERABLES Final Result [facility] [address] [place] [phone] * (ABNORMAL) Lipid Panel, Standard (03/16/2023 8:25 AM EDT) Triglycerides 229(H) <150 mg/dL [facility] Comment:Desirable Triglyceri de: less than 150 mg/dLBorderline High Triglyceride 150-199 mg/dLHigh Triglyceride: 200-499 mg/dLVery High Triglyceride: greater than or equal to 5OO mg/dL Cholesterol 158 <200 mg/dL [facility] Comment:Desirable Cholestero l: less than 200 mg/dLBorderline High Cholesterol: 200-239 mg/dLHigh Cholesterol: greater than 239 mg/dL LDL Cholesterol Calculated 72 <100 mg/dL [facility] Comment:Desirable LDL: less than 100 mg/dLNear Optimal/Above Optimal LDL: 110- 129 mg/dLBorderline High LDL: 130-159 mg/dLHigh LDL: 160-189 mg/dLVery High LDL: greater than or equal to 190 mg/dL HDL Cholesterol 41 >40 mg/dL [facility] Comment:Desirable HDL: great er than 40 mg/dL Note: This HDL assay may give artificially low results in patients with liver disease. Blood Venous blood specimen / Unknown 03/16/2023 8:25 AM EDT 03/16/2023 11:14 AM EDT us Isabel Hubbard MD LAB BLOOD ORDERABLES Final Result [facility] [address] [place] [phone] from Last 3 Months or Most Recently Relevant to Health Maintenance Insurance [facility] C3 Care Teams Flying I Instructor Relationship Specialty Start Date End Date Isabel Ramsay MD [address] [place] [address] PCP - General Family Medicine 01/09/19 Mazin Rice, PharmD [address] [place] [address] Pharmacist Internal Medicine 09/10/24
--- OUTSIDE RECORDS SUMMARY | 2024-10-10 07:12 | XMS_ITS | Encounter Summary ---
Author Organization [employer] Address [address] [facility] [address] [place] [address] Care Team Providers Care Patrol Deputy Sheriff Name Role Phone Isabel Ramsay MD Primary Care Provide r Mazin Rice PharmD Unavailable [phone] Reason for Visit * Reason Comments Med Refill Encounter Details Date Type Department Care Team (Late st Contact Info) Description 11/14/2022 Refill [facility] MED & PEDS [address] [place] [address] Sawyer Richards MD [address] [place] [address] Type 2 diabetes mellitus without complication, unspecified whether alf insulin use ([facility]) Social History Tobacco Use Types Packs/Day Years [...] Description 10/24/2024 11:00 AM EDT Medication Management [facility] MEDICINE [address] [place] [phone] Mazin Rice, Olya [address] [place] [phone] 12/12/2024 10:00 AM EDT Office Visit [facility] MEDICINE [address] [place] [phone] Isabel Ramsay MD [address] [place] [address] [phone] 02/20/2025 8:00 AM EDT Office Visit [facility] ADULT DENTAL [address] [place] [address] [phone] Dariela Keen documented as of this encounter Visit Diagnoses Diagnosis Type 2 diabetes mellitus without complication, unspecified whether alf insulin use ([facility]) documented in this encounter Additional Health Concerns Assessment Noted Time PHQ-9 Depression Total Score: 17 023 8:32 AM EDT documented as of this encounter Care Teams Patrol Deputy Sheriff Relationship Specialty Start Date End Date Isabel Ramsay MD [address] [place] [phone] PCP - General Family Medicine 01/09/19 Mazin Rice, PharmD [address] [place] [address] [phone] Pharmacist Internal Medicine 09/10/24 documented as of this encounter
--- OUTSIDE RECORDS SUMMARY | 2024-10-10 07:12 | XMS_ITS | Encounter Summary ---
Author Organization [employer] Address [address] [facility] [address] [place] [address] Care Team Providers Care Special Education Case Manager Name Role Phone Isabel Ramsay MD Primary Care Provide r Mazin Rice PharmD Unavailable [phone] Reason for Visit * Reason Onset Date Comments Appointment 07/17/2024 Encounter Details Date Type Department Care Team ([facility] st Contact Info) Description 07/17/2024 Telephone [facility] ADULT DENTAL [address] [place] [address] Charleen Amador DDS [address] [place], [place] [phone] Appointment Social History Tobacco Use Types Packs/Day [...] EXAM THAT WAS APPROVED BY AROLDO IN [facility] CS documented in this encounter Plan of Treatment Upcoming Encounters Date Type Department Care Team (Late st Contact Info) Description 10/24/2024 11:00 AM EDT Medication Management [facility] MEDICINE [address] [place] [phone] Mazin Rice, PharmD [address] [place] [phone] 12/12/2024 10:00 AM EDT Office Visit [facility] MEDICINE [address] [place] [address] Isabel Ramsay MD [address] [place] [address] 02/20/2025 8:00 AM EDT Office Visit [facility] ADULT DENTAL [address] [place] [address] Dariela Keen documented as of this encounter Visit Diagnoses Not on filedocumented in this encounter Additional Health Concerns Assessment Noted Time PHQ-9 Depression Total Score: 15 024 1:22 PM EDT documented as of this encounter Care Teams Special Education Case Manager Relationship Specialty Start Date End Date Isabel Ramsay MD [address] [place] [address] PCP - General Family Medicine 01/09/19 Mazin Rice, Olya [address] [place] [address] Pharmacist Internal Medicine 09/10/24 documented as of this encounter
--- OUTSIDE RECORDS SUMMARY | 2024-10-10 07:12 | XMS_ITS | Encounter Summary ---
Author Organization [employer] Address [address] [facility] [address]t [place] [address] Care Team Providers Care Millroom Supervisor Name Role Phone Isabel Ramsay MD Primary Care Provide r Mazin Rice PharmD Unavailable Encounter Details Date Type Department Care Team (Late st Contact Info) Description 07/17/2024 Telephone [facility] ADULT DENTAL [address] [place], [place] [phone] Lina Law DDS [address] [place] [address] Social History Tobacco Use Types Packs/Day Years [...] 11:00 AM EDT Medication Management [facility] MEDICINE [address] [place] [phone] Mazin Rice, PharmD [address] [place] [address] 12/12/2024 10:00 AM EDT Office Visit [facility] MEDICINE [address] [place] [phone] Isabel Ramsay MD [address] [place] [address] 02/20/2025 8:00 AM EDT Office Visit [facility] ADULT DENTAL [address] [place] [phone] Dariela Keen documented as of this encounter Visit Diagnoses Not on filedocumented in this encounter Additional Health Concerns Assessment Noted Time PHQ-9 Depression Total Score: 15 024 1:22 PM EDT documented as of this encounter Care Teams Millroom Supervisor Relationship Specialty Start Date End Date Isabel Ramsay MD [address] [place] [phone] PCP - General Family Medicine 01/09/19 Mazin Rice, BalwinderD [address] [place] [address] Pharmacist Internal Medicine 09/10/24 documented as of this encounter
--- OUTSIDE RECORDS SUMMARY | 2024-10-10 07:12 | XMS_ITS | Encounter Summary ---
Author Organization [employer] [facility] Address [address] [facility] 7t [place] [address] Care Team Providers Care Band Booker Name Role Phone Isabel Ramsay MD Primary Care Provide r Mazin Rice PharmD Unavailable [phone] Encounter Details Date Type Department Care Team (Latest Contact Info) Description 02/11/2022 Abstract [facility] CONVERSIONS Dental, Provider, DDS Social History Tobacco [...] Description 10/24/2024 11:00 AM EDT Medication Management [facility] MEDICINE [address] [place] [phone] Mazin Rice, PharmD 230 [place] [address] 12/12/2024 10:00 AM EDT Office Visit [facility] MEDICINE [address] [place] [phone] Isabel Ramsay MD [address] [place] [address] 02/20/2025 8:00 AM EDT Office Visit [facility] ADULT DENTAL [address] [place] [address] Dariela Keen documented as of this encounter Visit Diagnoses Not on filedocumented in this encounter Care Teams Band Booker Relationship Specialty Start Date End Date Isabel Ramsay MD [address] [place] [address] PCP - General Family Medicine 01/09/19 Mazin Rice, Olya [address] [place] [address] Pharmacist Internal Medicine 09/10/24 documented as of this encounter
--- OUTSIDE RECORDS SUMMARY | 2024-10-10 07:12 | XMS_ITS | Encounter Summary ---
Author Organization [employer] [facility] Address [address] [facility] 7t [place] [address] Care Team Providers Care Sales Inspector Name Role Phone Isabel Ramsay MD Primary Care Provide r Mazin Rice PharmD Unavailable [phone] Reason for Visit * Reason Comments Med Refill Encounter Details Date Type Department Care Team (Late st Contact Info) Description 11/25/2022 Refill [facility] MEDICINE [address] [place], [place] [phone] Kiara Hernandez MD [address] [place], [place] [phone] Mild chronic obstructive pulmonary disease (CMS/HCC) Social [...] Description 10/24/2024 11:00 AM EDT Medication Management [facility] MEDICINE [address] [place] [address] Mazin Rice, Olya [address] [place] [phone] 12/12/2024 10:00 AM EDT Office Visit [facility] MEDICINE [address] [place] [phone] Isabel Ramsay MD [address] [place] [address] [phone] 02/20/2025 8:00 AM EDT Office Visit [facility] ADULT DENTAL [address] [place] [address] [phone] Dariela Keen documented as of this encounter Visit Diagnoses Diagnosis Mild chronic obstructive pulmonary disease (CMS/HCC) Chronic airway obstruction, not elsewhere classified documented in this encounter Additional Health Concerns Assessment Noted Time PHQ-9 Depression Total Score: 17 023 8:32 AM EDT documented as of this encounter Care Teams Sales Inspector Relationship Specialty Start Date End Date Isabel Ramsay MD [address] [place] [address] [phone] PCP - General Family Medicine 01/09/19 Mazin Rice, Olya [address] [place] [address] [phone] Pharmacist Internal Medicine 09/10/24 documented as of this encounter
--- OUTSIDE RECORDS SUMMARY | 2024-10-10 07:12 | XMS_ITS | Encounter Summary ---
Author Organization [employer] Address [address] [facility] 7t [place] [address] Care Team Providers Care Manager Multimedia Name Role Phone Isabel Ramsay MD Primary Care Provide r Mazin Rice PharmD Unavailable [phone] Reason for Visit * Reason Comments Med Refill Encounter Details Date Type Department Care Team (Late st Contact Info) Description 12/01/2022 Refill [facility] MED & PEDS [address] [place] [address] Sawyer Richards MD [address] [place] [address] Type 2 diabetes mellitus without complication, unspecified whether half-way insulin use ([facility]) Social History Tobacco Use Types Packs/Day [...] Description 10/24/2024 11:00 AM EDT Medication Management [facility] MEDICINE [address] [place] [phone] Mazin Rice, Olya [address] [place] [address] 12/12/2024 10:00 AM EDT Office Visit [facility] MEDICINE [address] [place] [address] Isabel Ramsay MD [address] [place] [address] [phone] 02/20/2025 8:00 AM EDT Office Visit [facility] ADULT DENTAL [address] [place] [address] [phone] Dariela Keen documented as of this encounter Visit Diagnoses Diagnosis Type 2 diabetes mellitus without complication, unspecified whether half-way insulin use ([facility]) documented in this encounter Additional Health Concerns Assessment Noted Time PHQ-9 Depression Total Score: 17 023 8:32 AM EDT documented as of this encounter Care Teams Manager Multimedia Relationship Specialty Start Date End Date Isabel Ramsay MD [address] [place] [phone] PCP - General Family Medicine 01/09/19 Mazin Rice, PharmD [address] [place] [address] [phone] Pharmacist Internal Medicine 09/10/24 documented as of this encounter
--- OUTSIDE RECORDS SUMMARY | 2024-10-10 07:12 | XMS_ITS | Encounter Summary ---
Author Organization [employer] Address [address] [facility] [address] [place] [address] Care Team Providers Care Pharmacy Technician Trainee Name Role Phone Isabel Ramsay MD Primary Care Provide r Mazin Rice PharmD Unavailable [phone] Encounter Details Date Type Department Care Team (Late st Contact Info) Description 07/19/2024 Telephone [facility] ADULT DENTAL [address] [place], [place] [phone] Joelle, Velvet [address] [place] [address] Social History Tobacco Use Types Packs/Day Years [...] 10/24/2024 11:00 AM EDT Medication Management [facility] MEDICINE [address] [place] [phone] Mazin Rice, PharmD [address] [place] [phone] 12/12/2024 10:00 AM EDT Office Visit [facility] MEDICINE [address] [place] [phone] Isabel Ramsay MD [address] [place] [address] 02/20/2025 8:00 AM EDT Office Visit [facility] ADULT DENTAL [address] [place] [phone] Dariela Keen documented as of this encounter Visit Diagnoses Not on filedocumented in this encounter Additional Health Concerns Assessment Noted Time PHQ-9 Depression Total Score: 15 024 1:22 PM EDT documented as of this encounter Care Teams Pharmacy Technician Trainee Relationship Specialty Start Date End Date Isabel Ramsay MD [address] [place] [phone] PCP - General Family Medicine 01/09/19 Mazin Rice, BalwinderD [address] [place] [address] Pharmacist Internal Medicine 09/10/24 documented as of this encounter
[2024-10-10 07:52] LABS: Estimated Average Glucose 269 mg/dL; Hemoglobin A1C 331.1312 umol/L; Total Hemoglobin (HGBA1C) 3413.5761 umol/L
[2024-10-10 08:09] LABS: Alanine Aminotransferase 23 U/L (0-31); Albumin Level 4.2 g/dL (3.5-5.0); Alkaline Phosphatase 117 U/L (39-117); Anion Gap 15 (12-20); Aspartate Amino Transferase 20 U/L (5-31); Bilirubin Total 0.4 mg/dL (0.0-1.0); Blood Urea Nitrogen 20 mg/dL (9-16); Calcium 9.7 mg/dL (8.4-10.2); Carbon Dioxide 32 mmol/L (22-29); Chloride 97 mmol/L (96-108); Cholesterol 144 mg/dL (<200); Estimated Glomerular Filt Rate > 60; Glucose Random 175 mg/dL (60-115); HDL Cholesterol 38 mg/dL (>40); LDL Cholesterol Calculated 56 mg/dL (<100); Lipase 28 U/L (8-78); Potassium 3.5 mmol/L (3.3-5.1); Sodium 140 mmol/L (135-145); Total Protein 7.2 g/dL (6.5-8.0); Triglycerides 253 mg/dL (<150)
[2024-10-10 08:29] LABS: TSH reflex Free T4 1.32 uIU/mL (0.32-4.0)
[2024-10-10 08:42] LABS: Folate 9.9 ng/mL (> or = 4.0); Vitamin B12 973 pg/mL (200-900)
[2024-10-10 09:35] LABS: Creatinine Urine 83.89 mg/dL; Microalbum/Creatinine Ratio Ur 13.1 ug/mg cr (<30)
[2024-10-11 19:43] LABS: Transglutaminase IgA <1.0 U/mL
[2024-10-15 15:33] LABS: Vitamin D 25-OH, D2 <4 ng/mL; Vitamin D 25-OH, D3 38 ng/mL; Vitamin D 25-OH, Total 38 ng/mL (30-100)
== END 2024-10-10 07:09 | disposition home or self-care (01) ==
LOC: HO.LAB 07:08
PROVIDERS: Absent Provider Internal Medicine; PCP Internal Medicine; Visit Provider Nurse Practitioner Family
DX: E11.65 Type 2 diabetes mellitus with hyperglycemia (principal); R10.9 Unspecified abdominal pain; K59.00 Constipation, unspecified; R19.7 Diarrhea, unspecified; E55.9 Vitamin D deficiency, unspecified; Z83.3 Family history of diabetes mellitus
CPT/HCPCS: 36415; 80053; 80061; 82043; 82306; 82570; 82607; 82746; 83036; 83690; 84443; 86364

== ENCOUNTER 2024-11-06 10:24 | Outpatient (AMB) | payer MEDICAID, SELFPAY ==
[2024-11-06 10:31] VITALS: BP 110/62; PULSE 100; O2SAT 98; BMI 28.6
--- NOTE | 2024-11-06 10:31 | MHC.OFFVIS ---
Vital Signs 11/06/24 10:31 Height 5 ft 5 in Weight 171 lb 15.369 oz BMI 28.6 BP 110/62 Blood Pressure Location Lt brachial Position Sitting Pulse 100 Pulse Source Pulse Oximeter Pulse Oximetry (%) 98 Oxygen Delivery Method Room Air Intake Visit Reasons: Shortness of breath Intake Note: pt is here for follow up of HARSH and start of oxygen with cpap, and feels good Medical Equipment Repairer Required: No Allergies No Known Allergies Allergy (Verified 11/06/24 11:04) Medication List - Last Reconciled 11/06/24 by Liseth Thomas MD albuterol sulfate 90 mcg/actuation (Ventolin HFA) 2 puffs PO Q6H PRN alcohol swabs (Alcohol Prep Pads) pad topical DIRECTED amlodipine 2.5 mg PO DAILY ascorbic acid (vitamin C) 1,000 mg PO DAILY aspirin 1 tab PO QAM atorvastatin 40 mg PO DAILY blood sugar diagnostic (FreeStyle Lite Strips) As directed cholecalciferol (vitamin D3) 50 mcg PO DAILY dulaglutide (Trulicity) mg subcut QWEEK empagliflozin (Jardiance) 25 mg PO DAILY fluticasone propion-salmeterol 115-21 mcg/actuation (Advair HFA) 2 puffs inhalation BID gabapentin 300 mg PO Q8H glipizide 10 mg PO BIDAC insulin glargine (Lantus Solostar U-100 Insulin) 12 units subcut BEDTIME lidocaine 5% patches topical losartan-hydrochlorothiazide 100-25 mg 1 tab PO DAILY magnesium 400 mg PO DAILY mecobalamin (vitamin B12) 5,000 mcg PO DAILY metformin 1,000 mg PO BID metoprolol succinate ER 25 mg PO DAILY pantoprazole 20 mg PO BID pantoprazole 40 mg PO DAILY pen needle, diabetic (Sure Comfort Pen Needle) As directed sertraline 25 mg PO DAILY zinc acetate 50 mg PO DAILY Do you need a note to return to daycare/school/sports/work: No HPI HPI Shortness of breath: Details: This 53 years old female Thai-speaking comes with her neighbor friend, for follow-up after starting the CPAP therapy. She has been using CPAP very well and missed only 3 nights in the whole month. She claims that she feels better and sleeps better. She also has nocturnal hypoxemia and that is treated by adding O2 to her CPAP at night, Sleep is definitely improved. She does get nasal congestion with the use of CPAP. During the daytime she has only mild intermittent nasal congestion with some sneezing. Her breathing is same as usual she stays mostly in her apartment which is on the 3rd floor. She has to use the stairs for coming down, which she does only for any necessary jobs to do outdoors. [facility] Medical History Postprandial abdominal bloating Tubulovillous adenoma of colon Tubular adenoma of colon HARSH (obstructive sleep apnea) Allergic rhinitis Osteoporosis Asthma Arm mass Tachycardia determined by examination of pulse Restrictive lung disease Hypoxemia Dyspnea Post-COVID syndrome Surgical History H/O: hysterectomy (~2006) History of cholecystectomy (~2003) Hx of heart artery stent Family History Maternal Uncle Colon cancer Paternal Grandfather Colon cancer Mother Colon polyps Lung cancer Maternal Uncle Colon cancer Social History Household Members: Children Housing: Other Housing Other:: three family house Are you a primary care professionals to a significant other at home: No Do you presently have visiting nurse or other home services: No Alcohol intake: never Patient Tobacco Use Status: Never used Tobacco service: No Current occupational status: disabled Review of Systems Const All systems reviewed & are unremarkable except as noted in HPI and below Eyes Reports no additional complaints ENT Reports no additional complaints Card Details: Left to all arm pain. Probably not cardiac. And she also tends to have fast heart rate, for which she is being checked by Cardiology. Resp Reports as per HPI GI Reports no additional complaints Reports no additional complaints Musc Reports other (Left all arm pain, after the COVID vaccine) Skin/Breast Reports system reviewed and no additional complaints, except as documented Neuro Reports no additional complaints Psych Reports no additional complaints Physical Exam Vital Signs: Last Vital Signs Pulse 100 11/06/24 10:31 BP 110/62 11/06/24 10:31 Pulse Ox 98 11/06/24 10:31 Oxygen Delivery Method Room Air 11/06/24 10:31 BMI result Body Mass Index 28.6 Const Other: Somewhat pale looking General: comfortable, no acute distress, alert and awake Orientation/consciousness: patient oriented x3 HEENT Head: Yes normal to inspection General nose exam: No nasal polyps present, No nasal discharge present and Other nasal findings present (She does have mild nasal congestion on both sides) Face and sinus: Yes sinuses nontender Mouth: oropharynx normal Throat: Yes posterior oropharynx normal Eyes General: appearance normal, both eyes and all related structures Neck Neck: Yes normal visual inspection, Yes no lymphadenopathy, Yes trachea midline and Yes no JVD Thyroid: Thyroid normal Chest Chest palpation & inspection: normal inspection of the chest, normal palpation of entire chest wall and no tenderness Resp Other: Percussion note resonant except for mild dullness over the left base. Breath sounds are decreased over the left lower lobe area. No wheezes or rhonchi are heard. Cardio Palpation: normal PMI Rate: regular rate and tachycardic Rhythm: regular rhythm Heart sounds: no gallops and no murmurs Peripheral pulses: Peripheral pulses 2+ throughout GI Palpation (GI): Soft to palpation, Tenderness to palpation present (GI), No hepatosplenomegaly present and Palpable mass present Auscultation: normal bowel sounds Back/Spine/Pelvis Thoracic/Lumbar Spine: thoracic and lumbar spine normal to inspection Skin General skin exam: no rashes or lesions noted Neuro General: patient oriented x3 and no focal motor deficits Cranial nerves: Yes CN's II-XII intact bilaterally Extrem General: Yes normal to inspection, Yes no clubbing, cyanosis or edema and Yes no calf tenderness Psych Appearance: grossly normal and well kempt Speech and movement: Normal speech and movement present Results Reviewed Results Reviewed: Compliance report for the last 30 nights reviewed. She has used 27/30 nights, 90% Average use it per night 6 hours 7 minutes. Pressure setting is 13 cm No significant air leak next residual AHI only 0.3 Assessment & Plan Assessment & Plan (1) HARSH (obstructive sleep apnea): Comment: PATIENT DOES HAVE HISTORY OF OBSTRUCTIVE SLEEP APNEA DIAGNOSED IN 2015 BUT THERE HAS BEEN NO TREATMENT OR FOLLOW-UP. RECENT HOME-BASED SLEEP STUDY DID CONFIRM THE DIAGNOSIS OF SLEEP APNEA., ALONG WITH NOCTURNAL HYPOXEMIA. SINCE HER LAST VISIT SHE HAS BEEN STARTED ON CPAP WHICH SHE USES VERY REGULARLY, SHE IS ALSO ADDING O2 1 L/MIN. COMPLIANCE IS GOOD. SLEEP QUALITY MUCH IMPROVED. PATIENT HAS NASAL CONGESTION AGGRAVATED BY USE OF CPAP. Code(s): G47.33 - Obstructive sleep apnea (adult) (pediatric) Category: Medical Plan: ADVISED TO CONTINUE USING THE CPAP REGULARLY ALONG WITH O2 SUPPLEMENTATION. MONITORING ATROVENT NASAL SPRAY TO USE 1 SPRAY IN EACH NOSTRIL BEFORE PUTTING ON THE CPAP. (2) Asthma: Comment: HAS MILD, INTERMITTENT BOUTS OF WHEEZING, ALSO SHE TENDS TO GET COUGH AND WHEEZING IF SHE IS EXPOSED TO ANY BODY WITH PERFUME , OR HOUSEHOLD SPRAYS ETC. Code(s): J45.909 - Unspecified asthma, uncomplicated Category: Medical Plan: CONTINUE TO USE FLUTICASONE-SALMETEROL 115-212 PUFFS B.I.D. USE ALBUTEROL HFA 2 PUFFS Q 4-6 HOURS ONLY P.R.N. (3) Restrictive lung disease: Comment: HAS SEVERE RESTRICTIVE PULMONARY DISORDER, MAINLY DUE TO HER CHRONICALLY ELEVATED LEFT HEMIDIAPHRAGM. Code(s): J98.4 - Other disorders of lung Category: Medical Plan: SHE IS ALWAYS ENCOURAGED TO DO DEEP BREATHING EXERCISES 2 OR 3 TIMES A DAY (4) Hypoxemia: Comment: H/O HYPOXEMIA WHICH HAD WORSENED AFTER SHE HAD COVID INFECTION LAST YEAR. IT DID IMPROVE GRADUALLY . SHE DOES HAVE O2 CONCENTRATOR AND PORTABLE UNIT AT HOME BUT HARDLY NEEDS TO USE IT. During CPAP titration study she was found to be hypoxemic even with the use of CPAP. She did need to have O2 supplementation at 1 L/minute. Code(s): R09.02 - Hypoxemia Category: Medical Plan: USE O2 2 L/MINUTE P.R.N. DURING THE DAYTIME AND ALSO USE O2 1 L/MINUTE ALONG WITH THE CPAP AT NIGHT. Medications: New ipratropium bromide administer into each nostril USE 2 SPRAYS IN EACH NOSTRIL BEFORE PUTTING ON THE CPAP MASK AT NIGHT. 2 sprays intranasal BID 30 mL 4RF RHINITIS 30 days Coding Level of Care Code Est Pt Level 4 (59170) Diagnoses HARSH (obstructive sleep apnea) G47.33 Asthma J45.909 Restrictive lung disease J98.4 Hypoxemia R09.02
--- OUTSIDE RECORDS SUMMARY | 2024-11-06 11:49 | XMS_ITS | Encounter Summary ---
Author Organization [employer] Address 75 [facility] 7t [place] [address] Care Team Providers Care Core Oven Tender Name Role Phone Isabel Ramsay MD Primary Care Provide r Mazin Rice PharmD Unavailable [phone] Encounter Details Date Type Department Care Team (Late st Contact Info) Description 09/13/2022 Orders Only [facility] MED & PEDS [address] [place] [address] Connie Pisano LPN Social History Tobacco Use [...] Care Team (Late st Contact Info) Description 11/08/2024 11:30 AM EDT Telemedicine [facility] MEDICINE [address] [place] [phone] Mazin Rice, PharmD [address] [place], [place] [phone] 12/12/2024 10:00 AM EDT Office Visit [facility] MEDICINE [address] [place] [address] [phone] Isabel Ramsay MD [address] [place] [address] [phone] 02/12/2025 10:45 AM EDT Office Visit [facility] MEDICINE [address] [place] [phone] Isabel Ramsay MD [address] [place] [phone] 02/20/2025 8:00 AM EDT Office Visit [facility] ADULT DENTAL [address] [place] [address] [phone] Dariela Keen documented as of this encounter Visit Diagnoses Not on filedocumented in this encounter Care Teams Core Oven Tender Relationship Specialty Start Date End Date Isabel Ramsay MD [address] [place] [address] [phone] PCP - General Family Medicine 01/09/19 Mazin Rice, BalwinderD [address] [place] [phone] Pharmacist Internal Medicine 09/10/24 documented as of this encounter
== END 2024-11-06 11:04 | disposition home or self-care (01) ==
LOC: HO.HPS 10:25
PROVIDERS: PCP Internal Medicine; Visit Provider Internal Medicine
DX: G47.33 Obstructive sleep apnea (adult) (pediatric) (principal); J45.909 Unspecified asthma, uncomplicated; J98.4 Other disorders of lung; R09.02 Hypoxemia
CPT/HCPCS: 99214

== ENCOUNTER → 2024-11-06 10:24 | Outpatient (BNVA) | payer MEDICAID, SELFPAY | PROVIDERS: PCP Internal Medicine; Visit Provider Internal Medicine | DX: G47.33 Obstructive sleep apnea (adult) (pediatric) (principal); J98.4 Other disorders of lung; J45.909 Unspecified asthma, uncomplicated; R09.02 Hypoxemia | CPT/HCPCS: 99212 ==

== ENCOUNTER 2024-12-24 13:56 | Outpatient (AMB) | payer MEDICAID, SELFPAY ==
--- NOTE | 2024-12-24 13:57 | MHC.OFFVIS ---
Vital Signs 12/24/24 14:11 Height 5 ft 5 in Weight 170 lb BMI 28.3 BP 114/68 Blood Pressure Location Rt brachial Position Sitting Pulse 102 H Pulse Source Pulse Oximeter Pulse Oximetry (%) 96 Oxygen Delivery Method Room Air Intake Visit Reasons: 3 mo f/u R/S 10/07/24 Intake Note: ESTABLISHED PATIENT for GERD mgmt. Labs done. CC; Pt denies any changes or new sx since last visit. Reports that her glucose levels, weight, and GI sx have been very well controlled. Seasonal Clerk Required: Yes Seasonal Clerk Services: Seasonal Clerk Offered & Declined Accompanied by: Family/Other Allergies No Known Allergies Allergy (Verified 12/24/24 13:58) HPI HPI 3 mo f/u R/S 10/07/24: Details: LAST VISIT: Acid reflux NAFLD (nonalcoholic fatty liver disease) History of colitis Tubular adenoma of colon Tubulovillous adenoma of colon Postprandial abdominal bloating Plan Will check CMP. History of nonalcoholic fatty liver. Patient does have a epigastric pain we will order lipase to rule out chronic pancreatitis. Check A1c level, rule out celiac. Will check vitamin B 12, folate, D levels as well as thyroid study. Patient will be started on pantoprazole. Avoid dietary triggers and late night snacking. Staying upright for minimum 3 hours after meals discussed with patient. Patient reports abdominal bloating and reports that she is moving her bowels well. Low FODMAP diet discussed with patient. List of food recommended as well as list of food to avoid given to patient. Patient will return in 3 months. She will call us if her symptoms will get worse or develop any other GI concerning symptoms. Patient will have colonoscopy in 18 months or so due to tubulovillous adenoma. Patient is agreeable to this plan and verbalizes understanding of instructions. She was given the opportunity to ask questions and all questions answered. ? Thank you for allowing me to participate in her care Orders Lipase Today R10.9 Hemoglobin A1c Today Z83.3 Comprehensive Met. Panel Today K21.9 TSH reflex Free T4 Today K59.00 Transglutaminase IgA Today R10.9 Vitamin D 25-OH (D2 and D3) Today E55.9 Vitamin B12 and Folate Today R19.7 New pantoprazole take one tablet half an hour before breakfast 40 mg PO DAILY 30 tabs 2RF K21.9 TODAY'S VISIT Patient is here today for follow-up. Patient reports that since last visit she has been doing well. Patient is taking pantoprazole every morning and her symptoms of acid reflux are controlled. Patient also reports that since she was placed on Ozempic her blood sugars have been controlled. She is losing weight. Patient also is making better choices when it comes to eating healthier. Patient denies any abdominal pain or discomfort. Does admit to have occasional abdominal bloating depending on what she eats. Patient noticed that after drinking milk she will have abdominal bloating. Denies melena, hematochezia, unintentional weight loss or ribbon like stools. Denies any dyspepsia, dysphagia or odynophagia. Patient moves her bowels without any issues. [facility] Medical History Postprandial abdominal bloating Tubulovillous adenoma of colon Tubular adenoma of colon HARSH (obstructive sleep apnea) Allergic rhinitis Osteoporosis Asthma Arm mass Tachycardia determined by examination of pulse Restrictive lung disease Hypoxemia Dyspnea Post-COVID syndrome Surgical History H/O: hysterectomy (~2006) History of cholecystectomy (~2003) Hx of heart artery stent Family History Maternal Uncle Colon cancer Paternal Grandfather Colon cancer Mother Colon polyps Lung cancer Maternal Uncle Colon cancer Social History Household Members: Children Housing: Other Housing Other:: three family house Are you a primary family day care provider to a significant other at home: No Do you presently have visiting nurse or other home services: No Alcohol intake: never Patient Tobacco Use Status: Never used Tobacco service: No Current occupational status: disabled Review of Systems Const Denies weight gain and Denies weight loss ENT Reports no additional complaints, Denies dysphagia and Denies odynophagia Card Reports no additional complaints Resp Reports no additional complaints GI Denies abdominal pain, Denies belching, Denies melena, Reports bloating, Denies change in bowel habits, Denies dysphagia, Denies excessive flatus, Denies dyspepsia, Denies heartburn, Denies diarrhea, Denies loose stools, Denies nausea, Denies odynophagia and Denies vomiting Reports no additional complaints Musc Reports no additional complaints Neuro Reports no additional complaints Psych Reports no additional complaints Endo Reports no additional complaints Physical Exam Vital Signs: BMI result Body Mass Index 28.3 Const General: healthy appearing and no acute distress Nutritional Appearance: obese Orientation/consciousness: patient oriented x3 Resp Effort & Inspection: normal respiratory effort, able to speak in complete sentences, no tracheal deviation and symmetric chest movement Auscultation: clear to auscultation bilaterally Cardio Rate: regular rate GI Inspection: Yes normal to inspection, No distended and Yes obesity Palpation (GI): Soft to palpation, not firm, nontender and No hepatosplenomegaly present Auscultation: normal bowel sounds General: Yes no CVA tenderness Back/Spine/Pelvis Back: no CVA tenderness Skin General skin exam: elasticity normal, turgor normal and dry skin Neuro General: patient oriented x3 Psych Appearance: grossly normal Mental Status: mental status grossly normal Results Reviewed Results Reviewed: Laboratory Tests 10/10/24 07:19 Hemoglobin A1c % 11.0 H Total Bilirubin 0.4 AST 20 ALT 23 Alkaline Phosphatase 117 Lipase 28 25-OH Vitamin D Total 38 Folate 9.9 TSH 1.32 Tiss Transglutamin IgA <1.0 Assessment & Plan Assessment & Plan (1) Acid reflux: Code(s): K21.9 - Gastro-esophageal reflux disease without esophagitis Category: Medical Qualifiers: Esophagitis presence: esophagitis presence not specified Qualified Code(s): K21.9 - Gastro-esophageal reflux disease without esophagitis (2) NAFLD (nonalcoholic fatty liver disease): Code(s): K76.0 - Fatty (change of) liver, not elsewhere classified Category: Medical (3) Tubular adenoma of colon: Code(s): D12.6 - Benign neoplasm of colon, unspecified Category: Medical (4) Tubulovillous adenoma of colon: Code(s): D12.6 - Benign neoplasm of colon, unspecified Category: Medical (5) Postprandial abdominal bloating: Code(s): R14.0 - Abdominal distension (gaseous) Category: Medical (6) History of colitis: Code(s): Z87.19 - Personal history of other diseases of the digestive system Plan Patient will continue taking pantoprazole daily. Avoid dietary triggers and like that snacking. Staying upright for minimal 3 hours after meals discussed with patient. Increase fluid intake and activity to promote better bowel motility. Patient will continue dietary restrictions. Discussed with patient low FODMAP diet. Patient will refer to her list at home. Patient will return in 3 months. We will recheck liver enzymes and will send her for ultrasound with elastography. Patient is agreeable to this plan and verbalizes understanding of instructions. She was given the opportunity to ask questions all questions answered. Thank you for allowing me to participate in her care Medications: Refilled pantoprazole take one tablet half an hour before breakfast 40 mg PO DAILY 90 tabs 2RF K21.9 - Gastro-esophageal reflux disease without esophagitis Coding Level of Care Code Est Pt Level 4 (10299) Complex EM visit Add On G2211 Diagnoses Gastroesophageal reflux disease, unspecified whether esophagitis present K21.9 Esophagitis presence: esophagitis presence not specified NAFLD (nonalcoholic fatty liver disease) K76.0 Tubular adenoma of colon D12.6 Tubulovillous adenoma of colon D12.6 Postprandial abdominal bloating R14.0 History of colitis Z87.19 Time Spent (min) 35 Comment 25 minutes spent with patient and additional 10 minutes spent reviewing her records
[2024-12-24 14:11] VITALS: BP 114/68; PULSE 102; O2SAT 96; BMI 28.3
== END 2024-12-24 14:24 | disposition home or self-care (01) ==
LOC: HO.HGI 13:56
PROVIDERS: PCP Internal Medicine; Visit Provider Nurse Practitioner Family
DX: K21.9 Gastro-esophageal reflux disease without esophagitis (principal); K76.0 Fatty (change of) liver, not elsewhere classified; D12.6 Benign neoplasm of colon, unspecified; R14.0 Abdominal distension (gaseous); Z87.19 Personal history of other diseases of the digestive system
CPT/HCPCS: 99214

== ENCOUNTER → 2024-12-24 13:56 | Outpatient (BNVA) | payer MEDICAID, SELFPAY | PROVIDERS: PCP Internal Medicine; Visit Provider Nurse Practitioner Family | DX: K21.9 Gastro-esophageal reflux disease without esophagitis (principal); K76.0 Fatty (change of) liver, not elsewhere classified; D12.6 Benign neoplasm of colon, unspecified; R14.0 Abdominal distension (gaseous); Z87.19 Personal history of other diseases of the digestive system | CPT/HCPCS: 99212 ==

== ENCOUNTER 2025-01-06 14:16 | Outpatient (REF) | payer MEDICAID, SELFPAY ==
--- OUTSIDE RECORDS SUMMARY | 2025-01-06 14:47 | XMS_ITS | Encounter Summary ---
Author Organization [employer] Address [address] [place] [address] Care Team Providers Care It Investment/Portfolio Manager Name Role Phone Isabel Ramsay MD Primary Care Provide r Mazin Rice PharmD Unavailable [phone] Encounter Details Date Type Department Care Team (Late st Contact Info) Description 09/13/2022 Orders Only [facility] [address] [place] [address] Connie Pisano LPN Social History Tobacco Use [...] Care Team (Late st Contact Info) Description 02/12/2025 10:45 AM EDT Office Visit [facility] [address] [place] [address] Isabel Ramsay MD [address], [place] [phone] 02/20/2025 8:00 AM EDT Office Visit [facility] [address], [place] [phone] Dariela Keen 03/27/2025 11:00 AM EDT Medication Management [facility] [address] [place] [address] Mazin Rice, BalwinderD [address] [place] [address] documented as of this encounter Visit Diagnoses Not on filedocumented in this encounter Care Teams It Investment/Portfolio Manager Relationship Specialty Start Date End Date Iasbel Ramsay MD [address] [place] [phone] PCP - General Family Medicine 01/09/19 Mazin Rice, BalwinderD [address] [place] [phone] Pharmacist Internal Medicine 09/10/24 documented as of this encounter
== END 2025-01-06 14:17 | disposition home or self-care (01) ==
LOC: HO.MAMMO 14:16
PROVIDERS: PCP Internal Medicine; Visit Provider Internal Medicine
DX: Z12.31 Encounter for screening mammogram for malignant neoplasm of breast (principal)
CPT/HCPCS: 77063; 77067

== ENCOUNTER → 2025-01-06 14:30 | Outpatient (BNV) | payer MEDICAID, SELFPAY | PROVIDERS: PCP Internal Medicine; Visit Provider Radiology Body Imaging | DX: Z12.31 Encounter for screening mammogram for malignant neoplasm of breast (principal) | CPT/HCPCS: 77063; 77067 ==

== ENCOUNTER 2025-02-13 11:00 | Outpatient (AMB) | payer MEDICAID, SELFPAY ==
--- OUTSIDE RECORDS SUMMARY | 2025-02-12 10:45 | XMS_ITS | Encounter Summary ---
Author Organization [employer] Address [address] [place] [address] Care Team Providers Care Baker Chef Name Role Phone Isabel Ramsay MD Primary Care Provide r Mazin Rice PharmD Unavailable [phone] Encounter Details Date Type Department Care Team (Late st Contact Info) Description 02/12/2025 10:45 AM EDT Office Visit [facility] [address], [place] [id number] Isabel Ramsay MD [address], [place] [phone] Type 2 diabetes mellitus with hyperglycemia, with long-term current use of insulin ([facility]) (Primary Dx); Essential hypertension; Encounter for preventive care Social History Tobacco Use Types Packs/Day Years Used Date Smoking Tobacco: Never Passive Smoke Exposure: Never Smokeless Tobacco: Never Alcohol Use Standard Drinks/Week Comments Not Currently 0 (1 standard drink = 0.6 oz pur e alcohol) Depression Answer Date Recorded Patient Health Questionnaire-9 Score 15 02/12/2025 Patient Health Questionnaire-9 Score 15 02/12/2025 Last PHQ-9: Questionnaire Data Not on file 0 02/12/2025 Housing Stability Answer Date Recorded What is [...] Answer Date Recorded Patient Health Questionnaire-2 Score 3 02/12/2025 Internet Access Answer Date Recorded Internet Access Q1 Yes 01/21/2025 Internet Access Q2 Not on file 01/21/2025 Comments Unknown Sex and Gender Information Value Date Recorded Sex Assigned at Female 03/28/2022 10:21 AM EDT Legal Sex Female 10:21 AM EDT Gender Identity Female 03/28/2022 10:21 AM EDT Sexual Orientation Straight 03/28/2022 10 :21 AM EDT documented as of this encounter Last Filed Vital Signs Vital Sign Reading Time Taken Comments Blood Pressure 108/72 02/12/2025 10:42 AM EDT Pulse 108 02/12/2025 10:42 AM EDT Temperature 36.2 C (97.2 F) 02/12/2025 10:42 AM EDT Respiratory Rate 22 02/12/2025 10:4 2 AM EDT Oxygen Saturation 98% 02/12/2025 10: 42 AM EDT Inhaled Oxygen Concentration - - Weight 78.4 kg (172 lb 12.8 oz) 025 10:42 AM EDT Height 165.1 cm (5' 5 ) 02/12/2025 10:4 2 AM EDT Body Mass Index 28.76 02/12/2025 10:42 AM EDT documented in this encounter Functional Status * Over the past 2 weeks, how often have you been bothered by any of the following problems? Question Answer Date of Assessment Author Patient Health Questionnaire-2 Score 3 01/27 11:14 AM EDT Jenna Adams MA * Little interest or pleasure in doing things Answer Date of Assessment Author Not at all 02/12/2025 11:14 AM Lee Mahajan MA * Feeling down, depressed, or hopeless Answer Date of Assessment Author Nearly every day 02/12/2025 11:14 AM Jenna Mahajan MA * Trouble falling or staying asleep, or sleeping too much Answer Date of Assessment Author Nearly every day 02/12/2025 11:14 AM Jenna Mahajan MA * Feeling tired or having little energy Answer Date of Assessment Author Nearly every day 02/12/2025 11:14 AM Jenna Mahajan MA * Poor appetite or overeating Answer Date of Assessment Author Nearly every day 02/12/2025 11:14 AM Jenna Mahajan MA * Feeling bad about yourself - or that you are a failure or have let yourself or your family down Answer Date of Assessment Author Not at all 02/12/2025 11:14 AM Lee Mahajan MA * Trouble concentrating on things, such as reading the newspaper or watching television Answer Date of Assessment Author Not at all 02/12/2025 11:14 AM Lee Mahajan MA * Moving or speaking so slowly that other people could have noticed? Or the opposite - being so fidgety or restless that you have been moving around a lot more than usual. Answer Date of Assessment Author Nearly every day 02/12/2025 11:14 AM Jenna Mahajan MA * Thoughts that you would be better off or hurting yourself in some way Answer Date of Assessment Author Not at all 02/12/2025 11:14 AM Lee Mahajan MA * Patient Health Questionnaire-9 Score Answer Date of Assessment Author 15 02/12/2025 11:14 AM Lee Mahajan MA * How difficult have these problems made it for you to do your work, take care of things at home, or get along with other people? Answer Date of Assessment Author Somewhat difficult 02/12/2025 11:14 AM Jenna Mahajan MA * Over the last 2 weeks, how often have you been bothered by any of the following problems? Question Answer Date of Assessment Author Feeling nervous, anxious, or on edge 1 01/27 11:13 AM EDT Jenna Adams MA Not being able to stop or co ntrol worrying 0 02/12/2025 11:13 AM EDT Jenna Adams MA Worrying too much about diff erent things 0 02/12/2025 11:13 AM EDT Jenna Adams MA Trouble relaxing 0 02/12/2025 11:13 AM EDT Jenna Adams MA Being so restless that it is hard to sit still 0 02/12/2025 11:13 AM EDT Jenna Adams MA Becoming easily annoyed or irritable 1 01/27 11:13 AM EDT Jenna Adams MA Feeling afraid as if somethi ng awful might happen 0 02/12/2025 11:13 AM EDT Jenna Adams MA SILVIA-7 Total Score 2 02/12/2025 11:13 AM EDT Jenna Adams MA documented as of this encounter Progress Notes * Isabel Hubbard MD - 02/12/2025 10:45 AM EDT SUBJECTIVE: Denice Lobato is a 54 y.o. year old female who presents for Physical . Occupation:retired Lives with:alone Social Hx: denies drinking EtOH, denies smoking cigarettes and denies recreational drug use. Diet:regular Exercise:sedentary Pap Smear:N/A hysterectomy Colonoscopy:06/27/2027 Mammogram due on 01/06/2026 Eye Care:up to date Dental Care:up to date PMHx:on chart Immunizations: Reviewed Acute Concerns: None Social History Social History Narrative Not on file Problem List[1] Osteoporosis Fibromyalgia Mild chronic obstructive pulmonary disease (CMS/HCC) Diabetic peripheral neuropathy (CMS/HCC) Essential hypertension Type 2 diabetes mellitus with hyperglycemia, without long-term current use of insulin ([facility]/HCC) Acute flank pain Kidney stones Pain of toe of left foot SILVIA (generalized anxiety disorder) Closed fracture of forearm Osteomyelitis of left foot (CMS/HCC) Restrictive lung disease Disorder of lung Vitamin D deficiency Sinus tachycardia Major depressive disorder Chronic left shoulder pain Pain of left upper arm Type 2 diabetes mellitus (CMS/HCC) Type 2 diabetes mellitus without complication ([facility]) Encounter for preventative adult health care examination Umbilical hernia Ventral hernia without obstruction or gangrene O2 dependent Salmonella food poisoning Colon cancer screening Encounter for preventive care Muscle spasm Vaginal itching Allergic rhinitis Arm mass Asthma Class 1 obesity Colitis Dyspnea Early satiety Family history of colonic polyps Fatty liver NAFLD (nonalcoholic fatty liver disease) Acid reflux GERD (gastroesophageal reflux disease) Hemorrhagic diarrhea Hypoxemia Post-COVID syndrome HARSH (obstructive sleep apnea) Abdominal pain Hypertension Tachycardia determined by examination of pulse Diabetes ([facility]) Hyperglycemia Family History[2] Review of Systems Constitutional: Negative. HENT: Negative. Respiratory: Negative. Cardiovascular: Negative. OBJECTIVE: Vitals: 02/12/25 1042 BP: 108/72 BP Location: Left arm Patient Position: Sitting BP Cuff Size: Adult Pulse: 108 Resp: 22 Temp: 97.2 ??F (36.2 ??C) TempSrc: Oral SpO2: 98% Weight: 172 lb 12.8 oz (78.4 kg) Height: 5' 5 (1.651 m) Physical Exam Constitutional: Appearance: Normal appearance. Cardiovascular: Rate and Rhythm: Regular rhythm. Tachycardia present. Pulmonary: Effort: Pulmonary effort is normal. Breath sounds: Normal breath sounds. Abdominal: General: Abdomen is flat. Palpations: Abdomen is soft. Musculoskeletal: Right lower leg: No edema. Left lower leg: No edema. Neurological: Mental Status: She is alert. Follow Up: Follow up in about 3 months (around 05/14/2025) for chronic conditions . Medications Ordered Prior to Encounter[3] Problem List Items Addressed This Visit Diabetes ([facility]) - Primary Diabetes is: controlled - Lab Results Component Value Date HGBA1C 7.0 (A) 02/12/2025 HGBA1C 7.7 (A) 12/12/2024 HGBA1C 11.0 (H) 10/10/2024 - Lab Results Component Value Date MICROALBUR 11.0 10/10/2024 CREATININE 0.77 10/10/2024 -Changes: none - Diabetic eye exam:up to date - Diabetic foot exam:referral done - Continue lifestyle modifications - Continue current medications - Follow up: 3 months Relevant Orders POCT Glucose (Completed) POCT Hgb A1c (Completed) Essential hypertension I advised: - Aerobic exercise as tolerated. - low-sodium diet (goal: <2g/day) and heart healthy diet such as DASH to reduce BP and prevent ASCVD. - Home BP monitoring 1-2 x day with goal of <140/90. - Seek immediate medical attention for chest pain, palpitations, SOB, syncope, or sudden changes inmental status. - Do not change or discontinue current prescriptions without first consulting health care provider Encounter for preventive care See HPI [1] Patient Active Problem List Diagnosis Osteoporosis Fibromyalgia Mild chronic obstructive pulmonary disease (CMS/HCC) Diabetic peripheral neuropathy (CMS/HCC) Essential hypertension Type 2 diabetes mellitus with hyperglycemia, without long-term current use of insulin (CMS/HCC) Acute flank pain Kidney stones Pain of toe of left foot SILVIA (generalized anxiety disorder) Closed fracture of forearm Osteomyelitis of left foot (CMS/HCC) Restrictive lung disease Disorder of lung Vitamin D deficiency Sinus tachycardia Major depressive disorder Chronic left shoulder pain Pain of left upper arm Type 2 diabetes mellitus (CMS/HCC) Type 2 diabetes mellitus without complication ([facility]/HCC) Encounter for preventative adult health care examination Umbilical hernia Ventral hernia without obstruction or gangrene O2 dependent Salmonella food poisoning Colon cancer screening Encounter for preventive care Muscle spasm Vaginal itching Allergic rhinitis Arm mass Asthma Class 1 obesity Colitis Dyspnea Early satiety Family history of colonic polyps Fatty liver NAFLD (nonalcoholic fatty liver disease) Acid reflux GERD (gastroesophageal reflux disease) Hemorrhagic diarrhea Hypoxemia Post-COVID syndrome HARSH (obstructive sleep apnea) Abdominal pain Hypertension Tachycardia determined by examination of pulse Diabetes ([facility]) Hyperglycemia [2] Family History Problem Relation Name Age of Onset Diabetes Mother Coronary artery disease Mother HIV Father [3] Current Outpatient Medications on File Prior to Visit Medication Sig Dispense Refill Acetaminophen Extra Strength 500 MG tablet TAKE 1 TABLET BY MOUTH EVERY 4 TO 6 HOURS NEEDED Advair HFA 115-21 MCG/ACT inhaler INHALE 2 PUFFS BY MOUTH TWICE DAILY IN THE MORNING AND IN THE EVENING RINSE MOUTH AFTER USING. 12 g 2 albuterol (2.5 MG/3ML) 0.083% nebulizer solution INHALE 1 AMPULE USING A NEBULIZER FOUR TIMES DAILYAS DIRECTED 90 mL 1 Alcohol Swabs (Alcohol Prep) 70 % pads 1 each Once per day. USE DIRECTED 100 each 11 amLODIPine (Norvasc) 2.5 MG tablet TAKE 1 TABLET BY MOUTH EVERY MORNING 90 tablet 1 Aspirin Low Dose 81 MG chewable tablet TAKE 1 TABLET BY MOUTH EVERY MORNING (CHEW) 90 tablet 1 atorvastatin (Lipitor) 40 MG tablet TAKE 1 TABLET BY MOUTH EVERY MORNING 90 tablet 1 Calcium Carbonate (CALCIUM 500 PO) Take 1 tablet by mouth Once per day. Puchases OTC (unknown strength) cholecalciferol VITAMIN D (Vitamin D-3) 50 MCG (2000 UT) tablet TAKE 1 TABLET BY MOUTH EVERY MORNING 90 tablet 1 Continuous Glucose Spar Machine Operator (FreeStyle Maura 3 [place]) device 1 each Once per day. Use as directed for CGM 1 each 0 Continuous Glucose Sensor (FreeStyle Amura 3 Plus Sensor) misc 1 each every 15 days. Apply 1 every 15 days as directed for CGM 2 each 11 cyanocobalamin (Vitamin B-12) 100 MCG tablet Take 100 mcg by mouth Once per day. Puchases OTC empagliflozin-metFORMIN ER (Synjardy XR) 12.5-1000 MG 24 hr tablet Take 1 tablet by mouth twice daily 60 tablet 5 FREESTYLE LITE test strip TEST BLOOD SUGAR ONCE DAILY 50 strip 11 gabapentin (Neurontin) 100 MG capsule TAKE 3 CAPSULES BY MOUTH EVERY 8 HOURS 270 capsule 0 glipiZIDE XL (Glucotrol XL) 10 MG 24 hr tablet Take 1 tablet (10 mg) by mouth before breakfast. With 5 mg tablet. Do not crush, chew, or split. 30 tablet 5 glipiZIDE XL (Glucotrol XL) 5 MG 24 hr tablet Take 1 tablet (5 mg) by mouth before breakfast. With 10 mg tablet. Do not crush, chew, or split. 30 tablet 5 glucose blood (FreeStyle Precision Jorge Luis Test) test strip Use to test blood sugar 3 times daily in case of CGM failure or extremes of BG 100 each 11 insulin glargine (Lantus SoloStar) 100 UNIT/ML pen INJECT 16 UNITS SUBCUTANEOUSLY DAILY AT BEDTIME 15 mL 3 insulin pen needle (Sure Comfort Pen Kegley) 31G x 5 mm [facility] USE DIRECTED ONCE DAILY WITH lantus 100 each 11 ipratropium (Atrovent) 0.03 % nasal spray USE 2 SPRAYS IN EACH NOSTRIL ONCE DAILY IN THE EVENING BEFORE de ponerse la mscara de cpap lidocaine (Lidoderm) 5 % patch APPLY 1 PATCH TOPICALLY TO SKIN, LEAVE ON FOR 12 HOURS AND OFF FOR 12 HOURS DIRECTED 30 patch 3 losartan-hydroCHLOROthiazide (Hyzaar) 100-25 MG tablet TAKE 1 TABLET BY MOUTH EVERY MORNING 90 tablet 1 MAGNESIUM OXIDE 400 PO Take 1 tablet by mouth Once per day. Puchases OTC metoprolol succinate XL (Toprol-XL) 25 MG 24 hr tablet Take 25 mg by mouth in the morning. Multiple Vitamins-Minerals (CENTRUM ADULT PO) Take 1 tablet by mouth Once per day. Puchases OTC pantoprazole (ProtoNix) 40 MG EC tablet TAKE 1 TABLET BY MOUTH 30 MINUTES BEFORE BREAKFAST Semaglutide, 2 MG/DOSE, (Ozempic, 2 MG/DOSE,) 8 MG/3ML solution pen-injector Inject 0.75 mL (2 mg) under the skin 1 (one) time per week. 3 mL 5 sertraline (Zoloft) 50 MG tablet TAKE 1 TABLET BY MOUTH EVERY MORNING 90 tablet 1 Ventolin HFA 108 (90 Base) MCG/ACT inhaler INHALE 2 PUFFS BY MOUTH EVERY 4 TO 6 HOURS NEEDED FORDIFFICULTY BREATHING. DO NOT EXCEED FOUR TIMES DAILY 18 g 1 [DISCONTINUED] gabapentin (Neurontin) 100 MG capsule TAKE 3 CAPSULES BY MOUTH EVERY 8 HOURS 270 capsule 0 [DISCONTINUED] sertraline (Zoloft) 50 MG tablet Take 1 tablet (50 mg) by mouth Once per day. 90 tablet 1 No current facility-administered medications on file prior to visit. documented in this encounter Miscellaneous Notes * Assessment & Plan Note - Isabel Hubbard MD - 02/12/2025 12:10 PM EDT Associated Problem(s): Encounter for preventive care See HPI * Assessment & Plan Note - Isabel Hubbard MD - 02/12/2025 12:10 PM EDT Associated Problem(s): Diabetes (CMS/[facility]) Diabetes is: controlled - Lab Results Component Value Date HGBA1C 7.0 (A) 02/12/2025 HGBA1C 7.7 (A) 12/12/2024 HGBA1C 11.0 (H) 10/10/2024 - Lab Results Component Value Date MICROALBUR 11.0 10/10/2024 CREATININE 0.77 10/10/2024 -Changes: none - Diabetic eye exam:up to date - Diabetic foot exam:referral done - Continue lifestyle modifications - Continue current medications - Follow up: 3 months * Assessment & Plan Note - Isabel Hubbard MD - 02/12/2025 12:09 PM EDT Associated Problem(s): Essential hypertension I advised: - Aerobic exercise as tolerated. - low-sodium diet (goal: <2g/day) and heart healthy diet such as DASH to reduce BP and prevent ASCVD. - Home BP monitoring 1-2 x day with goal of <140/90. - Seek immediate medical attention for chest pain, palpitations, SOB, syncope, or sudden changes inmental status. - Do not change or discontinue current prescriptions without first consulting health care provider documented in this encounter Plan of Treatment Upcoming Encounters Date Type Department Care Team (Late st Contact Info) Description 02/20/2025 8:00 AM EDT Office Visit [facility] [address] [place] [address] Dariela Keen 03/27/2025 11:00 AM EDT Medication Management [facility] [address] [place] [address] Mazin Rice, PharmD [address] [place] [address] documented as of this encounter Procedures Procedure Name Priority Date/Time Associated Diagnosis Comments POCT GLYCATED HEMOGLOBIN, TOTAL Routine 02/12/2025 10:54 AM EDT Type 2 diabetes mellitus with hyperglycemia, with long-term current use of insulin ([facility]) POCT GLUCOSE Routine 02/12/2025 10:54 AM EDT Type 2 diabetes mellitus with hyperglycemia, with long-term current use of insulin ([facility]) documented in this encounter Results * (ABNORMAL) POCT Hgb A1c (02/12/2025 10:54 AM EDT) Hemoglobin A1C 7.0(A) 4.0 - 5.7 % QC Media Lot # [id number] Lot# Expiration Date 41,627 Blood 02/12/2025 10:5 4 AM EDT Isabel Hubbard MD POINT OF CARE TEST EN TER/EDIT ORDERABLES Final Result * (ABNORMAL) POCT Glucose (02/12/2025 10:54 AM EDT) Glucose Blood, POC 257(A) 60 - 200 mg/dL QC Media Lot # [id number] Lot# Expiration Date 113,025 Blood Capillary blood specimen / Unknown 02/12/2025 10:54 AM EDT Isabel Hubbard MD POINT OF CARE TEST EN TER/EDIT ORDERABLES Final Result documented in this encounter Visit Diagnoses Diagnosis Type 2 diabetes mellitus with hyperglycemia, with long-term current use of insulin ([facility])- Primary Essential hypertension Unspecified essential hypertension Encounter for preventive care documented in this encounter Additional Health Concerns Assessment Noted Time PHQ-9 Depression Total Score: 15 025 11:14 AM EDT documented as of this encounter Care Teams Baker Chef Relationship Specialty Start Date End Date Isabel Ramsay MD [address] [place] [address] PCP - General Family Medicine 01/09/19 Mazin Rice, BalwinderD [address] [place] [address] Pharmacist Internal Medicine 09/10/24 documented as of this encounter
[2025-02-13 11:10] VITALS: BP 120/62; PULSE 110; O2SAT 94; BMI 28.4
--- NOTE | 2025-02-13 11:10 | MHC.OFFVIS ---
Vital Signs 02/13/25 11:10 Height 5 ft 5 in Weight 170 lb 13.732 oz BMI 28.4 BP 120/62 Blood Pressure Location Lt brachial Position Sitting Pulse 110 H Pulse Source Pulse Oximeter Pulse Oximetry (%) 94 Oxygen Delivery Method Room Air Intake Visit Reasons: Shortness of breath Intake Note: pt is here for follow up and states her breathing is well, having issues with cpap due to allergies. and using oxygen on 2 liters. Bass Guitar Teacher Required: No Allergies No Known Allergies Allergy (Verified 02/13/25 11:24) Medication List - Last Reconciled 02/13/25 by Liseth Thomas MD albuterol sulfate 90 mcg/actuation (Ventolin HFA) 2 puffs PO Q6H PRN alcohol swabs (Alcohol Prep Pads) pad topical DIRECTED amlodipine 2.5 mg PO DAILY ascorbic acid (vitamin C) 1,000 mg PO DAILY aspirin 1 tab PO QAM atorvastatin 40 mg PO DAILY blood sugar diagnostic (FreeStyle Lite Strips) As directed cholecalciferol (vitamin D3) 50 mcg PO DAILY empagliflozin-metformin 12.5-1,000 mg ER (Synjardy XR) 1 tab PO fluticasone propion-salmeterol 115-21 mcg/actuation (Advair HFA) 2 puffs inhalation BID gabapentin 300 mg PO Q8H glipizide ER 15 mg PO QAM insulin glargine (Lantus Solostar U-100 Insulin) 12 units subcut BEDTIME ipratropium bromide 2 sprays intranasal BID 30 days lidocaine 5% patches topical losartan-hydrochlorothiazide 100-25 mg 1 tab PO DAILY magnesium 400 mg PO DAILY mecobalamin (vitamin B12) 5,000 mcg PO DAILY metoprolol succinate ER 25 mg PO DAILY pantoprazole 40 mg PO DAILY pen needle, diabetic (Sure Comfort Pen Needle) As directed semaglutide (Ozempic) 2 mg subcut QWEEK sertraline 25 mg PO DAILY zinc acetate 50 mg PO DAILY Do you need a note to return to daycare/school/sports/work: No HPI HPI Shortness of breath: Details: This 54 years old female is here for follow-up for sleep apnea and obstructive airway disorder. Lately she is not using the CPAP, but does use O2 2 L/minute for nocturnal hypoxemia. She has lost some weight , as she is being treated for diabetes mellitus with ( Ozempic injections ) Say is that she sleeps better without the CPAP mask. During the daytime her shortness of breath on exertion is much less than before. She has restrictive lung disorder due to elevated left hemidiaphragm, and has mild obstructive airway disorder which is controlled with the use of Advair HFA. [facility] Medical History Postprandial abdominal bloating Tubulovillous adenoma of colon Tubular adenoma of colon HARSH (obstructive sleep apnea) Allergic rhinitis Osteoporosis Asthma Arm mass Tachycardia determined by examination of pulse Restrictive lung disease Hypoxemia Dyspnea Post-COVID syndrome Surgical History H/O: hysterectomy (~2006) History of cholecystectomy (~2003) Hx of heart artery stent Family History Maternal Uncle Colon cancer Paternal Grandfather Colon cancer Mother Colon polyps Lung cancer Maternal Uncle Colon cancer Social History Household Members: Children Housing: Other Housing Other:: three family house Are you a primary personal care home administrator to a significant other at home: No Do you presently have visiting nurse or other home services: No Alcohol intake: never Patient Tobacco Use Status: Never used Tobacco service: No Current occupational status: disabled Review of Systems Const All systems reviewed & are unremarkable except as noted in HPI and below Eyes Reports no additional complaints ENT Reports no additional complaints Card Details: Left to all arm pain. Probably not cardiac. And she also tends to have fast heart rate, for which she is being checked by Cardiology. Resp Reports as per HPI GI Reports no additional complaints Reports no additional complaints Musc Reports other (Left all arm pain, after the COVID vaccine) Skin/Breast Reports system reviewed and no additional complaints, except as documented Neuro Reports no additional complaints Psych Reports no additional complaints Physical Exam Vital Signs: Last Vital Signs Pulse 110 H 02/13/25 11:10 BP 120/62 02/13/25 11:10 Pulse Ox 94 02/13/25 11:10 Oxygen Delivery Method Room Air 02/13/25 11:10 BMI result Body Mass Index 28.4 Const Other: Somewhat pale looking General: comfortable, no acute distress, alert and awake Orientation/consciousness: patient oriented x3 HEENT Head: Yes normal to inspection General nose exam: No nasal polyps present, No nasal discharge present and Other nasal findings present (She does have mild nasal congestion on both sides) Face and sinus: Yes sinuses nontender Mouth: oropharynx normal Throat: Yes posterior oropharynx normal Eyes General: appearance normal, both eyes and all related structures Neck Neck: Yes normal visual inspection, Yes no lymphadenopathy, Yes trachea midline and Yes no JVD Thyroid: Thyroid normal Chest Chest palpation & inspection: normal inspection of the chest, normal palpation of entire chest wall and no tenderness Resp Other: Percussion note resonant except for mild dullness over the left base. Breath sounds are decreased over the left lower lobe area. No wheezes or rhonchi are heard. Cardio Palpation: normal PMI Rate: regular rate and tachycardic Rhythm: regular rhythm Heart sounds: no gallops and no murmurs Peripheral pulses: Peripheral pulses 2+ throughout GI Palpation (GI): Soft to palpation, Tenderness to palpation present (GI), No hepatosplenomegaly present and Palpable mass present Auscultation: normal bowel sounds Back/Spine/Pelvis Thoracic/Lumbar Spine: thoracic and lumbar spine normal to inspection Skin General skin exam: no rashes or lesions noted Neuro General: patient oriented x3 and no focal motor deficits Cranial nerves: Yes CN's II-XII intact bilaterally Extrem General: Yes normal to inspection, Yes no clubbing, cyanosis or edema and Yes no calf tenderness Psych Appearance: grossly normal and well kempt Speech and movement: Normal speech and movement present Results Reviewed Results Reviewed: Reviewed her compliance report but she has used for only 4 nights during the past month. Thus she is basically non compliant to the use of CPAP. Assessment & Plan Assessment & Plan (1) HARSH (obstructive sleep apnea): Comment: PATIENT DOES HAVE HISTORY OF OBSTRUCTIVE SLEEP APNEA DIAGNOSED IN 2015 BUT THERE HAS BEEN NO TREATMENT OR FOLLOW-UP. RECENT HOME-BASED SLEEP STUDY DID CONFIRM THE DIAGNOSIS OF SLEEP APNEA., ALONG WITH NOCTURNAL HYPOXEMIA. SINCE WAS STARTED ON CPAP WHICH SHE USES VERY REGULARLY, SHE IS ALSO ADDING O2 1 L/MIN. FOR A WHILE SHE USED THE CPAP WELL OXYGEN AND BENEFITED. NOW THAT SHE HAS LOST SOME WEIGHT SHE IS NOT USING THE CPAP. SHE STILL USES O2 2 L/MINUTE AT NIGHT AND CLAIMS THAT SHE SLEEPS WELL. Code(s): G47.33 - Obstructive sleep apnea (adult) (pediatric) Category: Medical Plan: I ADVISED HER THAT IT IS OKAY NOT TO USE THE CPAP, BUT SHE SHOULD CONTINUE TO USE O2 2 L/MINUTE. (2) Asthma: Comment: HAS MILD, INTERMITTENT BOUTS OF WHEEZING, ALSO SHE TENDS TO GET COUGH AND WHEEZING IF SHE IS EXPOSED TO ANY BODY WITH PERFUME , OR HOUSEHOLD SPRAYS ETC. Code(s): J45.909 - Unspecified asthma, uncomplicated Category: Medical Plan: OK TO USE FLUTICASONE-SALMETEROL HFA 115-21 2 PUFFS B.I.D. AND ALBUTEROL HFA 2 PUFFS Q 6 HOURS ONLY P.R.N.. (3) Restrictive lung disease: Comment: HAS SEVERE RESTRICTIVE PULMONARY DISORDER, MAINLY DUE TO HER CHRONICALLY ELEVATED LEFT HEMIDIAPHRAGM. Code(s): J98.4 - Other disorders of lung Category: Medical Plan: SHE IS ADVISED THAT HE SHOULD CONTINUE TO DEEP BREATHING EXERCISES ABOUT 3 TIMES A DAY (4) Hypoxemia: Comment: SHE HAS HAD NOCTURNAL HYPOXEMIA, SECONDARY TO RESTRICTIVE LUNG DISORDER, WHICH GOT WORSE AFTER THE COVID INFECTION. AND ALSO DUE TO OBSTRUCTIVE SLEEP APNEA. SLEEP APNEA HAS IMPROVED WITH SOME WEIGHT LOSS. SHE STILL USES O2 2 L/MINUTE AT NIGHT. AND SLEEPS WELL Code(s): R09.02 - Hypoxemia Category: Medical Plan: OK TO CONTINUE USING O2 2 L/MINUTE AT NIGHT, AND ONLY P.R.N. DURING THE DAYTIME. Coding Level of Care Code Est Pt Level 3 (99973) Diagnoses HARSH (obstructive sleep apnea) G47.33 Asthma J45.909 Restrictive lung disease J98.4 Hypoxemia R09.02
--- OUTSIDE RECORDS SUMMARY | 2025-02-13 13:09 | XMS_ITS | Encounter Summary ---
Author Organization [employer] Address [address] 7t [place] [address] Care Team Providers Care Certified Ophthalmic Medical Technician Name Role Phone Isabel Ramsay MD Primary Care Provide r Mazin Rice PharmD Unavailable [phone] Encounter Details Date Type Department Care Team (Late st Contact Info) Description 07/01/2024 Orders Only [facility] MEDICINE [address] [place] [address] ProviderTejas MD Social History Tobacco Use Types [...] Description 02/20/2025 8:00 AM EDT Office Visit [facility] ADULT DENTAL [address] [place] [address] Dariela Keen 03/27/2025 11:00 AM EDT Medication Management [facility] MEDICINE [address] [place] [address] Mazin Rice, PharmD [address] [place] [address] documented as of this encounter Procedures Procedure [...] documented as of this encounter Care Teams Certified Ophthalmic Medical Technician Relationship Specialty Start Date End Date Isabel Ramsay MD [address] [place] [address] PCP - General Family Medicine 01/09/19 Mazin Rice, PharmD [address] [place] [address] Pharmacist Internal Medicine 09/10/24 documented as of this encounter
--- OUTSIDE RECORDS SUMMARY | 2025-02-13 13:09 | XMS_ITS | Encounter Summary ---
Author Organization [employer] [facility] Address [address] [facility] 7t [place] [address] Care Team Providers Care Camera Machinist Name Role Phone Isabel Ramsay MD Primary Care Provide r Mazin Rice PharmD Unavailable [phone] Reason for Visit * Reason Comments Med Refill Encounter Details Date Type Department Care Team (Late st Contact Info) Description 11/25/2022 Refill [facility] MEDICINE [address] [place], [place] [phone] Kiara Hernandez MD [address] [place], [place] [phone] Mild chronic obstructive pulmonary disease (CMS/HCC) Social [...] Description 02/20/2025 8:00 AM EDT Office Visit [facility] ADULT DENTAL [address] [place] [address] Dariela Keen 03/27/2025 11:00 AM EDT Medication Management [facility] MEDICINE [address] [place] [address] Mazin Rice, Olya [address] [place] [address] documented as of this encounter Visit Diagnoses Diagnosis Mild chronic obstructive pulmonary disease (CMS/HCC) Chronic airway obstruction, not elsewhere classified documented in this encounter Additional Health Concerns Assessment Noted Time PHQ-9 Depression Total Score: 17 023 8:32 AM EDT documented as of this encounter Care Teams Camera Machinist Relationship Specialty Start Date End Date Isabel Ramsay MD [address] [place] [address] PCP - General Family Medicine 01/09/19 Mazin Rice, Olya [address] [place] [address] Pharmacist Internal Medicine 09/10/24 documented as of this encounter
--- OUTSIDE RECORDS SUMMARY | 2025-02-13 13:09 | XMS_ITS | Encounter Summary ---
Author Organization [employer] Address [address] [place] [address] 7t [place] [address] Care Team Providers Care Tunnel Drier Operator Name Role Phone Isabel Ramsay MD Primary Care Provide r Mazin Rice PharmD Unavailable [phone] Reason for Visit * Reason Comments Med Refill Encounter Details Date Type Department Care Team (Late Contact Info) Description 12/30/2022 Refill [facility] CHC MED & PEDS [address] [place] [address] Isabel Ramsay MD [address] [place], [place] [phone] Chronic obstructive pulmonary disease, unspecified COPD type [...] Department Care Team (Late Contact Info) Description 02/20/2025 8:00 AM EDT Office Visit [facility] ADULT DENTAL [address] [place], [place] [phone] KeenDariela santacruz 03/27/2025 11:00 AM EDT Medication Management [facility] MEDICINE [address] [place] [address] Mazin Rice, PharmD [address] [place] [address] documented as of this encounter Visit Diagnoses Diagnosis Chronic obstructive pulmonary disease, unspecified COPD type (CMS/[facility]) documented in this encounter Additional Health Concerns Assessment Noted Time PHQ-9 Depression Total Score: 17 023 8:32 AM EDT documented as of this encounter Care Teams Tunnel Drier Operator Relationship Specialty Start Date End Date Isabel Ramsay MD [address] [place] [address] PCP - General Family Medicine 01/09/19 Mazin Rice, Olya [address] [place] [address] Pharmacist Internal Medicine 09/10/24 documented as of this encounter
--- OUTSIDE RECORDS SUMMARY | 2025-02-13 13:09 | XMS_ITS | Encounter Summary ---
Author Organization [employer] Address [address] [facility] 7t [place] [address] Care Team Providers Care Insole Bottom Filler Name Role Phone Isabel Ramsay MD Primary Care Provide r Mazin Rice PharmD Unavailable [phone] Reason for Visit * Reason Comments Med Refill Encounter Details Date Type Department Care Team ([facility] st Contact Info) Description 12/01/2022 Refill [facility] CHC MED & PEDS [address] [place] [address] Sawyer Richards MD [address] [place] [address] Type 2 diabetes mellitus without complication, unspecified whether penitentiary insulin use ([facility]) Social History Tobacco Use Types Packs/Day [...] Description 02/20/2025 8:00 AM EDT Office Visit [facility] ADULT DENTAL [address] [place] [address] Dariela Keen 03/27/2025 11:00 AM EDT Medication Management [facility] MEDICINE [address] [place] [address] Mazin Rice, BalwinderD [address] [place] [address] documented as of this encounter Visit Diagnoses Diagnosis Type 2 diabetes mellitus without complication, unspecified whether petroleum terminal plant operator insulin use ([facility]) documented in this encounter Additional Health Concerns Assessment Noted Time PHQ-9 Depression Total Score: 17 023 8:32 AM EDT documented as of this encounter Care Teams Insole Bottom Filler Relationship Specialty Start Date End Date Isabel Ramsay MD [address] [place] [address] PCP - General Family Medicine 01/09/19 Mazin Rice, Olya [address] [place] [address] Pharmacist Internal Medicine 09/10/24 documented as of this encounter
--- OUTSIDE RECORDS SUMMARY | 2025-02-13 13:09 | XMS_ITS | Encounter Summary ---
Author Organization [employer] Address [address] [facility] 7t [place] [address] Care Team Providers Care Building Repair Maintenance Supervisor Name Role Phone Isabel Ramsay MD Primary Care Provide r Mazin Rice PharmD Unavailable [phone] Reason for Visit * Reason Comments Med Refill Encounter Details Date Type Department Care Team ([facility] st Contact Info) Description 11/14/2022 Refill [facility] CHC MED & PEDS [address] [place] [address] Sawyer Richards MD [address] [place] [address] Type 2 diabetes mellitus without complication, unspecified whether fci insulin use ([facility]) Social History Tobacco Use Types Packs/Day Years [...] Description 02/20/2025 8:00 AM EDT Office Visit [facility] ADULT DENTAL [address] [place] [address] Dariela Keen 03/27/2025 11:00 AM EDT Medication Management [facility] MEDICINE [address] [place] [address] Mazin Rice, BalwinderD [address] [place] [address] documented as of this encounter Visit Diagnoses Diagnosis Type 2 diabetes mellitus without complication, unspecified whether maintenance leader insulin use ([facility]) documented in this encounter Additional Health Concerns Assessment Noted Time PHQ-9 Depression Total Score: 17 023 8:32 AM EDT documented as of this encounter Care Teams Building Repair Maintenance Supervisor Relationship Specialty Start Date End Date Isabel Ramsay MD [address] [place] [address] PCP - General Family Medicine 01/09/19 Mazin Rice, Olya [address] [place] [address] Pharmacist Internal Medicine 09/10/24 documented as of this encounter
--- OUTSIDE RECORDS SUMMARY | 2025-02-13 13:09 | XMS_ITS | Encounter Summary ---
Author Organization [employer] Address [address] [facility] 7t [place] [address] Care Team Providers Care Federal Judge Name Role Phone Isabel Ramsay MD Primary Care Provide r Mazin Rice PharmD Unavailable [phone] Encounter Details Date Type Department Care Team (Late st Contact Info) Description 08/12/2022 Orders Only [facility] CHC MED & PEDS [address] [place] [address] Connie Pisano LPN Social History Tobacco Use [...] Description 02/20/2025 8:00 AM EDT Office Visit [facility] ADULT DENTAL [address] [place], [place] [phone] Dariela Keen 03/27/2025 11:00 AM EDT Medication Management [facility] MEDICINE [address] [place] [address] Mazin Rice, PharmD 230 [place] [address] documented as of this encounter Visit Diagnoses Not on filedocumented in this encounter Care Teams Federal Judge Relationship Specialty Start Date End Date Isabel Ramsay MD [address] [place], [place] [phone] PCP - General Family Medicine 01/09/19 Mazin Rice, BalwinderD [address] [place], [place] [phone] Pharmacist Internal Medicine 09/10/24 documented as of this encounter
--- OUTSIDE RECORDS SUMMARY | 2025-02-13 13:09 | XMS_ITS | Encounter Summary ---
Author Organization [employer] Address [address] [place] [address] 7t [place] [address] Care Team Providers Care Casino Cage Cashier Name Role Phone Isabel Ramsay MD Primary Care Provide r Mazin Rice PharmD Unavailable [phone] Encounter Details Date Type Department Care Team (Late Contact Info) Description 02/15/2023 Orders Only [facility] CHC MED & PEDS [address] [place] [address] Lizzie Sandoval LPN Social History Tobacco Use [...] Description 02/20/2025 8:00 AM EDT Office Visit [facility] ADULT DENTAL [address] [place], [place] [phone] Dariela Keen 03/27/2025 11:00 AM EDT Medication Management [facility] MEDICINE [address] [place], [place] [phone] Mazin Rice, PharmD [address] [place] [address] documented as of this encounter Visit Diagnoses Not on filedocumented in this encounter Additional Health Concerns Assessment Noted Time PHQ-9 Depression Total Score: 17 11/04/ 023 8:32 AM EDT documented as of this encounter Care Teams Casino Cage Cashier Relationship Specialty Start Date End Date Isabel Ramsay MD [address] [place] [address] PCP - General Family Medicine 01/09/19 Mazin Rice, BalwinderD [address] [place] [address] Pharmacist Internal Medicine 09/10/24 documented as of this encounter
--- OUTSIDE RECORDS SUMMARY | 2025-02-13 13:09 | XMS_ITS | Encounter Summary ---
Author Organization [employer] Address [address] 7t [place] [address] Care Team Providers Care Child Care Giver Name Role Phone Isabel Ramsay MD Primary Care Provide r Mazin Rice PharmD Unavailable [phone] Reason for Visit * Reason Comments Med Refill Encounter Details Date Type Department Care Team ([facility] st Contact Info) Description 02/10/2025 Refill [facility] MEDICINE [address] [place], [place] [phone] Isabel Ramsay MD [address] [place], [place] [phone] Fibromyalgia; Diabetic peripheral neuropathy (CMS/HCC) Social History Tobacco Use Types Packs/Day [...] Description 02/20/2025 8:00 AM EDT Office Visit [facility] ADULT DENTAL [address] [place] [address] Dariela Keen 03/27/2025 11:00 AM EDT Medication Management [facility] MEDICINE [address] [place] [address] Mazin Rice, PharmD [address] [place] [address] documented as of this encounter Visit Diagnoses Diagnosis Fibromyalgia Unspecified myalgia and myositis Diabetic peripheral neuropathy (CMS/HCC) Type II or unspecified type diabetes mellitus with neurological manifestations, not stated as uncontrolled documented in this encounter Additional Health Concerns Assessment Noted Time PHQ-9 Depression Total Score: 0 08/30/19 10:32 AM EDT documented as of this encounter Care Teams Child Care Giver Relationship Specialty Start Date End Date Isabel Ramsay MD [address] [place] [address] PCP - General Family Medicine 01/09/19 Mazin Rice, PharmD [address] [place] [address] Pharmacist Internal Medicine 09/10/24 documented as of this encounter
--- OUTSIDE RECORDS SUMMARY | 2025-02-13 13:09 | XMS_ITS | Encounter Summary ---
Author Organization [employer] Address [address] [facility] [facility] [address] [facility] [address] 7[address] [place] [address] Care Team Providers Care Fourth Officer Name Role Phone Isabel Ramsay MD Primary Care Provide r Mazin Rice PharmD Unavailable [phone] Reason for Visit * Reason Comments Med Refill Encounter Details Date Type Department Care Team ([facility] st Contact Info) Description 06/04/2023 Refill [facility] MEDICINE [address] [place], [place] [phone] Isabel Ramsay MD [address] [place], [place] [phone] Type 2 diabetes mellitus without complication, unspecified whether jail insulin use ([facility]) Social History Tobacco Use Types [...] Description 02/20/2025 8:00 AM EDT Office Visit [facility] ADULT DENTAL [address] [place] [address] Dariela Keen 03/27/2025 11:00 AM EDT Medication Management [facility] MEDICINE [address] [place] [address] Mazin Rice, PharmD [address] [place] [address] documented as of this encounter Visit Diagnoses Diagnosis Type 2 diabetes mellitus without complication, unspecified whether jail insulin use ([facility]) documented in this encounter Additional Health Concerns Assessment Noted Time PHQ-9 Depression Total Score: 17 023 8:32 AM EDT documented as of this encounter Care Teams Fourth Officer Relationship Specialty Start Date End Date Isabel Ramsay MD [address] [place] [address] PCP - General Family Medicine 01/09/19 Mazin Rice, PharmD [address] [place] [address] Pharmacist Internal Medicine 09/10/24 documented as of this encounter
--- OUTSIDE RECORDS SUMMARY | 2025-02-13 13:09 | XMS_ITS | Encounter Summary ---
Author Organization [employer] Address [address] [place] [address] Care Team Providers Care Rug Repairer Name Role Phone Isabel Ramsay MD Primary Care Provide r Mazin Rice PharmD Unavailable [phone] Reason for Visit * Reason Onset Date Comments chart prep 02/11/2025 Encounter Details Date Type Department Care Team ([facility] st Contact Info) Description 02/11/2025 Telephone [facility] MEDICINE [address] [place], [place] [phone] Isabel Ramsay MD [address] [place], [place] [phone] chart prep Social History Tobacco Use Types Packs/Day Years [...] encounter Miscellaneous Notes * Telephone Encounter - Krys Crabtree [place] - 02/11/2025 2:25 PM EDT Chart Prep Labs: done Images: done Referrals: complete Vaccines due: Covid and Flu Screenings: foot exam Overdue care gaps: PHQ-9 and SILVIA-7 documented in this encounter Plan of Treatment Upcoming Encounters Date Type Department Care Team (Late st Contact Info) Description 02/20/2025 8:00 AM EDT Office Visit [facility] ADULT DENTAL [address] [place] [address] Dariela Keen 03/27/2025 11:00 AM EDT Medication Management [facility] MEDICINE [address] [place] [address] Mazin Rice, PharmD [address] [place] [address] documented as of this encounter Visit Diagnoses Not on filedocumented in this encounter Additional Health Concerns Assessment Noted Time PHQ-9 Depression Total Score: 0 08/30/19 10:32 AM EDT documented as of this encounter Care Teams Rug Repairer Relationship Specialty Start Date End Date Isabel Ramsay MD [address] [place] [address] PCP - General Family Medicine 01/09/19 Mazin Rice, Olya [address] [place] [address] Pharmacist Internal Medicine 09/10/24 documented as of this encounter
--- OUTSIDE RECORDS SUMMARY | 2025-02-13 13:09 | XMS_ITS | Encounter Summary ---
Author Organization [employer] Address [address] [facility] 7t [place] [address] Care Team Providers Care Inpatient Pharmacist Name Role Phone Isabel Ramsay MD Primary Care Provide r Mazin Rice PharmD Unavailable [phone] Reason for Visit * Reason Onset Date Comments call back requested 01/19/2023 Encounter Details Date Type Department Care Team ([facility] st Contact Info) Description 01/19/2023 Telephone [facility] MEDICINE [address] [place], [place] [phone] Isabel Ramsay MD [address] [place], [place] [phone] call back requested Social History Tobacco Use [...] - 01/19/2023 12:57 PM EDT TC from [facility] requesting a call back in regards of medications : Setraline 25mg and Duloxetine 30mg. Please contact Med box at ext [phone]. PCP DR. Raygoza documented in this encounter Plan of Treatment Upcoming Encounters Date Type Department Care Team (Late st Contact Info) Description 02/20/2025 8:00 AM EDT Office Visit [facility] ADULT DENTAL [address] [place] [address] Dariela Keen 03/27/2025 11:00 AM EDT Medication Management [facility] MEDICINE [address] [place] [address] Mazin Rice, PharmMilena [address] [place] [phone] documented as of this encounter Visit Diagnoses Not on filedocumented in this encounter Additional Health Concerns Assessment Noted Time PHQ-9 Depression Total Score: 17 023 8:32 AM EDT documented as of this encounter Care Teams Inpatient Pharmacist Relationship Specialty Start Date End Date Isabel Ramsay MD [address] [place] [phone] PCP - General Family Medicine 01/09/19 Mazin Rice, BalwinderD [address] [place] [phone] Pharmacist Internal Medicine 09/10/24 documented as of this encounter
--- OUTSIDE RECORDS SUMMARY | 2025-02-13 13:09 | XMS_ITS | Encounter Summary ---
Author Organization [employer] Address [address] [facility] 7t [place] [address] Care Team Providers Care Kiln Firer Name Role Phone Isabel Ramsay MD Primary Care Provide r Mazin Rice PharmD Unavailable Encounter Details Date Type Department Care Team (Late st Contact Info) Description 09/13/[address] [facility] MED & PEDS [address] [place] [address] Connie Pisano LPN Social History Tobacco Use [...] Description 02/20/2025 8:00 AM EDT Office Visit [facility] ADULT DENTAL [address] [place], [place] [phone] Dariela Keen 03/27/2025 11:00 AM EDT Medication Management [facility] [address] [place] [address] Mzain Rice, PharmD [address] [place] [address] documented as of this encounter Visit Diagnoses Not on filedocumented in this encounter Care Teams Kiln Firer Relationship Specialty Start Date End Date Isabel Ramsay MD [address] [place], [place] [phone] PCP - General Family Medicine 01/09/19 Mazin Rice, BalwinderD [address] [place], [place] [phone] Pharmacist Internal Medicine 09/10/24 documented as of this encounter
--- OUTSIDE RECORDS SUMMARY | 2025-02-13 13:10 | XMS_ITS | Encounter Summary ---
Author Organization [employer] Address [address] 7[address] [place] [address] Care Team Providers Care Hat Renovator Name Role Phone Isabel Ramsay MD Primary Care Provide r Mazin Rice PharmD Unavailable [phone] Encounter Details Date Type Department Care Team (Late st Contact Info) Description 07/19/2024 Telephone [facility] ADULT DENTAL [address] [place], [place] [phone] Joelle, Velvet [address] [place], [place] [phone] Social History Tobacco Use Types Packs/Day Years [...] Description 02/20/2025 8:00 AM EDT Office Visit [facility] ADULT DENTAL [address] [place] [address] Dariela Keen 03/27/2025 11:00 AM EDT Medication Management [facility] MEDICINE [address] [place] [address] Mazin Rice, Olya [address] [place] [address] documented as of this encounter Visit Diagnoses Not on filedocumented in this encounter Additional Health Concerns Assessment Noted Time PHQ-9 Depression Total Score: 15 024 1:22 PM EDT documented as of this encounter Care Teams Hat Renovator Relationship Specialty Start Date End Date Isabel Ramsay MD [address] [place], [place] PCP - General Family Medicine 01/09/19 Mazin Rice, PharmD [address] [place] [address] Pharmacist Internal Medicine 09/10/24 documented as of this encounter
--- OUTSIDE RECORDS SUMMARY | 2025-02-13 13:10 | XMS_ITS | Encounter Summary ---
Author Organization [email or web address] Address [address] [facility] 7t [place] [address] Care Team Providers Care Circular Saw Edge Fuser Name Role Phone Isabel Ramsay MD Primary Care Provide r Mazin Rice PharmD Unavailable [phone] Encounter Details Date Type Department Care Team ([facility] Contact Info) Description 06/03/2022 Orders Only [facility] MED & PEDS [address] [place] [address] Connie Pisano LPN Social History Tobacco Use [...] Description 02/20/2025 8:00 AM EDT Office Visit [facility] ADULT DENTAL [address] [place], [place] [phone] Dariela Keen 03/27/2025 11:00 AM EDT Medication Management [facility] MEDICINE [address] [place], [place] [phone] Mazin Rice, PharmD [address] [place] [address] documented as of this encounter Procedures Procedure Name Priority Date/Time Associated Diagnosis Comments VITAMIN D,25-OH,TOTAL,IA Routine 07/07/2022 7:33 AM EST PHOSPHATE ( PHOSPHORUS) Routine 07/07/2022 7:33 AM EST documented in this encounter Results * Vitamin D, 25-Hydroxy, Total, Immunoassay (07/07/2022 7:33 AM EST) Vitamin D 25-OH Total 62.0 >30 ng/mL [facility] Comment:Health Based Referen ce Values*< 20 ng/mL Plfsewpxd05-23 ng/mL Insufficient> 30 ng/mL Sufficient*Rolanda BALL. N [...] AM EST 07/07/2022 7:33 AM EST us [facility] External Provider LAB BLO OD ORDERABLES Final Result [facility] [address] [place] [address] [phone] * (ABNORMAL) Phosphate (As Phosphorus) (07/07/2022 7:33 AM EST) Phosphorus 4.6(H) 2.7 - 4.5 mg/dL [facility] 07/07/2022 7:33 AM EST 07/07/2022 7:33 AM EST us [facility] External Provider LAB BLO OD ORDERABLES Final Result [facility] [address] [place] [address] [phone] documented in this encounter Visit Diagnoses Not on filedocumented in this encounter Care Teams Circular Saw Edge Fuser Relationship Specialty Start Date End Date Isabel Ramsay MD [address] [place] [address] PCP - General Family Medicine 01/09/19 Mazin Rice, PharmD [address] [place] [address] Pharmacist Internal Medicine 09/10/24 documented as of this encounter
--- OUTSIDE RECORDS SUMMARY | 2025-02-13 13:10 | XMS_ITS | Encounter Summary ---
Author Organization [employer] Address [address] [place] [address] Care Team Providers Care Ap Processor Name Role Phone Isabel Ramsay MD Primary Care Provide r Mazin Rice PharmD Unavailable [phone] Encounter Details Date Type Department Care Team ([facility] st Contact Info) Description 07/17/2024 Telephone [facility] ADULT DENTAL [address] [place] [address] Lina Law DDS Social History Tobacco Use Types Packs/Day [...] Description 02/20/2025 8:00 AM EDT Office Visit [facility] ADULT DENTAL [address] [place] [address] Dariela Keen 03/27/2025 11:00 AM EDT Medication Management [facility] MEDICINE [address] [place] [address] Mazin Rice, PharmD [address] [place] [phone] documented as of this encounter Visit Diagnoses Not on filedocumented in this encounter Additional Health Concerns Assessment Noted Time PHQ-9 Depression Total Score: 15 024 1:22 PM EDT documented as of this encounter Care Teams Ap Processor Relationship Specialty Start Date End Date Isabel Ramsay MD [address] [place] [id number] PCP - General Family Medicine 01/09/19 Mazin Rice, PharmD [address] [place] [phone] Pharmacist Internal Medicine 09/10/24 documented as of this encounter
--- OUTSIDE RECORDS SUMMARY | 2025-02-13 13:10 | XMS_ITS | Encounter Summary ---
Author Organization [employer] Address [address] [facility] [address] [place] [address] Care Team Providers Care Contract Negotiation Specialist Name Role Phone Isabel Ramsay MD Primary Care Provide r Mazin Rice PharmD Unavailable [phone] Encounter Details Date Type Department Care Team (Latest Contact Info) Description 02/12/2025 Travel Social History Tobacco Use Types Packs/Day [...] AM EDT documented as of this encounter Functional Status * Over the past 2 weeks, how often have you been bothered by any of the following problems? Question Answer Date of Assessment Author Patient Health Questionnaire-2 Score 3 01/27 11:14 AM Jenna Mahajan [place] * Little interest or pleasure in [...] or on edge 1 01/27 11:13 AM Jenna Mahajan MA Not being able to stop or co ntrol worrying 0 02/12/2025 11:13 AM Jenna Mahajan MA Worrying too much about diff erent things 0 02/12/2025 11:13 AM [employer] Jenna Adams [place] Trouble relaxing 0 02/12/2025 11:13 AM Jenna Mahajan MA Being so restless that it is hard to sit still 0 02/12/2025 11:13 AM Jenna Mahajan MA Becoming easily annoyed or irritable 1 01/27 11:13 AM Jenna Mahajan MA Feeling afraid as if somethi ng awful might happen 0 02/12/2025 11:13 AM Jenna Mahajan MA SILVIA-7 Total Score 2 02/12/2025 11:13 AM Jenna Mahajan [place] documented as of this encounter Plan of Treatment Upcoming Encounters Date Type Department Care Team (Late st Contact Info) Description 02/20/2025 8:00 AM EDT Office Visit [facility] ADULT DENTAL [address] [place] [address] Dariela Keen 03/27/2025 11:00 AM EDT Medication Management [facility] MEDICINE [address] [place] [address] Mazin Rice, PharmD [address] [place] [address] documented as of this encounter Visit Diagnoses Not on filedocumented in this encounter Additional Health Concerns Assessment Noted Time PHQ-9 Depression Total Score: 15 025 11:14 AM EDT documented as of this encounter Care Teams Contract Negotiation Specialist Relationship Specialty Start Date End Date Isabel Ramsay MD [address] [place] [address] PCP - General Family Medicine 01/09/19 Mazin Rice, PharmD [address] [place] [phone] Pharmacist Internal Medicine 09/10/24 documented as of this encounter
--- OUTSIDE RECORDS SUMMARY | 2025-02-13 13:10 | XMS_ITS | Encounter Summary ---
Author Organization [employer] [facility] Address [address] [place] [address] [address] [place] [address] Care Team Providers Care Music Adapter Name Role Phone Isabel Ramsay MD Primary Care Provide r Mazin Rice PharmD Unavailable [phone] Encounter Details Date Type Department Care Team (Latest Contact Info) Description 02/11/2022 Abstract [facility] Dental, Provider, DDS Social History Tobacco [...] Description 02/20/2025 8:00 AM EDT Office Visit [facility] ADULT DENTAL [address] [place] [address] Dariela Keen 03/27/2025 11:00 AM EDT Medication Management [facility] MEDICINE [address] [place], [place] [phone] Mazin Rice, PharmD [address] [place] [address] documented as of this encounter Visit Diagnoses Not on filedocumented in this encounter Care Teams Music Adapter Relationship Specialty Start Date End Date Isabel Ramsay MD [address] [place] [address] PCP - General Family Medicine 01/09/19 Mazin Rice, BalwinderD [address] [place] [address] Pharmacist Internal Medicine 09/10/24 documented as of this encounter
--- OUTSIDE RECORDS SUMMARY | 2025-02-13 13:10 | XMS_ITS | Clinical Summary ---
Author Organization [employer] Address [address] [facility] [address] [place] [address] Care Team Providers Care Fiber Technologist Name Role Phone Isabel Ramsay MD Primary Care Provide r Mazin Rice PharmD Unavailable [phone] Allergies No known active allergies Medications * [...] mouth Once per day. Puchases OTC Active Acetaminophen Extra Strength 500 MG tablet TAKE 1 TABLET BY MOUTH EVERY 4 TO 6 HOURS NEEDED 024 Active insulin pen needle (Sure Comfort Pen Alva) 31G x 5 mm miscIndications:T ype 2 diabetes mellitus with hyperglycemia, without long-term current use of insulin (CMS/HCC) USE DIRECTED ONCE DAILY WITH lantus 100 each 11 024 Active Continuous Glucose Metal Fabricator Helper (FreeStyle Maura 3 Aurora) deviceIndications :Type 2 diabetes mellitus with hyperglycemia, without long-term current use of insulin ([facility]/HCC) 1 each Once per day. Use as directed for CGM 1 each Active Continuous Glucose Sensor (FreeStyle Maura 3 Plus Sensor) miscIndications:T ype 2 diabetes mellitus with hyperglycemia, without long-term current use of insulin (CMS/HCC) 1 each every 15 days. Apply 1 every 15 days as directed for CGM 2 each Active glucose blood (FreeStyle Precision Jorge Luis Test) test stripIndications: Type 2 diabetes mellitus with hyperglycemia, without long-term current use of insulin (CMS/[facility]) Use to test blood sugar 3 times daily in case of CGM failure or extremes of BG 100 each 025 2025 Active pantoprazole (ProtoNix) 40 MG EC tablet TAKE 1 TABLET BY MOUTH 30 MINUTES BEFORE BREAKFAST Active MAGNESIUM OXIDE 400 PO Take 1 tablet by mouth Once per day. Puchases OTC Active Multiple Vitamins-Minerals (CENTRUM ADULT PO) Take 1 tablet by mouth Once per day. Puchases OTC Active Calcium Carbonate (CALCIUM 500 PO) Take 1 tablet by mouth Once per day. Puchases OTC (unknown strength) Active insulin glargine (Lantus SoloStar) 100 UNIT/ML penIndications:Ty pe 2 diabetes mellitus with hyperglycemia, without long-term current use of insulin (CMS/[facility]) INJECT 16 UNITS SUBCUTANEOUSLY DAILY AT BEDTIME 15 mL 3 Active empagliflozin-met FORMIN ER (Synjardy XR) 12.5-1000 MG 24 hr tabletIndications :Type 2 diabetes mellitus with hyperglycemia, without long-term current use of insulin ([facility]) Take 1 tablet by mouth twice daily 60 tablet 5 025 Active Semaglutide, 2 MG/DOSE, (Ozempic, 2 MG/DOSE,) 8 MG/3ML solution pen-injector Inject 0.75 mL (2 mg) under the skin 1 (one) time per week. 3 mL 5 025 Active albuterol (2.5 MG/3ML) 0.083% nebulizer solution INHALE 1 AMPULE USING A NEBULIZER FOUR TIMES DAILY DIRECTED 90 mL 1 11/08/2 025 Active cholecalciferol VITAMIN D (Vitamin D-3) 50 MCG (1999 UT) tabletIndications :Vitamin D deficiency TAKE 1 TABLET BY MOUTH EVERY MORNING 90 tablet 025 Active losartan-hydroCHL OROthiazide (Hyzaar) 100-25 MG tabletIndications :Essential hypertension TAKE 1 TABLET BY MOUTH EVERY MORNING 90 tablet 025 Active glipiZIDE XL (Glucotrol XL) 10 MG 24 hr tabletIndications :Type 2 diabetes mellitus with hyperglycemia, without long-term current use of insulin ([facility]) Take 1 tablet (10 mg) by mouth before breakfast. With 5 mg tablet. Do not crush, chew, or split. 30 tablet 025 Active glipiZIDE XL (Glucotrol XL) 5 MG 24 hr tabletIndications :Type 2 diabetes mellitus with hyperglycemia, without long-term current use of insulin ([facility]) Take 1 tablet (5 mg) by mouth before breakfast. With 10 mg tablet. Do not crush, chew, or split. 30 tablet 025 Active ipratropium (Atrovent) 0.03 % nasal spray USE 2 SPRAYS IN EACH NOSTRIL ONCE DAILY IN THE EVENING BEFORE de ponerse la mscara de cpap 025 Active Aspirin Low Dose 81 MG chewable tabletIndications :Type 2 diabetes mellitus with other specified complication, unspecified whether terminal superintendent insulin use ([facility]) TAKE 1 TABLET BY MOUTH EVERY MORNING (CHEW) 90 tablet 025 Active atorvastatin (Lipitor) 40 MG tabletIndications :Other hyperlipidemia TAKE 1 TABLET BY MOUTH EVERY MORNING 90 tablet 025 Active amLODIPine (Norvasc) 2.5 MG tablet TAKE 1 TABLET BY MOUTH EVERY MORNING 90 tablet 025 Active lidocaine (Lidoderm) 5 % patchIndications: Localized osteoporosis without current pathological fracture APPLY 1 PATCH TOPICALLY TO SKIN, LEAVE ON FOR 12 HOURS AND OFF FOR 12 HOURS DIRECTED 30 patch 3 025 Active Advair HFA 115-21 MCG/ACT inhalerIndication s:Chronic obstructive pulmonary disease, unspecified COPD type ([facility]) INHALE 2 PUFFS BY MOUTH TWICE DAILY IN THE MORNING AND IN THE EVENING RINSE MOUTH AFTER USING. 12 g 2 Active Alcohol Swabs (Alcohol Prep) 70 % pads 1 each Once per day. USE DIRECTED 100 each 11 Active sertraline (Zoloft) 50 MG tabletIndications :Mixed anxiety and depressive disorder TAKE 1 TABLET BY MOUTH EVERY MORNING 90 tablet 1 025 Active gabapentin (Neurontin) 100 MG capsuleIndication s:Fibromyalgia,Di abetic peripheral neuropathy (CMS/HCC) TAKE 3 CAPSULES BY MOUTH EVERY 8 HOURS 270 capsule 025 Active sertraline (Zoloft) 50 MG tabletIndications :Mixed anxiety and depressive disorder Take 1 tablet (50 mg) by mouth Once per day. 90 tablet 1 025 2024 Discontinued gabapentin (Neurontin) 100 MG capsuleIndication s:Fibromyalgia,Di abetic peripheral neuropathy (CMS/HCC) TAKE 3 CAPSULES BY MOUTH EVERY 8 HOURS 270 capsule 025 2024 Discontinued Active Problems Problem Noted Date Diagnosed Date Allergic rhinitis 02/11/2025 Overview (02/11/2025): MOSTLY HYPERSENSITIVITY TO CHEMICAL SPRAYS AND PERFUMES ETC.. SHE TRIES TO AVOID EXPOSURE AND STAYS AWAY FROM SUCH AGENTS. Arm mass 02/11/2025 Asthma 02/11/2025 Overview (02/11/2025): HAS MILD, INTERMITTENT BOUTS OF WHEEZING, ALSO SHE TENDS TO GET COUGH AND WHEEZING IF SHE IS EXPOSED TO ANYBODY WITH PERFUME , OR HOUSEHOLD SPRAYS ETC. Class 1 obesity 02/11/2025 Colitis 02/11/2025 Dyspnea 02/11/2025 Overview (02/11/2025): GETS SHORT OF BREATH ON MODERATE EXERTION, WHICH IS EXPECTED. ADVISED TO DO DEEP BREATHING EXERCISES WITH INCENTIVE SPIROMETRY 3 TIMES A DAY. TO USE O2 ,, ONLY PRN . Early satiety 02/11/2025 Family history of colonic polyps 02/11/2025 Overview (02/11/2025): ?- what type-@ 70 Fatty liver 02/11/2025 NAFLD (nonalcoholic fatty liver disease) Acid reflux 02/11/2025 GERD (gastroesophageal reflux disease) Hemorrhagic diarrhea 02/11/2025 Hypoxemia 02/11/2025 Overview (02/11/2025): H/O HYPOXEMIA WHICH HAD WORSENED AFTER SHE HAD COVID INFECTION LAST YEAR. IT DID IMPROVE GRADUALLY . SHE DOES HAVE O2 CONCENTRATOR AND PORTABLE UNIT AT HOME BUT HARDLY NEEDS TO USE IT. Post-COVID syndrome 02/11/2025 Overview (02/11/2025): TREATED FOR ACUTE COVID PNEUMONIA, WITH RESPIRATORY FAILURE, IN AUGUST 2020, NOW SEEMS TO HAVE RECOVERED . HAS SOME RESIDUAL FIBROTIC CHANGES IN THE LOWER LOBE AREAS PFT SHOWS A PATTERN OF SEVERE RESTRICTIVE PULMONARY DISORDER. FINDINGS ARE EXPLAINED TO THE PATIENT. AGAIN , DEEP BREATHING EXERCISES SHOULD HELP HARSH (obstructive sleep apnea) 02/11/2025 Overview (02/11/2025): PATIENT DOES HAVE HISTORY OF OBSTRUCTIVE SLEEP APNEA DIAGNOSED IN 2014 BUT THERE HAS BEEN NO TREATMENT OR FOLLOW-UP. HOME-BASED SLEEP STUDY IS PERFORMED TO RECONFIRM THE DIAGNOSIS. AND IT INDICATES, MODERATELY SEVERE OBSTRUCTIVE SLEEP APNEA WITH TOTAL SLEEP TIME AHI 14.3, SNORING FOR 70% OF THE SLEEP TIME AND PERSISTENT NOCTURNAL HYPOXEMIA. O2 SAT BELOW 88% FOR 182 MINUTES. Abdominal pain 02/11/2025 Hypertension 02/11/2025 Tachycardia determined by examination of pulse 0 02/11/2025 Overview (02/11/2025): TODAY SHE WAS NOTED TO BE TACHYCARDIAC, BUT NOT SYMPTOMATIC. SHE TOLD ME THAT SHE IS BEING FOLLOWED BY CARDIOLOGY SERVICE AND HAS HAD SOME WORKUP. SHE DOES HAVE APPOINTMENT WITH COLLATING MACHINE OPERATOR NEXT WEEK. Diabetes 02/11/2025 Assessment & Plan (02/12/2025 12:10 PM EDT): Diabetes is: controlled - Lab Results Component Value Date HGBA1C 7.0 (A) 02/12/2025 HGBA1C 7.7 (A) 12/12/2024 HGBA1C 11.0 (H) 10/10/2024 - Lab Results Component Value Date MICROALBUR 11.0 10/10/2024 CREATININE 0.77 10/10/2024 -Changes: none - Diabetic eye exam:up to date - Diabetic foot exam:referral done - Continue lifestyle modifications - Continue current medications - Follow up: 3 months Hyperglycemia 02/11/2025 Vaginal itching 12/12/2024 Encounter for preventive care 01/25/2024 Assessment & Plan (02/12/2025 12:10 PM EDT): See HPI Assessment & Plan (01/25/2024 1:46 PM EDT): [...] EDT): Patient followed by cardiology on metoprolol Chronic left shoulder pain 01/23/2023 Pain of left upper arm 01/23/2023 Encounter for preventative adult health care exa mination 01/23/2023 Assessment & Plan (01/24/2023 3:58 PM EDT): See HPI Type 2 diabetes mellitus wit h hyperglycemia, without long-term current use of insulin 09/28/2022 Assessment & Plan (12/12/2024 12:18 PM EDT): Diabetes is: almost at goal - Lab Results Component Value Date HGBA1C 7.7 (A) 12/12/2024 HGBA1C 11.0 (H) 10/10/2024 HGBA1C 11.4 (A) 08/29/2024 - Lab Results Component Value Date MICROALBUR 11.0 10/10/2024 CREATININE 0.77 10/10/2024 -Changes: None - Diabetic eye exam: Up-to-date - Diabetic foot exam: Pending - Continue lifestyle modifications - Continue current medications - Follow up: 3 months Assessment & Plan (08/29/2024 12:36 PM EDT): [...] PM EDT): UA and culture ordered today Kidney stones 09/28/2022 Pain of toe of [...] with same interventions Diabetic peripheral neuropathy 05/04/2022 Assessment & Plan (12/12/2024 12:19 PM EDT): Stable Mild chronic obstructive pulmonary disease 04/02 Assessment & Plan (12/12/2024 12:19 PM EDT): Stable Continue to follow with tentering machine feeder Assessment & Plan (07/06/2023 4:36 PM EST): Continue to follow with tentering machine feeder RSV vaccine and COVID vaccine today, she will think about getting flu vaccine Type 2 diabetes mellitus without complication Closed fracture of forearm 01/30/2018 Restrictive lung disease 06/03/2016 Assessment & Plan (07/06/2023 4:37 PM EST): As above Disorder of lung 06/04/2014 SILVIA (generalized anxiety disorder) 12/06/2013 Assessment & Plan (12/12/2024 12:18 PM EDT): Continue to follow with therapist Major depressive disorder 12/06/2013 Vitamin D deficiency 02/17/2012 Type 2 diabetes mellitus 02/17/2012 Essential hypertension 12/08/2011 Assessment & Plan (02/12/2025 12:09 PM EDT): I advised: - Aerobic exercise as tolerated. [...] consulting health care provider Assessment & Plan (12/12/2024 12:18 PM EDT): I advise following - Aerobic exercise to reduce BP. Initial [...] consulting health care provider Assessment & Plan (08/29/2024 12:35 PM EDT): [...] at home if still high call back Resolved Problems Problem Noted Date Diagnosed Date Resolved Date Mixed anxiety and depressive disorder 01/23/2023 11/27/2024 Encounters * This document contains information received from the source organization and may not represent a complete record from that organization. Date Type Department Care Team Description 02/12/2025 10:45 AM EDT Office Visit [facility] [address] [place] [address] Isabel Ramsay MD Type 2 diabetes mellitus with hyperglycemia, with long-term current use of insulin ([facility]) (Primary Dx); Essential hypertension; Encounter for preventive care 02/12/2025 Travel 02/11/2025 Telephone [facility] [address] [place] [address] Isabel Ramsay MD chart prep 02/10/2025 Refill [facility] [address] [place] [address] Isabel Ramsay MD Fibromyalgia; Diabetic peripheral neuropathy ([facility]) 02/06/2025 Refill [facility] [address] [place] [address] Isabel Ramsay MD Mixed anxiety and depressive disorder 02/03/2025 Patient Outreach [facility] [address] [place] [address] Isabel Ramsay MD Pre-visit Planning ([facility] screening completed on 08/20/2024) 01/13/2025 Refill [facility] [address] [place] [address] Isabel Ramsay MD Fibromyalgia; Diabetic peripheral neuropathy ([facility]/HCC) 01/09/2025 Refill [facility] [address] [place] [address] [facility] 01/09/2025 Refill [facility] [address] [place] [address] Isabel Ramsay MD Localized osteoporosis without current pathological fracture; Chronic obstructive pulmonary disease, unspecified COPD type (CMS/HCC) 01/06/2025 Orders Only [facility] [address] [place] [address] Isabel Ramsay MD 12/18/2024 Travel 12/17/2024 Refill [facility] [address] [place] [address] [facility] Fibromyalgia; Diabetic peripheral neuropathy ([facility]/HCC) 12/16/2024 Refill [facility] [address] [place] [address] [facility] Type 2 diabetes mellitus with other specified complication, unspecified whether terminal superintendent insulin use ([facility]); Other hyperlipidemia 12/12/2024 10:00 AM EDT Office Visit [facility] [address] [place] [address] Isabel Ramsay MD Essential hypertension (Primary Dx); Type 2 diabetes mellitus with hyperglycemia, without long-term current use of insulin ([facility]); Mild chronic obstructive pulmonary disease ([facility]/HCC); Diabetic peripheral neuropathy ([facility]); Dietary counseling; Exercise counseling; SILVIA (generalized anxiety disorder); Vaginal itching 12/12/2024 Travel 12/09/2024 Travel 12/05/2024 Travel 12/03/2024 Patient Outreach [facility] [address] [place] [address] Isabel Ramsay MD Pre-visit Planning ([facility] screening completed on 08/20/2024) 11/20/2024 Travel 11/15/2024 Refill [facility] [address] [place] [address] Polly Castillo MD Fibromyalgia; Diabetic peripheral neuropathy ([facility]/HCC) 11/14/2024 Refill [facility] [address] [place] [address] Isabel Ramsay MD Essential hypertension; Fibromyalgia; Diabetic peripheral neuropathy ([facility]/HCC) 11/13/2024 Refill [facility] [address] [place], [place] [phone] Isabel Ramsay MD Vitamin D deficiency from Last 3 Months Immunizations Immunization Administration [...] Mass Index 28.76 02/12/2025 10:42 AM EDT Plan of Treatment Upcoming Encounters Date Type Department Care Team (Late st Contact Info) Description 02/20/2025 8:00 AM EDT Office Visit [facility] [address] [place] [address] Dariela Keen 03/27/2025 11:00 AM EDT Medication Management [facility] [address] [place] [address] Mazin Rice, PharmD [address] [place] [address] Health Maintenance Due Date Last Done Comments CT Colonography 1972 FIT DNA/Cologuard 1972 FIT 1972 FOBT 1972 HIV Screening 1972 Sigmoidoscopy 1972 Diabetes: Foot Exam 1982 Family Planning (PISQ) 12/29/1987 Hepatitis C Screening 1990 Hepatitis A Vaccines (1 of 2 - Risk 2-dose series) 12/29/1991 Pap Smear 1993 HPV/Cotest 2002 Dental X-Ray: Bitewings 11/14/2024 11/14/19 24, 02/11/2022, 02/07/2018, Additional history exists COVID-19 Vaccine ( season) 2025 07/06/2023, 01/19/2021, 12/29/2020 Influenza Vaccine (#1) 2025 8, 03/12/2013, 02/17/2012, Additional history exists Dental X-Ray: Full Mouth 02/12/2025 02/11/2022, 10/28 Dental Oral Exam 02/20/2025 08/19/2024, , 02/11/2022, Additional history exists Dental Prophylaxis 02/20/2025 08/19/2024, 0 11/14/2023, 02/21/2022, Additional history exists Diabetes: Hemoglobin A1C 05/14/2025 025, 12/12/2024, 10/10/2024, Additional history exists Depression Monitoring 08/12/2025 02/12/2025, 025 Diabetes: Urine Protein Screening 10/10/2025 10/10/2024, 03/16/2023, 07/12/2021 Lipid Panel 10/10/2025 10/10/2024, 02/26, 04/25/2022, Additional history exists Alcohol/Substance Use Screening 12/12/2025 12/12/2024 Disability Screening 12/12/2025 12/12/2024 Mammogram 01/06/2026 01/06/2025, 08/0 09/2023, 12/26/2022, Additional history exists SDOH Screening 02/12/2026 02/12/2025 Tobacco Screening 02/12/2026 02/12/2025 Eye Exam 07/10/2026 07/10/2024, 06/29, 07/10/2024, Additional [...] hyperglycemia, with long-term current use of insulin ([facility]) POCT GLUCOSE Routine 02/12/2025 10:54 AM EDT Type 2 diabetes mellitus with hyperglycemia, with long-term current use of insulin ([facility]) BI MAMMOGRAM SCREENING TOMOSYNTHESIS BILATERAL Routine 01/06/2025 2:20 PM EDT POCT GLYCATED HEMOGLOBIN, TOTAL Routine 12/12/2024 10:12 AM EDT Type 2 diabetes mellitus with hyperglycemia, without long-term current use of insulin ([facility]) POCT GLUCOSE Routine 12/12/2024 10:11 AM EDT Type 2 diabetes mellitus with hyperglycemia, without long-term current use of insulin ([facility]) ALBUMIN, RANDOM URINE W/CREATININE Routine 10/10/2024 7:19 AM EDT Type 2 diabetes mellitus with hyperglycemia, without long-term current use of insulin ([facility]) LIPID PANEL, STANDARD Routine 10/10/2024 7:19 AM EDT PROPHYLAXIS - ADULT Routine 08/19/2024 8 :00 AM EDT Dental calculus PERIODIC ORAL EVALUATION - ESTABLISHED PATIENT Routine 08/19/2024 8:00 AM EDT HM COLONOSCOPY Routine 06/27/2024 3:52 PM EST BITEWINGS - 4 RADIOGRAPHIC IMAGES Routine 11/14/2023 8:00 AM EDT INTRAORAL - COMPLETE SERIES OF RADIOGRAPHIC IMAGES Routine 02/11/2022 12:00 AM EDT from Last 3 Months or Most Recently Relevant to Health Maintenance Results * (ABNORMAL) POCT Hgb A1c (02/12/2025 10:54 AM EDT) Only the most recent of2 resultswithin the time period is included. Hemoglobin A1C 7.0(A) 4.0 - 5.7 % QC Media Lot # [id number] Lot# Expiration Date 41,627 Blood 02/12/2025 10:5 4 AM EDT us Isabel Hubbard MD POINT OF CARE TEST EN TER/EDIT ORDERABLES Final Result * (ABNORMAL) POCT Glucose (02/12/2025 10:54 AM EDT) Only the most recent of2 resultswithin the time period is included. Glucose Blood, POC 257(A) 60 - 200 mg/dL QC Media Lot # [id number] Lot# Expiration Date 113,025 Blood Capillary blood specimen / Unknown 02/12/2025 10:54 AM EDT us Isabel Hubbard MD POINT OF CARE TEST EN TER/EDIT ORDERABLES Final Result * BI Mammogram Screening Tomosynthesis Bilateral (01/06/2025 2:20 PM EDT) Anatomical Region Laterality Modality Breast Bilateral Mammography 01/06/2025 2:20 PM EDT Narrative 01/13/2025 1:43 PM EDT [facility] [address] [place] [address] Mammography Report Signed Patient: Denice Sanchez MR#: [id number] : 1970 Acct:[id number] Age/Sex: 54 / F ADM Date: 01/06/25 Loc: HO.MAMMO Attending Dr: Isabel Hubbard MD Ordering Physician: Isabel Ramsay MD Results: 1Negative Date of Service: 01/06/25 Follow Up: 1 Year From Orig inal Mammogram Procedure(s): MM tomosynthesis screening BI Accession Number(s): [id number] cc: Isabel Ramsay MD EXAMINATION: MM SCREENING DIGITAL BREAST TOMOSYNTHESIS, BILATERAL CLINICAL INFORMATION: Screening. Asymptomatic. COMPARISON: Comparison made to multiple prior, most recent January 01, 2024, and most remote June 04, 2018. TECHNIQUE: Digital breast tomosynthesis is performed in both the craniocaudal and mediolateral oblique views along with computer-aided detection (CAD). FINDINGS: BREAST COMPOSITION: There are scattered areas of fibroglandular density (ACR BI-RADS breast composition Category b). BILATERAL BREASTS: No significant masses, suspicious calcifications or other abnormalities are seen in either breast. MM/MM tomosynthesis screening BI IMPRESSION: BILATERAL BREASTS: Negative, no mammographic evidence of malignancy. Normal interval follow-up is recommended in 12 months. ASSESSMENT: BI-RADS 1 - Negative RECOMMENDATION: Routine annual mammography screening. FOLLOW-UP: 1 year F/U This examination should not preclude the clinical evaluation of a suspicious palpable abnormality. This patient's information was entered into a reminder system with a target due date for their next mammogram. Electronically signed by: Fernando Shaikh MD 01/13/2025 01:40 PM EDT Dictated By: Fernando Shaikh MD Signed By: <Electronically signed by Fernando Shaikh MD in OV> 01/13/25 1340 DD/ 1420 TD/TT: 01/06/25 1440 Ethernet Network Architect: Procedure Note Donotuseinterpreter, Image - 01/13/2025 [facility] [address] [place] [address] Mammography Report Signed Patient: Denice SanchezMR#: [id number] : 1970Acct:[id number] Age/Sex: 54 / FADM Date: 01/06/25 Loc: HO.MAMMO Attending Dr: Isabel Hubbard MD Ordering Physician: Isabel Ramsay MDResults: 1Negative Date of Service: 01/06/25Follow Up: 1 Year From Orig ina Mammogram Procedure(s): MM tomosynthesis screening BI Accession Number(s): [id number] cc: Isabel Ramsay MD EXAMINATION: MM SCREENING DIGITAL BREAST TOMOSYNTHESIS, BILATERAL CLINICAL INFORMATION: Screening. Asymptomatic. COMPARISON: Comparison made to multiple prior, most recent January 01, 2024, and most remote June 04, 2018. TECHNIQUE: Digital breast tomosynthesis is performed in both the craniocaudal and mediolateral oblique views along with computer-aided detection (CAD). FINDINGS: BREAST COMPOSITION: There are scattered areas of fibroglandular density (ACR BI-RADS breast composition Category b). BILATERAL BREASTS: No significant masses, suspicious calcifications or other abnormalities are seen in either breast. MM/MM tomosynthesis screening BI IMPRESSION: BILATERAL BREASTS: Negative, no mammographic evidence of malignancy. Normal interval follow-up is recommended in 12 months. ASSESSMENT: BI-RADS 1 - Negative RECOMMENDATION: Routine annual mammography screening. FOLLOW-UP: 1 year F/U This examination should not preclude the clinical evaluation of a suspicious palpable abnormality. This patient's information was entered into a reminder system with a target due date for their next mammogram. Electronically signed by: Frenando Shaikh MD 01/13/2025 01:40 PM EDT Dictated By: Fernando Shaikh MD Signed By: <Electronically signed by Fernando Shaikh MD in OV> 01/13/25 1340 DD/ 1420 TD/TT: 01/06/25 1440 Ethernet Network Architect: us Isabel Hubbard MD IMG BI PROCEDURES Fin al Result * Albumin, Random Urine W/Creatinine (10/10/2024 7:19 AM EDT) Creatinine, Urine 83.89 mg/dL [facility] Microalbumin Urine 11.0 mg/L H [facility] Microalbum Creatinine Ratio Ur 13.1 <30 ug/mg cr [facility] Comment:Albumin/Creatinine R atio Reference Ranges: Normal: < 30 ug/mg creatinine Microalbuminuria: 30 - 300 ug/mg creatinineClinical Albuminuria: > 300 ug/mg creatinine Urine (Urine, Random) 10/10/2024 7:19 AM EDT 10/10/2024 7:38 AM EDT us Isabel Hubbard MD LAB URINE ORDERABLES Final Result [facility] [address] [place] [phone] * (ABNORMAL) Lipid Panel, Standard (10/10/2024 7:19 AM EDT) Triglycerides 253(H) <150 mg/dL [facility] Comment:Desirable Triglyceri de: less than 150 mg/dLBorderline High Triglyceride 150-199 mg/dLHigh Triglyceride: 200-499 mg/dLVery High Triglyceride: greater than or equal to 5OO mg/dL Cholesterol 144 <200 mg/dL [facility] Comment:Desirable Cholestero l: less than 200 mg/dLBorderline High Cholesterol: 200-239 mg/dLHigh Cholesterol: greater than 239 mg/dL LDL Cholesterol Calculated 56 <100 mg/dL [facility] Comment:Desirable LDL: less than 100 mg/dLNear Optimal/Above Optimal LDL: 110- 129 mg/dLBorderline High LDL: 130-159 mg/dLHigh LDL: 160-189 mg/dLVery High LDL: greater than or equal to 190 mg/dL HDL Cholesterol 38(L) >40 mg/dL [facility] Comment:Desirable HDL: great er than 40 mg/dL Note: This HDL assay may give artificially low results in patients with liver disease. 10/10/2024 7:19 AM EDT 10/10/2024 7:19 AM EDT us Isabel Hubbard MD LAB BLOOD ORDERABLES Final Result [facility] [address] [place] [address] [phone] * Hm Colonoscopy (06/27/2024 3:52 PM EST) us Historical Provider HEALTH MAINTENANCE Final Result from Last 3 Months or Most Recently Relevant to Health Maintenance Insurance [facility] C[facility] D[facility]AL-[facility] MEDICAID STAND ADULT Care Teams Fiber Technologist Relationship Specialty Start Date End Date Isabel Ramsay MD [address] [place] [address] PCP - General Family Medicine 01/09/19 Mazin Rice, BalwinderD [address] [place] [address] Pharmacist Internal Medicine 09/10/24
--- OUTSIDE RECORDS SUMMARY | 2025-02-13 13:10 | XMS_ITS | Encounter Summary ---
Author Organization [employer] Address [address] [facility] [address] [place] [address] Care Team Providers Care Leather Currier Name Role Phone Isabel Ramsay MD Primary Care Provide r Mazin Rice PharmD Unavailable [phone] Reason for Visit * Reason Onset Date Comments Appointment 07/17/2024 Encounter Details Date Type Department Care Team (Late st Contact Info) Description 07/17/2024 Telephone [facility] ADULT DENTAL [address] [place], [place] [phone] Charleen Amador DDS [address] [place], [place] [phone] Appointment Social History Tobacco Use Types Packs/Day [...] EXAM THAT WAS APPROVED BY [facility] IN [facility] documented in this encounter Plan of Treatment Upcoming Encounters Date Type Department Care Team (Late st Contact Info) Description 02/20/2025 8:00 AM EDT Office Visit [facility] ADULT [facility]AL [address] [place] [address] Dariela Keen 03/27/2025 11:00 AM EDT Medication Management [facility] [address] [place] [address] Mazin Rice, BalwinderD [address] [place] [address] documented as of this encounter Visit Diagnoses Not on filedocumented in this encounter Additional Health Concerns Assessment Noted Time PHQ-9 Depression Total Score: 15 024 1:22 PM EDT documented as of this encounter Care Teams Leather Currier Relationship Specialty Start Date End Date Isabel Ramsay MD [address] [place], [place] [phone] PCP - General Family Medicine 01/09/19 Mazin Rice, BalwinderD [address] [place] [address] Pharmacist Internal Medicine 09/10/24 documented as of this encounter
== END 2025-02-13 11:23 | disposition home or self-care (01) ==
PROVIDERS: PCP Internal Medicine; Visit Provider Internal Medicine
DX: G47.33 Obstructive sleep apnea (adult) (pediatric) (principal); J45.909 Unspecified asthma, uncomplicated; J98.4 Other disorders of lung; R09.02 Hypoxemia
CPT/HCPCS: 99213

== ENCOUNTER → 2025-02-13 11:00 | Outpatient (BNVA) | payer MEDICAID, SELFPAY | PROVIDERS: PCP Internal Medicine; Visit Provider Internal Medicine | DX: G47.33 Obstructive sleep apnea (adult) (pediatric) (principal); J98.4 Other disorders of lung; J45.909 Unspecified asthma, uncomplicated; R09.02 Hypoxemia | CPT/HCPCS: 99212 ==

== ENCOUNTER 2025-05-15 08:41 | Outpatient (AMB) | payer MEDICAID, SELFPAY ==
--- NOTE | 2025-05-15 08:43 | A.OFFVIS_ITS ---
Vital Signs 05/15/25 08:45 Height 5 ft 5.87 in Weight 173 lb 15.115 oz BMI 28.2 BP 110/62 Blood Pressure Location Lt brachial Position Sitting Pulse 99 Pulse Source Pulse Oximeter Pulse Oximetry (%) 99 Oxygen Delivery Method Room Air Intake Visit Reasons: osteoporosis Intake Note: Patient present today for Osteoporosis follow up visit. Soaking Tank Worker Required: Yes Soaking Tank Worker Language: Conduit Mechanic Services: Soaking Tank Worker Offered & Declined Soaking Tank Worker Name: Sister will interpret Accompanied by: Sister Allergies No Known Allergies Allergy (Verified 05/15/25 08:46) HPI Comments Details: 54 YO F with is seen in consultation at the request of PCP for Osteoporosis. First diagnosed in not before . Not Received treatment in the past . No history of pathologic fracture or ONJ.Had wrist fx in 2 yrs ago . fell down stairs Has several servings of dietary calcium per day Not Takes Calcium supplement Takes 2000 IU of Vitamin D daily. Denies ever using PPI, anticoagulant, antiepileptic or glucocorticoid medication only for asthma exacerbation. Does not do weight bearing exercise Fracture history: as above Height loss: 2 inch [facility] COORDINATOR history: total hysterectomy with ovaries 37 yrs take ERT for 3 mos Denies history of Kidney stones: Has family history mother has Osteoporosis and hip fracture. UTD on dental cleanings and sees dentist every 6 months. No planned upcoming dental work or extractions. Gets hot flashes . Not hx of DVT. Family hx of maternal aunt has breast cancer DXA dated 03/10/22:FINDINGS: AP SPINE L1-L4: BMD 1.078 g/cm2, Z-score -1.1, T-score -0.8, normal. LEFT FEMUR, NECK: BMD 0.676 g/cm2, Z-score -2.3, T-score -2.6, osteoporosis. LEFT FEMUR, TOTAL: BMD 0.694 g/cm2, Z-score -2.5, T-score -2.5, osteoporosis. IDENTIFIED RISK FACTORS: Early menopause, secondary osteoporosis, history of fracture (adult), hysterectomy, bilateral oophorectomy, recurrent falls. HISTORY OF FRACTURE: Wrist. MEDICATIONS: Calcium supplements or multivitamin, vitamin D. MM/XR DEXA axial skeleton IMPRESSION: 1. DIAGNOSIS: Osteoporosis based on the lowest T-score value of -2.6 in the femoral neck applying World Health Organization criteria.? ? Labs: Secondary workup was negative Was placed on alendronate 70 mg Q weekly. Stop because of GI issues. This was done by patient after 1st dose. Currently off pharmacologic treatment . Repeat DEXA showed improvement into osteopenic range. No fracture since last visit [facility] Medical History Postprandial abdominal bloating Tubulovillous adenoma of colon Tubular adenoma of colon HARSH (obstructive sleep apnea) Allergic rhinitis Osteoporosis Asthma Arm mass Tachycardia determined by examination of pulse Restrictive lung disease Hypoxemia Dyspnea Post-COVID syndrome Surgical History H/O: hysterectomy (~2006) History of cholecystectomy (~2003) Hx of heart artery stent Family History Maternal Uncle Colon cancer Paternal Grandfather Colon cancer Mother Colon polyps Lung cancer Maternal Uncle Colon cancer Social History Household Members: Children Housing: Other Housing Other:: three family house Are you a primary pet care associate to a significant other at home: No Do you presently have visiting nurse or other home services: No Alcohol intake: never Patient Tobacco Use Status: Never used Tobacco service: No Current occupational status: disabled Assessment & Plan Assessment & Plan (1) Osteoporosis: Code(s): M81.0 - Age-related osteoporosis without current pathological fracture Category: Medical Plan: This is a 54-year-old female with a history of osteoporosis. Secondary workup was negative. There is a history of fragility wrist fracture. Evista is contraindicated because of previous DVT. Estrogen therapy is contraindicated because of family history of breast cancer. Pt was not able to tolerate bisphosphonate. Recent DEXA showed osteopenia Plan is to hold the alendronate for now. Should continue calcium and vitamin-D supplementation as well as weight-bearing exercise. Would hold off on phrmacologic therapy. Pt can return to care of PCP who can repeat DEXA who can repeat DEXA in 1 yrs . If progression into osteoporotic range, pt can reurn to endocrinology for discussion of pharmacologic options such as intravenous bisphosphonate like Reclast Coding Level of Care Code Est Pt Level 3 (05823) Diagnoses Osteoporosis M81.0
[2025-05-15 08:45] VITALS: BP 110/62; PULSE 99; O2SAT 99; BMI 28.2
--- OUTSIDE RECORDS SUMMARY | 2025-05-15 09:11 | XMS_ITS | Encounter Summary ---
Author Organization [employer] Address [address] [facility] [place] [address] Care Team Providers Care Nurse Transplant Name Role Phone Isabel Ramsay MD Primary Care Provide r Mazin Rice PharmD Unavailable [phone] Encounter Details Date Type Department Care Team (Latest Contact Info) Description 05/14/2025 Travel Social History Tobacco Use Types Packs/Day [...] Care Team (Late st Contact Info) Description 05/15/2025 11:00 AM EST Office Visit [facility] MED[facility] [address] [place] [phone] Isabel Ramsay MD [address] [place] [address] 05/26/2025 10:00 AM EST Telemedicine [facility] [address] [place] [phone] Mazin Rice, PharmD [address] [place] [address] 07/24/2025 1:00 PM EST Office Visit [facility] OPTOMETRY [address] [place] [address] Mary Alice Key, OD [address] [place] [address] 08/21/2025 12:45 PM EDT Office Visit [facility] ADULT DENTAL [address] [place] [address] Dariela Keen documented as of this encounter Goals Goal Patient Goal Type Associated Problems Recent Progress Patient-Stated? Author Help patients manage their type 2 diabetes Care Plan Help patients manage their type 2 diabetes No Charleen Tovar DDS Weekly blood pressure task Care Plan Weekly blood pressure task No Frank-Acos ta, Charleen, DDS Help patients manage their type 2 diabetes Care Plan Help patients manage their type 2 diabetes No Frank-Acos ta, Charleen, DDS Patient has chronic kidney disease Care Plan Patient has chronic kidney disease No Frank-Acos ta, Charleen, DDS Help patients manage their type 2 diabetes Care Plan Help patients manage their type 2 diabetes No Frank-Acos ta, Charleen, DDS Patient has diabetic neuropathy Care Plan Patient has diabetic neuropathy No Frank-Acos ta, Charleen, DDS Weekly blood pressure task Care Plan Weekly blood pressure task No Frank-Acos ta, Charleen, DDS Weekly blood pressure task Care Plan Weekly blood pressure task No Frank-Acos ta, Charleen, DDS Patient has chronic kidney disease Care Plan Patient has chronic kidney disease No Frank-Acos ta, Charleen, DDS Patient has chronic kidney disease Care Plan Patient has chronic kidney disease No Frank-Acos ta, Charleen, DDS Patient has diabetic neuropathy Care Plan Patient has diabetic neuropathy No Frank-Acos ta, Charleen, DDS Patient has diabetic neuropathy Care Plan Patient has diabetic neuropathy No Frank-Acos ta, Charleen, DDS Weekly blood pressure task Care Plan Weekly blood pressure task No Frank-Acos ta, Charleen, DDS Weekly blood pressure task Care Plan Weekly blood pressure task No Frank-Acos ta, Charleen, DDS Weekly blood pressure task Care Plan Weekly blood pressure task No Frank-Acos ta, Charleen, DDS Patient has chronic kidney disease Care Plan Patient has chronic kidney disease No Frank-Acos ta, Charleen, DDS Patient has chronic kidney disease Care Plan Patient has chronic kidney disease No Frank-Acos ta, Charleen, DDS Patient has chronic kidney disease Care Plan Patient has chronic kidney disease No Frank-Acos ta, Charleen, DDS Patient has diabetic neuropathy Care Plan Patient has diabetic neuropathy No Frank-Acos ta, Charleen, DDS Patient has diabetic neuropathy Care Plan Patient has diabetic neuropathy No Frank-Acos ta, Charleen, DDS Patient has diabetic neuropathy Care Plan Patient has diabetic neuropathy No Frank-Acos ta, Charleen, DDS Weekly blood pressure task Care Plan Weekly blood pressure task No Joe Brian [facility] Weekly blood pressure task Care Plan Weekly blood pressure task No Joe Brian [facility] Weekly blood pressure task Care Plan Weekly blood pressure task No Tavon-Joe Dahl [facility] Patient has chronic kidney disease Care Plan Patient has chronic kidney disease No Joe Brian [facility] Patient has chronic kidney disease Care Plan Patient has chronic kidney disease No Joe Brian [facility] Patient has chronic kidney disease Care Plan Patient has chronic kidney disease No Tavon-Joe Dahl [facility] Patient has diabetic neuropathy Care Plan Patient has diabetic neuropathy No Tavon-Joe Dahl [facility] Patient has diabetic neuropathy Care Plan Patient has diabetic neuropathy No Tavon-Joe Dahl [facility] Patient has diabetic neuropathy Care Plan Patient has diabetic neuropathy No Joe Brian [facility] Weekly blood pressure task Care Plan Weekly blood pressure task No Joe Brian [facility] Weekly blood pressure task Care Plan Weekly blood pressure task No Joe Brian [facility] Weekly blood pressure task Care Plan Weekly blood pressure task No Joe Brian [facility] Patient has chronic kidney disease Care Plan Patient has chronic kidney disease No Tavon-Joe Dahl [facility] Patient has chronic kidney disease Care Plan Patient has chronic kidney disease No Tavon-Joe Dahl [facility] Patient has chronic kidney disease Care Plan Patient has chronic kidney disease No Joe Brian [facility] Patient has diabetic neuropathy Care Plan Patient has diabetic neuropathy No Joe Brian [facility] Patient has diabetic neuropathy Care Plan Patient has diabetic neuropathy No Tavon-Joe Dahl [facility] Patient has diabetic neuropathy Care Plan Patient has diabetic neuropathy No Tavon-Joe Dahl [facility] Weekly blood pressure task Care Plan Weekly blood pressure task No Mazin Rice, PharmD Weekly blood pressure task Care Plan Weekly blood pressure task No Mazin Rice, PharmD Weekly blood pressure task Care Plan Weekly blood pressure task No Mazin Rice, PharmD Patient has chronic kidney disease Care Plan Patient has chronic kidney disease No Mazin Rice, PharmD Patient has chronic kidney disease Care Plan Patient has chronic kidney disease No Mazin Rice, PharmD Patient has chronic kidney disease Care Plan Patient has chronic kidney disease No Rice Mazin, PharmD Patient has diabetic neuropathy Care Plan Patient has diabetic neuropathy No Rice Mazin, PharmD Patient has diabetic neuropathy Care Plan Patient has diabetic neuropathy No Rice Mazin, PharmD Patient has diabetic neuropathy Care Plan Patient has diabetic neuropathy No RiceNupurMazin, PharmD Weekly blood pressure task Care Plan Weekly blood pressure task No VasquezJenConnie, PharmD Weekly blood pressure task Care Plan Weekly blood pressure task No VasquezJenConnie, PharmD Weekly blood pressure task Care Plan Weekly blood pressure task No Vasquez, Connie, PharmD Patient has chronic kidney disease Care Plan Patient has chronic kidney disease No Vasquez, Connie, PharmD Patient has chronic kidney disease Care Plan Patient has chronic kidney disease No Vasquez, Connie, PharmD Patient has chronic kidney disease Care Plan Patient has chronic kidney disease No Vasquez, Connie, PharmD Patient has diabetic neuropathy Care Plan Patient has diabetic neuropathy No Vasquez, Connie, PharmD Patient has diabetic neuropathy Care Plan Patient has diabetic neuropathy No Vasquez, Connie, PharmD Patient has diabetic neuropathy Care Plan Patient has diabetic neuropathy No Vasquez, Connie, PharmD Weekly blood pressure task Care Plan Weekly blood pressure task No Vasquez, Connie, PharmD Weekly blood pressure task Care Plan Weekly blood pressure task No Vasquez, Connie, PharmD Weekly blood pressure task Care Plan Weekly blood pressure task No Vasquez, Connie, PharmD Patient has chronic kidney disease Care Plan Patient has chronic kidney disease No Vasquez, Connie, PharmD Patient has chronic kidney disease Care Plan Patient has chronic kidney disease No Vasquez, Connie, PharmD Patient has chronic kidney disease Care Plan Patient has chronic kidney disease No Vasquez, Connie, PharmD Patient has diabetic neuropathy Care Plan Patient has diabetic neuropathy No Vasquez, Connie, PharmD Patient has diabetic neuropathy Care Plan Patient has diabetic neuropathy No Vasquez, Connie, PharmD Patient has diabetic neuropathy Care Plan Patient has diabetic neuropathy No Vasquez, Connie, PharmD Weekly blood pressure task Care Plan Weekly blood pressure task No Vasquez, Connie, PharmD Weekly blood pressure task Care Plan Weekly blood pressure task No Vasquez, Connie, PharmD Weekly blood pressure task Care Plan Weekly blood pressure task No Connie Vasquez PharmD Patient has chronic kidney disease Care Plan Patient has chronic kidney disease No Connie Vasquez PharmD Patient has chronic kidney disease Care Plan Patient has chronic kidney disease No Connie Vasquez, PharmD Patient has chronic kidney disease Care Plan Patient has chronic kidney disease No Connie Vasquez PharmD Patient has diabetic neuropathy Care Plan Patient has diabetic neuropathy No Connie Vasquez, PharmD Patient has diabetic neuropathy Care Plan Patient has diabetic neuropathy No Connie Vasquez, PharmD Patient has diabetic neuropathy Care Plan Patient has diabetic neuropathy No Connie Vasquez PharmD Weekly blood pressure task Care Plan Weekly blood pressure task No Tigist [place] Weekly blood pressure task Care Plan Weekly blood pressure task No Tigist [place] Weekly blood pressure task Care Plan Weekly blood pressure task No Tigist [place] Patient has chronic kidney disease Care Plan Patient has chronic kidney disease No Tigist [place] Patient has chronic kidney disease Care Plan Patient has chronic kidney disease No Tigist [place] Patient has chronic kidney disease Care Plan Patient has chronic kidney disease No Tigist [place] Patient has diabetic neuropathy Care Plan Patient has diabetic neuropathy No Tigist [place] Patient has diabetic neuropathy Care Plan Patient has diabetic neuropathy No Tigist [place] Patient has diabetic neuropathy Care Plan Patient has diabetic neuropathy No Tigist [place] Weekly blood pressure task Care Plan Weekly blood pressure task No Mary Julio [place] Weekly blood pressure task Care Plan Weekly blood pressure task No Mary Julio [place] Weekly blood pressure task Care Plan Weekly blood pressure task No Mary Julio [place] Patient has chronic kidney disease Care Plan Patient has chronic kidney disease No Mary Julio [place] Patient has chronic kidney disease Care Plan Patient has chronic kidney disease No Mary Julio [place] Patient has chronic kidney disease Care Plan Patient has chronic kidney disease No Mary Julio [place] Patient has diabetic neuropathy Care Plan Patient has diabetic neuropathy No Mary Julio [place] Patient has diabetic neuropathy Care Plan Patient has diabetic neuropathy No Mary Julio [place] Patient has diabetic neuropathy Care Plan Patient has diabetic neuropathy No Mary Julio [place] documented as of this encounter Visit Diagnoses Not on filedocumented in this encounter Additional Health Concerns Active Problems Noted Date Diagnosed Date Help patients manage their type 2 diabetes 04/10 Weekly blood pressure task 04/10/2025 Help patients manage their type 2 diabetes 04/10 Patient has chronic kidney disease 04/10/2025 Help patients manage their type 2 diabetes 04/10 Patient has diabetic neuropathy 04/10/2025 Weekly blood pressure task 04/11/2025 Weekly blood pressure task 04/11/2025 Patient has chronic kidney disease 04/11/2025 Patient has chronic kidney disease 04/11/2025 Patient has diabetic neuropathy 04/11/2025 Patient has diabetic neuropathy 04/11/2025 Weekly blood pressure task 04/21/2025 Weekly blood pressure task 04/21/2025 Weekly blood pressure task 04/21/2025 Patient has chronic kidney disease 04/21/2025 Patient has chronic kidney disease 04/21/2025 Patient has chronic kidney disease 04/21/2025 Patient has diabetic neuropathy 04/21/2025 Patient has diabetic neuropathy 04/21/2025 Patient has diabetic neuropathy 04/21/2025 Weekly blood pressure task 04/23/2025 Weekly blood pressure task 04/23/2025 Weekly blood pressure task 04/23/2025 Patient has chronic kidney disease 04/23/2025 Patient has chronic kidney disease 04/23/2025 Patient has chronic kidney disease 04/23/2025 Patient has diabetic neuropathy 04/23/2025 Patient has diabetic neuropathy 04/23/2025 Patient has diabetic neuropathy 04/23/2025 Weekly blood pressure task 04/23/2025 Weekly blood pressure task 04/23/2025 Weekly blood pressure task 04/23/2025 Patient has chronic kidney disease 04/23/2025 Patient has chronic kidney disease 04/23/2025 Patient has chronic kidney disease 04/23/2025 Patient has diabetic neuropathy 04/23/2025 Patient has diabetic neuropathy 04/23/2025 Patient has diabetic neuropathy 04/23/2025 Weekly blood pressure task 04/28/2025 Weekly blood pressure task 04/28/2025 Weekly blood pressure task 04/28/2025 Patient has chronic kidney disease 04/28/2025 Patient has chronic kidney disease 04/28/2025 Patient has chronic kidney disease 04/28/2025 Patient has diabetic neuropathy 04/28/2025 Patient has diabetic neuropathy 04/28/2025 Patient has diabetic neuropathy 04/28/2025 Weekly blood pressure task 05/01/2025 Weekly blood pressure task 05/01/2025 Weekly blood pressure task 05/01/2025 Patient has chronic kidney disease 05/01/2025 Patient has chronic kidney disease 05/01/2025 Patient has chronic kidney disease 05/01/2025 Patient has diabetic neuropathy 05/01/2025 Patient has diabetic neuropathy 05/01/2025 Patient has diabetic neuropathy 05/01/2025 Weekly blood pressure task 05/01/2025 Weekly blood pressure task 05/01/2025 Weekly blood pressure task 05/01/2025 Patient has chronic kidney disease 05/01/2025 Patient has chronic kidney disease 05/01/2025 Patient has chronic kidney disease 05/01/2025 Patient has diabetic neuropathy 05/01/2025 Patient has diabetic neuropathy 05/01/2025 Patient has diabetic neuropathy 05/01/2025 Weekly blood pressure task 05/01/2025 Weekly blood pressure task 05/01/2025 Weekly blood pressure task 05/01/2025 Patient has chronic kidney disease 05/01/2025 Patient has chronic kidney disease 05/01/2025 Patient has chronic kidney disease 05/01/2025 Patient has diabetic neuropathy 05/01/2025 Patient has diabetic neuropathy 05/01/2025 Patient has diabetic neuropathy 05/01/2025 Weekly blood pressure task 05/06/2025 Weekly blood pressure task 05/06/2025 Weekly blood pressure task 05/06/2025 Patient has chronic kidney disease 05/06/2025 Patient has chronic kidney disease 05/06/2025 Patient has chronic kidney disease 05/06/2025 Patient has diabetic neuropathy 05/06/2025 Patient has diabetic neuropathy 05/06/2025 Patient has diabetic neuropathy 05/06/2025 Weekly blood pressure task 05/14/2025 Weekly blood pressure task 05/14/2025 Weekly blood pressure task 05/14/2025 Patient has chronic kidney disease 05/14/2025 Patient has chronic kidney disease 05/14/2025 Patient has chronic kidney disease 05/14/2025 Patient has diabetic neuropathy 05/14/2025 Patient has diabetic neuropathy 05/14/2025 Patient has diabetic neuropathy 05/14/2025 Assessment Noted Time PHQ-9 Depression Total Score: 15 09/17/2 025 11:14 AM EDT documented as of this encounter Care Teams Nurse Transplant Relationship Specialty Start Date End Date Isabel Ramsay MD [address] [place] [address] PCP - General Family Medicine 01/09/19 Mazin Rice, BalwinderD [address] [place] [address] Pharmacist Internal Medicine 09/10/24 documented as of this encounter
--- OUTSIDE RECORDS SUMMARY | 2025-05-15 09:11 | XMS_ITS | Encounter Summary ---
Author Organization [employer] Address [address] [facility] [address] 7t [place] [address] Care Team Providers Care Airfield Manager Name Role Phone Isabel Ramsay MD Primary Care Provide r Mazin Rice PharmD Unavailable [phone] Reason for Visit * Reason Onset Date Comments Chart Prep 05/14/2025 Encounter Details Date Type Department Care Team ([facility] st Contact Info) Description 05/14/2025 Telephone [facility] MEDICINE [address] [place], [place] [phone] Isabel Ramsay MD 230 [place], [place] [phone] Chart Prep Social History Tobacco Use Types Packs/Day Years [...] encounter Miscellaneous Notes * Telephone Encounter - Mary Julio MA - 05/14/2025 11:29 AM EST Chart Prep Labs: done Images: done Referrals: not applicable Vaccines due: Covid, Flu, Hep A, and RSV Screenings: foot exam, PISQ, and HIV Screening, Hep C Screening Overdue care gaps: A1c, Glucose, PHQ-9, and SILVIA-7 documented in this encounter Plan of Treatment Upcoming Encounters Date Type Department Care Team (Late st Contact Info) Description 05/15/2025 11:00 AM EST Office Visit [facility] MEDICINE [address] [place] [phone] Isabel Ramsay MD [address] [place] [address] 05/26/2025 10:00 AM EST Telemedicine [facility] MEDICINE [address] [place] [address] Mazin Rice, PharmD [address] [place] [address] 07/24/2025 1:00 PM EST Office Visit [facility] OPTOMETRY [address] [place] [address] ShahidMary Alice, OD 230 [facility] [place] [address] 08/21/2025 12:45 PM EDT Office Visit [facility] ADULT DENTAL [address] [place] [address] Dariela Keen documented as of this encounter Goals Goal Patient Goal Type Associated Problems Recent Progress Patient-Stated? Author Help patients manage their type 2 diabetes Care Plan Help patients manage their type 2 diabetes No Frank-Acos ta, Charleen, DDS Weekly blood [...] Weekly blood pressure task No Joe Brian JASSON Weekly blood pressure task Care Plan Weekly blood pressure task No Joe Brian [facility] Weekly blood pressure task Care Plan Weekly blood pressure task No Joe Brian [facility] Patient has chronic kidney disease Care Plan Patient has chronic kidney disease No Joe Brian [facility] Patient has chronic kidney disease Care Plan Patient has chronic kidney disease No Joe Brian [facility] Patient has chronic kidney disease Care Plan Patient has chronic kidney disease No Joe Brian [facility] Patient has diabetic neuropathy Care Plan Patient has diabetic neuropathy No Joe Brian [facility] Patient has diabetic neuropathy Care Plan Patient has diabetic neuropathy No Joe Brian [facility] Patient has diabetic neuropathy Care Plan Patient has diabetic neuropathy No Joe Brian JASSON Weekly blood pressure task Care Plan Weekly blood pressure task No Joe Brian JASSON Weekly blood pressure task Care Plan Weekly blood pressure task No Joe Brian JASSON Weekly blood pressure task Care Plan Weekly blood pressure task No Joe Brian [facility] Patient has chronic kidney disease Care Plan Patient has chronic kidney disease No Joe Brian [facility] Patient has chronic kidney disease Care Plan Patient has chronic kidney disease No Joe Brian [facility] Patient has chronic kidney disease Care Plan Patient has chronic kidney disease [facility] Patient has diabetic neuropathy Care Plan Patient has diabetic neuropathy No Joe Brian, [facility] Patient has diabetic neuropathy Care Plan Patient has diabetic neuropathy [facility] Patient has diabetic neuropathy Care Plan Patient has diabetic neuropathy [facility] Weekly blood pressure task Care Plan Weekly blood pressure task No Rice, Mazin, PharmD Weekly blood pressure task Care Plan Weekly blood pressure task No Rice, Mazin, PharmD Weekly blood pressure task Care Plan Weekly blood pressure task No Rice, Mazin, PharmD Patient has chronic kidney disease Care Plan Patient has chronic kidney disease No Rice, Mazin, PharmD Patient has chronic kidney disease Care Plan Patient has chronic kidney disease No Rice, Mazin, PharmD Patient has chronic kidney disease Care Plan Patient has chronic kidney disease No Rice, Mazin, PharmD Patient has diabetic neuropathy Care Plan Patient has diabetic neuropathy No Rice, Mazin, PharmD Patient has diabetic neuropathy Care Plan Patient has diabetic neuropathy No Rice, Mazin, PharmD Patient has diabetic neuropathy Care Plan Patient has diabetic neuropathy No Rice, Mazin, PharmD Weekly blood pressure task Care Plan [...] Weekly blood pressure task No VasquezJenConnie, PharmD Patient has chronic kidney disease Care Plan Patient has chronic kidney disease No VasquezJenConnie, PharmD Patient has chronic kidney disease Care Plan Patient has chronic kidney disease No Vasquez, Connie, PharmD Patient has chronic kidney disease Care Plan Patient has chronic kidney disease No VasquezJenConnie, PharmD Patient has diabetic neuropathy Care Plan [...] Care Plan Weekly blood pressure task No VasquezAisha johnstonfer, PharmD Weekly blood pressure task Care Plan Weekly blood pressure task No Vasquez, Connie, PharmD Patient has chronic kidney disease Care Plan Patient has chronic kidney disease No VasquezJenConnie, PharmD Patient has chronic kidney disease Care Plan Patient has chronic kidney disease No VasquezJenConnie, PharmD Patient has chronic kidney disease Care [...] documented as of this encounter Care Teams Airfield Manager Relationship Specialty Start Date End Date Isabel Ramsay MD 230 [place] [address] PCP - General Family Medicine 01/09/19 Maizn Rice, BalwinderD 230 [place] [address] Pharmacist Internal Medicine 09/10/24 documented as of this encounter
--- OUTSIDE RECORDS SUMMARY | 2025-05-15 09:11 | XMS_ITS | Encounter Summary ---
Author Organization [employer] Address 75 [facility] 7t [place] [address] Care Team Providers Care Superintendent Mechanical Name Role Phone Isabel Ramsay MD Primary Care Provide r Mazin Rice PharmD Unavailable [phone] Reason for Visit * Reason Comments Med Refill Encounter Details Date Type Department Care Team ([facility] st Contact Info) Description 11/14/2022 Refill [facility] MED [facility] PEDS [address] [place] [address] Sawyer Richards MD [address] [place] [address] Type 2 diabetes mellitus without complication, unspecified whether termite exterminator insulin use ([facility] Social History Tobacco Use Types Packs/Day Years [...] Description 05/15/2025 11:00 AM EST Office Visit [facility] 230 [place] [address] Isabel Ramsay MD 230 [place] [address] 05/26/2025 10:00 AM EST Telemedicine [facility] 230 [place] [address] Mazin Rice, PharmD 230 [place] [address] 07/24/2025 1:00 PM EST Office Visit [facility] OPTOMETRY [address] [place] [address] Shahid, Mary Alice, OD 230 [place] [address] 08/21/2025 12:45 PM EDT Office Visit [facility] ADULT DENTAL 230 [place] [address] Dariela Keen documented as of this encounter Visit Diagnoses Diagnosis Type 2 diabetes mellitus without complication, unspecified whether senior care insulin use documented in this encounter Additional Health Concerns Assessment Noted Time PHQ-9 Depression Total Score: 17 06/2 023 8:32 AM EDT documented as of this encounter Care Teams Superintendent Mechanical Relationship Specialty Start Date End Date Isabel Ramsay MD [address] [place] [id number] PCP - General Family Medicine 01/09/19 Mazin Rice, PharmD [address] [place] [address] [phone] Pharmacist Internal Medicine 09/10/24 documented as of this encounter
--- OUTSIDE RECORDS SUMMARY | 2025-05-15 09:11 | XMS_ITS | Encounter Summary ---
Author Organization [employer] Address [address] [facility] [address] 7[address] [place] [address] Care Team Providers Care Tentering Machine Off Bearer Name Role Phone Isabel Ramsay MD Primary Care Provide r Mazin Rice PharmD Unavailable [phone] Encounter Details Date Type Department Care Team (Late st Contact Info) Description 07/01/2024 Orders Only [facility] MEDICINE 230 [place] [address] ProviderTejas MD Social History Tobacco Use Types [...] Description 05/15/2025 11:00 AM EST Office Visit [facility] MEDICINE [address] [place] [address] Isabel Ramsay MD 230 [place] [address] 05/26/2025 10:00 AM EST Telemedicine [facility] MEDICINE [address] [place] [address] Mazin Rice, PharmD 230 [place] [address] 07/24/2025 1:00 PM EST Office Visit [facility] OPTOMETRY [address] [place] [address] Mary Alice Key, OD 230 [place] [address] 08/21/2025 12:45 PM EDT Office Visit [facility] ADULT DENTAL 230 [place] [address] Dariela Keen documented as of this encounter [...] Noted Time PHQ-9 Depression Total Score: 15 01/24/ 024 1:22 PM EDT documented as of this encounter Care Teams Tentering Machine Off Bearer Relationship Specialty Start Date End Date Isabel Ramsay MD 230 [place] [address] PCP - General Family Medicine 01/09/19 Mazin Rice, BalwinderD 230 [place] [address] Pharmacist Internal Medicine 09/10/24 documented as of this encounter
--- OUTSIDE RECORDS SUMMARY | 2025-05-15 09:11 | XMS_ITS | Encounter Summary ---
Author Organization [employer] [facility] Address 75 [facility] 7t [place] [address] Care Team Providers Care Network Operations Center Engineer Name Role Phone Isabel Ramsay MD Primary Care Provide r Mazin Rice PharmD Unavailable [phone] Reason for Visit * Reason Comments Med Refill Encounter Details Date Type Department Care Team (Late st Contact Info) Description 11/25/2022 Refill [facility] MEDICINE 230 [place], [place] [phone] Kiara Hernandez MD 230 [place], [place] [phone] Mild chronic obstructive pulmonary disease (CMS/HCC) Social [...] Description 05/15/2025 11:00 AM EST Office Visit [facility] MEDICINE 230 [place] [address] Isabel Ramsay MD 230 [place] [address] 05/26/2025 10:00 AM EST Telemedicine [facility] MEDICINE [address] [place] [address] Mazin Rice, PharmD 230 [place] [address] 07/24/2025 1:00 PM EST Office Visit [facility] OPTOMETRY [address] [place] [address] Shahid, Mary Alice, OD 230 [place] [address] 08/21/2025 12:45 PM EDT Office Visit [facility] ADULT DENTAL 230 [place] [address] Dariela Keen documented as of this encounter Visit Diagnoses Diagnosis Mild chronic obstructive pulmonary disease (CMS/HCC) (HCC) Chronic airway obstruction, not elsewhere classified documented in this encounter Additional Health Concerns Assessment Noted Time PHQ-9 Depression Total Score: 17 023 8:32 AM EDT documented as of this encounter Care Teams Network Operations Center Engineer Relationship Specialty Start Date End Date Isabel Ramsay MD [address] [place] [phone] PCP - General Family Medicine 01/09/19 Mazin Rice, PharmD [address] [place] [address] [phone] Pharmacist Internal Medicine 09/10/24 documented as of this encounter
--- OUTSIDE RECORDS SUMMARY | 2025-05-15 09:11 | XMS_ITS | Encounter Summary ---
Author Organization [employer] Address 75 [facility] 7t [place] [address] Care Team Providers Care Shell Core And Molding Supervisor Name Role Phone Isabel Ramsay MD Primary Care Provide r Mazin Rice PharmD Unavailable [phone] Reason for Visit * Reason Onset Date Comments call back requested 01/19/2023 Encounter Details Date Type Department Care Team ([facility] st Contact Info) Description 01/19/2023 Telephone [facility] MEDICINE 230 [place], [place] [phone] Isabel Ramsay MD 230 [place], [place] [phone] call back requested Social History Tobacco Use [...] - 01/19/2023 12:57 PM EDT TC from [facility] requesting a call back in regards of medications : Setraline 25mg and Duloxetine 30mg. Please contact Med box at ext [phone]. PCP DR. Raygoza documented in this encounter Plan of Treatment Upcoming Encounters Date Type Department Care Team (Late st Contact Info) Description 05/15/2025 11:00 AM EST Office Visit [facility] MEDICINE 230 [place] [address] Isabel Ramsay MD [address] [place] [address] 05/26/2025 10:00 AM EST Telemedicine [facility] MEDICINE 230 [place] [address] Mazin Rice, PharmD 230 [place] [address] 07/24/2025 1:00 PM EST Office Visit [facility] OPTOMETRY [address] [place] [address] Mary Alice Key, OD 230 [place] [address] 08/21/2025 12:45 PM EDT Office Visit [facility] ADULT DENTAL 230 [place] [address] Dariela Keen documented as of this encounter Visit Diagnoses Not on filedocumented in this encounter Additional Health Concerns Assessment Noted Time PHQ-9 Depression Total Score: 17 023 8:32 AM EDT documented as of this encounter Care Teams Shell Core And Molding Supervisor Relationship Specialty Start Date End Date Isabel Ramsay MD 230 [place] [address] PCP - General Family Medicine 01/09/19 Mazin Rice, Olya 230 [place] [address] Pharmacist Internal Medicine 09/10/24 documented as of this encounter
--- OUTSIDE RECORDS SUMMARY | 2025-05-15 09:11 | XMS_ITS | Encounter Summary ---
Author Organization [employer] Address 75 [facility] 7t [place] [address] Care Team Providers Care Epic Interface Analyst Name Role Phone Isabel Ramsay MD Primary Care Provide r Mazin Rice PharmD Unavailable [phone] Encounter Details Date Type Department Care Team (Late st Contact Info) Description 08/12/2022 Orders Only [facility] CHC MED & PEDS [address] [place] [address] Connie Pisano LPN Social History Tobacco Use [...] Department Care Team (Late Contact Info) Description 05/15/2025 11:00 AM EST Office Visit [facility] MEDICINE [address] [place] [phone] Isabel Ramsay MD [address] [place] [address] 05/26/2025 10:00 AM EST Telemedicine [facility] MEDICINE [address] [place] [address] [phone] Mazin Rice, PharmD [address] [place] [address] [phone] 07/24/2025 1:00 PM EST Office Visit [facility] OPTOMETRY [address] [place] [address] Mary Alice Key, OD 230 [place] [address] 08/21/2025 12:45 PM EDT Office Visit [facility] ADULT DENTAL 230 [place] [address] Dariela Keen documented as of this encounter Visit Diagnoses Not on filedocumented in this encounter Care Teams Epic Interface Analyst Relationship Specialty Start Date End Date Isabel Ramsay MD 230 [place] [address] PCP - General Family Medicine 01/09/19 Mazin Rice, BalwinderD 230 [place], [place] [phone] Pharmacist Internal Medicine 09/10/24 documented as of this encounter
--- OUTSIDE RECORDS SUMMARY | 2025-05-15 09:11 | XMS_ITS | Encounter Summary ---
Author Organization [employer] Address 75 [facility] 7t [place] [address] Care Team Providers Care Printed Forms Proofreader Name Role Phone Isabel Ramsay MD Primary Care Provide r Mazin Rice PharmD Unavailable [phone] Encounter Details Date Type Department Care Team ([facility] Contact Info) Description 06/03/2022 Orders Only [facility] CHC MED & PEDS [address] [place] [address] Connie Pisano LPN Social History Tobacco Use [...] Description 05/15/2025 11:00 AM EST Office Visit [facility] MEDICINE 230 [place], [place] [phone] Isabel Ramsay MD 230 [place], [place] [phone] 05/26/2025 10:00 AM EST Telemedicine [facility] MEDICINE [address] [place] [address] Mazin Rice, Olya 230 [place] [address] 07/24/2025 1:00 PM EST Office Visit [facility] OPTOMETRY [address] [place] [address] Shahid, Mary Alice, OD 230 [place] [address] 08/21/2025 12:45 PM EDT Office Visit [facility] ADULT DENTAL 230 [place] [address] Dariela Keen documented as of this encounter Procedures Procedure Name Priority Date/Time Associated Diagnosis Comments VITAMIN D,25-OH,TOTAL,IA Routine 07/07/2022 7:33 AM EST PHOSPHATE ( PHOSPHORUS) Routine 07/07/2022 7:33 AM EST documented in this encounter Results * Vitamin D, 25-Hydroxy, Total, Immunoassay (07/07/2022 7:33 AM EST) Vitamin D 25-OH Total 62.0 >30 ng/mL [facility] Comment:Health Based Referen ce Values*< 20 ng/mL [id number] ng/mL Insufficient> 30 ng/mL Sufficient*Rolanda BALL. N [...] 7:33 AM EST 07/07/2022 7:33 AM EST [facility] External Provider LAB BLO OD ORDERABLES Final Result Performing Organization Address City/[facility]/ZIP Co de Phone Number [facility] [address] [place] [address] [phone] * (ABNORMAL) Phosphate (As Phosphorus) (07/07/2022 7:33 AM EST) Phosphorus 4.6(H) 2.7 - 4.5 mg/dL [facility] 07/07/2022 7:33 AM EST 07/07/2022 7:33 AM EST [facility] External Provider LAB BLO OD ORDERABLES Final Result Performing Organization Address [facility] Co de Phone Number [facility] [address] [place] [phone] documented in this encounter Visit Diagnoses Not on filedocumented in this encounter Care Teams Printed Forms Proofreader Relationship Specialty Start Date End Date Isabel Ramsay MD 230 [place] [address] PCP - General Family Medicine 01/09/19 Mazin Rice, BalwinderD 230 [place] [address] Pharmacist Internal Medicine 09/10/24 documented as of this encounter
--- OUTSIDE RECORDS SUMMARY | 2025-05-15 09:11 | XMS_ITS | Encounter Summary ---
Author Organization [employer] Address 75 [facility] 7t [place] [address] Care Team Providers Care Outside Cutter Hand Name Role Phone Isabel Ramsay MD Primary Care Provide r Mazin Rice PharmD Unavailable [phone] Encounter Details Date Type Department Care Team (Late st Contact Info) Description 09/13/2022 Orders Only [facility] CHC MED & PEDS [address] [place] [address] Connie Pisano LPN Social History Tobacco Use [...] Description 05/15/2025 11:00 AM EST Office Visit [facility] MEDICINE [address] [place] [address] Isabel Ramsay MD [address] [place] [phone] 05/26/2025 10:00 AM EST Telemedicine [facility] MEDICINE [address] [place] [address] [phone] Mazin Rice, PharmD [address] [place] [address] [phone] 07/24/2025 1:00 PM EST Office Visit [facility] OPTOMETRY [address] [place] [address] Mary Alice Key, OD 230 [place] [address] 08/21/2025 12:45 PM EDT Office Visit [facility] ADULT DENTAL 230 [place] [address] Dariela Keen documented as of this encounter Visit Diagnoses Not on filedocumented in this encounter Care Teams Outside Cutter Hand Relationship Specialty Start Date End Date Isabel Ramsay MD [address] [place] [address] PCP - General Family Medicine 01/09/19 Mazin Rice, BalwinderD 230 [place], [place] [phone] Pharmacist Internal Medicine 09/10/24 documented as of this encounter
--- OUTSIDE RECORDS SUMMARY | 2025-05-15 09:11 | XMS_ITS | Encounter Summary ---
Author Organization [employer] [facility] Address 75 [facility] 7t [place] [address] Care Team Providers Care Editorial Intern Name Role Phone Isabel Ramsay MD Primary Care Provide r Mazin Rice PharmD Unavailable [phone] Reason for Visit * Reason Comments Med Refill Encounter Details Date Type Department Care Team ([facility] st Contact Info) Description 03/31/2025 Refill [facility] MEDICINE 230 [place], [place] [phone] Mazin Rice, PharmD 230 [place], [place] [phone] Social History Tobacco Use Types Packs/Day Years [...] Description 05/15/2025 11:00 AM EST Office Visit [facility] MEDICINE [address] [place] [address] Isabel Ramsay MD 230 [place] [address] 05/26/2025 10:00 AM EST Telemedicine [facility] MEDICINE [address] [place] [address] Mazin Rice, PharmD 230 [place] [address] 07/24/2025 1:00 PM EST Office Visit [facility] OPTOMETRY [address] [place] [address] Mary Alice Key, EDILBERTO 230 [place] [address] 08/21/2025 12:45 PM EDT Office Visit [facility] ADULT DENTAL [address] [place] [address] Dariela Keen documented as of this encounter Visit Diagnoses Not on filedocumented in this encounter Additional Health Concerns Assessment Noted Time PHQ-9 Depression Total Score: 15 025 11:14 AM EDT documented as of this encounter Care Teams Editorial Intern Relationship Specialty Start Date End Date Isabel Ramsay MD 230 [place] [address] PCP - General Family Medicine 01/09/19 Mazin Rice, BalwinderD 230 [place] [address] Pharmacist Internal Medicine 09/10/24 documented as of this encounter
--- OUTSIDE RECORDS SUMMARY | 2025-05-15 09:11 | XMS_ITS | Clinical Summary ---
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 Ventolin HFA 108 (90 Base) MCG/ACT inhalerIndicatio ns:Mild chronic obstructive pulmonary disease (CMS/HCC) (HCC) INHALE 2 PUFFS BY MOUTH EVERY 4 TO 6 HOURS NEEDED FOR DIFFICULTY BREATHING. DO NOT EXCEED FOUR TIMES DAILY 18 g 1 023 Active metoprolol succinate XL (Toprol-XL) 25 MG 24 hr tablet Take 25 mg by mouth in the morning. 023 Active FREESTYLE LITE test stripIndications :Diabetic peripheral neuropathy (HCC) TEST BLOOD SUGAR ONCE DAILY 50 strip 11 024 Active cyanocobalamin (Vitamin B-12) 100 MCG tablet Take 100 mcg by mouth Once per day. Puchases OTC Active Continuous Glucose Comfort Station Supervisor (FreeStyle Maura 3 [place]) deviceIndication s:Type 2 diabetes mellitus with hyperglycemia, without long-term current use of insulin ([facility]) 1 each Once per day. Use as directed for CGM 1 each 025 Active Continuous Glucose Sensor (FreeStyle Maura 3 Plus Sensor) miscIndications: Type 2 diabetes mellitus with hyperglycemia, without long-term current use of insulin (HCC) 1 each every 15 days. Apply 1 every 15 days as directed for CGM 2 each 05/12/20 8:49 AM EST 025 Active glucose blood (FreeStyle Precision Jorge Luis Test) test stripIndications :Type 2 diabetes mellitus with hyperglycemia, without long-term current use of insulin (HCC) Use to test blood sugar 3 times daily in case of CGM failure or extremes of BG 100 each 05/12/20 8:49 AM EST 025 2025 Active pantoprazole (ProtoNix) 40 MG [...] per day. Puchases OTC (unknown strength) Active glipiZIDE XL (Glucotrol XL) 10 MG 24 hr tabletIndication s:Type 2 diabetes mellitus with hyperglycemia, without long-term current use of insulin (HCC) Take 1 tablet (10 mg) by mouth before breakfast. With 5 mg tablet. Do not crush, chew, or split. 30 tablet 025 Active glipiZIDE XL (Glucotrol XL) 5 MG 24 hr tabletIndication s:Type 2 diabetes mellitus with hyperglycemia, without long-term current use of insulin (HCC) Take 1 tablet (5 mg) by mouth before breakfast. With 10 mg tablet. Do not crush, chew, or split. 30 tablet 05/12/20 8:49 AM EST 025 Active ipratropium (Atrovent) 0.03 % nasal spray USE 2 SPRAYS IN EACH NOSTRIL ONCE DAILY IN THE EVENING BEFORE de ponerse la mscara de cpap 025 Active Aspirin Low Dose 81 MG chewable tabletIndication s:Type 2 diabetes mellitus with other specified complication, unspecified whether imaging scheduler insulin use (HCC) TAKE 1 TABLET BY MOUTH EVERY MORNING (CHEW) 90 tablet 1 025 Active atorvastatin (Lipitor) 40 MG tabletIndication s:Other hyperlipidemia TAKE 1 TABLET BY MOUTH EVERY MORNING 90 tablet 1 025 Active amLODIPine (Norvasc) 2.5 MG tablet TAKE 1 TABLET BY MOUTH EVERY MORNING 90 tablet 1 04/11/20 25 12:46 PM EST 025 Active lidocaine (Lidoderm) 5 % patchIndications :Localized osteoporosis without current pathological fracture APPLY 1 PATCH TOPICALLY TO SKIN, LEAVE ON FOR 12 HOURS AND OFF FOR 12 HOURS DIRECTED 30 patch 3 025 Active Alcohol Swabs (Alcohol Prep) 70 % pads 1 each Once per day. USE DIRECTED 100 each 11 04/11/20 25 12:45 PM EST 025 Active sertraline (Zoloft) 50 MG tabletIndication s:Mixed anxiety and depressive disorder TAKE 1 TABLET BY MOUTH EVERY MORNING 90 tablet 1 05/12/20 25 8:49 AM EST 025 Active albuterol (2.5 MG/3ML) 0.083% nebulizer solution INHALE AMPULE USING A NEBULIZER FOUR TIMES DAILY DIRECTED 90 mL 1 025 Active Advair HFA 115-21 MCG/ACT inhalerIndicatio ns:Chronic obstructive pulmonary disease, unspecified COPD type (CMS/HCC) ([facility]) INHALE 2 PUFFS BY MOUTH TWICE DAILY IN THE MORNING AND IN THE EVENING RINSE MOUTH AFTER USING. 12 g 2 05/12/20 25 8:49 AM EST 025 Active Tirzepatide (Mounjaro) 5 MG/0.5ML solution auto-injectorInd ications:Type 2 diabetes mellitus with hyperglycemia, with long-term current use of insulin ([facility]) Inject 5 mg under the skin 1 (one) time per week. 2 mL 5 05/12/20 25 8:49 AM EST 025 Active insulin glargine (Lantus SoloStar) 100 UNIT/ML penIndications:T ype 2 diabetes mellitus with hyperglycemia, without long-term current use of insulin ([facility]) INJECT 14 UNITS SUBCUTANEOUSLY DAILY AT BEDTIME 15 mL 3 025 Active losartan-hydroCH LOROthiazide (Hyzaar) 100-25 MG tabletIndication s:Essential hypertension Take 1 tablet by mouth in the morning. 90 tablet 1 05/12/20 25 8:49 AM EST 025 Active cholecalciferol VITAMIN D (Vitamin D-3) 50 MCG (2000 UT) tabletIndication s:Vitamin D deficiency Take 1 tablet (50 mcg) by mouth in the morning. 90 tablet 1 05/12/20 25 8:49 AM EST Active gabapentin (Neurontin) 100 MG capsuleIndicatio ns:Fibromyalgia, Diabetic peripheral neuropathy (HCC) TAKE 3 CAPSULES BY MOUTH EVERY 8 HOURS 270 capsule 05/12/20 25 8:49 AM EST Active empagliflozin-me tFORMIN ER (Synjardy XR) 12.5-1000 MG 24 hr tabletIndication s:Type 2 diabetes mellitus with hyperglycemia, without long-term current use of insulin (HCC) TAKE 1 TABLET BY MOUTH TWICE DAILY IN THE MORNING AND IN THE EVENING 60 tablet 5 05/12/20 25 8:49 AM EST Active insulin pen needle (Sure Comfort Pen [place]) 31G x 5 mm miscIndications: Type 2 diabetes mellitus with hyperglycemia, without long-term current use of insulin (HCC) USE DIRECTED ONCE DAILY WITH lantus 100 each Active Acetaminophen Extra Strength 500 MG tablet TAKE 1 TABLET BY MOUTH EVERY 4 TO 6 HOURS NEEDED 024 2024 Discontinued(M ed list cleanup (will not trigger notification to Pharmacy)) insulin pen needle (Sure Comfort Pen [place]) 31G x 5 mm miscIndications: Type 2 diabetes mellitus with hyperglycemia, without long-term current use of insulin (HCC) USE DIRECTED ONCE DAILY WITH lantus 100 each 11 024 2024 Discontinued(R eorder (will not trigger notification to Pharmacy)) insulin glargine (Lantus SoloStar) 100 UNIT/ML penIndications:T ype 2 diabetes mellitus with hyperglycemia, without long-term current use of insulin ([facility]) INJECT 16 UNITS SUBCUTANEOUSLY DAILY AT BEDTIME 15 mL 3 025 2024 Discontinued(R eorder (will not trigger notification to Pharmacy)) cholecalciferol VITAMIN D (Vitamin D-3) 50 MCG (1999) tabletIndication s:Vitamin D deficiency TAKE 1 TABLET BY MOUTH EVERY MORNING 90 tablet 1 025 2024 Discontinued(R eorder (will not trigger notification to Pharmacy)) losartan-hydroCH LOROthiazide (Hyzaar) 100-25 MG tabletIndication s:Essential hypertension TAKE 1 TABLET BY MOUTH EVERY MORNING 90 tablet 1 025 2024 Discontinued(R eorder (will not trigger notification to Pharmacy)) gabapentin (Neurontin) 100 MG capsuleIndicatio ns:Fibromyalgia, Diabetic peripheral neuropathy (HCC) TAKE 3 CAPSULES BY MOUTH EVERY 8 HOURS 270 capsule 2024 Discontinued(R eorder (will not trigger notification to Pharmacy)) empagliflozin-me tFORMIN ER (Synjardy XR) 12.5-1000 MG 24 hr tabletIndication s:Type 2 diabetes mellitus with hyperglycemia, without long-term current use of insulin (HCC) TAKE 1 TABLET BY MOUTH TWICE DAILY IN THE MORNING AND IN THE EVENING 60 tablet 04/11/20 12:45 PM EST 2024 Discontinued(R eorder (will not trigger notification to Pharmacy)) Semaglutide, 2 MG/DOSE, (Ozempic, 2 MG/DOSE,) 8 MG/3ML solution pen-injector Inject 2 MG SUBCUTANEOUSLY EVERY 7 DAYS IN THE ABDOMEN, THIGHS OR UPPER ARM. ROTATE INJECTION SITES. 3 mL 04/11/20 12:46 PM EST 2024 Discontinued(A lternate therapy) Active Problems Problem Noted Date Diagnosed Date [...] liver 02/11/2025 NAFLD (nonalcoholic fatty liver disease) 025 Acid reflux 02/11/2025 GERD (gastroesophageal reflux disease) [...] SOME WORKUP. SHE DOES HAVE APPOINTMENT WITH COLOR PASTE MIXING SUPERVISOR NEXT WEEK. Diabetes 02/11/2025 Assessment & Plan [...] EST): As above Osteomyelitis of left foot (CMS/HCC) 01/23/2023 Sinus tachycardia 01/23/2023 Assessment & Plan [...] EDT): Stable Mild chronic obstructive pulmonary disease (CMS/ HCC) 04/02/2018 Assessment & Plan (12/12/2024 12:19 PM EDT): Stable Continue to follow with fbi investigator Assessment & Plan (07/06/2023 4:36 PM EST): Continue to follow with fbi investigator RSV vaccine and COVID vaccine today, she will think about getting flu vaccine Type 2 diabetes mellitus without complication Closed fracture of forearm 01/30/2018 Restrictive lung disease 06/03/2016 Overview (03/24/2025): HAS SEVERE RESTRICTIVE PULMONARY DISORDER, MAINLY DUE TO HER CHRONICALLY ELEVATED LEFT HEMIDIAPHRAGM. Assessment & Plan (07/06/2023 4:37 PM EST): [...] organization. Date Type Department Care Team Description 05/14/2025 Travel 05/14/2025 Telephone [facility] [address] [place] [address] Isabel Ramsay MD Chart Prep 05/06/2025 Patient Outreach [facility] [address] [place] [address] Isabel Ramsay MD Pre-visit Planning (SDOH screening completed on 02/12/2025) 05/01/2025 Refill [facility] [address] [place] [address] Isabel Ramsay MD Type 2 diabetes mellitus with hyperglycemia, without long-term current use of insulin (HCC) 05/01/2025 Refill [facility] [address] [place] [address] Isabel Ramsay MD Type 2 diabetes mellitus with hyperglycemia, without long-term current use of insulin (HCC) 05/01/2025 Refill [facility] [address] [place] [address] Isabel Ramsay MD Essential hypertension; Vitamin D deficiency; Fibromyalgia; Diabetic peripheral neuropathy (HCC) 04/28/2025 Travel 04/23/2025 Telephone [facility] [address] [facility] [place] [address] Joe Pizarro, [facility] Follow Up 04/21/2025 10:00 AM EST Office Visit [facility] [address] [facility] [place] [address] Frank-Holly, Charleen, DDS Teeth missing (Primary Dx) 04/11/2025 9:30 AM EST Office Visit [facility] [address] [facility] [place] [address] Frank-Holly, Charleen, DDS Teeth missing (Primary Dx) 04/10/2025 Travel 04/07/2025 Refill [facility] [address] [facility] [place] [address] Mazin Rice, PharmD 04/03/2025 11:15 AM EST Office Visit [facility] [address] [facility] [place] [address] Frank-Holly, Charleen, DDS Teeth missing (Primary Dx) 04/02/2025 Refill [facility] [place] [address] Isabel Ramsay MD Chronic obstructive pulmonary disease, unspecified COPD type ([facility]) ([facility]) 04/02/2025 Refill [facility] [address] [facility] [place] [address] Mazin Rice, PharmD Type 2 diabetes mellitus with hyperglycemia, without long-term current use of insulin ([facility]) 04/01/2025 Travel 03/31/2025 Refill [facility] [address] [facility] [place] [address] Mazin Rice, PharmD 03/24/2025 2:00 PM EDT Office Visit [facility] [address] [place] [address] Frank-Holly, Charleen, DDS Teeth missing (Primary Dx) 03/23/2025 Travel 03/14/2025 Refill [facility] [address] [place] [address] Isabel Ramsay MD Fibromyalgia; Diabetic peripheral neuropathy (HCC) 03/13/2025 9:30 AM EDT Office Visit [facility] [address] [place] [address] Frank-Holly, Charleen, DDS Teeth missing (Primary Dx) 03/03/2025 Telephone [facility] [address] [place] [address] Isabel Ramsay MD dec recall 02/20/2025 8:00 AM EDT Office Visit [facility] [address] [place] [address] Dariela Keen Encounter for dental examination (Primary Dx); Dental calculus; Bruxism; Dental plaque; Dental bridge present 02/19/2025 Travel from Last 3 Months Immunizations Immunization Administration [...] Sign Reading Time Taken Comments Blood Pressure 116/66 04/28/2025 10:04 AM EST Pulse 101 04/28/2025 10:04 AM EST Temperature 36.2 C (97.2 F) 02/12/2025 10:42 AM EDT Respiratory Rate 22 02/12/2025 10:4 2 AM EDT Oxygen Saturation 98% 02/12/2025 10: 42 AM EDT Inhaled Oxygen Concentration - - Weight 79.7 kg (175 lb 12.8 oz) 025 10:04 AM EST Height 165.1 cm (5' 5 ) 02/12/2025 10:4 2 AM EDT Body Mass Index 29.25 02/12/2025 10:42 AM EDT Plan of Treatment Upcoming Encounters Date Type Department Care Team (Late st Contact Info) Description 05/15/2025 11:00 AM EST Office Visit [facility] [address] [place] [address] Isabel Ramsay MD [address] [place] [address] 05/26/2025 10:00 AM EST Telemedicine [facility] [address] [place] [address] Mazin Rice, PharmD [address] [place] [address] 07/24/2025 1:00 PM EST Office Visit [facility] OPTOMETRY [address] [place] [address] ShahidMary Alice simmons, OD [address] [place] [address] 08/21/2025 12:45 PM EDT Office Visit [facility] ADULT [facility] [address] [place] [address] Dariela Keen Health Maintenance Due Date Last Done Comments CT Colonography 1972 FIT DNA/Cologuard 1972 FIT 1972 FOBT 1972 HIV Screening 1972 Sigmoidoscopy 1972 Diabetes: Foot Exam 1982 Family Planning (PISQ) 12/29/1987 Hepatitis C Screening 1990 Hepatitis A Vaccines (1 of 2 - Risk 2-dose series) 12/29/1991 Pap Smear 1993 HPV/Cotest 2002 RSV Patients and Patients Aged 60 years or older (1 - Risk 50-74 years 1-dose series) 2022 COVID-19 Vaccine ( season) 2025 07/06/2023, 01/19/2021, 12/29/2020 Influenza Vaccine (#1) 2025 8, 03/12/2013, 02/17/2012, Additional history exists Diabetes: Hemoglobin A1C 05/14/2025 025, 12/12/2024, 10/10/2024, Additional history exists Depression Monitoring 08/12/2025 02/12/2025, 025 Dental Oral Exam 08/21/2025 02/20/2025, , 11/14/2023, Additional history exists Dental Prophylaxis 08/21/2025 02/20/2025, 0 08/19/2024, 11/14/2023, Additional history exists Diabetes: Urine Protein Screening 10/10/2025 10/10/2024, 10/10/2024, 03/16/2023, Additional history exists Lipid Panel 10/10/2025 10/10/2024, 02/26, 04/25/2022, Additional history exists Alcohol/Substance Use Screening 12/12/2025 12/12/2024 Mammogram 01/06/2026 01/06/2025, 0809/2023, 12/26/2022, Additional history exists SDOH Screening 02/12/2026 02/12/2025 Dental X-Ray: Bitewings 02/21/2026 02/21/20, 11/14/2023, 02/11/2022, Additional history exists Tobacco Screening 04/21/2026 04/21/2025 Disability Screening 05/14/2026 05/14/2025 Eye Exam 07/10/2026 07/10/2024, 06/29, 07/10/2024, Additional history exists Colonoscopy 06/27/2027 06/27/2024 Colorectal Cancer Screening 06/27/2027 Dental X-Ray: Full Mouth 02/22/2028 025, 10/03/2023, 02/11/2022, Additional history exists DTaP/Tdap/Td Vaccines (3 - Td or Tdap) 03/10/2032 03/10/2022, 11/30/2010 Hepatitis B Vaccines Completed 06/02/2011, 01/28/2011, 11/30/2010 [...] on patient's age to complete this topic Goals Goal Patient Goal Type Associated Problems [...] Weekly blood pressure task No Joe Brian [facility] Weekly blood pressure task Care Plan Weekly blood pressure task No Joe Brian [facility] Weekly blood pressure task Care Plan Weekly blood pressure task No Joe Brian [facility] Patient has chronic kidney disease Care Plan Patient has chronic kidney disease No Joe Brian [facility] Patient has chronic kidney disease Care Plan Patient has chronic kidney disease No Joe Brian [facility] Patient has chronic kidney disease Care Plan Patient has chronic kidney disease No Joe Brian [facility] Patient has diabetic neuropathy Care Plan Patient has diabetic neuropathy No Joe Brian [facility] Patient has diabetic neuropathy Care Plan Patient has diabetic neuropathy No Joe Brian [facility] Patient has diabetic neuropathy Care Plan Patient has diabetic neuropathy No Jeo Brian [place] Weekly blood pressure task Care Plan Weekly blood pressure task No Joe Brian [facility] Weekly blood pressure task Care Plan Weekly blood pressure task No Joe Brian [facility] Weekly blood pressure task Care Plan Weekly blood pressure task No Joe Brian [facility] Patient has chronic kidney disease Care Plan Patient has chronic kidney disease No Joe Brina [facility] Patient has chronic kidney disease Care Plan Patient has chronic kidney disease No Joe Brian [facility] Patient has chronic kidney disease Care Plan Patient has chronic kidney disease No Joe Brian [facility] Patient has diabetic neuropathy Care Plan Patient has diabetic neuropathy No Joe Brian [facility] Patient has diabetic neuropathy Care Plan Patient has diabetic neuropathy No Joe Brian, [facility] Patient has diabetic neuropathy Care Plan Patient has diabetic neuropathy No Joe Brian, [facility] Weekly blood pressure task Care Plan Weekly blood pressure task No RiceNupurMazin, PharmD Weekly blood pressure task Care Plan Weekly blood pressure task No Rice Mazin, PharmD Weekly blood pressure task Care Plan Weekly blood pressure task No Rice, Mazin, PharmD Patient has chronic kidney disease Care Plan Patient has chronic kidney disease No Rice Mazin, PharmD Patient has chronic kidney disease Care Plan Patient has chronic kidney disease No Rice Mazin, PharmD Patient has chronic kidney disease [...] Plan Patient has chronic kidney disease No Vasquez Connie, PharmD Patient has chronic kidney disease [...] blood pressure task No VasquezAisha johnstonfer, PharmD Patient has chronic kidney disease Care Plan Patient has chronic kidney disease No VasquezJenConnie, PharmD Patient has chronic kidney disease Care Plan Patient has chronic kidney disease No VasquezJenConnie, PharmD Patient has chronic kidney disease Care Plan Patient has chronic kidney disease No VasquezJenConnie, PharmD Patient has diabetic neuropathy Care Plan Patient has diabetic neuropathy No VasquezJenConnie, PharmD Patient has diabetic neuropathy Care Plan Patient has diabetic neuropathy No VasquezJenConnie, PharmD Patient has diabetic neuropathy Care Plan Patient has diabetic neuropathy No VasquezJenConnie, PharmD Weekly blood pressure task [...] Care Plan Patient has diabetic neuropathy No VasquezJenConnie, PharmD Patient has diabetic neuropathy Care Plan Patient has diabetic neuropathy No VasquezJenConnie, PharmD Patient has diabetic neuropathy [...] has diabetic neuropathy No Mary Julio MA Procedures Procedure Name Priority Date/Time Associated Diagnosis Comments CASE PRESENTATION, DETAILED AND EXTENSIVE TREATMENT PLANNING Routine 04/21/2025 10:00 AM EST Teeth missing 7,3 MAXILLARY PARTIAL DENTURE - RESIN BASE (INCLUDING, RETENTIVE/CLASPING MATERIALS, RESTS, AND TEETH) Routine 04/21/2025 10:00 AM EST Teeth missing WAX TRY IN Routine 04/11/2025 9:30 AM EST Teeth missing CASE PRESENTATION, DETAILED AND EXTENSIVE TREATMENT PLANNING Routine 04/03/2025 11:15 AM EST Teeth missing 30,18,19 MANDIBULAR PARTIAL DENTURE - RESIN BASE (INCLUDING, RETENTIVE/CLASPING MATERIALS, RESTS, AND TEETH) Routine 04/03/2025 11:15 AM EST Teeth missing WAX TRY IN Routine 03/24/2025 2:00 PM EDT Teeth missing DENTURE IMPRESSION Routine 03/13/2025 9: 30 AM EDT Teeth missing CASE PRESENTATION, DETAILED AND EXTENSIVE TREATMENT PLANNING Routine 02/20/2025 8:00 AM EDT ORAL HYGIENE INSTRUCTIONS Routine 02/20/2025 8:00 AM EDT Dental calculus Dental plaque PROPHYLAXIS - ADULT Routine 02/20/2025 8 :00 AM EDT Dental calculus Dental plaque INTRAORAL - COMPLETE SERIES OF RADIOGRAPHIC IMAGES Routine 02/20/2025 8:00 AM EDT 8 RE-CEMENT OR RE-HICKS CROWN Routine 02/20/2025 8:00 AM EDT Encounter for dental examination Dental calculus Bruxism Dental plaque Dental bridge present PERIODIC ORAL EVALUATION - ESTABLISHED PATIENT Routine 02/20/2025 8:00 AM EDT Encounter for dental examination Dental calculus Bruxism Dental plaque Dental bridge present 10 CROWN - PORCELAIN/CERAMIC Routine 02/20/2025 12:00 AM EDT POCT GLYCATED HEMOGLOBIN, TOTAL Routine 02/12/2025 10:54 AM EDT Type 2 diabetes mellitus with hyperglycemia, with long-term current use of insulin ([facility]) BI MAMMOGRAM SCREENING TOMOSYNTHESIS BILATERAL Routine 01/06/2025 2:20 PM EDT ALBUMIN, RANDOM URINE W/CREATININE Routine 10/10/2024 7:19 AM EDT Type 2 diabetes mellitus with hyperglycemia, without long-term current use of insulin ([facility]) LIPID PANEL, STANDARD Routine 10/10/2024 7:19 AM EDT HM COLONOSCOPY Routine 06/27/2024 3:52 PM EST from Last 3 Months or Most Recently Relevant to Health Maintenance Results * (ABNORMAL) POCT Hgb A1c (02/12/2025 10:54 AM EDT) Hemoglobin A1C 7.0(A) 4.0 - 5.7 % QC Media Lot # [id number] Lot# Expiration Date 62 Blood 02/12/2025 10:5 4 AM EDT Isabel Hubbard MD POINT OF CARE TEST EN TER/EDIT ORDERABLES Final Result * BI Mammogram Screening Tomosynthesis Bilateral (01/06/2025 2:20 PM EDT) Anatomical Region Laterality Modality Breast Bilateral Mammography 01/06/2025 2:20 PM EDT Narrative 01/13/2025 1:43 PM EDT [facility] [address] [place] [address] Mammography Report Signed Patient: Denice Sanchez MR#: [id number] : 1970 Acct:[id number] Age/Sex: 54 / F ADM Date: 01/06/25 Loc: HO.MAMMO Attending Dr: Isabel Hubbard MD Ordering Physician: Isabel Ramsay MD Results: 1Negative Date of Service: 01/06/25 Follow Up: 1 Year From Orig ina Mammogram Procedure(s): MM tomosynthesis screening BI Accession Number(s): [id number] cc: Isabel Ramsay MD EXAMINATION: MM SCREENING [...] 01/13/25 1340 DD/ 1420 TD/TT: 01/06/25 1440 Machine Bender: Procedure Note Donotuseinterpreter, Image - 01/13/2025 [facility] [address] [place] [address] Mammography Report Signed Patient: Denice SanchezMR#: [id number] : 1970Acct:[id number] Age/Sex: 54 / FADM Date: 01/06/25 Loc: HO.MAMMO Attending Dr: Isabel Hubbard MD Ordering Physician: Isabel Ramsay MDResults: 1Negative Date of Service: 01/06/25Follow Up: 1 Year From Orig ina Mammogram Procedure(s): MM tomosynthesis screening BI Accession Number(s): [id number] cc: Isabel Ramsay MD EXAMINATION: MM SCREENING [...] 01/13/25 1340 DD/ 1420 TD/TT: 01/06/25 1440 Machine Bender: us Isabel Hubbard MD IMG BI PROCEDURES Fin al Result * Albumin, Random Urine W/Creatinine (10/10/2024 7:19 AM EDT) Creatinine, Urine 83.89 mg/dL [facility] Microalbumin Urine 11.0 mg/L [facility] Microalbum Creatinine Ratio Ur 13.1 <30 ug/mg cr [facility] Comment:Albumin/Creatinine R atio Reference Ranges: Normal: < 30 ug/mg creatinine Microalbuminuria: 30 - 300 ug/mg creatinineClinical Albuminuria: > 300 ug/mg creatinine Urine (Urine, Random) 10/10/2024 7:19 AM EDT 10/10/2024 7:38 AM EDT us Isabel Hubbard MD LAB URINE ORDERABLES Final Result [facility] [address] [place] [phone] * (ABNORMAL) Lipid Panel, Standard (10/10/2024 7:19 AM EDT) Triglycerides 253(H) <150 mg/dL [facility] Comment:Desirable Triglyceri de: less than 150 mg/dLBorderline High Triglyceride 150-199 mg/dLHigh Triglyceride: 200-499 mg/dLVery High Triglyceride: greater than or equal to 5OO mg/dL Cholesterol 144 <200 mg/dL [facility] Comment:Desirable Cholestero l: less than 200 mg/dLBorderline High Cholesterol: 200-239 mg/dLHigh Cholesterol: greater than 239 mg/dL LDL Cholesterol Calculated 56 <100 mg/dL [facility] Comment:Desirable LDL: less than 100 mg/dLNear Optimal/Above Optimal LDL: 110- 129 mg/dLBorderline High LDL: 130-159 mg/dLHigh LDL: 160-189 mg/dLVery High LDL: greater than or equal to 190 mg/dL HDL Cholesterol 38(L) >40 mg/dL [facility] Comment:Desirable HDL: great er than 40 mg/dL Note: This HDL assay may give artificially low results in patients with liver disease. 10/10/2024 7:19 AM EDT 10/10/2024 7:19 AM EDT us Isabel Hubbard MD LAB BLOOD ORDERABLES Final Result [facility] [address] [place] [address] [phone] * Hm Colonoscopy (06/27/2024 3:52 PM EST) us Historical Provider HEALTH MAINTENANCE Final Result from Last 3 Months or Most Recently Relevant to Health Maintenance Additional Health Concerns Active Problems Noted Date [...] neuropathy 05/14/2025 Patient has diabetic neuropathy 05/14/2025 Insurance [facility] C3 DENTAL-[facility] MEDICAID STAND ADULT Care Teams Top Lift And Automatic Window Repairer Relationship Specialty Start Date End Date Isabel Ramsay MD [address] [place] [address] PCP - General Family Medicine 01/09/19 Mazin Rice, PharmD [address] [place] [phone] Pharmacist Internal Medicine 09/10/24
--- OUTSIDE RECORDS SUMMARY | 2025-05-15 09:11 | XMS_ITS | Encounter Summary ---
Author Organization [employer] Address [address] [facility] 7t [place] [address] Care Team Providers Care Application Integration Engineer Name Role Phone Isabel Ramsay MD Primary Care Provide r Mazin Rice PharmD Unavailable [phone] Reason for Visit * Reason Comments Med Refill Encounter Details Date Type Department Care Team ([facility] st Contact Info) Description 12/01/2022 Refill [facility] CHC MED & PEDS [address] [place] [address] Sawyer Richards MD [address] [place] [address] Type 2 diabetes mellitus without complication, unspecified whether termite inspector insulin use ([facility]) Social History Tobacco Use Types Packs/Day Years [...] Description 05/15/2025 11:00 AM EST Office Visit [facility] MEDICINE [address] [place] [address] Isabel Ramsay MD [address] [place] [address] 05/26/2025 10:00 AM EST Telemedicine [facility] MEDICINE [address] [place] [address] Mazin Rice, PharmD 230 [place] [address] 07/24/2025 1:00 PM EST Office Visit [facility] OPTOMETRY [address] [place] [address] Shahid, Mary Alice, OD 230 [place] [address] 08/21/2025 12:45 PM EDT Office Visit [facility] ADULT DENTAL [address] [place] [address] Dariela Keen documented as of this encounter Visit Diagnoses Diagnosis Type 2 diabetes mellitus without complication, unspecified whether fci insulin use documented in this encounter Additional Health Concerns Assessment Noted Time PHQ-9 Depression Total Score: 17 06/2 023 8:32 AM EDT documented as of this encounter Care Teams Application Integration Engineer Relationship Specialty Start Date End Date Isabel Ramsay MD [address] [place] [phone] PCP - General Family Medicine 01/09/19 Mazin Rice, PharmD [address] [place] [address] [phone] Pharmacist Internal Medicine 09/10/24 documented as of this encounter
--- OUTSIDE RECORDS SUMMARY | 2025-05-15 09:11 | XMS_ITS | Encounter Summary ---
Author Organization [employer] [facility] Address 75 [facility] 7t [place] [address] Care Team Providers Care Agitator Operator Name Role Phone Isabel Ramsay MD Primary Care Provide r Mazin Rice PharmD Unavailable [phone] Encounter Details Date Type Department Care Team (Latest Contact Info) Description 02/11/2022 Abstract [facility] CONVERSIONS Dental, Provider, DDS Social History Tobacco [...] Visit [facility] MEDICINE [address] [place] [phone] Isabel Ramsay MD [address] [place] [address] 05/26/2025 10:00 AM EST Telemedicine [facility] MEDICINE [address] [place] [address] Mazin Rice, PharmD [address] [place] [address] 07/24/2025 1:00 PM EST Office Visit [facility] OPTOMETRY [address] [place] [address] Mary Alice Key, OD 230 [place] [address] 08/21/2025 12:45 PM EDT Office Visit [facility] ADULT DENTAL [address] [place] [address] Dariela Keen documented as of this encounter Visit Diagnoses Not on filedocumented in this encounter Care Teams Agitator Operator Relationship Specialty Start Date End Date Isabel Ramsay MD [address] [place], [place] [phone] PCP - General Family Medicine 01/09/19 Mazin Rice, BalwinderD [address] [place], [place] [phone] Pharmacist Internal Medicine 09/10/24 documented as of this encounter
--- OUTSIDE RECORDS SUMMARY | 2025-05-15 09:12 | XMS_ITS | Encounter Summary ---
Author Organization [employer] Address 75 [facility] 7t [place] [address] Care Team Providers Care Rail Bonder Name Role Phone Isabel Ramsay MD Primary Care Provide r Mazin Rice PharmD Unavailable [phone] Encounter Details Date Type Department Care Team ([facility] Contact Info) Description 02/15/2023 Orders Only [facility] CHC MED & PEDS [address] [place] [address] Lizzie Sandoval LPN Social History Tobacco Use [...] Description 05/15/2025 11:00 AM EST Office Visit [facility] MEDICINE [address] [place] [address] [phone] Isabel Ramsay MD [address] [place] [address] [phone] 05/26/2025 10:00 AM EST Telemedicine [facility] MEDICINE [address] [place] [address] Mazin Rice, PharmD [address] [place] [address] 07/24/2025 1:00 PM EST Office Visit [facility] OPTOMETRY [address] [place] [address] Shahid, Mary Alice, OD 230 [place] [address] 08/21/2025 12:45 PM EDT Office Visit [facility] ADULT DENTAL 230 [place] [address] Dariela Keen documented as of this encounter Visit Diagnoses Not on filedocumented in this encounter Additional Health Concerns Assessment Noted Time PHQ-9 Depression Total Score: 17 06 023 8:32 AM EDT documented as of this encounter Care Teams Rail Bonder Relationship Specialty Start Date End Date Isabel Ramsay MD [address] [place] [address] [phone] PCP - General Family Medicine 01/09/19 Mazin Rice, PharmD [address] [place] [address] [phone] Pharmacist Internal Medicine 09/10/24 documented as of this encounter
--- OUTSIDE RECORDS SUMMARY | 2025-05-15 09:12 | XMS_ITS | Clinical Summary ---
Author Organization [facility] Address [address] [place] [address] Phone Care Team Providers Care Fish Cake Maker Name Role Phone Isabel Ramsay MD Primary Care Provide r Allergies No known active allergies Medications acetaminophen (TYLENOL 8 HOUR) 650 mg 8 hr tablet TAKE 1 TABLET BY MOUTH EVERY 8 HOURS NEEDED FOR MODERATE PAIN DO NOT BREAK, CRUSH, DISSOLVE OR CHEW 5 Active albuterol 2.5 mg /3 mL (0.083 %) nebulizer solution INHALE 1 AMPULE USING A NEBULIZER FOUR TIMES DAILY NEEDED FOR WHEEZING OR SHORTNESS OF BREATH 5 Active Alcohol Prep Pads pads, medicated 1 (one) time each day. as directed 5 Active amLODIPine (NORVASC) 2.5 mg tablet Take 1 tablet (2.5 mg total) by mouth 1 (one) time each day in the morning. 5 Active aspirin 81 mg chewable tablet TAKE 1 TABLET BY MOUTH EVERY MORNING (CHEW) 5 Active atorvastatin (LIPITOR) 40 mg tablet Take 1 tablet (40 mg total) by mouth 1 (one) time each day in the morning. 5 Active blood-glucose sensor (FreeStyle Maura 3 Plus Sensor) APPLY 1 SENSOR TOPICALLY EVERY 15 DAYS. USE DIRECTED TO TEST BLOOD SUGAR 5 Active FreeStyle Maura 3 [place] misc APPLY 1 SENSOR TOPICALLY EVERY 15 DAYS. USE DIRECTED TO TEST BLOOD SUGAR 5 Active clotrimazole (LOTRIMIN) 1 % vaginal cream INSERT 1 APPLICATORFUL VAGINALLY IN THE EVENING FOR 7 DAYS 5 Active cholecalcifero l (VITAMIN D-3) 50 mcg (2,000 unit) tablet Take 1 tablet (2,000 Units total) by mouth 1 (one) time each day in the morning. 5 Active Jardiance 25 mg tablet Take 1 tablet (25 mg total) by mouth 1 (one) time each day in the morning. 5 Active Trulicity 3 mg/0.5 mL pen injector injection INJECT ONE PEN (= 3MG) SUBCUTANEOUSLY ONCE A WEEK DIRECTED 5 Active Synjardy XR 12.5-1,000 mg tablet, IR - ER, biphasic 24hr TAKE 1 TABLET BY MOUTH TWICE DAILY IN THE MORNING AND IN THE EVENING 5 Active gabapentin (NEURONTIN) 100 mg capsule TAKE 3 CAPSULES BY MOUTH EVERY 8 HOURS Active glipiZIDE (GLUCOTROL) 10 mg tablet TAKE 1 TABLET BY MOUTH TWICE DAILY IN THE MORNING AND IN THE EVENING BEFORE MEALS 5 Active ibuprofen (ADVIL,MOTRIN) 600 mg tablet Take 1 tablet (600 mg total) by mouth every 6 (six) hours if needed. for mild pain 5 Active Lantus Solostar U-100 Insulin 100 unit/mL (3 mL) injection pen INJECT 16 UNITS SUBCUTANEOUSLY AT BEDTIME Active ipratropium (ATROVENT) 21 mcg (0.03 %) nasal spray USE 2 SPRAYS IN EACH NOSTRIL ONCE DAILY IN THE EVENING BEFORE de ponerse la mscara de cpap 5 Active lidocaine (LIDODERM) 5 % patch APPLY 1 PATCH TOPICALLY TO SKIN, LEAVE ON FOR 12 HOURS AND OFF FOR 12 HOURS DIRECTED 5 Active metFORMIN (GLUCOPHAGE) 1,000 mg tablet TAKE 1 TABLET BY MOUTH TWICE DAILY IN THE MORNING AND IN THE EVENING WITH FOOD 5 Active losartan-hydro CHLOROthiazide (HYZAAR) 100-25 mg per tablet Take 1 tablet by mouth 1 (one) time each day in the morning. 5 Active metoprolol succinate (TOPROL-XL) 25 mg 24 hr tablet Take 1 tablet (25 mg total) by mouth 1 (one) time each day in the morning. 5 Active pantoprazole (PROTONIX) 20 mg EC tablet TAKE 1 TABLET BY MOUTH TWICE DAILY IN THE MORNING AND IN THE EVENING 4 Active Ultra-Fine Pen Needle 31 gauge x 3/16 needle USE DIRECTED EVERY DAY WITH lantus 5 Active Ozempic 1 mg/dose (4 mg/3 mL) injection pen Inject 1 MG SUBCUTANEOUSLY EVERY 7 DAYS IN THE ABDOMEN, THIGHS OR UPPER ARM. ROTATE INJECTION SITES. 5 Active sertraline (ZOLOFT) 25 mg tablet Take 1 tablet (25 mg total) by mouth 1 (one) time each day in the morning. 5 Active Encounters Date Type Department Care Team Description 04/07/2025 10:00 AM EST [facility] [place] [id number] [phone] Matt Saravia DPM Diabetic mononeuropathy simplex (CMS/HCC V24, CMS/HCC V28) (Primary Dx) from Last 3 Months Social History Tobacco Use Types Packs/Day Years Used Date Smoking Tobacco: Never Assessed Comments Unknown Sex and Gender Information Value Date Recorded Sex Assigned at Not on file Legal Sex Female 8:45 AM EDT Gender Identity Not on file Sexual Orientation Not on file Plan of Treatment Upcoming Encounters Date Type Department Care Team ([facility] st Contact Info) Description 10/06/2025 2:00 PM EDT Office Visit [facility] [place] [address] [phone] Matt Saravia DPM [address] [phone] Health Maintenance Due Date Last Done Comments Breast Cancer Screening 1972 Colorectal Cancer Screening: Colonoscopy 1972 Diabetes: Annual GFR (Glomerular Filtration Rate) 1972 Diabetes: Annual Foot Exam 1982 Diabetes: Annual Retina Eye Exam 1982 Hepatitis A Vaccines (1 of 2 - Risk 2-dose series) 12/29/1991 Cervical Cancer Screening: Pap Smear 1993 RSV Immunization Adult Patients (1 - Risk 50-74 years 1-dose series) 2022 Depression Screening 05/29/2024 HIV Screening 09/28/2024 Hepatitis C Screening 09/28/2024 Osteoporosis Screening (Bone Density Screening) 09/28/2024 Social Influencers of Health Screening 09/28/2024 COVID-19 Vaccine ( season) 2025 07/06/2023, 01/19/2021, 12/29/2020 Influenza Vaccine (#1) 2025 8, 03/12/2013, 02/17/2012, Additional history exists Diabetes: Annual Urine Albumin-Creatinine Ratio (uACR) 04/07/2025 Hypertension/CHF/CAD Annual BMP Blood Test 04/07/2025 Diabetes: Blood Sugar Control Test (HGBA1C) 08/12/2025 02/12/2025 Cholesterol Screening (Lipid Panel) 10/10/2029 10/10/2024 DTaP,Tdap,and Td Vaccines (3 - Td or Tdap) 03/10/2032 03/10/2022, 11/30/2010 Hepatitis B Vaccines Completed 06/02/2011, 01/28/2011, 11/30/2010 Pneumococcal Vaccine: 50+ Years Completed 03/10/2022, 11/30/2010 Zoster Vaccines Completed 03/28/2024, 01/25/2024 HIB Vaccines Aged Out No longer eligi ble based on patient's age to complete this topic HPV Vaccines Aged Out No longer eligi ble based on patient's age to complete this topic IPV Vaccines Aged Out No longer eligi ble based on patient's age to complete this topic MMR Vaccines Aged Out No longer eligi ble based on patient's age to complete this topic Meningococcal ACWY Vaccine Aged Out N o longer eligible based on patient's age to complete this topic Meningococcal B Vaccine Aged Out No l onger eligible based on patient's age to complete this topic RSV Immunization Patients Under 20 months Aged Out No longer eligible based on patient's age to complete this topic Varicella Vaccines Aged Out No longer eligible based on patient's age to complete this topic Insurance Care Teams Fish Cake Maker Relationship Specialty Start Date End Date Isabel Ramsay MD [address] [place] [phone] PCP - General Internal Medicine 09/28/24
--- OUTSIDE RECORDS SUMMARY | 2025-05-15 09:12 | XMS_ITS | Encounter Summary ---
Author Organization [employer] Address [address] [facility] [address] 7[address] [place] [address] Care Team Providers Care Balance Weigher Name Role Phone Isabel Ramsay MD Primary Care Provide r Mazin Rice PharmD Unavailable [phone] Encounter Details Date Type Department Care Team ([facility] st Contact Info) Description 07/17/2024 Telephone [facility] ADULT DENTAL [address] [place] [address] Lina Law DDS Social History Tobacco Use [...] Description 05/15/2025 11:00 AM EST Office Visit [facility] MEDICINE [address] [place] [address] Isabel Ramsay MD [address] [place] [address] 05/26/2025 10:00 AM EST Telemedicine [facility] MEDICINE [address] [place] [address] Mazin Rice, PharmD 230 [place] [address] 07/24/2025 1:00 PM EST Office Visit [facility] OPTOMETRY [address] [place] [address] Mary Alice Key, OD 230 [place] [address] 08/21/2025 12:45 PM EDT Office Visit [facility] ADULT DENTAL 230 [place] [address] Dariela Keen documented as of this encounter Visit Diagnoses Not on filedocumented in this encounter Additional Health Concerns Assessment Noted Time PHQ-9 Depression Total Score: 15 024 1:22 PM EDT documented as of this encounter Care Teams Balance Weigher Relationship Specialty Start Date End Date Isabel Ramsay MD 230 [place], [place] [phone] PCP - General Family Medicine 01/09/19 Mazin Rice, Olya [address] [place] [address] Pharmacist Internal Medicine 09/10/24 documented as of this encounter
--- OUTSIDE RECORDS SUMMARY | 2025-05-15 09:12 | XMS_ITS | Encounter Summary ---
Author Organization [employer] Address [address] [facility] [address] 7t [place] [address] Care Team Providers Care District Manager In Training Name Role Phone Isabel Ramsay MD Primary Care Provide r Mazin Rice PharmD Unavailable [phone] Reason for Visit * Reason Onset Date Comments Appointment 07/17/2024 Encounter Details Date Type Department Care Team (Late st Contact Info) Description 07/17/2024 Telephone [facility] ADULT DENTAL 230 [place], [place] [phone] Charleen Amador DDS [address] [place], [place] [phone] Appointment Social History Tobacco Use Types Packs/Day [...] EXAM THAT WAS APPROVED BY [facility] IN [facility] CS documented in this encounter Plan of Treatment Upcoming Encounters Date Type Department Care Team ([facility] st Contact Info) Description 05/15/2025 11:00 AM EST Office Visit [facility] MEDICINE [address] [place] [address] Isabel Ramsay MD [address] [place] [address] 05/26/2025 10:00 AM EST Telemedicine [facility] MEDICINE [address] [place] [address] Mazin Rice, PharmD [address] [place] [address] 07/24/2025 1:00 PM EST Office Visit [facility] OPTOMETRY [address] [place] [address] [place] [phone] Shahid, Mary Alice, OD 230 [place] [address] 08/21/2025 12:45 PM EDT Office Visit [facility] ADULT DENTAL [address] [place] [address] Dariela Keen documented as of this encounter Visit Diagnoses Not on filedocumented in this encounter Additional Health Concerns Assessment Noted Time PHQ-9 Depression Total Score: 15 024 1:22 PM EDT documented as of this encounter Care Teams District Manager In Training Relationship Specialty Start Date End Date Isabel Ramsay MD [address] [place] [address] PCP - General Family Medicine 01/09/19 Mazin Rice, BalwinderD [address] [place], [place] [phone] Pharmacist Internal Medicine 09/10/24 documented as of this encounter
--- OUTSIDE RECORDS SUMMARY | 2025-05-15 09:12 | XMS_ITS | Encounter Summary ---
Author Organization [employer] Address [address] [facility] [address] 7t [place] [address] Care Team Providers Care Certified Vehicle Fire Investigator Name Role Phone Isabel Ramsay MD Primary Care Provide r Mazin Rice PharmD Unavailable Encounter Details Date Type Department Care Team (Late st Contact Info) Description 07/19/2024 Telephone [facility] ADULT DENTAL 230 [place], [place] [phone] Joelle, Velvet [address] [place], [place] [phone] Social History Tobacco Use Types Packs/Day Years [...] Description 05/15/2025 11:00 AM EST Office Visit [facility] MEDICINE [address] [place] [address] Isabel Ramsay MD [address] [place] [address] 05/26/2025 10:00 AM EST Telemedicine [facility] MEDICINE [address] [place] [address] Mazin Rice, PharmD 230 [place] [address] 07/24/2025 1:00 PM EST Office Visit [facility] OPTOMETRY [address] [place] [address] Mary Alice Key, OD 230 [place] [address] 08/21/2025 12:45 PM EDT Office Visit [facility] ADULT DENTAL [address] [place] [address] Dariela Keen documented as of this encounter Visit Diagnoses Not on filedocumented in this encounter Additional Health Concerns Assessment Noted Time PHQ-9 Depression Total Score: 15 024 1:22 PM EDT documented as of this encounter Care Teams Certified Vehicle Fire Investigator Relationship Specialty Start Date End Date Isabel Ramsay MD [address] [place] [address] PCP - General Family Medicine 01/09/19 Mazin Rice, BalwinderD [address] [place] [address] Pharmacist Internal Medicine 09/10/24 documented as of this encounter
--- OUTSIDE RECORDS SUMMARY | 2025-05-15 09:12 | XMS_ITS | Encounter Summary ---
Author Organization [employer] Address [address] [place] [address] 7t [place] [address] Care Team Providers Care Refinery Operator Reforming Unit Name Role Phone Isabel Ramsay MD Primary Care Provide r Mazin Rice PharmD Unavailable [phone] Reason for Visit * Reason Comments Med Refill Encounter Details Date Type Department Care Team (Late Contact Info) Description 12/30/2022 Refill [facility] CHC MED & PEDS [address] [place] [address] Isabel Ramsay MD [address] [place], [place] [phone] Chronic obstructive pulmonary disease, unspecified COPD type [...] Description 05/15/2025 11:00 AM EST Office Visit [facility] MEDICINE [address] [place], [place] [phone] Isabel Ramsay MD [address] [place] [address] 05/26/2025 10:00 AM EST Telemedicine [facility] MEDICINE [address] [place] [address] Mazin Rice, PharmMilena 230 [place] [address] 07/24/2025 1:00 PM EST Office Visit [facility] OPTOMETRY [address] [place] [address] Shahid, Mary Alice, OD 230 [place] [address] 08/21/2025 12:45 PM EDT Office Visit [facility] ADULT DENTAL [address] [place] [address] Dariela Keen documented as of this encounter Visit Diagnoses Diagnosis Chronic obstructive pulmonary disease, unspecified COPD type (CMS/HCC) (HCC) documented in this encounter Additional Health Concerns Assessment Noted Time PHQ-9 Depression Total Score: 17 023 8:32 AM EDT documented as of this encounter Care Teams Refinery Operator Reforming Unit Relationship Specialty Start Date End Date Isabel Ramsay MD [address] [place] [address] [phone] PCP - General Family Medicine 01/09/19 Mazin Rice, PharmMilena [address] [place] [address] [phone] Pharmacist Internal Medicine 09/10/24 documented as of this encounter
--- OUTSIDE RECORDS SUMMARY | 2025-05-15 09:12 | XMS_ITS | Encounter Summary ---
Author Organization [employer] Address [address] [facility] [address] 7t [place] [address] Care Team Providers Care Shaker Operator Name Role Phone Isabel Ramsay MD Primary Care Provide r Mazin Rice PharmD Unavailable [phone] Reason for Visit * Reason Comments Med Refill Encounter Details Date Type Department Care Team ([facility] st Contact Info) Description 06/04/2023 Refill [facility] MEDICINE [address] [place], [place] [phone] Isabel Ramsay MD 230 [place], [place] [phone] Type 2 diabetes mellitus without complication, unspecified whether shelter insulin use ([facility]) Social History Tobacco Use Types [...] Description 05/15/2025 11:00 AM EST Office Visit [facility] MEDICINE [address] [place] [address] Isabel Ramsay MD [address] [place] [address] 05/26/2025 10:00 AM EST Telemedicine [facility] MEDICINE [address] [place] [address] Mazin Rice, PharmD 230 [place] [address] 07/24/2025 1:00 PM EST Office Visit [facility] OPTOMETRY [address] [place] [address] Mary Alice Key, OD [address] [place] [address] 08/21/2025 12:45 PM EDT Office Visit [facility] ADULT DENTAL [address] [place] [address] Dariela Keen documented as of this encounter Visit Diagnoses Diagnosis Type 2 diabetes mellitus without complication, unspecified whether intermediate card tender insulin use documented in this encounter Additional Health Concerns Assessment Noted Time PHQ-9 Depression Total Score: 17 023 8:32 AM EDT documented as of this encounter Care Teams Shaker Operator Relationship Specialty Start Date End Date Isabel Ramsay MD 230 [place], [place] [phone] PCP - General Family Medicine 01/09/19 Mazin Rice, BalwinderD 230 [place] [address] Pharmacist Internal Medicine 09/10/24 documented as of this encounter
== END 2025-05-15 09:42 | disposition home or self-care (01) ==
LOC: HO.ENCR 08:42
PROVIDERS: PCP Internal Medicine; Visit Provider Internal Medicine Endocrinology, Diabetes & Metabolism
DX: M81.0 Age-related osteoporosis without current pathological fracture (principal)
CPT/HCPCS: 99213

== ENCOUNTER → 2025-05-15 08:41 | Outpatient (BNVA) | payer MEDICAID, SELFPAY | PROVIDERS: PCP Internal Medicine; Visit Provider Internal Medicine Endocrinology, Diabetes & Metabolism | DX: M81.0 Age-related osteoporosis without current pathological fracture (principal); M85.80 Other specified disorders of bone density and structure, unspecified site; Z79.899 Other long term (current) drug therapy | CPT/HCPCS: 99212 ==